=== PATIENT | female | born 1955 | race Caucasian/White ===

== ENCOUNTER 2023-01-29 06:33 | Day surgery (SDC) | payer MEDICARE, OTHER, SELFPAY ==
[2023-01-29 07:47] VITALS: BP 132/76; PULSE 79; RESP 16; TEMP 36.2; O2SAT 98
--- NOTE | 2023-01-29 08:01 | W.PM.PROCNOT ---
Date of procedure: 01/29/23 Pre-op diagnosis: lumbar stenosis with neurogenic claudication Procedure: Right L4, L5 transforaminal epidural steroid injection PRE- AND POSTOPERATIVE DIAGNOSES: lumbar stenosis with neurogenic claudication SOLUTION USED: 80 mg Kenalog, 1 mL 2% preservative free lidocaine, 1 mL 0.9% normal saline, 1 mL 0.25 preservative free Marcaine. COMPLICATIONS: None. ANESTHESIA: Local. PROCEDURE DESCRIPTION: After informed consent was obtained, the patient was brought to the operating room and was placed in the prone position. Standard monitoring was applied. The skin overlying the area was prepped and draped in standard sterile fashion. A 25-gauge spinal needle was inserted through the skin and directed toward the indicated nerve root foramen under fluoroscopic guidance. Omnipaque dye 0.3 mL was injected and appropriate epidural distribution was established without intravascular or intrathecal spread. Subsequently, 1 mL of the corticosteroid and local anesthetic solution was injected. The needle was removed. The patient was then turned supine onto the gurney and transferred to the recovery area in stable condition, to be discharged home after meeting criteria and follow up as per treatment plan. Surgeon: Nichole Painter Condition: stable
[2023-01-29] MEDS: IOHEXOL 240 MG/ML - 10 ML VIAL INJ (08:11)
[2023-01-29] MEDS: BUPIVACAINE HCL 0.25% PF 25 MG/10 ML VIAL INJ (08:11)
[2023-01-29] MEDS: TRIAMCINOLONE ACETONIDE 40 MG/ML VIAL INJ (08:12)
[2023-01-29] MEDS: LIDOCAINE HCL 2% PF 100 MG/5 ML VIAL INJ (08:12)
[2023-01-29 10:28] VITALS: BP 158/70; BP 179/84; PULSE 75; PULSE 77; RESP 18; RESP 8; O2SAT 97; O2SAT 98
== END 2023-01-29 08:18 | disposition home or self-care (01) ==
PROVIDERS: PCP Internal Medicine; Visit Provider Anesthesiology
DX: M48.062 Spinal stenosis, lumbar region with neurogenic claudication (principal)
CPT/HCPCS: 64483; 64484; Q9966

== ENCOUNTER 2023-02-12 07:42 | Day surgery (SDC) | payer MEDICARE, SELFPAY ==
[2023-02-12 08:25] VITALS: BP 144/92; PULSE 70; RESP 16; TEMP 36.2; O2SAT 95
[2023-02-12] MEDS: BUPIVACAINE HCL 0.25% PF 25 MG/10 ML VIAL INJ (09:21)
[2023-02-12] MEDS: LIDOCAINE HCL 2% PF 100 MG/5 ML VIAL INJ (09:22)
[2023-02-12] MEDS: IOHEXOL 240 MG/ML - 10 ML VIAL INJ (09:22)
[2023-02-12] MEDS: TRIAMCINOLONE ACETONIDE 40 MG/ML VIAL INJ (09:23)
--- NOTE | 2023-02-12 09:28 | P.ON_ITS ---
Date of procedure: 02/12/23 Pre-op diagnosis: Sacroiliitis, right Post-op diagnosis: same Procedure: Right nerve block of the nerve innervating the sacroiliac joint Medications: Bupivacaine 0.25% 3cc, kenalog 80mg After informed consent was obtained, the patient was brought to the medical procedure unit and placed in the prone position, when a timeout was completed verifying correct patient, procedure, site, positioning, implant, and/or special equipment.? The skin overlying the area was prepped and draped in standard sterile fashion using alcohol.? A 25-gauge needle was inserted into the right nerve innervating the sacroiliac joint under direct fluoroscopic imaging.? Ne edle tip was advanced.? After contrast was injected, which did not show any vascular uptake, we instilled a total of 3 mL of solution along the nerve.? Postoperatively needles were removed.? The patient tolerated the procedure well without complication.? The patient reported reduction in pain symptoms postoperatively.
[2023-02-12 12:06] VITALS: BP 175/80; BP 184/87; PULSE 71; PULSE 81; RESP 18; O2SAT 97
== END 2023-02-12 09:26 | disposition home or self-care (01) ==
PROVIDERS: PCP Internal Medicine; Visit Provider Anesthesiology
DX: M46.1 Sacroiliitis, not elsewhere classified (principal)
CPT/HCPCS: 27096; Q9966

== ENCOUNTER 2023-02-26 12:16 | Outpatient (OUT) | payer MEDICARE, OTHER, SELFPAY ==
--- NOTE | 2023-02-26 13:38 | P.CN_ITS ---
Consult Note: HPI Data of Consult Patient: known to practice within the last 3 years Consult date: 02/26/23 Requesting Physician: Nichole Painter MD Primary Care Provider: CLAUDIA HANNA Consult Narrative Reason for consult: Low back pain Narrative: this is a pleasant 67-year-old female who presents for system. She has significant relief after her recent lumbar epidural steroid injection and sacroiliac joint injection. Her primary complaint now is residual axial low back pain. She continues to stay active and engage in provider directed home exercises. She continues to utilize Celebrex as needed. Shhe otherwise denies adverse medications are Effexor was a bar bladder trouble. cc:: CC: Nichole Painter MD Review of Systems ROS Status of ROS 10 or more systems reviewed and unremarkable except as noted in history and below [facility] Medical History Surgical History Meds Home Medications and Allergies Home Medications Medication Instructions Recorded Confirmed Type ascorbic acid (vitamin C) 500 mg 500 mg PO DAILY 01/25/23 02/12/23 History tablet (C-500) calcium carbonate PO QDAY 01/25/23 History calcium phosphate,dibasic 77 tab PO QDAY 01/25/23 History mg-vitamin D3 400 unit tablet celecoxib 200 mg capsule (Celebrex) 200 mg PO BID 01/25/23 02/12/23 History multivitamin 1 tab PO DAILY 01/25/23 02/12/23 History zolpidem 5 mg tablet (Ambien) .HS 01/25/23 History Allergies Allergy/AdvReac Type Severity Reaction Status Date / Time celecoxib [From Celebrex] Allergy Mild Diarrhea Verified 01/29/23 07:45 diclofenac Allergy Mild Blister Verified 01/25/23 07:22 tetracycline Allergy Mild Unknown Verified 01/25/23 07:13 Exam Constitutional Common normals: no apparent distress, oriented x3 and healthy appearing Respiratory Common normals: normal respiratory effort Effort & inspection: able to speak in complete sentences Back & Pelvis Other: tenderness to palpation throughout the bilateral lumbar spine and paraspinal musculature. Pain is elicited with flexion, extension, and lateral rotation of the lumbar spine. Facet loading maneuvers are positive bilaterally. Coordination remains intact. Gait is nonantalgic. Extremity Common normals: normal to inspection Neuro Common normals: oriented x3, CN's II-XII intact bilaterally and no focal motor deficits Psych Common normals: mental status grossly normal and cooperative Assessment and Plan Assessment and Plan (1) Lumbar spondylosis: (2) Lumbar stenosis with neurogenic claudication: (3) Sacroiliac dysfunction: Plan this is a pleasant 67-year-old female who presents for assessment. I'm glad that she had significant relief after her recent lumbar epidural steroid injection and sacroiliac joint injection. I suspect that her residual pain is a consequence of her lumbar facet arthropathy. She previously underwent a lumbar radio frequency ablation in April 2021, which provided significant relief for greater than a six month period. Given her residual axial low back pain, I would like to repeat diagnostic bilateral L4-L5, L5-S1 medial branch blocks under fluoroscopic guidance with the intention of proceeding to any frequency ablation. She is in agreement with this plan. Medications were reviewed, and no changes were made at this time. She will follow-up after the procedures completed.
== END 2023-02-26 12:17 | disposition home or self-care (01) ==
LOC: PM 12:16
PROVIDERS: PCP Internal Medicine; Visit Provider Anesthesiology
DX: M47.816 Spondylosis without myelopathy or radiculopathy, lumbar region (principal); M48.062 Spinal stenosis, lumbar region with neurogenic claudication; M53.3 Sacrococcygeal disorders, not elsewhere classified; M54.50 Low back pain, unspecified
CPT/HCPCS: G0463

== ENCOUNTER 2023-03-19 07:40 | Day surgery (SDC) | payer MEDICARE, OTHER, SELFPAY ==
[2023-03-19 08:15] VITALS: BP 162/93; PULSE 73; RESP 16; TEMP 36.2; O2SAT 99
[2023-03-19] MEDS: LIDOCAINE HCL 2% PF 100 MG/5 ML VIAL INJ (09:06)
[2023-03-19] MEDS: BUPIVACAINE HCL 0.25% PF 25 MG/10 ML VIAL INJ (09:06)
[2023-03-19] MEDS: TRIAMCINOLONE ACETONIDE 40 MG/ML VIAL INJ (09:06)
--- NOTE | 2023-03-19 09:08 | W.PM.PROCNOT ---
Date of procedure: 03/19/23 Pre-op diagnosis: Lumbosacral spondylosis Post-op diagnosis: same Procedure: Procedure: Bilateral L4-5, L5-S1 medial branch block Medications: Bupivacaine 0.25% 4cc The patient was seen and examined in the preoperative holding area.? An informed consent was obtained and placed on the chart.? The patient was brought to the medical procedure unit and placed in the prone position.? A timeout was completed verifying correct patient, procedure site, positioning, plan, and special equipment.? Using aseptic technique, the needle was placed at left L4. Under direct fluoroscopic visualization a Quincke-tipped spinal needle was advanced to the junction of the superior articulating process with the transverse process at the designated medial branch segment.? Preceded by negative aspiration, the above-mentioned injectate was placed in 1 mL aliquots.? The procedure was repeated at left L5, S1.? The needle was removed and insertion site was covered. The same procedure, at the same levels, was completed on the right side. The patient was taken to the postprocedural recovery area and monitored for an appropriate length of time before found suitable for discharge in the company of a responsible adult. Anesthesia: None Surgeon: Nichole Painter Pathology: none sent Condition: stable Disposition: no change
[2023-03-19 13:55] VITALS: BP 176/87; BP 181/91; PULSE 82; PULSE 83; RESP 18; O2SAT 97
== END 2023-03-19 09:13 | disposition home or self-care (01) ==
LOC: SURGOUT 07:40
PROVIDERS: PCP Internal Medicine; Visit Provider Anesthesiology
DX: M47.817 Spondylosis without myelopathy or radiculopathy, lumbosacral region (principal)
CPT/HCPCS: 64493; 64494

== ENCOUNTER 2023-03-30 10:02 | Outpatient (OUT) | payer MEDICARE, OTHER, SELFPAY ==
--- NOTE | 2023-03-30 10:29 | PM.CN ---
Consult Note: HPI Data of Consult Patient: known to practice within the last 3 years Consult date: 03/30/23 Requesting Physician: MORELIA LYONS NP Primary Care Provider: CLAUDIA HANNA Consult Narrative Narrative: Patient is here for f/u of chronic low back pain. She had bilateral lumbar MBB L4/5 L5/S1 with 80% relief of pain and increased fx with increased walking. She would like to proceed with second MBB of same area and ultimately RFA. Her last RFA gave her 18 months of relief. Pain is axial without radiculopathy. . Pain today is bilat lower lumbar worse with movement. No new sensorimotor sx or bowel or bladder issues. Medication regimen assists patient to better complete ADLs. Denies adverse medication SE. OARRS reviewed. cc:: CC: MORELIA LYONS NP Review of Systems ROS Status of ROS 10 or more systems reviewed and unremarkable except as noted in history and below Musculoskeletal Reports: back pain PFSH PFSH Medical History Surgical History Meds Home Medications and Allergies Home Medications Medication Instructions Recorded Confirmed Type ascorbic acid (vitamin C) 500 mg 500 mg PO DAILY 01/25/23 03/19/23 History tablet (C-500) calcium carbonate PO QDAY 01/25/23 History calcium phosphate,dibasic 77 tab PO QDAY 01/25/23 History mg-vitamin D3 400 unit tablet celecoxib 200 mg capsule (Celebrex) 200 mg PO BID 01/25/23 03/19/23 History multivitamin 1 tab PO DAILY 01/25/23 03/19/23 History zolpidem 5 mg tablet (Ambien) .HS 01/25/23 History Allergies Allergy/AdvReac Type Severity Reaction Status Date / Time celecoxib [From Celebrex] Allergy Mild Diarrhea Verified 03/19/23 08:39 diclofenac Allergy Mild Blister Verified 03/19/23 08:39 tetracycline Allergy Mild Unknown Verified 03/19/23 08:39 Exam Constitutional Documenting provider has reviewed patient's vital signs: yes Common normals: no apparent distress, average body habitus, oriented x3, no limitations, healthy appearing, alert and well nourished General appearance: cooperative, comfortable and well developed Orientation/consciousness: Yes awake, Yes oriented to person, Yes oriented to place and Yes oriented to time HENMT Common normals: normocephalic and moist oral mucous membranes Respiratory Common normals: normal respiratory effort, no retractions and no use of accessory muscles Effort & inspection: able to speak in complete sentences and symmetric chest movement Back & Pelvis Lumbar spine/lower back: normal to inspection, pain with ROM, paraspinal muscle tenderness and paraspinal muscle spasm Other: positive facet load pain bilat lumbar muscle strength 5/5 bilat LE with intact sensation Assessment and Plan Assessment and Plan (1) Lumbar spondylosis: (2) Lumbar stenosis with neurogenic claudication: Plan schedule second dx MBB bilat lumbar L4/5 L5/S1 under fluoroscopy with ultimate progression to RFA
== END 2023-03-30 10:03 | disposition home or self-care (01) ==
PROVIDERS: PCP Internal Medicine; Visit Provider Nurse Practitioner
DX: M47.816 Spondylosis without myelopathy or radiculopathy, lumbar region (principal); M48.062 Spinal stenosis, lumbar region with neurogenic claudication
CPT/HCPCS: G0463

== ENCOUNTER 2023-04-30 06:40 | Day surgery (SDC) | payer MEDICARE, OTHER, SELFPAY ==
[2023-04-30 06:57] VITALS: BP 149/91; PULSE 86; RESP 16; TEMP 36.2; O2SAT 98
[2023-04-30] MEDS: BUPIVACAINE HCL 0.25% PF 25 MG/10 ML VIAL INJ (07:57)
[2023-04-30] MEDS: LIDOCAINE HCL 2% PF 100 MG/5 ML VIAL INJ (07:58)
[2023-04-30] MEDS: TRIAMCINOLONE ACETONIDE 40 MG/ML VIAL INJ (07:58)
[2023-04-30 07:59] VITALS: BP 170/87; PULSE 85; RESP 18; O2SAT 97
--- NOTE | 2023-04-30 08:00 | W.PM.PROCNOT ---
Date of procedure: 04/30/23 Pre-op diagnosis: lumbar spondylosis Post-op diagnosis: same as pre-op Procedure: Procedure: Bilateral L4-5, L5-S1 medial branch block Medications: Bupivacaine 0.25% 4cc The patient was seen and examined in the preoperative holding area.? An informed consent was obtained and placed on the chart.? The patient was brought to the medical procedure unit and placed in the prone position.? A timeout was completed verifying correct patient, procedure site, positioning, plan, and special equipment.? Using aseptic technique, the needle was placed at left L4. Under direct fluoroscopic visualization a Quincke-tipped spinal needle was advanced to the junction of the superior articulating process with the transverse process at the designated medial branch segment.? Preceded by negative aspiration, the above-mentioned injectate was placed in 1 mL aliquots.? The procedure was repeated at left L5, S1.? The needle was removed and insertion site was covered. The same procedure, at the same levels, was completed on the right side. The patient was taken to the postprocedural recovery area and monitored for an appropriate length of time before found suitable for discharge in the company of a responsible adult. Anesthesia: Local Surgeon: Nichole Painter Pathology: none sent Condition: stable Disposition: no change
[2023-05-01 10:33] VITALS: BP 163/88; PULSE 83; RESP 18; O2SAT 95
== END 2023-04-30 08:04 | disposition home or self-care (01) ==
LOC: SURGOUT 06:41
PROVIDERS: PCP Internal Medicine; Visit Provider Anesthesiology
DX: M47.816 Spondylosis without myelopathy or radiculopathy, lumbar region (principal)
CPT/HCPCS: 64493; 64494

== ENCOUNTER 2023-05-04 08:34 | Outpatient (OUT) | payer MEDICARE, OTHER, SELFPAY ==
--- NOTE | 2023-05-04 08:43 | MM_ITS ---
Patient: SUMAN RODAS Exam Date: 05/04/2023 : 1955 Gender:F Ordering : DR CLAUDIA HANNA M.D. Admission #: [id number] Family : Order #: [id number] CLICK HERE TO VIEW EXAM RADIOLOGY REPORT PROCEDURE: MM TOMOSYNTHESIS SCREENING BI COMPARISON: MG MAMM SCREEN 3D DAHIANA CAD, 04/13/2022. MG MAMM SCREEN 3D DAHIANA CAD, 03/30/2021. INDICATIONS: Screening Calculator Name NCI Breast Cancer Risk Assessment Tool 5 Year Breast Cancer Risk 2.40% Lifetime Breast Cancer Risk 7.30% Personal Breast Cancer No Personal Ovarian Cancer No Treatments None Family Cancers Aunt-paternal with breast cancer at age ~75. LOCATION: [facility] BREAST COMPOSITION: Almost entirely fatty. FINDINGS: DIAGNOSTIC CATEGORY 1--NEGATIVE. NO CHANGE FROM COMPARISON ASSESSMENT. Scattered benign-appearing calcifications are present. Scattered benign-appearing lymph nodes are present. RIGHT BREAST: No significant suspicious finding. LEFT BREAST: No significant suspicious finding. RECOMMENDATIONS: ROUTINE MAMMOGRAM AND CLINICAL EVALUATION IN 12 MONTHS. PLEASE NOTE: A NORMAL MAMMOGRAM DOES NOT EXCLUDE THE POSSIBILITY OF BREAST CANCER. A CLINICALLY SUSPICIOUS PALPABLE LUMP SHOULD BE BIOPSIED. Dictated by: Tyler Conklin MD on 05/04/2023 at 12:14 Approved by: Tyler Conklin MD on 05/04/2023 at 12:16
== END 2023-05-04 08:35 | disposition home or self-care (01) ==
PROVIDERS: PCP Internal Medicine; Visit Provider Internal Medicine
DX: Z12.31 Encounter for screening mammogram for malignant neoplasm of breast (principal); Z80.3 Family history of malignant neoplasm of breast
CPT/HCPCS: 77063; 77067

== ENCOUNTER 2023-05-10 08:52 | Outpatient (OUT) | payer MEDICARE, OTHER, SELFPAY ==
--- NOTE | 2023-05-10 09:05 | PM.CN ---
Consult Note: HPI Data of Consult Patient: known to practice within the last 3 years Requesting Physician: Gabriela Martinez NP Primary Care Provider: CLAUDIA HANNA Consult Narrative Reason for consult: procedure f/u Narrative: Kerry Sanz a pleasant 68 year old female presents for evaluation of chronic low back pain unresponsive to medications and PT for greater than 3 months. Recently underwent Bilateral L4-5, L5-S1 medial branch block #2 with >80% pain relief and functional improvement cc:: CC: Gabriela Martinez NP Review of Systems ROS Status of ROS 10 or more systems reviewed and unremarkable except as noted in history and below [facility] Medical History Surgical History Meds Home Medications and Allergies Home Medications Medication Instructions Recorded Confirmed Type ascorbic acid (vitamin C) 500 mg 500 mg PO DAILY 01/25/23 04/30/23 History tablet (C-500) calcium carbonate PO QDAY 01/25/23 History calcium phosphate,dibasic 77 tab PO QDAY 01/25/23 History mg-vitamin D3 400 unit tablet multivitamin 1 tab PO DAILY 01/25/23 04/30/23 History zolpidem 5 mg tablet (Ambien) .HS 01/25/23 History ibuprofen 600 mg tablet 600 mg PO PRN pain 04/17/23 History Allergies Allergy/AdvReac Type Severity Reaction Status Date / Time celecoxib [From Celebrex] Allergy Mild Diarrhea Verified 03/19/23 08:39 diclofenac Allergy Mild Blister Verified 03/19/23 08:39 tetracycline Allergy Mild Unknown Verified 03/19/23 08:39 Exam Constitutional Documenting provider has reviewed patient's vital signs: yes Common normals: no apparent distress, oriented x3, healthy appearing, alert and well nourished General appearance: cooperative Nutritional appearance: obese HENMT Common normals: normocephalic, hearing grossly normal bilaterally and moist oral mucous membranes Head and scalp: normocephalic Eye Common normals: PERRL Pupil: PERRL Neck & C-Spine Common normals: full ROM General: normal visual inspection Chest Common normals: inspection of chest normal Respiratory Common normals: normal respiratory effort, no retractions and no use of accessory muscles Back & Pelvis Lumbar spine/lower back: ROM limited, pain with ROM and straight leg raise negative bilaterally Other: no radiculopathy bilateral positive facet loading predominately axial low back pain over L4-5 L5-S1 R>L Extremity Common normals: normal to inspection and full ROM Neuro Common normals: oriented x3, CN's II-XII intact bilaterally, moves all extremities, no focal motor deficits, no sensory deficits noted, deep tendon reflexes 2+ bilaterally and gait normal Sensorium/orientation: alert Motor exam: strength 5/5 throughout and no movement abnormalities noted Psych Common normals: mental status grossly normal, thought process normal, cooperative, affect normal, speech normal and activity/motor behavior normal Speech: normal speech Thought process: normal thought process Results Additional Findings Additional findings: As part of providing excellent, safe, comprehensive care, the following was completed at our patient's visit: 1. A medication reconciliation and review to ensure accurate knowledge of current/active medications, including asking our patients to inform us about any [id number] medications or herbal remedies/nutritional supplements/alternative remedies. 2. A review to specifically ensure our patients have had annual screening for: elevated body mass index (BMI), tobacco use, screening for depression, and screening for unhealthy alcohol use. When screening is concerning, patients are provided with education and the specific recommendation to discuss the concerning health issue and treatment options with their primary care provider. Assessment and Plan Assessment and Plan (1) Lumbar spondylosis: Assessment and Plan: The patient has had over 3 months of moderate to severe low back pain with functional impairment and inadequate response to conservative care including NSAIDS (unless there are contraindication such as concurrent blood thinners), multiple oral or topical pain medications, and home exercise program/physical therapy. ? Patient has completed >6 weeks of guided home exercise program and/or formal physical therapy program without relief of their symptoms.? I have reviewed the imaging of the lumbar spine and no red flags were identified.? The imaging reveals radiographic findings consistent with lumbar spondylosis Please see paper chart for BORA We discussed the risks and benefits of the procedure with the patient, and we are planning on using sedation as outlined in the guidelines from Medicare unless there is a documented reason that sedation would be strongly recommended.?? The procedure will be completed with fluoroscopic guidance.? (2) Elevated blood pressure reading: Assessment and Plan: Blood pressure is elevated today. No signs or symptoms of IA/CVA including chest pain, SOB, left sided acute neck, arm, or jaw pain (separate from chronic pain complaint), diaphoresis, facial drooping, new acute neuro changes in both upper and lower extremities (other than those mentioned in the note above). Recommend follow up with PCP for further evaluation and treatment.? (3) Obesity: Assessment and Plan: The patient was counseled that proper dietary changes and consistent participation in a home exercise plan can lead to weight loss. Weight loss can help to improve functionality in patients with chronic pain.? Plan proceed with Bilateral L4-5, L5-S1 thermal RFA under fluoroscopy patient will be going down to [place] for 6 months after the procedure, discussed we would like to follow up 1 month after the procedure f/u as needed
== END 2023-05-10 08:53 | disposition home or self-care (01) ==
LOC: PM 08:53
PROVIDERS: PCP Internal Medicine; Visit Provider Nurse Practitioner
DX: M47.816 Spondylosis without myelopathy or radiculopathy, lumbar region (principal); R03.0 Elevated blood-pressure reading, without diagnosis of hypertension; E66.9 Obesity, unspecified
CPT/HCPCS: G0463

== ENCOUNTER 2023-05-28 09:04 | Day surgery (SDC) | payer MEDICARE, OTHER, SELFPAY ==
[2023-05-28 09:35] VITALS: BP 156/97; PULSE 82; RESP 16; TEMP 36.3; O2SAT 98
[2023-05-28 10:13] VITALS: BP 187/94; PULSE 73; RESP 17; O2SAT 96
[2023-05-28] MEDS: TRIAMCINOLONE ACETONIDE 40 MG/ML VIAL 80 MG INJ (10:19)
[2023-05-28] MEDS: BUPIVACAINE HCL 0.25% PF 25 MG/10 ML VIAL 4 ML INJ (10:19)
[2023-05-28] MEDS: LIDOCAINE HCL 2% 400 MG/20 ML MDV INJ (10:19)
[2023-05-28 10:28] VITALS: BP 174/93; PULSE 69; RESP 18; O2SAT 97
--- NOTE | 2023-05-28 10:30 | P.ON_ITS ---
Date of procedure: 05/28/23 Pre-op diagnosis: Lumbar spondylosis Post-op diagnosis: same as pre-op Procedure: Procedure: Bilateral L4-5, L5-S1 radiofrequency ablation Medications: Bupivacaine 0.25% 6cc, lidocaine 2% 5cc, kenalog 80mg The patient was seen and examined in the preoperative holding area.? The site was marked.? Written informed consent was obtained and placed on the chart.? The patient was brought to the medical procedure unit and placed in the prone position.? A timeout was completed verifying correct patient, procedure, positioning, and special requirements.? The skin overlying the target points, the designated medial branch, were prepped and draped in the usual sterile fashion.? The target point was achieved with a 20-gauge 15 cm with a 10 mm curved active tip radiofrequency cannula under direct fluoroscopic visualization.? The needle was inserted at level L4 on the right side. Needle tip position was confirmed with lateral fluoroscopic position.? Motor stimulation was carried out at 2 Hz up to 5 volts with the absence of extremity activity.? This was repeated at level L5, S1 on right side.?? Sensory stimulation was carried out.? Concordant pain was realized at the above- mentioned sites.? Then radiofrequency lesioning was carried out times 90 seconds at 80 degrees times 2 lesions at each level.? The radiofrequency probe was removed prior to cannula removal.? The above-mentioned injectate was placed in 1 mL increments.? The needle was removed. The same procedure, with the same steps, was then completed on the left side at the same levels. Insertion sites were covered.? The patient was taken to the postoperative recovery area and monitored for an appropriate length of time before being found suitable for discharge in the company of a responsible adult. Anesthesia: Local Surgeon: Nichole Painter Pathology: none sent Condition: stable Disposition: no change
== END 2023-05-28 10:34 | disposition home or self-care (01) ==
PROVIDERS: PCP Internal Medicine; Visit Provider Anesthesiology
DX: M47.816 Spondylosis without myelopathy or radiculopathy, lumbar region (principal)
CPT/HCPCS: 64635; 64636

== ENCOUNTER 2024-03-24 13:57 | Outpatient (OUT) | payer MEDICARE, OTHER, SELFPAY ==
--- NOTE | 2024-03-24 14:56 | P.CN_ITS ---
Consult Note: HPI Data of Consult Patient: known to practice within the last 3 years Consult date: 03/24/24 Requesting Physician: Nichole Painter MD Primary Care Provider: CLAUDIA HANNA Consult Narrative Reason for consult: low back pain Narrative: 68yof who presents for assessment. notes increasing low back pain that has intensified over past month. previously underwent lumbar RFA in May 2023, which provided 100% relief up until recent. continues in a series of provider directed home exercises >6 weeks, without lasting benefit. uses otc pain meds as needed. denies adverse med side effects. cc:: CC: Nichole Painter MD Review of Systems ROS Status of ROS 10 or more systems reviewed and unremark able except as noted in history and below PFSH [facility] Medical History History of fracture of right ankle ?Z87.81 - Personal history of (healed) traumatic fracture (ICD-10) Hepatitis C ?B19.20 - Unspecified viral hepatitis C without hepatic coma (ICD-10) Surgical History H/O dilation of urethra ?Z98.890 - Other specified postprocedural states (ICD-10) Hx of appendectomy ?Z90.49 - Acquired absence of other specified parts of digestive tract (ICD- 10) History of right oophorectomy ?Z90.721 - Acquired absence of ovaries, unilateral (ICD-10) History of carpal tunnel release ?Z98.890 - Other specified postprocedural states (ICD-10) Hx of cholecystectomy ?Z90.49 - Acquired absence of other specified parts of digestive tract (ICD- 10) Meds Home Medications and Allergies Home Medications ?Medication ?Instructions ?Recorded ?Confirmed ?Type calcium carbonate PO QDAY 01/25/23 History multivitamin 1 tab PO DAILY 01/25/23 05/28/23 History zolpidem 5 mg tablet (Ambien) 10 mg PO .HS 01/25/23 05/28/23 History ibuprofen 600 mg tablet 600 mg PO PRN pain 04/17/23 History cetirizine 5 mg-pseudoephedrine ER 1 tab PO BID 05/28/23 05/28/23 History 120 mg tablet,extended release,12hr (All Day Allergy-D) prednisone 20 mg tablet 20 mg PO BID 05/28/23 05/28/23 History Allergies Allergy/AdvReac Type Severity Reaction Status Date / Time celecoxib [From Celebrex] Allergy Mild Diarrhea Verified 03/19/23 08:39 diclofenac Allergy Mild Blister Verified 03/19/23 08:39 tetracycline Allergy Mild Unknown Verified 03/19/23 08:39 Exam Narrative Exam Narrative: Psych-alert and oriented x 3. Attentive and appropriate, constitutionally normal, displays normal mood and affect per situation.? There are no obvious deficits in memory, reasoning, or intellect.? Skin-no obvious rashes, bruising, erythema noted to the patient's area of pain. Extremities- extremities are warm with minimal edema and palpable pulses. Lumbar-no significant tenderness to palpation noted in the lumbar spine and paraspinal musculature.? Pain is elicited with extension, and lateral rotation of the lumbar spine. Range of motion is slightly diminished with these motions due to pain. Facet loading maneuvers are positive bilaterally and do appear to be concordant with the patient's normal complaints of pain.? Coordination remains intact.? Gait remains non-antalgic. Assessment and Plan Assessment and Plan (1) Lumbar spondylosis: (2) Lumbar stenosis with neurogenic claudication: Plan 68yof who presents for assessment. failed conservative measures, as noted. given her significant pain relief with her lumbar RFA previously and her symptoms returning, it is prudent to repeat bilateral l4-5, l5-s1 rfa under fluoroscopic guidance. she is in agreement. meds reviewed, no changes. follow up after procedure.
== END 2024-03-24 13:58 | disposition home or self-care (01) ==
LOC: PM 13:57
PROVIDERS: PCP Internal Medicine; Visit Provider Anesthesiology
DX: M47.816 Spondylosis without myelopathy or radiculopathy, lumbar region (principal); M48.062 Spinal stenosis, lumbar region with neurogenic claudication
CPT/HCPCS: G0463

== ENCOUNTER 2024-04-14 07:12 | Day surgery (SDC) | payer MEDICARE, OTHER, SELFPAY ==
--- OUTSIDE RECORDS SUMMARY | 2024-04-14 07:15 | XMS_ITS | CCD ---
Author Organization [facility] CliniSyoh Care Team Providers Care Information Systems Architect Name Role Phone LAY, MARGE Unavailable Unavailable LAY, MARGE Unavailable Unavailable WALT TAPIA Unavailable Unavailable WALT TAPIA Unavailable Unavailable JACQUES, DR TAYLOR Primary Care Unavailable GIEDRAITIS, ANDRIUS Admitting Unavailable GIEDRAITIS, ANDRIUS Attending Unavailable GABRIELLA, MICHAEL Admitting Unavailable ZIROBINSON, DR BERHANE Costa Consulting Unavailable MICHAEL QUIROZ Attending Unavailable JACQUES, DR TAYLOR Primary Care Unavailable YAN STREET Consulting Unavailable MICHAEL QUIROZ Consulting Unavailable JACQUES, DR TAYLOR Consulting Unavailable JACQUES, DR TAYLOR Primary Care Unavailable LIM ., SERINA Admitting Unavailable LIM ., SERINA Attending Unavailable ZIEBER, DR BERHANE Costa Consulting Unavailable LIM ., SERINA Consulting Unavailable KALYN ., DR MICKI Mtata Admitting Unavailable DR WALT TAPIA Primary Care Unavailable KALYN ., DR MICKI Matta Attending Unavailable MCCAIN ., DR MICKI Matta Consulting Unavailable LIM ., SERINA Consulting Unavailable MCCAIN ., DR MICKI Matta Admitting Unavailable MCCAIN ., DR MICKI Matta Attending Unavailable DR WALT TAPIA Primary Care Unavailable LIM ., SERINA Consulting Unavailable MCCAIN ., DR MICKI Matta Admitting Unavailable MCCAIN ., DR MICKI Matta Consulting Unavailable MCCAIN ., DR MICKI Matta Attending Unavailable DR WALT TAPIA Primary Care Unavailable Elizabeth Mayes Unavailable KAREN STREET Attending Unavailable KAREN STREET Referring Unavailable KAREN STREET Attending Unavailable KAREN STREET Attending Unavailable HYUN DOUGHERTY Attending Unavailable KAREN STREET Attending Unavailable HYUN DOUGHERTY Attending Unavailable Gijeet CONTI, Nichole Guerra Attending Unavailable Gieditis , Nichole Guerra Attending Unavailable Giedvalentín CONTI, Andrius Vytautas Attending Unavailable Allergies Allergy Classification Reported Allergen(s) Allergy Type Date of Onset Reaction(s) Facility (1 source) Tetracyclines Drug allergy (disorder) 9 [facility] Repository (1 source) celecoxib Drug Allergy [facility] Repository (2 sources) Tetracycline Drug Allergy 4 [facility] Repository (1 source) Tetracycline Drug Allergy rash [facility] Other Medications Current Medications Medication Drug Class(es) Dates Sig (Normalized) Sig (Original) predniSONE 20 mg oral tablet (1 source) Start: 05-25-2023 take 1 tablet by mouth every twelve hours prednisone 20 MG 1 tablet Orally BID for 5 May, Active Completed/Discontinued Medications Medication Drug Class(es) Dates Sig (Normalized) Sig (Original) amoxicillin 875 mg oral tablet (1 source) Penicillin-class Antibacterial Start: 08-14-2018 take 1 tablet by mouth every twelve hours Amoxicillin 875 MG 1 tablet Orally every 12 hrs for 10 day(s) Jul, Not-Taking fluconazole 50 mg oral tablet (1 source) Azole Antifungal Start: 08-15-2018 take 1 tablet by mouth every twenty-four hours Diflucan 50 MG 1 tablet Orally Once a day for 10 day(s) Jul, Not-Taking fluticasone propionate 0.05 mg/actuat metered dose nasal spray (1 source) Corticosteroid Start: 08-14-2018 take 2 spray(s) nasal route once daily Fluticasone Propionate 50 MCG/ACT 2 sprays in each nostril Nasally Once a day for 14 days Jul, Not-Taking zolpidem (1 source) gamma-Aminobutyric Acid-ergic Agonist Zolpidem Tartrate Not-Taking Problems Active Problems Problem Classification Problem Date Documented Date Episodic/Chronic Menopausal disorders (1 source) Other primary ovarian failure; Translations: [OTHER PRIMARY OVARIAN FAILURE] Onset: 04-14-2022 Chronic Other liver diseases (4 sources) Liver disease, unspecified; Translations: [LIVER DISEASE, UNSPECIFIED] Onset: 03-14-2017 Chronic Otitis media and related conditions (1 source) Other acute nonsuppurative otitis media, bilateral Episodic Spondylosis; intervertebral disc disorders; other back problems (5 sources) Other spondylosis with radiculopathy, lumbar region; Translations: [OTH SPONDYLS RADICULOPATHY LUMB RGN] Onset: 02-15-2022 Chronic Unclassified (2 sources) LOW BACK PAIN, UNSPECIFIED; Translations: [LOW BACK PAIN, UNSPECIFIED] Onset: 03-16-2022 Past or Other Problems Problem Classification Problem Date Documented Da te Episodic/Chronic Other bone disease and musculoskeletal deformities (1 source) Other specified disorders of bone density and structure, unspecified site; Translations: [[facility] D/O BONE DEN STRUCT UNS SITE] Onset: 04-14-2022 Episodic Other connective tissue disease (1 source) Cramp and spasm; Translations: [CRAMP AND SPASM] Onset: 02-22-2022 Episodic Other screening for suspected conditions (not mental disorders or infectious disease) (4 sources) Encounter for screening mammogram for malignant neoplasm of breast; Translations: [ENC SCR MAMMO MALIG NEOPLASM BREAST] Onset: 04-13-2022 Episodic Residual codes; unclassified (1 source) Family history of malignant neoplasm of breast; Translations: [FAMILY HX MALIG NEOPLASM OF BREAST] Onset: 04-14-2022 Episodic Residual codes; unclassified (1 source) Sleep disorder, unspecified; Translations: [SLEEP DISORDER UNSPECIFIED] Onset: 12-30-2021 Episodic Spondylosis; intervertebral disc disorders; other back problems (10 sources) Intervertebral disc disorders with radiculopathy, lumbar region; Translations: [Radiculopathy, lumbar region] Onset: 12-27-2021 Episodic Unclassified (1 source) LOW BACK PAIN, UNSPECIFIED; Translations: [LOW BACK PAIN, UNSPECIFIED] Onset: 03-07-2022 Results Test Name Value Interpretation Reference Range Facility MG MAMM SCREEN 3D DAHIANA CADon 04-13-2022 MG MAMM SCREEN 3D DAHIANA CAD Patient: SUMAN RODAS Exam Date: 04/13/2022 : 1955 Gender:F Ordering : 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 MG MAMM SCREEN DAHIANA W CAD, 03/12/2020. INDICATIONS: Screening mammography Calculator Name NCI Breast Cancer Risk Assessment Tool 5 Year Breast Cancer Risk 2.40% Lifetime Breast Cancer Risk 7.60% Personal Breast Cancer No Personal Ovarian Cancer No Treatments None Family Cancers Aunt-paternal with breast cancer at age 75. LOCATION: [facility] BREAST COMPOSITION: Almost entirely fatty. FINDINGS: DIAGNOSTIC CATEGORY 1--NEGATIVE. RIGHT BREAST: No significant suspicious finding. No significant change has occurred. LEFT BREAST: No significant suspicious finding. No significant change has occurred. RECOMMENDATIONS: ROUTINE MAMMOGRAM AND CLINICAL EVALUATION IN 12 MONTHS. PLEASE NOTE: A NORMAL MAMMOGRAM DOES NOT EXCLUDE THE POSSIBILITY OF BREAST CANCER. A CLINICALLY SUSPICIOUS PALPABLE LUMP SHOULD BE BIOPSIED. Dictated by: Berhane Ventura M.D. on 04/14/2022 at 12:55 Approved by: Berhane Ventura M.D. on 04/14/2022 at 12:58 Normal [facility] XR DEXA BONE DENSITYon 04-13 XR DEXA BONE DENSITY DEXA Bone Density Study CLINICAL: Evaluate bone mineral density. Menopausal COMPARISON: 03/12/2020 FINDINGS: The bone density study was assessed by dual-energy x-ray absorptiometry with the Lender Sentinel scanner. The test results are expressed in T-Score, which is used for diagnosis for osteoporosis, and reflects the standard deviations from the mean peak bone mineral density in young adults. Additional information regarding the Z-Score reflects the standard deviations from the mean peak bone mineral density for age- and gender- matched subject. Lumbar Spine (L1-L4): BMD (gm/cm2): O.956 T-Score: -1.9 Left Hip: BMD (gm/cm2): 0.828 T-Score: -1.8 Left Femoral Neck: BMD (gm/cm2): O.786 T-Score: -1.8 Right Hip: BMD (gm/cm2): O.899 T-Score: -0.9 Right Femoral Neck: BMD (gm/cm2): O.85 T-Score: -1.3 IMPRESSION: 1. Lumbar spine indicates osteopenia. This has improved since previous exam. 2. Left hip indicates osteopenia. This has worsened since previous exam. 3. Right femoral neck indicates osteopenia. This has improved slightly since previous exam. REFERENCE: In children, postmenopausal women and males under age 50 not at increased risk for fractures, only Z-Scores, not T-Scores, are used to indicate fracture risk. A Z-Score above -2.0 is defined as within the expected range for age and Z-Score at or less than -2.0 is below the expected range for age. A Z-Score below the expected range for age in a patient with recent fractures and/or chronic corticosteroid treatment is consistent with a diagnosis of osteoporosis. In postmenopausal women and males over 50, comparison of the measured bone mineral density with the average value in young normal subjects (the T-Score) has been found to be useful in assessing fracture risk. Fracture risk approximately doubles for each 1.0 standard deviation (SD) that the individual's hip or spine bone mineral density is below the average value of young normal subjects. The World health Organization (WHO) has provided the following definitions: 1. Normal: T-Score within one standard deviation of young adult mean value (T-Score greater than -1.0). 2. Osteopenia (low bone mass): T-Score more than one standard deviation below the young adult mean but less than 2.5 standard deviations below the young adult mean (T-Score between -1.0 and -2.5). 3. Osteoporosis: T-Score more than 2.5 standard deviations below the young adult mean (T-Score less than -2.5). 4. Sever Osteoporosis (established osteoporosis): T-Score more than 2.5 standard deviations below young adult and one or more fragility fracture (T-Score less than -2.5 + fragility fractures). Electronically authenticated by: YAN STREET Date: 2022-04-13 13:56 Normal [facility] MRI [facility] WO CONon 02-25-20 MRI [facility] CON EXAMINATION: MRI [facility] WO CON HISTORY: Lumbar radiculitis ; chronic lumbar pain radiating into right leg, numbness and tingling COMPARISON: No relevant comparison available. TECHNIQUE: A variety of imaging planes and parameters were utilized for visualization of suspected pathology. FINDINGS: For the purposes of numbering, sagittal T2 image # 8 extends from the T11-T12 vertebral body superiorly to the S5 level inferiorly. PARASPINAL AREA: Normal with no visible mass. BONES: Partial lumbarization of S1 (normal variant). No fracture, pars defect, or osseous lesion. CORD/CAUDA EQUINA: Normal caliber, contour, and signal intensity. DISC LEVELS: 12-L1: No significant disc/facet abnormality, spinal stenosis, or foraminal stenosis. L1-L2: No significant disc/facet abnormality, spinal stenosis, or foraminal stenosis. L2-L3: Early degenerative disc disease is present without focal protrusion or neural impingement. L3-L4: Small broad-based extruded disc protrusion without significant central canal or foramen narrowing. No disc height reduction. L4-L5: Early degenerative disc disease is present without focal protrusion or neural impingement. Mild degenerative facet arthropathy, right greater than left. L5-S1: Mild central canal and right foramen narrowing. Mild diffuse disc bulging and minimal disc height reduction. Mild degenerative facet arthropathy and ligamentum flavum thickening, right greater than left. IMPRESSION: 1. L5-S1 mild central canal and right foramen narrowing, of questionable clinical significance. 2. Mild degenerative changes. Electronically authenticated by: BERHANE VENTURA Date: 2022-02-24 18:31 Normal [facility] CBC COMPLETE BLOOD COUNTon 0 03-14-2017 Erythrocyte distribution width Auto Ratio (RBC) 14.4 % Normal 11.5-16.9 [facility] Comment on above: Performed By: #### 5 [id number] ####[facility] Erythrocytes (RBC) 4.46 mill/mm3 Normal 3.50-5.50 [facility] Comment on above: Performed By: #### 5 0608 ####[facility] Hematocrit (HCT) 40.7 % Normal 36.0-48.0 [facility] Comment on above: Performed By: #### 5 0608 ####[facility] Hemoglobin mass conc (Bld) 13.9 g/dL Normal 12.0-15.0 [facility] Comment on above: Performed By: #### 5 0608 ####[facility] [place] [address], [facility] MCH 31.1 pg Normal 24.0-32.0 [facility] Comment on above: Performed By: #### 5 0608 ####[facility]3000 [facility].[address] MCHC mass conc (RBC) 34.0 g/dL Normal 32.0-36.0 [facility] Comment on above: Performed By: #### 5 0608 ####[place] [id number] [facility].[address] MCV 91.4 fL Normal 80.0-100.0 [facility] Comment on above: Performed By: #### 5 0608 ####[place] [address] [facility].[address] PLAT CNT 214 Thou/mm3 Normal 100-400 [facility] Comment on above: Performed By: #### 5 0608 ####[place] [address] [facility].[address] WBC (Leukocytes) 6.8 Thou/mm3 Normal 4.0-10.0 [facility] Comment on above: Performed By: #### 5 0608 ####[place] [address] [facility].[address] COMP METABOLIC PANELon 03-14 Alanine aminotransferase (ALT) 21 U/L Normal 7-52 [facility] Comment on above: Performed By: #### 0 0121 ####[place] [id number] [facility].[address] Albumin 4.6 g/dL Normal 3.5-5.7 [facility] Comment on above: Performed By: #### 0 0121 ####[address] ALKALINE PHOSPH 53 IU/L Normal 34-104 [facility] Comment on above: Performed By: #### 0 0121 ####[facility] [place] [address], [facility] Aspartate aminotransferase (AST) 23 U/L Normal 13-39 [facility] Comment on above: Performed By: #### 0 0121 ####[facility] [place] [address], [place] Bilirubin (total) 0.6 mg/dL Normal 0.3-1.0 [facility] Comment on above: Performed By: #### 0 0121 ####[facility] [place] [address], [place] Calcium 9.6 mg/dL Normal 8.6-10.3 [facility] Comment on above: Performed By: #### 0 0121 ####[facility] [facility] [place] [address], [facility] Chloride 106 mmol/L Normal 98-107 [facility] Comment on above: Performed By: #### 0 0121 ####[facility] [facility] [place] [address], [place] CO2 26 mmol/L Normal 21-31 [facility] Comment on above: Performed By: #### 0 0121 ####[facility] [place] [address], [place] Creatinine 0.68 mg/dL Normal 0.60-1.20 [facility] Comment on above: Performed By: #### 0 0121 ####[facility] [place] [address], [place] eGFR (black) mL/min/{1.73_m2} Normal >60 [facility] Comment on above: Performed By: #### 0 0121 ####[facility] [place] [address], [place] eGFR (non-black) mL/min/{1.73_m2} Normal >60 [facility] Comment on above: Performed By: #### 0 0121 ####[facility] [facility].[address] Glucose mass conc 80 mg/dL Normal 70-100 [facility] Comment on above: Performed By: #### 0 0121 ####[facility] [facility].[address] Potassium molar conc 4.3 mmol/L Normal 3.5-5.1 [facility] Comment on above: Performed By: #### 0 0121 ####[facility] Protein 7.2 g/dL Normal 6.0-8.3 [facility] Comment on above: Performed By: #### 0 0121 ####[facility] Sodium 140 mmol/L Normal 136-145 [facility] Comment on above: Performed By: #### 0 0121 ####[facility] Urea nitrogen 10 mg/dL Normal 7-25 The [facility] Comment on above: Performed By: #### 0 0121 ####[facility] HEP C RNA PCR QNTon 03-14-20 17 HCV PCR INTERP Not Detected Normal Not Detected [facility] Comment on above: Order Comment: This test was performed using the Moya Real Time HCV PCR assay whichhas a dynamic range of 12-100,000,000 IU/Ml (1.08-8.0 log IU/mL). It isnot designed for screening blood, plasma, serum or tissue donors forHCV. Currently, the second- and third-generation enzyme immunoassays(EIA-2 and EIA-3) for hepatitis C virus antibody (anti-HCV) are the mostpractical screening tests for the diagnosis of HCV infection. The needfor and the choice of supplementary or confirmatory tests depend on theclinical setting and the likelihood of a true-positive EIA result.Detection of HCV RNA in serum by polymerase chain reaction (PCR) assayis the gold standard for the diagnosis of HCV infection. Performed By: #### 3 1265 ####[facility]3000 [facility].[address] HEP C RNA QNT Not detected Normal [facility] Comment on above: Order Comment: This test was performed using the Moya Real Time HCV PCR assay whichhas a dynamic range of 12-100,000,000 IU/Ml (1.08-8.0 log IU/mL). It isnot designed for screening blood, plasma, serum or tissue donors forHCV. Currently, the second- and third-generation enzyme immunoassays(EIA-2 and EIA-3) for hepatitis C virus antibody (anti-HCV) are the mostpractical screening tests for the diagnosis of HCV infection. The needfor and the choice of supplementary or confirmatory tests depend on theclinical setting and the likelihood of a true-positive EIA result.Detection of HCV RNA in serum by polymerase chain reaction (PCR) assayis the gold standard for the diagnosis of HCV infection. Performed By: #### 3 1265 ####[facility] [facility].[address] Vital Signs Date Time Vital Sign Value Performing Clinician Facility 05-25-2023 10:50-0400 Body height 165.1 cm Elizabeth Mayes Other [facility] Other 05-25-2023 10:50-0400 Body mass index (BMI) [Ratio] 38.17 kg/m2 Elizabeth Mayes Other [facility] Other 05-25-2023 10:50-0400 Body temperature 97.7 [degF] Elizabeth Mayes Other [facility] Other 05-25-2023 10:50-0400 Body weight 104.06 kg Elizabeth Mayes Other [facility] Other 05-25-2023 10:50-0400 Diastolic blood pressure 88 mm[Hg] Elizabeth Mayes Other [facility] Other 05-25-2023 10:50-0400 Respiratory rate 18 /min Elizabeth Mayes Other [facility] Other 05-25-2023 10:50-0400 SaO2% (BldA) [Mass fraction] 98 % Elizabeth Mayes Other [facility] Other 05-25-2023 10:50-0400 Systolic blood pressure 142 mm[Hg] Elizabeth Mayes Other [facility] Other Encounters Encounter Date Encounter Type Care Provider Facility Start: 04-07-2024 End: 04-07-2024 ambulatory HYUN DOUGHERTY Not Available Start: 03-24-2024 End: 03-24-2024 ambulatory Nichole Painter MD Facility: [facility] Start: 02-14-2024 End: 02-14-[address] Not Available Start: 01-31-2024 End: 01-31-2024 ambulatory HYUN DOUGHERTY Not Available Start: 01-17-2024 End: 01-17-2024 ambulatory KAREN A BROWN Not Available Start: 01-01-2024 End: 01-01-2024 ambulatory KAREN A BROWN Not Available Start: 05-28-2023 End: 05-28-2023 ambulatory Nichole Painter MD Facility: [facility] Start: 05-25-2023 End: 05-25-2023 ambulatory Elizabeth Mayes Other [facility] Other Start: 05-25-2023 Office outpatient ne w 30 minutes Elizabeth Mayes [facility] Start: 04-30-2023 End: 04-30-2023 ambulatory Nichole Painter MD Facility:[facility] Start: 01-05-[address] WALT TAPIA Facilit y:[facility] Start: 04-13-2022 End: 04-14-2022 ambulatory MICHAEL QUIROZ Facility:[facility] Start: 03-07-2022 End: 03-08-[address] MICKI MCCAIN . Facility:[facility] Start: 02-24-2022 End: 02-25-[address] WALT TAPIA Facility:[facility] Start: 02-15-2022 End: 02-16-[address] MICKI MCCAIN . Facility:[facility] Start: 12-27-2021 End: 12-28-[address] MICKI MCCAIN . Facility:[facility] Start: 03-14-2017 End: 03-15-2017 Ambulatory MARGE GOPI Facility:[facility] Payers Date Payer Category Payer Medicare 2022 Unknown 1960 Medicare [id number] 1960 Unknown [id number] 1955 Unknown [id number] 2.16.84 0.1.700107.3.579.2.593 1955 Unknown [id number] 2.16.84 0.1.067037.3.579.2.593 1955 Unknown [id number] 2.16.84 0.1.307683.3.579.2.593 1955 Unknown [id number] 2.16.84 0.1.420433.3.579.2.593 1955 Unknown [id number] 2.16.84 0.1.065888.3.579.2.593 1955 Unknown [id number] 2.16.84 0.1.332648.3.579.2.593 1955 Unknown [id number] 2.16.84 0.1.189244.3.579.2.1259 1955 Unknown [id number] 2.16.84 0.1.898962.3.579.2.1259 1955 Unknown [id number] 2.16.84 0.1.466463.3.579.2.9 1955 Unknown [id number] 2.16.84 0.1.433032.3.579.2.9 1955 Unknown [id number] 2.16.84 0.1.847245.3.579.2.1258 1955 Unknown [id number] 2.16.84 0.1.000996.3.579.2.1259 1955 Unknown [id number] 2.16.84 0.1.037260.3.579.2.1258 1955 Unknown [id number] 2.16. 840.1.145104.3.579.2.196 1955 Unknown [id number] 2.16. 840.1.908211.3.579.2.196 1955 Unknown [id number] 2.16. 840.1.220921.3.579.2.196 [facility] [id number] Medicare [id number] [id number] Social History Date Type Detail Facility Unknown if ever smoked [facility] Other Sex Assigned At Sex Assigned At Bir th [facility] Other Evaluation note 05-25-2023 Note Date & Type Note Facility 05-25-2023 Evaluation note Encounter Date Diagnosis Assessment Notes May, Acute effusion of both middle ears (ICD-10 - H65.193) Discussed diagnosis with patient, explained to patient that there is middle ear fluid without signs of bacterial infection, antibiotics are not indicated at this time. Will send in rx of prednisone to use as directed, reviewed side effects with patient. Advised patient that this is commonly due to ET dysfunction, viral illness, allergies, barotrauma, or recent AOM. Advised patient that fluid in middle ear may take several weeks to resolve. Supportive treatment as directed, push fluids/test, Tylenol for discomfort, heat packs, allergy medication as directed. Follow up with PCP in 2 weeks or sooner for new or worsening symptoms. Patient verbalizes understanding and is agreeable to treatment plan [facility] Other Consultation note 03-07-2022 Note Date & Type Note Facility 03-07-2022 Note CONSULTATION CONSULTATION DATE: 03/07/2022 CHIEF COMPLAINT: Low back pain, intermittent right leg pain. HISTORY OF PRESENT ILLNESS: This is a very pleasant, 66-year-old female who is known to the [facility]. The patient had had a rhizotomy radiofrequency ablation, which had aborted her low back pain. The patient is also in the process of moving to a new home. The patient has intermittent pain radiating into her right leg, especially in the night time. The patient was started on Mirapex 0.5 mg; however, the patient cannot tolerate it. She states it seems to give her a headache. However, she was taking it as 0.25 mg on a b.i.d. basis. The patient is doing well. The patient states activities such as twisting, lifting, housework, transitioning, bending, aggravate the pain as does change in weather. The patient has decreased her ibuprofen intake; however states, at times when she does hurt, she takes three tablets on a daily to b.i.d. basis. The patient has sleep disturbances, takes Ambien 5 mg h.s. The patient has been more focused on her nutrition and has started taking vitamins and finds them helpful. The patient's PAST MEDICAL HISTORY / SURGICAL HISTORY / REVIEW OF SYSTEMS are noted on the chart, along with the MEDICATION LIST / ALLERGIES and RADIOLOGICAL IMAGES, including the MRI which was reviewed in office today with the patient. Report is noted on to the chart. PHYSICAL EXAMINATION: GENERAL: Upon physical examination, this is a pleasant, morbidly obese female, who does not appear to be in any acute distress. VITAL SIGNS: At a height of 5'5 , the patient weighs 108 kg. The patient's blood pressure is 145/90 with a heart rate of 94. FOCUSED EVALUATION OF THE LUMBAR SPINE: The patient is able to stand up without any overt pathology. Extension does not aggravate the patient's pain; however, paravertebral spasming is noted in the thoracolumbar region. EXTREMITIES: No pedal edema is noted. MUSCULOSKELETAL: Intact in the lower extremities at 5/5 bilaterally. The patient has some tingling sensation; however, it appears to be along the lateral femoral cutaneous nerve, possibly meralgia paresthetica at times. Education was done with regards to this. NEUROLOGICALLY: No radicular symptomatology at present. PSYCHIATRICALLY: Affect is appropriate. IMPRESSION: Lumbar degenerative disc disease, lumbar spondylosis, .lumbar neuritis, early degenerative changes of the lumbar spine, obesity. PLAN: Significant amount of time was spent educating the patient with regards to nutrition and its participation in her own wellness, along with exercises including extension. The patient understands. The patient has been very proactive with regards to her own wellness. Probiotics have been stressed to her. References have been given with regards to trustworthy sites that the patient may further educate herself. The patient is traveling to [place] and will return on a p.r.n. basis. CC: Walt Tapia M.D. [facility] Signed and Approved by: DR MICKI MCCAIN . 03/14/2022 09:44:00 [facility] Consultation note 02-15-2022 Note Date & Type Note Facility 02-15-2022 Note CONSULTATION CONSULTATION DATE: 02/15/2022 HISTORY OF PRESENT ILLNESS: This is a 66-year-old female, returning to the clinic for a six week follow up post bilateral lumbar trigger point injection. She received the injection at her last appointment, which was on 12/27/2021 and it afforded her 50% relief. Today,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
[2024-04-14 07:37] VITALS: BP 152/87; PULSE 70; TEMP 36.1; O2SAT 98
[2024-04-14 08:14] VITALS: BP 214/89; PULSE 80; O2SAT 95
[2024-04-14 08:15] VITALS: BP 207/89; PULSE 88; O2SAT 94
[2024-04-14] MEDS: BUPIVACAINE HCL 0.25% PF 25 MG/10 ML VIAL 5 ML INJ (08:15)
[2024-04-14] MEDS: LIDOCAINE HCL 2% 400 MG/20 ML MDV 5 ML INJ (08:16)
[2024-04-14] MEDS: TRIAMCINOLONE ACETONIDE 40 MG/ML VIAL 80 MG INJ (08:16)
--- NOTE | 2024-04-14 08:27 | P.ON_ITS ---
Date of procedure: 04/14/24 Pre-op diagnosis: Pain due to lumbar spondylosis without myelopathy Post-op diagnosis: same as pre-op Procedure: Procedure: Bilateral L4-5, l5-S1 radiofrequency ablation Medications: Bupivacaine 0.25% 6cc, lidocaine 2% 6cc, kenalog 80mg The patient was seen and examined in the preoperative holding area.? The site was marked.? Written informed consent was obtained and placed on the chart.? The patient was brought to the medical procedure unit and placed in the prone position.? A timeout was completed verifying correct patient, procedure, positioning, and special requirements.? The skin overlying the target points, the designated medial branch, were prepped and draped in the usual sterile fashion.? The target point was achieved with a 20-gauge 15 cm with a 10 mm curved active tip radiofrequency cannula under direct fluoroscopic visualization.? The needle was inserted at level L4 on the right side. Needle tip position was confirmed with lateral fluoroscopic position.? Motor stimulation was carried out at 2 Hz up to 5 volts with the absence of extremity activity.? This was repeated at level L5, S1 on right side.?? Sensory stimulation was carried out.? Concordant pain was realized at the above- mentioned sites.? Then radiofrequency lesioning was carried out times 90 seconds at 80 degrees times 2 lesions at each level.? The radiofrequency probe was removed prior to cannula removal.? The above-mentioned injectate was placed in 1 mL increments.? The needle was removed. The same procedure, with the same steps, was then completed on the left side at the same levels. Insertion sites were covered.? The patient was taken to the postoperative recovery area and monitored for an appropriate length of time before being found suitable for discharge in the company of a responsible adult. Anesthesia: Local Surgeon: Nichole Painter Pathology: none sent Condition: stable Disposition: no change
== END 2024-04-14 08:34 | disposition home or self-care (01) ==
LOC: SURGOUT 07:12
PROVIDERS: PCP Internal Medicine; Visit Provider Anesthesiology
DX: M47.816 Spondylosis without myelopathy or radiculopathy, lumbar region (principal)
CPT/HCPCS: 64635; 64636; J0665; J3301

== ENCOUNTER 2024-05-05 09:48 | Outpatient (OUT) | payer MEDICARE, OTHER, SELFPAY ==
--- NOTE | 2024-05-05 09:52 | MM_ITS ---
Patient Name: SUMAN RODAS MR#: [id number] : 1955 Exam Date: 05/05/2024 Ordering Doctor: DR HYUN MARK RADIOLOGY REPORT PROCEDURE: MM TOMOSYNTHESIS SCREENING BI COMPARISON: MM TOMOSYNTHESIS SCREENING BI, 05/04/2023. MG MAMM SCREEN 3D [facility]HIANA CAD, 04/13/2022. INDICATIONS: Screening Calculator Name NCI Breast Cancer Risk Assessment Tool 5 Year Breast Cancer Risk 2.40% Lifetime Breast Cancer Risk 6.90% Personal Breast Cancer No Personal Ovarian Cancer No Treatments None Family Cancers Aunt-paternal with breast cancer at age ~75. LOCATION: [facility] BREAST COMPOSITION: The breasts are almost entirely fatty. FINDINGS: DIAGNOSTIC CATEGORY 2--BENIGN FINDING. NO CHANGE FROM COMPARISON. Scattered benign-appearing calcifications are present. Scattered benign-appearing lymph nodes are present. RIGHT BREAST: No significant suspicious finding. LEFT BREAST: No significant suspicious finding. RECOMMENDATIONS: ROUTINE MAMMOGRAM AND CLINICAL EVALUATION IN 12 MONTHS. PLEASE NOTE: A NORMAL MAMMOGRAM DOES NOT EXCLUDE THE POSSIBILITY OF BREAST CANCER. A CLINICALLY SUSPICIOUS PALPABLE LUMP SHOULD BE BIOPSIED. Dictated by: Tyler Conklin MD on 05/05/2024 at 11:02 Approved by: Tyler Conklin MD on 05/05/2024 at 11:03
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
== END 2024-05-05 09:49 | disposition home or self-care (01) ==
LOC: MAMMO 09:48
PROVIDERS: PCP Internal Medicine; Visit Provider Physician Assistant
DX: Z12.31 Encounter for screening mammogram for malignant neoplasm of breast (principal); Z80.3 Family history of malignant neoplasm of breast
CPT/HCPCS: 77063; 77067

== ENCOUNTER 2024-05-15 08:41 | Outpatient (OUT) | payer MEDICARE, OTHER, SELFPAY ==
--- NOTE | 2024-05-15 08:55 | P.CN_ITS ---
Consult Note: HPI Data of Consult Patient: known to practice within the last 3 years Consult date: 03/24/24 Requesting Physician: Gabriela Martinez NP Primary Care Provider: CLAUDIA HANNA Consult Narrative Reason for consult: low back pain Narrative: 68yof who presents for assessment. recently underwent repeat bilateral L4-5 L5- S1 facet joint RFA. continues in a series of provider directed home exercises >6 weeks, without lasting benefit. uses otc pain meds as needed. denies adverse med side effects. reporting >80% improvement ongoing from bilateral L4-5 L5-S1 facet joint RFA cc:: CC: Gabriela Martinez NP Review of Systems ROS Status of ROS 10 or more systems reviewed and unremark able except as noted in history and below Musculoskeletal Denies: back pain or extremity pain PFSH PFSH Medical History History of fracture of right ankle ?Z87.81 - Personal history of (healed) traumatic fracture (ICD-10) Hepatitis C ?B19.20 - Unspecified viral hepatitis C without hepatic coma (ICD-10) Surgical History H/O dilation of urethra ?Z98.890 - Other specified postprocedural states (ICD-10) Hx of appendectomy ?Z90.49 - Acquired absence of other specified parts of digestive tract (ICD- 10) History of right oophorectomy ?Z90.721 - Acquired absence of ovaries, unilateral (ICD-10) History of carpal tunnel release ?Z98.890 - Other specified postprocedural states (ICD-10) Hx of cholecystectomy ?Z90.49 - Acquired absence of other specified parts of digestive tract (ICD- 10) Meds Home Medications and Allergies Home Medications ?Medication ?Instructions ?Recorded ?Confirmed ?Type calcium carbonate PO QDAY 01/25/23 History multivitamin 1 tab PO DAILY 01/25/23 04/14/24 History zolpidem 5 mg tablet (Ambien) 10 mg PO .HS 01/25/23 04/14/24 History ibuprofen 600 mg tablet 600 mg PO PRN pain 04/17/23 History cetirizine 5 mg-pseudoephedrine ER 1 tab PO BID 05/28/23 04/14/24 History 120 mg tablet,extended release,12hr (All Day Allergy-D) Allergies Allergy/AdvReac Type Severity Reaction Status Date / Time celecoxib [From Celebrex] Allergy Mild Diarrhea Verified 04/14/24 07:42 diclofenac Allergy Mild Blister Verified 04/14/24 07:42 tetracycline Allergy Mild Unknown Verified 04/14/24 07:42 Exam Constitutional Documenting provider has reviewed patient's vital signs: yes Common normals: no apparent distress, oriented x3, healthy appearing, alert and well nourished General appearance: cooperative HENMT Common normals: normocephalic, hearing grossly normal bilaterally and moist oral mucous membranes Head and scalp: normocephalic Eye Common normals: PERRL Pupil: PERRL Neck & C-Spine Common normals: full ROM General: normal visual inspection Chest Common normals: inspection of chest normal Respiratory Common normals: normal respiratory effort, no retractions and no use of accessory muscles Back & Pelvis Lumbar spine/lower back: lumbar ROM normal and straight leg raise negative bilaterally; ROM not limited, no pain with ROM, no lumbar spinal tenderness, no paraspinal muscle tenderness and no paraspinal muscle spasm Sacroiliac joints: SI joints normal Other: negative facet loading strength 5/5 in BLE, sensation intact Neuro Common normals: oriented x3, CN's II-XII intact bilaterally, moves all extremities, no focal motor deficits, no sensory deficits noted and deep tendon reflexes 2+ bilaterally Sensorium/orientation: alert Motor exam: strength 5/5 throughout and no movement abnormalities noted Psych Common normals: mental status grossly normal, thought process normal, cooperative, affect normal, speech normal and activity/motor behavior normal Speech: normal speech Thought process: normal thought process Assessment and Plan Assessment and Plan (1) Lumbar spondylosis: (2) Lumbar stenosis with neurogenic claudication: (3) Sacroiliac dysfunction: Plan significant improvement in pain and functional ability ongoing, >80% improvement from bilateral L4-5 L5-S1 facet RFA continue HEP as tolerated negative fall screen continue PRN ibuprofen and tylenol OTC, denies side effects f/u as needed, pt going to [place] for 6 months
--- OUTSIDE RECORDS SUMMARY | 2024-05-15 08:55 | XMS_ITS | CCD ---
Author Organization [facility] Care Team Providers Care Mill Washer Name Role Phone LAY, MARGE Unavailable Unavailable [...] Admitting Unavailable LIM ., SERINA Attending Unavailable ZIEBFERNANDO, DR BERHANE [...] (1 source) Tetracyclines Drug allergy (disorder) 9 [facility] Repository (1 source) celecoxib Drug Allergy [facility] Repository (2 sources) Tetracycline Drug Allergy 4 [facility] Repository (1 source) Tetracycline Drug Allergy rash [facility] [facility] Other (1 source) Tetracycline Drug Allergy 4 [facility] Repository Medications Current Medications Medication Drug Class(es) [...] Other spondylosis with radiculopathy, lumbar region; Translations: [[facility] SPONDYLS RADICULOPATHY LUMB RGN] Onset: 02-15-2022 Chronic Unclassified (2 sources) LOW BACK PAIN, UNSPECIFIED; Translations: [LOW BACK PAIN, UNSPECIFIED] Onset: 03-16-2022 Past or Other Problems Problem Classification Problem Date Documented Da te Episodic/Chronic Other bone disease and musculoskeletal deformities (1 source) Other specified disorders of bone density and structure, unspecified site; Translations: [[facility] D/O BONE DEN STRUCT UNS SITE] Onset: [...] Cx Nom (U) ORGANISM: Escherichia coli (O:ESCCOL) [place] Count >100,000 Aerobic MESHA Charge (NMIC56) ------ [...] RESISTANT TO ALL B-LACTAM DRUGS. PERFORMED BY: [place] [address] PATHOLOGIST DIE CAST OPERATOR ELA PIZARRO M.D. 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 LOCATION: [facility] BREAST COMPOSITION: Almost entirely fatty. FINDINGS: DIAGNOSTIC [...] M.D. on 04/14/2022 at 12:58 Normal [facility] XR DEXA BONE DENSITYon 04-13 XR DEXA BONE DENSITY DEXA Bone Density Study CLINICAL: Evaluate bone mineral density. Menopausal COMPARISON: 03/12/2020 FINDINGS: The bone density study was assessed by dual-energy x-ray absorptiometry with the [employer] scanner. The test results are expressed in [...] by: YAN STREET Date: 2022-04-13 13:56 Normal [facility] MRI LSPINE WO CONon 02-25-20 22 MRI LSPATERSON WO CON EXAMINATION: MRI LSPINE WO CON [...] by: BERHANE VENTURA Date: 2022-02-24 18:31 Normal [facility] CBC COMPLETE BLOOD COUNTon 0 03-14-2017 Erythrocyte distribution width Auto Ratio (RBC) 14.4 % Normal 11.5-16.9 [facility] Comment on above: Performed By: #### 5 0608 ####[facility] Erythrocytes (RBC) 4.46 mill/mm3 Normal 3.50-5.50 [facility] Comment on above: Performed By: #### 5 0608 ####[facility] [facility] [place] [address], [facility] Hematocrit (HCT) 40.7 % Normal 36.0-48.0 [facility] Comment on above: Performed By: #### 5 0608 ####[facility] Hemoglobin mass conc (Bld) 13.9 g/dL Normal 12.0-15.0 [facility] Comment on above: Performed By: #### 5 0608 ####[place] [id number] [facility].[address] MCH 31.1 pg Normal 24.0-32.0 [facility] Comment on above: Performed By: #### 5 0608 ####[facility].[address] MCHC mass conc (RBC) 34.0 g/dL Normal 32.0-36.0 [facility] Comment on above: Performed By: #### 5 0608 ####[place] [address] [facility].[address] MCV 91.4 fL Normal 80.0-100.0 [facility] Comment on above: Performed By: #### 5 0608 ####[facility] [facility] [address], [facility] PLAT CNT 214 Thou/mm3 Normal 100-400 [facility] Comment on above: Performed By: #### 5 0608 ####[facility] [place] [address], [facility] WBC (Leukocytes) 6.8 Thou/mm3 Normal 4.0-10.0 [facility] Comment on above: Performed By: #### 5 0608 ####[facility].[address] COMP METABOLIC PANELon 03-14 Alanine aminotransferase (ALT) 21 U/L Normal 7-52 [facility] Comment on above: Performed By: #### 0 0121 ####[facility] [facility].[address] Albumin 4.6 g/dL Normal 3.5-5.7 [facility] Comment on above: Performed By: #### 0 0121 ####[place] [id number] [facility].[address] ALKALINE PHOSPH 53 IU/L Normal 34-104 [facility] Comment on above: Performed By: #### 0 0121 ####[place] [id number] [facility].[address] Aspartate aminotransferase (AST) 23 U/L Normal 13-39 [facility] Comment on above: Performed By: #### 0 0121 ####[place] [address] [facility].[address] Bilirubin (total) 0.6 mg/dL Normal 0.3-1.0 The [facility] Comment on above: Performed By: #### 0 0121 ####[facility] [facility].[address] Calcium 9.6 mg/dL Normal 8.6-10.3 [facility] Comment on above: Performed By: #### 0 0121 ####[facility] [facility].[address] Chloride 106 mmol/L Normal 98-107 [facility] Comment on above: Performed By: #### 0 0121 ####[facility] [facility] [place] [address], [facility] CO2 26 mmol/L Normal 21-31 [facility] Comment on above: Performed By: #### 0 0121 ####[facility] [facility] [place] [address], [facility] Creatinine 0.68 mg/dL Normal 0.60-1.20 [facility] Comment on above: Performed By: #### 0 0121 ####[facility] [facility] [place] [address], [facility] eGFR (black) mL/min/{1.73_m2} Normal >60 [facility] Comment on above: Performed By: #### 0 0121 ####[facility] [facility] [place] [address], [facility] eGFR (non-black) mL/min/{1.73_m2} Normal >60 [facility] Comment on above: Performed By: #### 0 0121 ####[facility] [facility] [address], [facility] Glucose mass conc 80 mg/dL Normal 70-100 [facility] Comment on above: Performed By: #### 0 0121 ####[facility] [facility] [address], [facility] Potassium molar conc 4.3 mmol/L Normal 3.5-5.1 [facility] Comment on above: Performed By: #### 0 0121 ####[facility] [facility] [address], [facility] Protein 7.2 g/dL Normal 6.0-8.3 [facility] Comment on above: Performed By: #### 0 0121 ####[facility] [facility] [place] [address], [facility] Sodium 140 mmol/L Normal 136-145 [facility] Comment on above: Performed By: #### 0 0121 ####[facility] [facility].[address] Urea nitrogen 10 mg/dL Normal 7-25 [facility] Comment on above: Performed By: #### 0 0121 ####[facility] HEP C RNA PCR QNTon 03-14-20 17 HCV PCR INTERP Not Detected Normal Not Detected [facility] Comment on above: Order Comment: This [...] HCV infection. Performed By: #### 3 1265 ####[facility] HEP C RNA QNT Not detected Normal [facility] Comment on above: Order Comment: This [...] HCV infection. Performed By: #### 3 1265 ####[facility] Vital Signs Date Time Vital Sign Value Performing Clinician Facility 04-25-2024 10:190400 Body height 165.1 cm [facility] 04-25-2024 10:19-0400 Body mass index (BMI) [Ratio] 38.2 kg/m2 [facility] 04-25-2024 10:19-0400 Body temperature 97 [degF] [facility] 04-25-2024 10:19040 Body weight 104.43 kg [facility] 04-25-2024 10:19-0400 Diastolic blood pressure 80 mm[Hg] [facility] 04-25-2024 10:19-0400 Heart rate 72 /min [facility] 04-25-2024 10:19-0400 Respiratory rate 18 /min [facility] 04-25-2024 10:19-0400 SaO2% (BldA) [Mass fraction] 92 % [facility] 04-25-2024 10:19-0400 Systolic blood pressure 142 mm[Hg] [facility] 05-25-2023 10:50-0400 Body height 165.1 cm Elizabeth Mayes Other [employer] [employer] Other 05-25-2023 10:50-0400 Body mass index (BMI) [Ratio] 38.17 kg/m2 Elizabeth Mayes Other [employer] [employer] Other 05-25-2023 10:50-0400 Body temperature 97.7 [degF] Elizabeth Mayes Other [facility] Other 05-25-2023 10:50-0400 Body weight 104.06 kg Elizabeth Mayes Other [facility] Other 05-25-2023 10:50-0400 Diastolic blood pressure 88 mm[Hg] Elizabeth Mayes Other [facility] Other 05-25-2023 10:50-0400 Respiratory rate 18 /min Elizabeth Mayes Other [employer] Other 05-25-2023 10:50-0400 SaO2% (BldA) [Mass fraction] 98 % Elizabeth Mayes Other [employer] Other 05-25-2023 10:50-0400 Systolic blood pressure 142 mm[Hg] Elizabeth Mayes Other [employer] Other Encounters Encounter Date Encounter Type Care Provider Facility Start: 04-25-2024 End: 04-25-2024 Departed 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 Elizabeth Mayes Work Phone: [facility] [place] Work Phone: Start: 04-25-2024 End: 04-25-2024 ambulatory Elizabeth Mayes [facility] Work Phone: Start: 04-25-2024 End: 04-25-2024 Patient encounter procedure [facility] Work Phone: Start: 04-07-2024 [...] 05-25-2023 End: 05-25-2023 ambulatory Elizabeth Mayes Other [employer] Other Start: 05-25-2023 Office outpatient ne w [...] Start: 03-14-2017 End: 03-15-2017 Ambulatory MARGE NGUYỄN Facility:[facility] Plan of Treatment Date Care Activity Detail Author Start: 04-25-2024 Bacteria identified in Urine by Culture [facility] Payers Date Payer Category Payer [facility] [id number] 2024 Medicare [id number] 2024 Self-pay 2022 Medicare 2022 Unknown 1959 Medicare [id number] 1959 Unknown [id number] 1955 Unknown [id number] 2.16.84 0.1.053137.3.579.2.593 1955 Unknown [id number] 2.16.84 0.1.976014.3.579.2.593 1955 Unknown [id number] 2.16.84 0.1.114875.3.579.2.593 1954 Unknown [id number] 2.16.84 0.1.028886.3.579.2.593 1954 Unknown [id number] 2.16.84 0.1.676404.3.579.2.593 1954 Unknown [id number] 2.16.84 0.1.470293.3.579.2.593 1954 Unknown [id number] 2.16.84 0.1.620106.3.579.2.1259 1954 Unknown [id number] 2.16.84 0.1.283735.3.579.2.1259 1954 Unknown [id number] 2.16.84 0.1.166925.3.579.2.1259 1954 Unknown [id number] 2.16.84 0.1.545237.3.579.2.1259 1954 Unknown [id number] 2.16.84 0.1.609253.3.579.2.1259 1954 Unknown [id number] 2.16.84 0.1.279793.3.579.2.1259 1954 Unknown [id number] 2.16.84 0.1.994737.3.579.2.1259 1954 Unknown [id number] 2.16. 840.1.064163.3.579.2.196 1955 Unknown [id number] 2.16. 840.1.447909.3.579.2.196 1955 Unknown [id number] 2.16. 840.1.755409.3.579.2.196 Medicare [id number] 2.16. 840.1.076063.19 Unknown [id number] 2.16.8 40.1.738568.3.579.2.531 Social History Date Type Detail Facility Unknown if ever smoked [facility] Other Sex Assigned At Sex Assigned At Bir th [facility] Other Start: 05-25-2023 Tobacco smoking status NHIS Ex-smoker (finding) [facility] Start: 1955 Sex Assigned At Female F [facility] Evaluation note 05-25-2023 Note Date & Type [...] understanding and is agreeable to treatment plan [facility] [facility] Other Consultation note 03-07-2022 Note Date & [...] CC: Walt Tapia M.D. [facility] Signed and Approved by: DR MICKI MCCAIN . 03/14/2022 09:44:00 [facility] Consultation note 02-15-2022 Note Date & Type [...] She was doing aqua therapy at the [facility], was doing quite well, but is [...] would like to proceed. [facility] Signed and Approved by: SERINA LIM . 02/16/2022 13:37:00 [facility] Consultation note 12-27-2021 Note Date & [...] up in the office. [facility] Signed and Approved by: DR MICKI MCCAIN . 01/03/2022 10:41:00 [facility] Consultation note 12-27-2021 Note Date & [...] The patient was encouraged to join the [facility] now that she has moved over to [place]. With regards to the paravertebral spasming, a trigger point injection in the right lumbar paravertebrals will be done. The patient understands and would like to proceed. IF Signed and Approved by: DR MICKI MCCAIN . 01/03/2022 10:41:00 [facility] Evaluation note Note Date & Type Note Facility Evaluation note No assessment information availa [facility] Work Phone: History general Narrative - Reported Note Date & Type Note Facility History general Narrative - Reported Type Medical History Primary insomnia Surgical History cholecystectomy Surgical History left ovary removal Surgical History carpal tunnel release Surgical History trigger finger release Surgical History right ankle Hospitalization History see above Hospitalization History hepatitis [facility] Other Summary Purpose Family History No Family [...] section and content) DATE CREATED AUTHOR 02/13/2018 [facility] DATE CREATED AUTHOR AUTHOR'S ORGANIZ ATION 12/26/2022 [facility] DATE CREATED AUTHOR AUTHOR'S ORGANIZ ATION 04/07/2024 [facility] DATE CREATED AUTHOR AUTHOR'S ORGANIZ ATION 04/12/2024 [facility] DATE CREATED AUTHOR AUTHOR'S ORGANIZ ATION 05/01/2024 [facility] REASON FOR VISIT (unrecogniz ed [...] BE BASED ON THE PRIMARY CLINICAL RECORDS. [employer] provides no warranty or guarantee of the accuracy or completeness of information in this document.
== END 2024-05-15 08:42 | disposition home or self-care (01) ==
LOC: PM 08:42
PROVIDERS: PCP Internal Medicine; Visit Provider Nurse Practitioner
DX: M47.816 Spondylosis without myelopathy or radiculopathy, lumbar region (principal); M48.062 Spinal stenosis, lumbar region with neurogenic claudication; M53.3 Sacrococcygeal disorders, not elsewhere classified
CPT/HCPCS: G0463

== ENCOUNTER 2025-04-02 09:13 | Outpatient (OUT) | payer MEDICARE, OTHER, SELFPAY ==
--- OUTSIDE RECORDS SUMMARY | 2025-04-02 09:19 | XMS_ITS | CCD ---
Author Organization [facility] Care Team Providers Care Crewman [employer] Name Role Phone LAY, MARGE Unavailable Unavailable LAY, MARGE Unavailable Unavailable WALT TAPIA Unavailable Unavailable WALT TAPIA Unavailable Unavailable DR WALT TAPIA Primary Care Unavailable GIEDRAITIS, ANDRIUS Admitting Unavailable GIEDRAITIS, ANDRIUS Attending Unavailable ANJELICA, MICHAEL Admitting Unavailable ZIROBINSON, DR BERHANE Costa Consulting Unavailable ANJELICA, MICHAEL Attending Unavailable DR WALT TAPIA Primary Care Unavailable YAN ROSE Unavailable ANJELICA, MICHAEL Consulting Unavailable DR WALT TAPIA Consulting Unavailable DR WALT TAPIA Primary Care Unavailable LIM ., SERINA Admitting Unavailable LIM ., SERINA Attending Unavailable ZIEBFERNANDO, DR BERHANE Costa Consulting Unavailable LIM ., SERINA Consulting Unavailable KALYN ., DR MICKI Matta Admitting Unavailable DR WALT TAPIA Primary Care Unavailable MCCAIN ., DR MICKI Matta Attending Unavailable MCCAIN [...] TAPIA Primary Care Unavailable Elizabeth Mayes Unavailable Inocencio CONTI, Nichole Guerra Attending Unavailable Inocencio CONTI, Andrius Charlie Attending Unavailable Inocencio CONTI, Nichole Guerra Attending Unavailable HELDER Mayes Attending Provider Elizabeth Mayes Admitting Unavailable Elizabeth Mayes Attending Unavailable NON STAFF Primary Care Unavailable Walt Tapia MD Primary Care Provider Walt Tapia MD Unavailable EVE DOUGHERTY Attending Unavailable MICHAEL DEJESUS Attending Unavailable EVE DOUGHERTY Attending Unavailable BUDDY ROSE Attending Unavailable EVE DOUGHERTY Attending Unavailable EVE DOUGHERTY Attending Unavailable Allergies Allergy Classification Reported Allergen(s) Allergy Type Date of Onset Reaction(s) Facility (1 source) Tetracyclines Drug allergy (disorder) 06-30-2009 [facility] Repository (1 source) celecoxib Drug Allergy [facility] Repository (2 sources) Tetracycline Drug Allergy 01-20-2014 [facility] Repository (12 sources) Tetracycline Drug Allergy 04-25-2024 rash [facility] Work Phone: (1 source) Tetracycline Drug Allergy 04-25-2024 [facility] Repository (16 sources) cefdinir Drug Allergy 03-29-2023 Diarrhea [facility] Work Phone: (16 sources) celecoxib Drug Allergy 03-29-2023 [facility] Healthcare (11 sources) atorvastatin Drug Allergy 07-08-2024 Headache [facility] Work Phone: Medications Current Medications Medication Drug Class(es) Dates Sig (Normalized) Sig (Original) atorvastatin (7 sources) HMG-CoA Reductase Inhibitor Start: 04-25-2024 Atorvastatin Active MG PO April 25, 2024 12:00am Start: 04-17-2024 take 1 tablet by cookie th once daily atorvastatin (Lipitor) 20 MG tablet Indications: Pure hypercholesterolemia (CMS/HCC) Take 1 tablet (20 mg) by mouth Daily 90 tablet 1 04/17/2024 Active cholecalciferol 0.05 mg oral capsule (18 sources) Vitamin D Start: 04-25-2024 Cholecalcifero l (Vitamin D3) (Vitamin D3) 50 mcg (2,000 unit) capsule Active PO April 25, 2024 12:00am Start: 04-17-2024 take 1 capsule by mo uth once daily cholecalciferol (EQL Vitamin D3) 50 MCG (2000 UT) capsule Indications: Vitamin D deficiency Take 1 capsule (50 mcg) by mouth Daily 90 capsule 3 04/17/2024 Active ciprofloxacin 250 mg oral tablet (2 sources) Quinolone Antimicrobial Start: 05-13-2024 End: 05-18-2024 take 1 tablet by mouth in the morning ciprofloxacin (Cipro) 250 MG tablet Indications: Acute cystitis with hematuria Take 1 tablet (250 mg) by mouth in the morning and 1 tablet (250 mg) before bedtime. Do all this for 5 days. 10 tablet 05/13/2024 05/18/2024 Active famotidine 20 mg oral tablet (16 sources) Histamine-2 Receptor Antagonist take 1 tablet by mouth in the morning famotidine (Pepcid) 20 MG tablet Take 20 mg by mouth in the morning and 20 mg in the evening. Active fluticasone propionate 0.05 mg/actuat metered dose nasal spray (17 sources) Corticosteroid Start: 05-30-2023 take 1 spray(s) nasal route once daily as needed fluticasone (Flonase) 50 MCG/ACT nasal spray Indications: Allergic rhinitis, unspecified seasonality, unspecified trigger USE 1 SPRAY(S) IN EACH NOSTRIL ONCE DAILY NEEDED 16 g 2 05/30/2023 Active Start: 08-14-2018 take 2 spray(s) nasa l route once daily Fluticasone Propionate 50 MCG/ACT 2 sprays in each nostril Nasally Once a day for 14 days Jul, Not-Taking hydrocortisone 25 mg/ml topical cream (16 sources) Corticosteroid Start: 12-29-2023 hydrocortisone 2.5 % cream 12/29/2023 Active ketoconazole 20 mg/ml topical cream (16 sources) Azole Antifungal Start: 12-29-2023 ketoconazole (NIZOral) 2 % cream 12/29/2023 Active nitrofurantoin, macrocrystals 25 mg / nitrofurantoin, monohydrate 75 mg oral capsule (4 sources) Nitrofuran Antibacterial Start: 03-05-2025 End: 03-12-2025 take 1 capsule by mouth in the morning nitrofurantoin, macrocrystal-monohy drate, (Macrobid) 100 MG capsule Indications: Acute cystitis with hematuria Take 1 capsule (100 mg) by mouth in the morning and 1 capsule (100 mg) before bedtime. Do all this for 7 days. 14 capsule 03/05/2025 03/12/2025 Active Start: 04-25-2024 take 1 capsule by [facility] every twelve hours at mealtime Nitrofurantoin Monohyd/M-Cryst (Macrobid) 100 mg capsule Active 100 MG PO Q12H 6 3 April 25, 2024 12:00am must administer with a meal/food phenazopyridine hydrochloride 200 mg delayed release oral tablet (3 sources) Start: 03-05-2025 End: 03-07-2025 take 1 tablet by mouth three times daily as needed for muscle spasms phenazopyridine (Pyridium) 200 MG tablet Indications: Acute cystitis with hematuria Take 1 tablet (200 mg) by mouth 3 (three) times a day as needed for bladder spasms for up to 2 days 6 tablet 03/05/2025 03/07/2025 Active predniSONE 20 mg oral tablet (1 source) Start: 05-25-2023 take 1 tablet by mouth every twelve hours prednisone 20 MG 1 tablet Orally BID for 5 May, Active valACYclovir 1000 mg oral tablet (13 sources) Herpesvirus Nucleoside Analog DNA Polymerase Inhibitor, Herpes Simplex Virus Nucleoside Analog DNA Polymerase Inhibitor, Herpes Zoster Virus Nucleoside Analog DNA Polymerase Inhibitor Start: 03-05-2025 End: 03-05-2025 take 2 tablets by mouth in the morning valACYclovir (Valtrex) 1 g tablet Indications: Recurrent cold sores Take 2 tablets (2,000 mg) by mouth in the morning and 2 tablets (2,000 mg) before bedtime. 4 tablet 3 03/05/2025 Active zolpidem tartrate 10 mg oral tablet (20 sources) gamma-Aminobutyri c Acid-ergic Agonist Start: 04-25-2024 Zolpidem Active MG PO April 25, 2024 12:00am Start: 2024 End: 08-05-2025 zolpidem (Ambien) 10 MG tabl et Indications: Primary insomnia Take 1 tablet (10 mg) by mouth as needed at bedtime for sleep 30 tablet 2 02/06/2025 08/05/2025 Active Zolpidem Tartrat e Not-Taking Completed/Discontinued Medications Medication [...] a day for 10 day(s) Jul, Not-Taking Problems Active Problems Problem Classification Problem Date Documented Date Episodic/Chronic Aortic and peripheral arterial embolism or thrombosis (2 sources) Arterial embolus and thrombosis; 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 Chronic Disorders of lipid metabolism (18 sources) Pure hypercholesterolemia; Translations: [Pure hypercholesterolemia, unspecified] Onset: 03-29-2023 03-29-2023 Chronic Essential hypertension (18 sources) Benign hypertension; Translations: [Essential (primary) hypertension] Onset: 03-29-2023 03-29-2023 Chronic Genitourinary symptoms and ill-defined conditions (5 sources) Dysuria; Translations: [Dysuria] Onset: 04-25-2024 05-13-2024 Episodic Hepatitis (20 sources) Chronic hepatitis C; Translations: [Chronic viral hepatitis C] Onset: 03-29-2023 Resolved: 04-07-2024 03-29-2023 Chronic Menopausal disorders (20 sources) Other primary ovarian failure; Translations: [Decreased estrogen level] Onset: 04-14-2022 Resolved: 04-07-2024 03-29-2023 Chronic Miscellaneous mental health disorders (19 sources) Primary insomnia; Translations: [Primary insomnia] Onset: 02-14-2023 06-05-2024 Chronic Other acquired deformities (2 sources) Contracture of joint of left ankle; Translations: [Contracture, left ankle] 03-25-2025 Chronic Other connective tissue disease (2 sources) Plantar fasciitis; Translations: [Plantar fascial fibromatosis] 03-25-2025 Episodic Other liver diseases (4 sources) Liver disease, unspecified; Translations: [LIVER DISEASE, UNSPECIFIED] Onset: 03-14-2017 Chronic Other liver diseases (18 sources) Cirrhosis of liver; Translations: [Unspecified cirrhosis of liver] Onset: 04-07-2024 04-07-2024 Chronic Other nutritional; endocrine; and metabolic disorders (20 sources) Body mass index 30+ - obesity; Translations: [Body mass index (BMI) 38.0-38.9, adult] Onset: 03-29-2023 04-07-2024 Chronic Other nutritional; endocrine; and metabolic disorders (20 sources) Obesity caused by energy imbalance; Translations: [Morbid (severe) obesity due to excess calories] Onset: 04-07-2024 04-07-2024 Chronic Other upper respiratory disease (16 sources) Allergic rhinitis; Translations: [Allergic rhinitis, unspecified] Onset: 03-29-2023 03-29-2023 Chronic Otitis media and related conditions (1 source) Other acute nonsuppurative otitis media, bilateral Episodic Peripheral and visceral atherosclerosis (16 sources) Arteriosclerosis of abdominal aorta; Translations: [Atherosclerosis of aorta] Onset: 03-29-2023 03-29-2023 Chronic Residual codes; unclassified (2 sources) Insomnia; Translations: [Insomnia, unspecified] 02-05-2025 Episodic Spondylosis; intervertebral disc disorders; other back problems (20 sources) Other spondylosis with radiculopathy, lumbar region; Translations: [Disorder of joint of spine] Onset: 02-15-2022 Chronic Unclassified (2 sources) LOW BACK PAIN, UNSPECIFIED; Translations: [LOW BACK PAIN, UNSPECIFIED] Onset: 03-16-2022 Urinary tract infections (4 sources) Acute cystitis; Translations: [Acute cystitis with hematuria] 05-13-2024 Episodic Past or Other Problems Problem Classification Problem Date Documented Da te Episodic/Chronic Abdominal hernia (16 sources) Hiatal hernia; Translations: [Diaphragmatic hernia without obstruction or gangrene] Onset: 03-29-2023 03-29-2023 Episodic Diabetes mellitus without complication (16 sources) Impaired fasting glycemia; Translations: [Impaired fasting glucose] Onset: 04-07-2024 04-07-2024 Episodic Mood disorders (16 sources) Mood disorders Onset: 04-07-2024 04-07-2024 Other bone disease and musculoskeletal deformities (1 source) Other specified disorders of bone density and structure, unspecified site; Translations: [OTH D/O BONE DEN STRUCT UNS SITE] Onset: 04-14-2022 Episodic Other bone disease and musculoskeletal deformities (16 sources) Osteopenia; Translations: [Other specified disorders of bone density and structure, unspecified site] Onset: 03-29-2023 03-29-2023 Episodic Other connective tissue disease (1 source) [...] Translations: [SLEEP DISORDER UNSPECIFIED] Onset: 12-30-2021 Episodic Screening and history of mental health and substance abuse codes (16 sources) Ex-smoker; Translations: [Personal history of nicotine dependence] Onset: 02-12-2019 04-05-2023 Episodic Spondylosis; intervertebral disc disorders; other back problems (20 sources) Intervertebral disc disorders with radiculopathy, lumbar region; Translations: [Radiculopathy, lumbar region] Onset: 12-27-2021 Episodic Unclassified (1 source) LOW BACK PAIN, UNSPECIFIED; Translations: [LOW BACK PAIN, UNSPECIFIED] Onset: 03-07-2022 Viral infection (20 sources) Recurrent herpes simplex labialis; Translations: [Herpesviral vesicular dermatitis] Onset: 02-12-2019 Resolved: 04-07-2024 03-29-2023 Episodic Results Test Name Value Interpretation Reference Range Facility No Panel Informationon 03-06 STAPHYLOCOCCUS EPIDERMIDIS, HAEMOLYTICUS, LUGDUNENSIS, SAPROPHYTICUS (URINA 0 [facility] Health care STAPHYLOCOCCUS EPIDERMIDIS, HAEMOLYTICUS, LUGDUNENSIS, SAPROPHYTICUS (URINA Not detected [facility] URINARY TRACT INFECTION (HTR X)on 03-06-2025 ACINETOBACTER BAUMANII 0 NO [facility] ACINETOBACTER BAUMANII Not detected [facility] MANDY ALBICANS, PARAPSILOSIS, TROPICALIS 0 [facility] MANDY ALBICANS, PARAPSILOSIS, TROPICALIS Not detected [facility] MANDY GLABRATA 0 [facility] MANDY GLABRATA Not detected [facility] MANDY KRUSEI 0 [facility] MADNY KRUSEI Not detected [facility] CITROBACTER FREUNDII 0 [facility] CITROBACTER FREUNDII Not detected [facility] ENTEROBACTER AEROGENES, CLOACAE 0 [facility] re ENTEROBACTER AEROGENES, CLOACAE Not detected [facility] re ENTEROCOCCUS FAECALIS, FAECIUM 0 [facility] ENTEROCOCCUS FAECALIS, FAECIUM Not detected [facility] ESCHERICHIA COLI 27.224 Abnormal [facility] ESCHERICHIA COLI Detected Abnormal [facility] Interpretation and review of laboratory results Abnormal [facility] KLEBSIELLA PNEUMONIAE, OXYTOCA 0 [facility] KLEBS[facility]LLA PNEUMONIAE, OXYTOCA Not detected [facility] MORGANELLA MORGANII 0 [facility] MORGANELLA MORGANII Not detected [facility] PROTEUS MIRABILIS, VULGARIS 0 [facility] PROTEUS MIRABILIS, VULGARIS Not detected [facility] PSEUDOMONAS AERUGINOSA 0 NO [facility] PSEUDOMONAS AERUGINOSA Not detected [facility] SERRATIA MARCESCENS 0 [facility] SERRATIA MARCESCENS Not detected [facility] STAPHYLOCOCCUS AUREUS 0 [facility]OM [facility] STAPHYLOCOCCUS AUREUS Not detected [facility] STREPTOCOCCUS AGALACTIAE (GROUP B STREP) 0 [facility] STREPTOCOCCUS AGALACTIAE (GROUP B STREP) Not detected [facility] STREPTOCOCCUS PYOGENES (GROUP A STREP) 0 [facility] STREPTOCOCCUS PYOGENES (GROUP A STREP) Not detected [facility] macro (dipstick) panel (U)on 03-05-2025 Bilirubin, UA Negative Negative - 4(70) +++ mg/dL [facility] Blood, UA Positive Negative - 50 Gabe/mcL [facility] Comment on above: mod Glucose, UA Negative Negative - 1999(110) ++++ mg/dL [facility] Interpretation and review of laboratory results Abnormal [facility] Ketones, UA Negative Negative - 160(16) ++++ mg/dL [facility] Leukocytes, UA Moderate Negative - 500+++ Stefan/mcL [facility] Nitrite, UA Negative Negative - Positive [facility] pH, UA 5 5 - 9 [facility] e Protein, UA Negative Negative - 1999(20) ++++ mg/dL [facility] Spec Grav, UA 1.01 1 - 1.03 [facility] Urobilinogen, UA 1.0 0.2 - 12 mg/dL [facility] macro (dipstick) panel (U)on 05-13-2024 Bilirubin, UA Negative Negative - 4(70) +++ mg/dL [facility] Blood, UA Positive Negative - 50 Gabe/mcL [facility] Clarity, UA Clear [facility] re Color, UA Light Yellow [facility] are Glucose, UA Negative Negative - 1999(110) ++++ mg/dL [facility] Interpretation and review of laboratory results Abnormal [facility] Ketones, UA Negative Negative - 160(16) ++++ mg/dL [facility] Leukocytes, UA Few Negative - 500+++ Stefan/mcL [facility] Nitrite, UA Negative Negative - Positive [facility] pH, UA 5.0 5 - 9 [facility] Protein, UA Negative Negative - 1999(20) ++++ mg/dL [facility] Spec Grav, UA 1.005 1 - 1.03 [facility] Urobilinogen, UA 1.0 0.2 - 12 mg/dL [facility] Healthcar e Urine Cultureon 04-25-2024 Bacteria identified [facility] (U) ORGANISM: Escherichia coli (O:ESCCOL) [place] Count >100,000 Aerobic MESHA Charge (NMIC56) ------ [...] RESISTANT TO ALL B-LACTAM DRUGS. PERFORMED BY: [place] [address] PATHOLOGIST LIVER TRIMMER ELA PIZARRO M.D. 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 LOCATION: [facility] BREAST COMPOSITION: Almost entirely fatty. FINDINGS: [...] Ventura M.D. on 04/14/2022 at 12:58 Normal [facility] XR DEXA BONE DENSITYon 04-13 XR DEXA BONE DENSITY DEXA Bone Density Study CLINICAL: Evaluate bone mineral density. Menopausal COMPARISON: 03/12/2020 FINDINGS: The bone density study was assessed by dual-energy x-ray absorptiometry with the Encision scanner. The test results are expressed in [...] + fragility fractures). Electronically authenticated by: YAN ROSE Date: 2022-04-13 13:56 Normal [facility] [place] CON[place] 02-25-20 22 MRI [place] CON EXAMINATION: [place] CON HISTORY: Lumbar radiculitis ; chronic [...] by: BERHANE VENTURA Date: 2022-02-24 18:31 Normal [facility] CBC COMPLETE BLOOD COUNTon 0 03-14-2017 Erythrocyte distribution width Auto Ratio (RBC) 14.4 % Normal 11.5-16.9 [facility] Comment on above: Performed By: #### 5 [id number] ####[facility].[address] Erythrocytes (RBC) 4.46 mill/mm3 Normal 3.50-5.50 [facility] Comment on above: Performed By: #### 5 0608 ####[facility]3000 [facility].[address] Hematocrit (HCT) 40.7 % Normal 36.0-48.0 [facility] Comment on above: Performed By: #### 5 0608 ####[address] Hemoglobin mass conc (Bld) 13.9 g/dL Normal 12.0-15.0 [facility] Comment on above: Performed By: #### 5 0608 ####[address] MCH 31.1 pg Normal 24.0-32.0 [facility] Comment on above: Performed By: #### 5 0608 ####[place] [address] [address] MCHC mass conc (RBC) 34.0 g/dL Normal 32.0-36.0 [facility] Comment on above: Performed By: #### 5 0608 ####[address] MCV 91.4 fL Normal 80.0-100.0 [facility] Comment on above: Performed By: #### 5 0608 ####[address] PLAT CNT 214 Thou/mm3 Normal 100-400 The [facility] Comment on above: Performed By: #### 5 0608 ####[place] [address] [facility].[address] WBC (Leukocytes) 6.8 Thou/mm3 Normal 4.0-10.0 The [facility] Comment on above: Performed By: #### 5 0608 ####[facility] [facility] [place] [address], [facility] COMP METABOLIC PANELon 03-14 Alanine aminotransferase (ALT) 21 U/L Normal 7-52 The [facility] Comment on above: Performed By: #### 0 0121 ####[facility] [facility] [place] [address], [facility] Albumin 4.6 g/dL Normal 3.5-5.7 [facility] Comment on above: Performed By: #### 0 0121 ####[facility] [facility] [place] [address], [facility] ALKALINE PHOSPH 53 IU/L Normal 34-104 [facility] Comment on above: Performed By: #### 0 0121 ####[facility]3000 [facility].[address] Aspartate aminotransferase (AST) 23 U/L Normal 13-39 The [facility] Comment on above: Performed By: #### 0 0121 ####[facility]3000 [facility] [place] [address], [facility] Bilirubin (total) 0.6 mg/dL Normal 0.3-1.0 The [facility] Comment on above: Performed By: #### 0 0121 ####[facility] [facility] [place] [address], [facility] Calcium 9.6 mg/dL Normal 8.6-10.3 The [facility] Comment on above: Performed By: #### 0 0121 ####[facility] [facility] [place] [address], [facility] Chloride 106 mmol/L Normal 98-107 [facility] Comment on above: Performed By: #### 0 0121 ####[facility] [place] [address], [facility] CO2 26 mmol/L Normal 21-31 [facility] Comment on above: Performed By: #### 0 0121 ####[facility] [place] [address], [facility] Creatinine 0.68 mg/dL Normal 0.60-1.20 [facility] Comment on above: Performed By: #### 0 0121 ####[facility] [facility] [place] [address], [facility] eGFR (black) mL/min/{1.73_m2} Normal >60 The [facility] Comment on above: Performed By: #### 0 0121 ####[facility] [facility] [place] [address], [facility] eGFR (non-black) mL/min/{1.73_m2} Normal >60 Th e [facility] Comment on above: Performed By: #### 0 0121 ####[facility] [facility] [place] [place] [address], [facility] Glucose mass conc 80 mg/dL Normal 70-100 The [facility] Comment on above: Performed By: #### 0 0121 ####[facility] [facility] [place] [address], [facility] Potassium molar conc 4.3 mmol/L Normal 3.5-5.1 The [facility] Comment on above: Performed By: #### 0 0121 ####[facility] [facility] [place] [address], [facility] Protein 7.2 g/dL Normal 6.0-8.3 The [facility] Comment on above: Performed By: #### 0 0121 ####[facility], [place] [id number] [place] [address] Sodium 140 mmol/L Normal 136-145 [facility] Comment on above: Performed By: #### 0 0121 ####[facility] Urea nitrogen 10 mg/dL Normal 7-25 [facility] Comment on above: Performed By: #### 0 0121 ####[facility] HEP C RNA PCR QNTon 03-14-20 17 HCV PCR INTERP Not Detected Normal Not Detected [facility] Comment on above: Order Comment: This [...] HCV infection. Performed By: #### 3 1265 ####[place] [address] HEP C RNA QNT Not detected Normal The [facility] Comment on above: Order Comment: [...] HCV infection. Performed By: #### 3 1265 ####[facility] Vital Signs Date Time Vital Sign Value Performing Clinician Facility 03-27-2025 14:44-0400 Body height 165.1 cm Buddy Rose DPM Work Phone: [facility] 03-27-2025 14:44-0400 Body mass index (BMI) [Ratio] 38.94 kg/m2 Buddy Rose DPM Work Phone: [facility] 03-27-2025 14:44-0400 Body weight 106.14 kg Buddy Rose DPM Work Phone: [facility] 03-27-2025 14:44-0400 Respiratory rate 16 /min Buddy Rose DPM Work Phone: [facility] 03-05-2025 10:58-0400 Body height 165.1 cm Eve Hemmer PA Work Phone: [facility] 03-05-2025 10:58-0400 Body mass index (BMI) [Ratio] 38.94 kg/m2 Eve Hemmer PA Work Phone: [facility] 03-05-2025 10:58-0400 Body weight 106.14 kg Eve Hemmer PA Work Phone: [facility] 03-05-2025 10:58-0400 Diastolic blood pressure 98 mm[Hg] Eve Hemmer PA Work Phone: [facility] 03-05-2025 10:58-0400 Heart rate 86 /min Eve Hemmer PA Work Phone: [facility] 03-05-2025 10:58-0400 SaO2% (BldA) [Mass fraction] 97 % Eve Hemmer PA Work Phone: [facility] 03-05-2025 10:58-0400 Systolic blood pressure 142 mm[Hg] Eve Hemmer PA Work Phone: [facility] 02-05-2025 13:31-0400 Body height 165.1 cm Michael Dejesus [employer] Work Phone: [facility] 02-05-2025 13:31-0400 Body mass index (BMI) [Ratio] 39.61 kg/m2 Michael Dejesus [employer] Work Phone: [facility] 02-05-2025 13:31-0400 Body weight 107.96 kg Michael Dejesus [employer] Work Phone: [facility] 02-05-2025 13:31-0400 Diastolic blood pressure 101 mm[Hg] Michael Dejesus [employer] Work Phone: [facility] 02-05-2025 13:31-0400 Heart rate 68 /min Michael Dejesus [employer] Work Phone: [facility] 02-05-2025 13:31-0400 Respiratory rate 17 /min Michael Anjelica [employer] Work Phone: [facility] 02-05-2025 13:31-0400 SaO2% (BldA) [Mass fraction] 97 % Michael Dejesus [employer] Work Phone: [facility] 02-05-2025 13:31-0400 Systolic blood pressure 136 mm[Hg] Michael Dejesus [employer] Work Phone: [facility] 05-13-2024 11:35-0400 Body height 165.1 cm Eve Hemmer PA Work Phone: [facility] 05-13-2024 11:35-0400 Body mass index (BMI) [Ratio] 38.27 kg/m2 Eve Hemmer PA Work Phone: [facility] 05-13-2024 11:35-0400 Body weight 104.33 kg Eve Hemmer PA Work Phone: [facility] 05-13-2024 11:35-0400 Diastolic blood pressure 84 mm[Hg] Eve Hemmer PA Work Phone: [facility] 05-13-2024 11:35-0400 Heart rate 80 /min Eve Hemmer PA Work Phone: [facility] 05-13-2024 11:35-0400 Respiratory rate 16 /min Eve Hemmer PA Work Phone: [facility] 05-13-2024 11:35-0400 SaO2% (BldA) [Mass fraction] 98 % Eve Hemmer PA Work Phone: [facility] 05-13-2024 11:35-0400 Systolic blood pressure 119 mm[Hg] Eve Hemmer PA Work Phone: [facility] 04-25-2024 10:19-0400 Body height 165.1 cm [facility] 04-25-2024 10:19-0400 Body mass index (BMI) [Ratio] 38.2 kg/m2 [facility] 04-25-2024 10:19-0400 Body temperature 97 [degF] [facility] 04-25-2024 10:19-0400 Body weight 104.43 kg [facility] 04-25-2024 10:19-0400 Diastolic blood pressure 80 mm[Hg] [facility] 04-25-2024 10:19-0400 Heart rate 72 /min [facility] 04-25-2024 10:19-0400 Respiratory rate 18 /min [facility] 04-25-2024 10:19-0400 SaO2% (BldA) [Mass fraction] 92 % [facility] 04-25-2024 10:19-0400 Systolic blood pressure 142 mm[Hg] [facility] 05-25-2023 10:50-0400 Body height 165.1 cm Elizabeth Mayes Other [facility] Other 05-25-2023 10:50-0400 Body mass index (BMI) [Ratio] 38.17 kg/m2 Elizabeth Mayes Other [facility] Other 05-25-2023 10:50-0400 Body temperature 97.7 [degF] Elizabeth Mayes Other [facility] Other 05-25-2023 10:50-0400 Body weight 104.06 kg Elizabeth Mayes Other [facility] Other 05-25-2023 10:50-0400 Diastolic blood pressure 88 mm[Hg] Elizabeth Mayes Other [facility] Other 05-25-2023 10:50-0400 Respiratory rate 18 /min Elizabeth Mayes Other [facility] Other 05-25-2023 10:50-0400 SaO2% (BldA) [Mass fraction] 98 % Elizabeth Mayes Other [facility] Other 05-25-2023 10:50-0400 Systolic blood pressure 142 mm[Hg] Elizabeth Mayes Other [facility] Other Encounters Encounter Date Encounter Type Care Provider Facility Start: 03-27-2025 End: 03-27-2025 Patient encounter procedure Buddy Rose DPM Work Phone: [facility] Comment on above: Plantar fasciitis (P rimary Dx); Contracture of left ankle Start: 03-27-2025 End: 03-27-2025 ambulatory BUDDY ROSE Not Available Start: 03-27-2025 End: 03-27-2025 Bamboo flowsheet Buddy Rose DPM Work Phone: [facility] Start: 03-27-2025 End: 03-27-2025 Bamboo flowsheet Buddy Rose DPM Work Phone: [facility] Start: 03-05-2025 End: 03-06-2025 External Result Encounter Eve Simmons Malcom PA Work Phone: [facility] Unsolicited Start: 03-05-2025 End: 03-06-2025 External Result Encounter Eve Simmons Malcom PA Work Phone: [facility] Unsolicited Start: 03-05-2025 End: 03-05-2025 Office outpatient visit 25 minutes Eve Simmons Malcom PA Work Phone: [facility] Comment on above: Dysuria (Primary Dx) ; Recurrent cold sores; Acute cystitis with hematuria; Benign hypertension ; Morbid (severe) obesity due to excess calories (CMS-HCC); Body mass index (BMI) 38.0-38.9, adult Start: 03-05-2025 End: 03-05-2025 ambulatory EVE DOUGHERTY Not Available Start: 02-05-2025 End: 02-05-2025 Bamboo flowsheet Michael Dejesus NP Work Phone: [facility] Start: 02-05-2025 End: 02-05-2025 Bamboo flowsheet Michael Dejesus [employer] Work Phone: [facility] Start: 02-05-2025 End: 02-05-2025 Office outpatient visit 25 minutes Michael Dejesus [employer] Work Phone: [facility] Comment on above: Body mass index (BMI ) 38.0-38.9, adult (Primary Dx); Insomnia, unspecified type; Morbid (severe) obesity due to excess calories (CMS-HCC); Chronic viral hepatitis C (HCC); Chronic hepatitis, unspecified (HCC); Unspecified cirrhosis of liver (HCC); Pure hypercholesterolemia, unspecified ; 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) Start: 02-05-2025 End: 02-06-2025 Andreas Tapia MD Work Phone: [facility] Comment on above: Primary insomnia Start: 01-23-2025 End: 01-23-2025 Telephone encounter Eve MARK Work Phone: [facility] Start: 01-23-2025 End: 01-23-2025 ambulatory EVE DOUGHERTY Not Available Start: 06-05-2024 End: 06-06-2024 Refill Walt Tapia MD Work Phone: [facility] Comment on above: Primary insomnia Start: 05-13-2024 End: 05-13-2024 Bamboo flowsheet Eve Dougherty PA Work Phone: [facility] Start: 05-13-2024 End: 05-13-2024 Bamboo flowsheet Eve Dougherty PA Work Phone: [facility] Start: 05-13-2024 End: 05-13-2024 Office outpatient visit 25 minutes Eve Dougherty PA Work Phone: [facility] Comment on above: Acute cystitis with hematuria (Primary Dx); Dysuria Start: 05-13-2024 End: 05-13-2024 ambulatory EVE DOUGHERTY Not Available Start: 05-01-2024 End: 05-01-2024 Refill Cely Lopez MA [facility] Comment on above: Primary insomnia Start: 04-25-2024 End: 04-25-2024 Departed Referred CLERK GENERAL Elizabeth Mayes Work Phone: [facility] [place] Work Phone: Start: 04-25-2024 End: 04-25-2024 ambulatory Elizabeth Mayes [facility] Work Phone: Start: 04-25-2024 End: 04-25-2024 Patient encounter procedure [facility] [place] Work Phone: Start: 04-07-2024 End: 04-07-2024 ambulatory EVE DOUGHERTY Not Available Start: 03-24-2024 End: 03-24-2024 ambulatory Nichole Painter MD Facility: [facility] Start: 05-28-2023 End: 05-28-2023 ambulatory Nichole Painter MD Facility: [facility] Start: 05-25-2023 End: 05-25-2023 ambulatory Elizabeth Mayes Other [facility] Other Start: 05-25-2023 Office outpatient ne w 30 minutes Elizabeth Mayes [facility] [place] Start: 04-30-2023 End: 04-30-2023 ambulatory Nichole Painter MD Facility:[facility] Start: 01-05-[address] WALT TAPIA Facilit y:[facility] Start: 04-13-2022 End: 04-14-2022 ambulatory MICHAEL DEJESUS Facility:[facility] Start: 03-07-2022 End: 03-08-[address] MICKI MCCAIN . Facility:[facility] Start: 02-24-2022 End: 02-25-[address] WALT TAPIA Facility:[facility] Start: 02-15-2022 End: 02-16-[address] MICKI MCCAIN . Facility:[facility] Start: 12-27-2021 End: 12-28-[address] MICKI MCCAIN . Facility:[facility] Start: 03-14-2017 End: 03-15-2017 Ambulatory MARGE NGUYỄN Facility:[facility] Procedures Date Procedure Procedure Detail Performing Clinician Start: 03-05-2025 Urnls dip stick/tabl et rgnt non-auto w/o micrscp Eve MARK Work Phone: Start: 03-05-2025 URINARY TRACT INFECT ION (HTRX) Eve MARK Work Phone: Start: 05-13-2024 Urnls dip stick/tabl et rgnt non-auto w/o micrscp Eve MARK Work Phone: Start: 05-05-2024 Mammography Eve burroughs PA Work Phone: Start: 05-04-2023 Mammography Cely jamison MA Plan of Treatment Date Care Activity Detail Author Start: 04-17-2027 Screening for malign ant neoplasm of colon [facility] Start: 05-05-2025 Screening for malign ant neoplasm of breast Mammogram [facility] Start: 04-20-2025 Influenza vaccination Influenza Vacc ine (#1) [facility] Start: 04-13-2025 End: 04-13-2025 Clinical Support 04/13/2025 2:40 PM EDT Clinical Support [facility] [address] [place] [phone] Buddy Rose DPM [address] [address] [facility] Start: 04-08-2025 End: 04-08-2025 Patient encounter procedure [facility] Start: 04-07-2025 Medicare Annual Wellness (AWV) Medicare Annual Wellness (AWV) [facility] Start: 03-27-2025 End: 03-27-2025 Patient encounter procedure 03/27/2025 2:50 PM EDT Office Visit [facility] [address] [place] [phone] Buddy Rose DPM [address] [address] Plantar fasciitis (Primary Dx); Contracture of left ankle [facility] Comment on above: Plantar fasciitis (P rimary Dx); Contracture of left ankle Start: 03-05-2025 End: 03-05-2026 URINARY TRACT INFECTION (HTRX) URINARY TRACT INFECTION (HTRX) Lab Routine Acute cystitis with hematuria Expected: 03/05/2025 (Approximate), Expires: 03/05/2026 [facility] Work Phone: Comment on above: Expected: 03/05/2025 (Approximate), Expires: 03/05/2026 Start: 02-05-2025 End: 02-05-2025 Patient encounter procedure 02/05/2025 1:30 PM EDT Office Visit [facility] [address] [facility] [address] [place] [phone] Michael Dejesus, [employer] [address] [place] [address] [place] [address] Arrived [facility] Comment on above: Arrived Start: 07-08-2024 End: 07-08-2024 Telemedicine consultation with patient 07/08/2024 10:30 AM EST Telemedicine [facility] [address] [place] [address] [place] [address] Eve Dougherty PA [address] [place] [address] [facility] Start: 05-13-2024 End: 05-13-2024 Patient encounter procedure 05/13/2024 11:30 AM EDT Office Visit [facility] [address] [place] [address] [place] [address] Eve Dougherty PA [address] [address] [place] [address] Arrived [facility] Comment on above: Arrived Start: 05-04-2024 Screening for malign ant neoplasm of breast Mammogram [facility] Start: 04-25-2024 Bacteria identified in Urine by Culture [facility] Start: 1955 Screening for malign ant neoplasm of colon [facility] Immunizations Immunization Date Immunization Notes Care Provider Fa [facility] 04-23-2024 influenza, high dose seasonal, preservative-free Eve MARK Work Phone: [facility] 04-23-2024 influenza virus vacc ine, unspecified formulation Eve MARK Work Phone: [facility] 05-18-2023 Influenza, High-dose Seasonal, Quadrivalent, Preservative Free Eve MARK Work Phone: [facility] 05-25-2022 influenza, high dose seasonal, preservative-free [facility] Jessica [facility] 05-25-2022 Influenza, High-dose Seasonal, Quadrivalent, Preservative Free Cely Jessica [facility] 08-27-2021 tetanus toxoid, redu blu diphtheria toxoid, and acellular pertussis vaccine, adsorbed Cely Ellsworth [facility] 07-26-2021 zoster vaccine recombinant Terry MARK Work Phone: [facility] 05-22-2021 Influenza, High-dose Seasonal, Quadrivalent, Preservative Free Cely Jessica [facility] 05-12-2021 zoster vaccine recombinant Cely Erica bonner [facility] 05-17-2020 influenza, high dose seasonal, preservative-free Cely Jessica [facility] 05-17-2020 Influenza, High-dose Seasonal, Quadrivalent, Preservative Free Cely [facility] 05-15-2019 influenza, high dose seasonal, preservative-free Cely [facility] 05-15-2019 Influenza, High-dose Seasonal, Quadrivalent, Preservative Free Cely [facility] 05-15-2019 pneumococcal polysaccharide vaccine, 23 valent Cely [facility] 05-07-2018 influenza, injectabl e, quadrivalent, preservative free Cely [facility] 05-07-2018 seasonal influenza, intradermal, preservative free Cely [facility] 11-21-2017 pneumococcal polysaccharide vaccine, 23 valent Cely [facility] 05-17-2017 influenza, injectabl e, quadrivalent, preservative free Cely [facility] 05-17-2017 seasonal influenza, intradermal, preservative free Cely [facility] 05-16-2016 influenza, injectabl e, quadrivalent, contains preservative Cely [facility] 05-16-2016 influenza, injectabl e, quadrivalent, preservative free Cely [facility] 05-16-2016 pneumococcal conjuga te vaccine, 13 valent Cely [facility] 04-30-2015 seasonal influenza, intradermal, preservative free Cely [facility] 05-21-2014 zoster vaccine, live Cely [facility] 05-28-2013 seasonal influenza, intradermal, preservative free Cely [facility] 07-19-2009 tetanus and diphther ia toxoids, adsorbed, preservative free, for adult use (5 Lf of tetanus toxoid and 2 Lf of diphtheria toxoid) [facility] Payers Date Payer Category Payer Self-pay 2022 Unknown 2019 Private Health Insurance [id number] 2019 Unknown [id number] 2012 Medicare 1959 Medicare [id number] 1959 Unknown [id number] 1954 Unknown [id number] 1954 Unknown [id number] 1954 Unknown [id number] 1954 Unknown [id number] [id number] 1954 Unknown [id number] [id number] 1954 Unknown [id number] [id number] 1954 Unknown [id number] [id number] 1954 Unknown [id number] [id number] 1954 Unknown [id number] [id number] 1954 Unknown [id number] [id number] 9 1954 Unknown [id number] [id number] 9 1954 Unknown [id number] [id number] 9 1954 Unknown [id number] [id number] 9 1954 Unknown [id number] [id number] 9 1954 Unknown [id number] 9 [facility] [id number] Medicare [id number] Medicare Medicare Nonpatient [id number] Unknown [id number] Social History Date Type Detail Facility Unknown if ever smoked [facility] Other Start: 04-07-2024 End: 07-23-2024 Sex Assigned At [facility] Other Start: 05-25-2023 End: 02-05-2025 Tobacco smoking status MSIS Ex-smoker (finding) [facility] Start: 1955 Sex Assigned At Female F [facility] Start: 01-01-2024 Tobacco smoking stat us [facility] Never smoked tobacco [facility] Start: 01-01-2024 End: 02-05-2025 Tobacco use and exposure Smokeless tobacco non-user [facility] Start: 04-07-2024 End: 03-27-2025 Alcoholic beverage intake Current drinker of alcohol (finding) [facility] Start: 04-07-2024 End: 07-23-2024 History of Social function [facility] Start: 04-04-2023 Alcohol Comment 3-4 drinks, monthly. [facility] Start: 1955 Sex assigned at Not on file [facility] How often do you nee d to have someone help you when you read instructions, pamphlets, or other written material from your doctor or pharmacy [SILS] Patient unable to respond [facility] How often do you att end roman catholic or restorationism services? Patient declined [facility] Do you belong to any clubs or organizations such as roman catholic groups, unions, fraternal or athletic groups, or school groups? No [facility] Are you now , , , , never or living with a partner? [facility] How often to you hav e a drink containing alcohol? 2-4 times a month [facility] How often do you hav e 6 or more drinks on 1 occasion? Never [facility] (I/We) worried wheth er (my/our) food would run out before (I/we) got money to buy more. Never true [facility] Start: 08-20-2004 End: 08-20-1975 History of tobacco use Current smoker [facility] Start: 08-20-2004 End: 08-20-1975 History of tobacco use Cigarette Smoker [facility] NEGATED: Highlighted rowStart: MICHELEF History of tobacco use Passive smoker [facility] Functional Status Date Assessment Result Facility 02-05-2025 Patient Health Quest ionnaire 2 item (PHQ-2) [Reported] [facility] Clinical Notes 12-27-2021 to 03-27-2025 Buddy Rose DPM - 03/27/2025 2:50 PM DEEDEE Schroeder - 03/05/2025 11:00 AM Stuart Dejesus NP - 02/05/2025 1:30 PM EDTTelephone Encounter - CARLOTA LANDRY - 01/23/2025 10:53 AM EDT Note Date & Type Note Facility 03-27-2025 History of Presen t illness Narrative Patient: Suman Rodas : 1955 PCP: Walt [facility] MD SUBJECTIVE Suman Rodas 70 y.o. presents today for follow up of left HSS. Pt has had previous treatment of 2nd steroid injection, nsaids, stretching with positive relief [...] Medications: cholecalciferol (EQL Vitamin D3) 50 MCG (1999) capsule, Take 1 capsule (50 mcg) by [...] More than three times a week Attends Rastafarian Services: Patient declined Active Member of Clubs [...] fascia with its origin at the medial plantar tuberosity of the calcaneus. The area of thickening [...] Buddy Rose DPM documented in this encounter [facility] 03-05-2025 History of Presen t illness Narrative Images from the original note were not included. Subjective Patient ID: Suman Rodas is a 69 y.o. female who presents for UTI. Pt is having pressure, burning, frequency , pt drinks lots of water, taking cranberry pills and these are helping some. States she does monitor her BP at home and it is always running normal for her. Is concerned because previous note mentioned embolism, but does not recall any history of blood clot in there past or any testing that would even show one. Has been more active, watches her grand kids. Trying to lose weight.l UTI This is a new problem. The current episode started in the past 7 days. The problem has been gradually worsening since onset. Current Outpatient Medications on File Prior to Visit Medication Sig Dispense Refill cholecalciferol (EQL Vitamin D3) 50 MCG (1999) capsule Take 1 capsule (50 mcg) by mouth Daily 90 capsule 3 famotidine (Pepcid) 20 MG tablet Take 20 mg by mouth in the morning and 20 mg in the evening. fluticasone (Flonase) 50 MCG/ACT nasal spray USE 1 SPRAY(S) IN EACH NOSTRIL ONCE DAILY NEEDED 16 g 2 hydrocortisone 2.5 % cream ketoconazole (NIZOral) 2 % cream zolpidem (Ambien) 10 MG tablet Take 1 tablet (10 mg) by mouth as needed at bedtime for sleep 30 tablet 2 [DISCONTINUED] valACYclovir (Valtrex) 1 g tablet Take 2 tablets by mouth in the morning and 2 tablets before bedtime. No current facility-administered medications on file prior to visit. I have reviewed and reconciled the history and medication list with the patient today. Allergies Allergen Reactions Cefdinir Diarrhea Celecoxib Other Reaction(s): swelling/hives Atorvastatin Headache Joint Pain Tetracycline Rash Social History Tobacco Use Smoking status: Former Types: Cigarettes Start date: 2004 Quit date: 1975 Years since quittin.5 Passive exposure: Never Smokeless tobacco: Never Vaping Use Vaping status: Never Used Substance Use Topics Alcohol use: Yes Comment: 3-4 drinks, monthly. Drug use: Never Family History Problem Relation Name Age of Onset Hypertension Mother Heart disease Mother Diabetes Father Hypertension Father Heart disease Father Past Medical History: Diagnosis Date Chronic hepatitis (HCC) H/O hyperlipidemia Herpes simplex otitis externa 02/12/2019 Hypertension Osteopenia Seasonal Allergies Past Surgical History: Procedure Laterality Date ANKLE SURGERY Right dr quick APPENDECTOMY CARPAL TUNNEL RELEASE Bilateral CHOLECYSTECTOMY 2014 GANGLION CYST EXCISION Right 11/06/2018 hand IR INJECTION NERVE BLOCK Bilateral 04/30/2023 Bilateral L4-S1, Medial Branch Blocks NERVE BLOCK Bilateral 03/08/2021 L2-L5 OOPHORECTOMY Right NM DEST,PARAVERTEBRAL,L/S,SINGLE Left 05/03/2021 L2-L5 RADIOFREQUENCY ABLATION Bilateral 05/28/2023 L4-S1 TRIGGER FINGER RELEASE Bilateral thumb Visit Vitals BP (!) 142/98 Pulse 86 Ht 5' 5 Wt 234 lb SpO2 97% BMI 38.94 kg/m Smoking Status Former BSA 2.2 m Review of Systems Constitutional: Negative for chills, fatigue and fever. Respiratory: Negative for cough, shortness of breath and wheezing. Cardiovascular: Negative for chest pain, palpitations and leg swelling. Gastrointestinal: Negative for abdominal pain, constipation, diarrhea, nausea and vomiting. Genitourinary: Positive for dysuria, frequency and pelvic pain (Pressure). Skin: Negative for rash. Objective Physical Exam Constitutional: General: She is not in acute distress. Appearance: She is well-developed. She is obese. HENT: Head: Normocephalic and atraumatic. Eyes: General: No scleral icterus. Conjunctiva/sclera: Conjunctivae normal. Neck: Thyroid: No thyromegaly. Cardiovascular: Rate and Rhythm: Normal rate and regular rhythm. Heart sounds: Normal heart sounds. No murmur heard. Pulmonary: Effort: Pulmonary effort is normal. No respiratory distress. Breath sounds: Normal breath sounds. No wheezing, rhonchi or rales. Abdominal: General: There is no distension. Palpations: Abdomen is soft. Tenderness: There is abdominal tenderness (Lower abdomen). There is no right CVA tenderness or left CVA tenderness. Skin: General: Skin is warm and dry. Neurological: General: No focal deficit present. Mental Status: She is alert and oriented to person, place, and time. Psychiatric: Mood and Affect: Mood normal. Behavior: Behavior normal. Office Visit on 03/05/2025 Component Date Value Ref Range Status Glucose, UA 03/05/2025 Negative Negative - 2000(110) ++++ mg/dL Final Bilirubin, UA 03/05/2025 Negative Negative - 4(70) +++ mg/dL Final Ketones, UA 03/05/2025 Negative Negative - 160(16) ++++ mg/dL Final Spec Grav, UA 03/05/2025 1.010 1 - 1.03 Final Blood, UA 03/05/2025 Positive Negative - 50 Gabe/mcL Final mod pH, UA 03/05/2025 5.0 5 - 9 Final Protein, UA 03/05/2025 Negative Negative - 2000(20) ++++ mg/dL Final Urobilinogen, UA 03/05/2025 1.0 0.2 - 12 mg/dL Final Leukocytes, UA 03/05/2025 Moderate Negative - 500+++ Stefan/mcL Final Nitrite, UA 03/05/2025 Negative Negative - Positive Final Assessment/Plan Diagnoses and all orders for this visit: Dysuria - POCT urinalysis dipstick manually resulted UA abnormal. Results discussed with patient. Recurrent cold sores - valACYclovir (Valtrex) 1 g tablet; Take 2 tablets (2,000 mg) by mouth in the morning and 2 tablets (2,000 mg) before bedtime. Refill provided on the above. Can continue to use as needed. Acute cystitis with hematuria - URINARY TRACT INFECTION (HTRX); Future - phenazopyridine (Pyridium) 200 MG tablet; Take 1 tablet (200 mg) by mouth 3 (three) times a day as needed for bladder spasms for up to 2 days - nitrofurantoin, macrocrystal-monohydrate, (Macrobid) 100 MG capsule; Take 1 capsule (100 mg) by mouth in the morning and 1 capsule (100 mg) before bedtime. Do all this for 7 days. Start the above medications as directed. Provided patient with prescription for Pyridium for symptomatic relief. Advised of potential side effects including discoloration of urine. Increase water intake, get plenty of rest. Advised patient that the urine will be sent out for culture. May need to change the antibiotic based on the culture results. Cranberry juice ok. Avoid bath tubs and hot tubs or use the restroom afterwards, always wipe front to back, avoid fragrance soaps in that area, urinate after intercourse if sexually active. If patient develops any N/V, fever/chills, or symptoms dramatically increase, the patient is to go to the ER. Otherwise follow up at our office if no improvement in one week. Benign hypertension BP is elevated today, however, pt has active UTI, and was worried about the possibility of a blood clot. She does monitor it at home and it has been WNL. Will continue to monitor for now. Morbid (severe) obesity due to excess calories ([facility]) Patient has lost 4 pounds since her last appointment. Encouraged portion control, decrease simple sugars and carbohydrates, gradually increase activity level. Aim for continued gradual steady weight loss. Body mass index (BMI) 38.0-38.9, adult See above. Reassurance given that I cannot find any documentation in our EHR to support the diagnosis of previous embolism. She has no symptoms and she does not recall ever being told that she had a blood clot. Follow up for Appointment As Scheduled. documented in this encounter [facility] 02-05-2025 History of Presen t illness Narrative Images from the original note were not included. Subjective Patient ID: Suman Rodas is a 69 y.o. female who presents for a medication follow up. Suman presents today for a medication follow up. Patient states she is out of the Ambien but when she did have she slept great. She is also concerned with her weight. She was walking everyday and just can't seem to lose any weight, she knows if she does lose weight it will help her back. Insomnia This is a chronic problem. The current episode started more than 1 year ago. The problem occurs daily. The problem has been unchanged. Nothing (just can't get to sleep) aggravates the symptoms. Treatments tried: Caty. The treatment provided significant relief. Over the past 2 weeks, how often have you been bothered by any of the following problems? Little interest or pleasure in doing things: Not at all Feeling down, depressed, or hopeless: Not at all Patient Health Questionnaire-2 Score: 0 Current Outpatient Medications on File Prior to Visit Medication Sig Dispense Refill cholecalciferol (EQL Vitamin D3) 50 MCG (1999) capsule Take 1 capsule (50 mcg) by mouth Daily 90 capsule 3 famotidine (Pepcid) 20 MG tablet Take 20 mg by mouth in the morning and 20 mg in the evening. fluticasone (Flonase) 50 MCG/ACT nasal spray USE 1 SPRAY(S) IN EACH NOSTRIL ONCE DAILY NEEDED 16 g 2 hydrocortisone 2.5 % cream ketoconazole (NIZOral) 2 % cream valACYclovir (Valtrex) 1 g tablet Take 2 tablets by mouth in the morning and 2 tablets before bedtime. zolpidem (Ambien) 10 MG tablet Take 1 tablet (10 mg) by mouth as needed at bedtime for sleep 30 tablet 2 No current facility-administered medications on file prior to visit. I have reviewed and reconciled the history and medication list with the patient today. Allergies Allergen Reactions Cefdinir Diarrhea Celecoxib Other Reaction(s): swelling/hives Atorvastatin Headache Joint Pain Tetracycline Rash Social History Tobacco Use Smoking status: Never Passive exposure: Never Smokeless tobacco: Never Vaping Use Vaping status: Never Used Substance Use Topics Alcohol use: Yes Comment: 3-4 drinks, monthly. Drug use: Never Family History Problem Relation Name Age of Onset Hypertension Mother Heart disease Mother Diabetes Father Hypertension Father Heart disease Father Past Medical History: Diagnosis Date Chronic hepatitis (HCC) H/O hyperlipidemia Herpes simplex otitis externa 02/12/2019 Hypertension Osteopenia Seasonal Allergies Past Surgical History: Procedure Laterality Date ANKLE SURGERY Right dr quick APPENDECTOMY CARPAL TUNNEL RELEASE Bilateral CHOLECYSTECTOMY 2014 GANGLION CYST EXCISION Right 11/06/2018 hand IR INJECTION NERVE BLOCK Bilateral 04/30/2023 Bilateral L4-S1, Medial Branch Blocks NERVE BLOCK Bilateral 03/08/2021 L2-L5 OOPHORECTOMY Right NM DEST,PARAVERTEBRAL,L/S,SINGLE Left 05/03/2021 L2-L5 RADIOFREQUENCY ABLATION Bilateral 05/28/2023 L4-S1 TRIGGER FINGER RELEASE Bilateral thumb Visit Vitals Smoking Status Never Review of Systems Psychiatric/Behavioral: The patient has insomnia. Objective Physical Exam Vitals reviewed. Constitutional: Appearance: Normal appearance. She is obese. HENT: Head: Normocephalic. Nose: Nose normal. Mouth/Throat: Mouth: Mucous membranes are moist. Pharynx: Oropharynx is clear. Eyes: Conjunctiva/sclera: Conjunctivae normal. Cardiovascular: Rate and Rhythm: Normal rate. Pulmonary: Effort: Pulmonary effort is normal. Abdominal: Palpations: Abdomen is soft. Skin: General: Skin is warm and dry. Neurological: General: No focal deficit present. Mental Status: She is alert and oriented to person, place, and time. Psychiatric: Mood and Affect: Mood normal. Behavior: Behavior normal. Thought Content: Thought content normal. Assessment/Plan Diagnoses and all orders for this visit: Body mass index (BMI) 38.0-38.9, adult Discussed goal of BMI < 30. Advised on weight loss options. Encouraged diet and exercise. Discussed with patient appropriate lifestyle modification changes necessary for weight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
--- NOTE | 2025-04-02 09:44 | PM.CN ---
Consult Note: HPI Data of Consult Patient: known to practice within the last 3 years Consult date: 04/02/25 Requesting Physician: Gabriela Martinez NP Primary Care Provider: CLAUDIA HANNA Consult Narrative Reason for consult: low back pain Narrative: Kerry Sanz a pleasant 70 year old female with chronic low back pain presents for evaluation. notes increasing low back pain over the last month, underwent bilateral L4-5 L5-S1 facet RFA on 04/14/24 for facet mediated pain secondary to lumbar spondylosis with 90% improvement for 7 months per pt. denies injury/fall since last visit. utilizing tylenol and ibuprofen prn with benefit. pain today 6/10 increasing to 10/10 with standing, walking, lifting, upon waking, and with cold weather. pt is interested in repeating lumbar RFAs, will be leaving to [place] for the winter05/20/25. cc:: CC: Gabriela Martinez NP Review of Systems ROS Musculoskeletal Reports: back pain PFSH PFSH Medical History History of fracture of right ankle ?Z87.81 - Personal history of (healed) traumatic fracture (ICD-10) Hepatitis C ?B19.20 - Unspecified viral hepatitis C without hepatic coma (ICD-10) Surgical History H/O dilation of urethra ?Z98.890 - Other specified postprocedural states (ICD-10) Hx of appendectomy ?Z90.49 - Acquired absence of other specified parts of digestive tract (ICD-10) History of right oophorectomy ?Z90.721 - Acquired absence of ovaries, unilateral (ICD-10) History of carpal tunnel release ?Z98.890 - Other specified postprocedural states (ICD-10) Hx of cholecystectomy ?Z90.49 - Acquired absence of other specified parts of digestive tract (ICD-10) Meds Home Medications and Allergies Home Medications ?Medication ?Instructions ?Recorded ?Confirmed ?Type calcium carbonate PO QDAY 01/25/23 History multivitamin 1 tab PO DAILY 01/25/23 04/14/24 History zolpidem 5 mg tablet (Ambien) 10 mg PO .HS 01/25/23 04/14/24 History ibuprofen 600 mg tablet 600 mg PO PRN pain 04/17/23 History cetirizine 5 mg-pseudoephedrine ER 1 tab PO BID 05/28/23 04/14/24 History 120 mg tablet,extended release,12hr (All Day Allergy-D) Allergies Allergy/AdvReac Type Severity Reaction Status Date / Time celecoxib (From Celebrex) Allergy Mild Diarrhea Verified 04/14/24 07:42 diclofenac Allergy Mild Blister Verified 04/14/24 07:42 tetracycline Allergy Mild Unknown Verified 04/14/24 07:42 Exam Constitutional Documenting provider has reviewed patient's vital signs: yes Common normals: no apparent distress, oriented x3, healthy appearing, alert and well nourished General appearance: cooperative HENMT Common normals: normocephalic, hearing grossly normal bilaterally and moist oral mucous membranes Head and scalp: normocephalic Eye Common normals: PERRL Pupil: PERRL Neck & C-Spine Common normals: full ROM General: normal visual inspection Chest Common normals: inspection of chest normal Respiratory Common normals: normal respiratory effort, no retractions and no use of accessory muscles Back & Pelvis Lumbar spine/lower back: ROM limited, pain with ROM, lumbar spinal tenderness and straight leg raise negative bilaterally Sacroiliac joints: SI joint(s) abnormal Other: right sij positive araceli(patricks), gaenslens, thigh thrust, compression test positive facet loading tenderness noted L4-S1 Neuro Common normals: oriented x3 Sensorium/orientation: alert Psych Common normals: mental status grossly normal, thought process normal, cooperative, affect normal, speech normal and activity/motor behavior normal Speech: normal speech Thought process: normal thought process Results Additional Findings Additional findings: If on a controlled substance or opioids, I have checked an [place]AR[place] report on this patient and there are no aberrancies noted in the prescribing history.??If on a controlled substance or opioid a drug screen was completed and reviewed within the last year, and if there has not been a drug screen completed we ordered one today to monitor higher risk, state monitored pain medication use. As part of providing excellent, safe, comprehensive care, the following was completed at our patient's visit: 1. A medication reconciliation and review to ensure accurate knowledge of current/active medications, including asking our patients to inform us about any fauk-rxg-ncyskyo medications or herbal remedies/nutritional supplements/alternative remedies. 2. A review to specifically ensure our patients have had annual screening for screening for depression, screening for tobacco use, and screening for unhealthy alcohol use. For concerning screenings had a discussion with the patient, provided patient education, and recommended follow-up with primary care provider when appropriate. If patient noted with a risk of falling, they received education on strength, gait, and balance training to prevent future risk of falling. Portions of this note may have been carried over from the previous visit and updated as appropriate. Please note this office utilizes paper charting in addition to the electronic medical record. A list of current medications, vitals, and PMH is available there as the clinical staff outside of myself do not have access to [employer] charting during the clinic day operations. As part of providing quality comprehensive care the current medications, vitals, and PMH were reviewed in the paper chart. Assessment and Plan Assessment and Plan (1) Lumbar spondylosis: Assessment and Plan: The patient has had over 3 months of moderate to severe low back pain with functional impairment and inadequate response to conservative care including NSAIDS (unless there are contraindication such as concurrent blood thinners), multiple oral or topical pain medications, and home exercise program/physical therapy.? Patient has completed >6 weeks of guided home exercise program and/or formal physical therapy program without relief of their symptoms.? The Oswestry Disability Index was completed, and the patient scored a 29%.? The patient noted the following:?? moderate to severe pain impacting ADLs, sitting, standing, sleeping, social life, travel We discussed the risks and benefits of the procedure with the patient, and we are NOT planning on using sedation as outlined in the guidelines from Medicare unless there is a documented reason that sedation would be strongly recommended.???The procedure will be completed with fluoroscopic guidance.? 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
== END 2025-04-02 09:14 ==
PROVIDERS: PCP Internal Medicine; Visit Provider Nurse Practitioner
DX: M47.816 Spondylosis without myelopathy or radiculopathy, lumbar region (principal); M46.1 Sacroiliitis, not elsewhere classified; M51.369 Other intervertebral disc degeneration, lumbar region without mention of lumbar back pain or lower extremity pain
CPT/HCPCS: 72114; G0463

== ENCOUNTER 2025-04-02 09:53 | Outpatient (OUT) | payer MEDICARE, OTHER, SELFPAY ==
--- OUTSIDE RECORDS SUMMARY | 2025-03-27 14:50 | XMS_ITS | Encounter Summary ---
Author Organization [facility] Address [address] [place] [address] Care Team Providers Care Psychodramatist Name Role Phone Walt Tapia MD Primary Care Provider [phone] Reason for Visit * Reason Comments Foot Pain Encounter Details Date Type Department Care Team ([facility] st Contact Info) Description 03/27/2025 2:50 PM EDT Office Visit [facility] [address] [place] [phone] Buddy Rose DPM [address] [address] Plantar fasciitis (Primary Dx); Contracture of left ankle Social History Tobacco Use Types Packs/Day Years Used Date Smoking Tobacco: Former Cigarettes 2 - 1975 Passive Smoke Exposure: Never Smokeless Tobacco: Never Tobacco Cessation:Counseling Given: Yes Alcohol Use Standard Drinks/Week Comments Yes 0 (1 standard drink = 0.6 oz pur e alcohol) 3-4 drinks, monthly. B1300 Health Literacy Answer Date Recor ded How often do you need to hav e someone help you when you read instructions, pamphlets, or other written material from your doctor or pharmacy? Patient unable to respond 07/23/2024 Social Connection and Isolat ion Panel [NHANES] Answer Date Recorded In a typical week, how many times do you talk on the phone with family, friends, or neighbors? More than three times a week 07/23/2024 How often do you get togethe r with friends or relatives? More than three times a week 07/23/2024 How often do you attend [facility] or mosque services? Patient declined 07/23/2024 Do you belong to any clubs o r organizations such as jain groups, unions, fraternal or athletic groups, or school groups? No 07/23/2024 How often do you attend meet ings of the clubs or organizations you belong to? Patient declined 07/23/2024 Are you , , di vorced, , never , or living with a partner? 07/23/2024 AUDIT-C Answer Date Recorded Q1: How often do you have a drink containing alc ohol? 2-4 times a month 07/23/2024 Average Number of Drinks Not on file 024 Q3: How often do you have si x or more drinks on one occasion? Never 07/23/2024 PHQ-2 Answer Date Recorded Patient Health Questionnaire-2 Score 0 02/05/2025 Hunger Vital Sign Answer Date Recorded Within the past 12 months, y ou worried that your food would run out before you got the money to buy more. Never true 07/23/20 24 Within the past 12 months, t he food you bought just didn't last and you didn't have money to get more. Never true 07/23/2024 PRAPARE - Transportation Answer Date Re corded In the past 12 months, has l ack of transportation kept you from medical appointments or from getting medications? No 11/2023 In the past 12 months, has l ack of transportation kept you from meetings, work, or from getting things needed for daily living? No 07/23/2024 Housing Stability Vital Sign Answer [place] e Recorded In the last 12 months, was t here a time when you were not able to pay the mortgage or rent on time? No 07/23/2024 Number of Times Moved in the Last Year Not on fi le 07/23/2024 At any time in the past 12 m [facility], were you homeless or living in a residential (including now)? No 07/23/2024 Comments Unknown Sex and Gender Information Value Date Recorded Sex Assigned at Not on file Legal Sex Female 6:48 PM EDT Gender Identity Not on file Sexual Orientation Not on file documented as of this encounter Last Filed Vital Signs Vital Sign Reading Time Taken Comments Blood Pressure - - Pulse - - Temperature - - Respiratory Rate 16 03/27/2025 2:44 PM EDT Oxygen Saturation - - Inhaled Oxygen Concentration - - Weight 106 kg (234 lb) 03/27/2025 2:44 PM EDT Height 165.1 cm (5' 5 ) 03/27/2025 2:44 PM EDT Body Mass Index 38.94 03/27/2025 2:44 PM EDT documented in this encounter Progress Notes * Buddy Rose, DPM - 03/27/2025 2:50 PM EDT Patient: Kerry Sanz : 1955 PCP: Walt Tapia MD SUBJECTIVE Kerry Sanz 70 y.o. presents today for follow up of left HSS. Pt has had previous treatment of2nd steroid injection, nsaids, stretching with positive relief in 2023 Pt states current pain on a 1-10 scale is a 7 Pt presents to day for follow up tx. Allergies: Allergies Allergen Reactions Cefdinir Diarrhea Celecoxib Other Reaction(s): swelling/hives Atorvastatin Headache Joint Pain Tetracycline Rash Past Medical History: Past Medical History: Diagnosis Date Chronic hepatitis (HCC) H/O hyperlipidemia Herpes simplex otitis externa 02/12/2019 Hypertension Osteopenia Seasonal Allergies Medications: Current Outpatient Medications: cholecalciferol (EQL Vitamin D3) 50 MCG (1999 UT) capsule, Take 1 capsule (50 mcg) by mouth Daily, Disp: 90 capsule, Rfl: 3 famotidine (Pepcid) 20 MG tablet, Take 20 mg by mouth in the morning and 20 mg in the evening., Disp: , Rfl: fluticasone (Flonase) 50 MCG/ACT nasal spray, USE 1 SPRAY(S) IN EACH NOSTRIL ONCE DAILY NEEDED, Disp: 16 g, Rfl: 2 hydrocortisone 2.5 % cream, , Disp: , Rfl: ketoconazole (NIZOral) 2 % cream, , Disp: , Rfl: valACYclovir (Valtrex) 1 g tablet, Take 2 tablets (2,000 mg) by mouth in the morning and 2 tablets (2,000 mg) before bedtime., Disp: 4 tablet, Rfl: 3 zolpidem (Ambien) 10 MG tablet, Take 1 tablet (10 mg) by mouth as needed at bedtime for sleep, Disp: 30 tablet, Rfl: 2 Social History: Social History Socioeconomic History Marital status: Spouse name: Not on file Number of children: Not on file Years of education: Not on file Highest education level: Not on file Occupational History Not on file Tobacco Use Smoking status: Former Types: Cigarettes Start date: 2004 Quit date: 1976 Years since quittin.6 Passive exposure: Never Smokeless tobacco: Never Vaping Use Vaping status: Never Used Substance and Sexual Activity Alcohol use: Yes Comment: 3-4 drinks, monthly. Drug use: Never Sexual activity: Defer Other Topics Concern Not on file Social History Narrative Not on file Social Drivers of Health Financial Resource Strain: Not on file Food Insecurity: No Food Insecurity (07/23/2024) Hunger Vital Sign Worried About Running Out of Food in the Last Year: Never true Ran Out of Food in the Last Year: Never true Transportation Needs: No Transportation Needs (07/23/2024) PRAPARE - Transportation Lack of Transportation (Medical): No Lack of Transportation (Non-Medical): No Physical Activity: Not on file Stress: Not on file Social Connections: Unknown (07/23/2024) Social Connection and Isolation Panel [NHANES] Frequency of Communication with Friends and Family: More than three times a week Frequency of Social Gatherings with Friends and Family: More than three times a week Attends Mu-Ism Services: Patient declined Active Member of Clubs or Organizations: No Attends Club or Organization Meetings: Patient declined Marital Status: Intimate Partner Violence: Not on file Housing Stability: Unknown (07/23/2024) Housing Stability Vital Sign Unable to Pay for Housing in the Last Year: No Number of Times Moved in the Last Year: Not on file Homeless in the Last Year: No ROS: GI: denies abdominal pain or ulcerations with anti-inflammatory medication OBJECTIVE LE EXAM: DERM: Positive hair growth to b/l feet with good skin turgor noted. Negative openings in skin VASC: Palpable pedal pulsed b/l with warm to cool tibia to toes b/l NEURO: Gross sensation intact digits 1-10 and b/l feet ORTHO: 20 degrees inversion and 10 degrees eversion STJ b/l. Ankle ROM less than 10 degrees b/l. positive pain on palpation to left medial calcaneal tubercle DIAGNOSTIC US REPORT - verbal order for ultrasound today The plantar arch and heel of the left foot were scanned today using a 12MHz linear probe in the transverse and sagittal planes, concerning the plantar fascia. Images were obtained. FINDINGS - US exam demonstrates hypo-echoic thickening of plantar fascia with its origin at the medial plantartuberosity of the calcaneus. The area of thickening and inflammation is greater than 4mm (norm = 4 mm). IMPRESSION - Left heel plantar fasciitis ASSESSMENT 1. Plantar fasciitis 2. Contracture of left ankle PLAN Patient to continue with oral anti - inflammatories as needed for pain and recommended OTC medications such as tylenol or Ibuprofen Patient is to continue with stretching excercizes daily with patient to continue with night stretching splint or manual stretching. Reviewed ultrasound Pt given steroid injection to left medial calcaneal tubercle under US guidance with visualization of injected fluid into area of concern per imaging. Injection of 1cc kenalog 10 and 2cc xylocaine 2% plain. Informed patient of risks and benefits of injection including non resolution of symptoms,steroid flare, tendon damage or rupture. Pt consents to proceed. This is the patients 3rd total injection Buddy Rose DPM documented in this encounter Plan of Treatment Upcoming Encounters Date Type Department Care Team (Late st Contact Info) Description 04/08/2025 10:00 AM EDT Office Visit [facility] [address] [facility] [address] [place] [address] Peggy Dejesus, GABRIELLE 112 [facility] [address] [place] [address] 04/13/2025 2:40 PM EDT Clinical Support [facility] [address] [place] [phone] Buddy Rose DPM 3006 [facility] 5 [place] [address] documented as of this encounter Visit Diagnoses Diagnosis Plantar fasciitis- Primary 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
--- OUTSIDE RECORDS SUMMARY | 2025-04-02 09:56 | XMS_ITS | Encounter Summary ---
Author Organization [facility] Address [address] [place] [address] Care Team Providers Care Ballistics Expert Name Role Phone Walt Tapia MD Primary Care Provider [phone] Encounter Details Date Type Department Care Team (Late st Contact Info) Description 03/18/2025 Orders Only [facility] [address] [place] [address] Tana Lopez LPN [address] [place] [address] Encounter for screening mammogram for malignant neoplasm of breast Social History Tobacco Use Types Packs/Day Years Used Date Smoking Tobacco: Former Cigarettes 2 - 1975 Passive Smoke Exposure: Never Smokeless Tobacco: Never Alcohol Use Standard Drinks/Week Comments Yes 0 [...] week 07/23/2024 How often do you attend chur ch or church services? Patient declined 07/23/2024 Do you belong to any clubs o r organizations such as christian groups, unions, fraternal or athletic groups, or [...] any time in the past 12 m [facility], were you homeless or living in a usp (including now)? No 07/23/2024 Comments Unknown Sex and Gender Information Value Date Recorded Sex Assigned at Not on file Legal Sex Female 6:48 PM EDT Gender Identity Not on file Sexual Orientation Not on file documented as of this encounter Plan of Treatment Upcoming Encounters Date Type Department Care Team (Late st Contact Info) Description 04/08/2025 10:00 AM EDT Office Visit [facility]MIN[facility] Sterling [address] [place] [address] Peggy Dejesus, SENIOR HR MANAGER [address] [place] [address] 04/13/2025 2:40 PM EDT Clinical Support HERMINIA [facility] [address] [place] [phone] Buddy Rose DPM [address] [facility] 5 [place] [address] documented as of this encounter Visit Diagnoses Diagnosis Encounter for screening mammogram for malignant neoplasm of breast Plantar fasciitis- Primary Plantar fascial fibromatosis Contracture of left ankle Contracture of right ankle documented in this encounter Additional Health Concerns Assessment Noted Time PHQ-9 Depression Total Score: 0 04/07/20 24 9:00 AM EDT documented as of this encounter Care Teams Ballistics Expert Relationship Specialty Start Date End Date Walt Tapia MD [address] [facility] [address] [place] [address] PCP - General Internal Medicine 12/26/22 documented as of this encounter
--- OUTSIDE RECORDS SUMMARY | 2025-04-02 09:56 | XMS_ITS | Encounter Summary ---
Author Organization [facility] Address [address] [place] [address] Care Team Providers Care Industrial Conveyor Belt Repairer Name Role Phone Walt Tapia MD Primary Care Provider [phone] Encounter Details Date Type Department Care Team ([facility] st Contact Info) Description 03/27/2025 Bamboo flowsheet [facility] [address] [place] [phone] Buddy Rose DPM [address] [address] Social History Tobacco Use Types Packs/Day Years [...] 07/23/2024 How often do you attend chur or uatsdin services? Patient declined 07/23/2024 Do you belong to any clubs o r organizations such as nondenominational groups, unions, fraternal or athletic groups, or [...] any time in the past 12 m [facility], were you homeless or living in [...] 04/08/2025 10:00 AM EDT Office Visit [facility] [address] [facility] [address] [place] [address] Peggy Dejesus NP [address] [place] [address] 04/13/2025 2:40 PM EDT Clinical Support HERMINIA Pearson [facility] [address] [place] [phone] Buddy Rose, DPTroy [address] [facility] 5 [place] [address] documented as of this encounter Visit Diagnoses Not on filedocumented in this encounter Additional Health Concerns Assessment Noted Time PHQ-9 Depression Total Score: 0 04/07/20 24 9:00 AM EDT documented as of this encounter Care Teams Industrial Conveyor Belt Repairer Relationship Specialty Start Date End Date Walt Tapia MD [address] [facility] 110 [place] [address] PCP - General Internal Medicine 12/26/22 documented as of this encounter
--- OUTSIDE RECORDS SUMMARY | 2025-04-02 09:56 | XMS_ITS | Clinical Summary ---
Author Organization [employer] s tem Address [id number] [address] [place] [address] Care Team Providers Care Compliance Professional Name Role Phone Walt Tapia MD Primary Care Provider [phone] Allergies Active Allergy Reactions Criticality Noted Date Comments Celecoxib Hives 10/29/2018 Tetracyclines Hives 08/07/2014 Medications zolpidem (AMBIEN) 5 mg tablet Take 5 mg by mouth nightly as needed for sleep. Active ibuprofen (ADVIL,MOTRIN) 200 mg tablet Take 200 mg by mouth every 6 (six) hours as needed for pain. Active famotidine (PEPCID) 20 mg tablet Take 20 mg by mouth 2 (two) times a day. Active Active Problems No known active problems Family History Medical History Relation Name Comments Cancer Father Arthritis Mother Heart disease Mother Relation Name Status Comments Father Mother Alive Social History Tobacco Use Types Packs/Day Years Used Date Smoking Tobacco: Former Smokeless Tobacco: Never Alcohol Use Standard Drinks/Week Comments Yes 0 (1 standard drink = 0.6 oz pur e alcohol) occassional Childcare Answer Date Recorded Childcare Unknown 01/29/2019 Employment Answer Date Recorded Employment Unknown 01/29/2019 Purpose - Life Answer Date Recorded Purpose and direction in life Unknown Comments No Sex and Gender Information Value Date Recorded Sex Assigned at Not on file Legal Sex Female 11:30 AM EDT Gender Identity Not on file Sexual Orientation Not on file Last Filed Vital Signs Vital Sign Reading Time Taken Comments Blood Pressure 137/78 11/06/2018 11:15 AM EDT Pulse 68 11/06/2018 11:15 AM EDT Temperature 36.3 C (97.4 F) 11/06/2018 8:06 AM EDT Respiratory Rate 16 11/06/2018 10:32 AM EDT Oxygen Saturation 98% 11/06/2018 11:15 AM EDT Inhaled Oxygen Concentration - - Weight 95.3 kg (210 lb) 11/06/2018 8:06 AM EDT Height 165.1 cm (5' 5 ) 11/06/2018 8:06 AM EDT Body Mass Index 34.95 11/06/2018 8:06 AM EDT Plan of Treatment Not on file Medical Devices Not on file Insurance [facility] MEDIC[facility] Care Teams Compliance Professional Relationship Specialty Start Date End Date Walt Tapia MD [address] [facility] [address] [place] [phone] PCP - General Internal Medicine 10/29/18
--- OUTSIDE RECORDS SUMMARY | 2025-04-02 09:56 | XMS_ITS | Encounter Summary ---
Author Organization [facility] Address [address] [place] [address] Care Team Providers Care Guide Plant Name Role Phone Walt Tapia MD Primary Care Provider [phone] Encounter Details Date Type Department Care Team (Late st Contact Info) Description 01/26/2025 Abstract [facility] [address] [facility] [address] [place] [phone] Walt Tpaia MD [address] [facility] 110 [place], [place] [id number] Social History Tobacco Use Types Packs/Day Years Used Date Smoking Tobacco: Never Passive Smoke Exposure: Never Smokeless Tobacco: Never [...] often do you attend chur ch or baptism services? Patient declined 07/23/2024 Do you belong [...] Date Recorded Patient Health Questionnaire-2 Score 0 04/07/2024 Hunger Vital Sign Answer Date Recorded Within [...] any time in the past 12 m [facility], were you homeless or living in a [place] [facility] facility (including now)? No 07/23/2024 Comments Unknown Sex and Gender Information Value Date Recorded Sex Assigned at Not on file Legal Sex Female 6:48 PM EDT Gender Identity Not on file Sexual Orientation Not on file documented as of this encounter Plan of Treatment Upcoming Encounters Date Type Department Care Team (Late st Contact Info) Description 04/08/2025 10:00 AM EDT Office Visit [facility] [address] [facility] [address] [place] [address] Peggy Dejesus, GABRIELLE [address] [facility] 110 [place] [address] 04/13/2025 2:40 PM EDT Clinical Support [facility] [address] [place] [phone] Buddy Rose, DPTroy [address] [facility] 5 [place] [address] documented as of this encounter Visit Diagnoses Not on filedocumented in this encounter Additional Health Concerns Assessment Noted Time PHQ-9 Depression Total Score: 0 04/07/20 24 9:00 AM EDT documented as of this encounter Care Teams Guide Plant Relationship Specialty Start Date End Date Walt Tapia MD [address] [place] [address] [address] [place] [address] PCP - General Internal Medicine 12/26/22 documented as of this encounter
--- OUTSIDE RECORDS SUMMARY | 2025-04-02 09:56 | XMS_ITS | Clinical Summary ---
Author Organization [facility] Address [address] [place] [address] Care Team Providers Care Director Physical Therapy Name Role Phone Walt Tapia MD Primary Care Provider [phone] Allergies Active Allergy Reactions Criticality Noted Date Comments Atorvastatin Headache Low 07/08/2024 Joint Pain Cefdinir Diarrhea 03/29/2023 Celecoxib 03/29/2023 Other Reaction(s): swelling/hives Tetracycline Rash Low 04/25/2024 Medications famotidine (Pepcid) 20 MG tablet Take 20 mg by mouth in the morning and 20 mg in the evening. Active fluticasone (Flonase) 50 MCG/ACT nasal sprayIndications :Allergic rhinitis, unspecified seasonality, unspecified trigger USE 1 SPRAY(S) IN EACH NOSTRIL ONCE DAILY NEEDED 16 g 2 3 Active hydrocortisone 2.5 % cream 4 Active ketoconazole (NIZOral) 2 % cream 4 Active cholecalciferol (EQL Vitamin D3) 50 MCG (1999 UT) capsuleIndicatio ns:Vitamin D deficiency Take 1 capsule (50 mcg) by mouth Daily 90 capsule 3 4 Active zolpidem (Ambien) 10 MG tabletIndication s:Primary insomnia Take 1 tablet (10 mg) by mouth as needed at bedtime for sleep 30 tablet 2 5 08/05/20 25 Active valACYclovir (Valtrex) 1 g tabletIndication s:Recurrent cold sores Take 2 tablets (2,000 mg) by mouth in the morning and 2 tablets (2,000 mg) before bedtime. 4 tablet 3 5 Active valACYclovir (Valtrex) 1 g tablet Take 2 tablets by mouth in the morning and 2 tablets before bedtime. 03/05/20 25 Discontinue d(Reorder) phenazopyridine (Pyridium) 200 MG tabletIndication s:Acute cystitis with hematuria Take 1 tablet (200 mg) by mouth 3 (three) times a day as needed for bladder spasms for up to 2 days 6 tablet 5 03/07/20 25 nitrofurantoin, macrocrystal-mon ohydrate, (Macrobid) 100 MG capsuleIndicatio ns:Acute cystitis with hematuria Take 1 capsule (100 mg) by mouth in the morning and 1 capsule (100 mg) before bedtime. Do all this for 7 days. 14 capsule 5 03/12/20 25 Active Problems Problem Noted Date Diagnosed Date Morbid (severe) obesity due to excess calories 0 04/07/2024 Unspecified cirrhosis of liver 04/07/2024 Impaired fasting glucose 04/07/2024 Allergic rhinitis 03/29/2023 Arteriosclerosis of abdominal aorta 03/29/2023 Benign hypertension 03/29/2023 Chronic hepatitis C without hepatic coma 023 Estrogen deficiency 03/29/2023 Hiatal hernia 03/29/2023 Body mass index (BMI) 38.0-38.9, adult 3 Osteoarthritis of spine with radiculopathy, lumb ar region 03/29/2023 Osteopenia 03/29/2023 Pure hypercholesterolemia 03/29/2023 Recurrent cold sores 03/29/2023 Sciatica 03/29/2023 Primary insomnia 02/14/2023 Ex-smoker 02/12/2019 Resolved Problems Problem Noted Date Diagnosed Date Resolved Date Chronic hepatitis 03/29/2023 04/07/2024 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 04/07/2024 Herpes simplex otitis externa 02/12/2019 04/07/2024 Encounters Date Type Department Care Team Description 03/27/2025 2:50 PM EDT Office Visit [facility] [address] [place] [address] Buddy Rose, DPTroy Plantar fasciitis (Primary Dx); Contracture of left ankle 03/27/2025 Bamboo flowsheet [facility] [address] [place] [address] Buddy Rose DPM 03/18/2025 Orders Only [facility] [address] [facility] [address] [place] [address] Tana Lopez LPN Encounter for screening mammogram for malignant neoplasm of breast 03/06/2025 Abstract [facility] [address] [facility] [address] [place] [address] Walt Tapia MD 03/05/2025 11:00 AM EDT Office Visit [facility] [address] [facility] [address] [place] [phone] Eve Dougherty PA Dysuria (Primary Dx); Recurrent cold sores; Acute cystitis with hematuria; Benign hypertension ; Morbid (severe) obesity due to excess calories ([facility]-H[facility]); Body mass index (BMI) 38.0-38.9, adult 03/05/2025 External Result Encounter [facility] External Department Unsolicited Eve Dougherty PA 03/05/2025 Travel 02/05/2025 1:30 PM EDT Office Visit [facility] [address] [facility] [address] [place] [address] Peggy Dejesus, PAINT MIXER [employer]ACHINE Body mass index (BMI) 38.0-38.9, adult (Primary Dx); Insomnia, unspecified type; Morbid (severe) obesity due to excess calories (CMS-HCC); Chronic viral hepatitis C (HCC); Chronic hepatitis, unspecified (HCC); Unspecified cirrhosis of liver (HCC); Pure hypercholesterolemia , unspecified ; 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 [address] [facility] [address] [place] [address] Eve Dougherty PA 01/23/2025 10:30 AM EDT Clinical Support [facility] [address] [facility] [address] [place] [address] Eve Dougherty PA Burning with urination 01/23/[address] [facility] [address] [facility] [address] [place] [address] Walt Tapia MD 01/23/2025 Orders Only [facility] [address] [facility] [address] [place] [address] Eve Dougherty, PA Burning with urination; Dysuria 01/23/2025 Telephone [facility] [address] [facility] [address] [place] [address] Eve Dougherty, PA 01/23/2025 Travel from Last 3 Months Immunizations Immunization Administration Dates Next Due Influenza, High Dose Seasona l, Preservative Free 04/23/2024,05/25/2022,05/17/2020,05/15 Influenza, High-dose Seasona l, Quadrivalent, Preservative Free 05/18/2023,05/25/2022,05/22/2021,05/17,05/15/2019 Influenza, injectable, quadrivalent 05/16/2016 Influenza, injectable, quadr ivalent, preservative free 05/07/2018,05/17/2017,05/16/2016 Influenza, seasonal, intrade rmal, preservative free 05/07/2018,05/17/2017,04/30/2015,05/28 Pneumococcal Conjugate PCV 13 05/16/2016 Pneumococcal Polysaccharide PPSV23 05/15/2019, Td (adult), 5 Lf tetanus tox oid, preservative free, adsorbed 07/19/2009 Tdap 08/27/2021 Zoster, Recombinant 07/26/2021,05/12/2021 Zoster, live 05/21/2014 Family History Medical History Relation Name Comments Diabetes Father Heart disease Father Hypertension Father Heart disease Mother Hypertension Mother Relation Name Status Comments Father Mother Social History Tobacco Use Types Packs/Day Years [...] often do you attend chur ch or congregation services? Patient declined 07/23/2024 Do you belong to any clubs o r organizations such as mandaeism groups, unions, fraternal or athletic groups, or [...] any time in the past 12 m [facility], were you homeless or living in a fpc (including now)? No 07/23/2024 Comments Unknown Sex and Gender Information Value Date Recorded Sex Assigned at Not on file Legal Sex Female 6:48 PM EDT Gender Identity Not on file Sexual Orientation Not on file Last Filed Vital Signs Vital Sign Reading Time Taken Comments Blood Pressure 142/98 03/05/2025 10:58 AM EDT Pulse 86 03/05/2025 10:58 AM EDT Temperature 37.2 C (99 F) 01/31/2024 10:13 AM EDT Respiratory Rate 16 03/27/2025 2:44 PM EDT Oxygen Saturation 97% 03/05/2025 10:58 AM EDT Inhaled Oxygen Concentration - - Weight 106 kg (234 lb) 03/27/2025 2:44 PM EDT Height 165.1 cm (5' 5 ) 03/27/2025 2:44 PM EDT Body Mass Index 38.94 03/27/2025 2:44 PM EDT Plan of Treatment Upcoming Encounters Date Type Department Care Team (Late st Contact Info) Description 04/08/2025 10:00 AM EDT Office Visit [facility] [address] [facility] [address] [place] [address] Peggy Dejesus, GABRIELLE [address] [facility] [address] [place] [address] 04/13/2025 2:40 PM EDT Clinical Support [facility] [address] [place] [address] Buddy Rose DPM [address] [address] Health Maintenance Due Date Last Done Comments CT Colonography 1955 Colonoscopy 1955 FIT 1955 FOBT 1955 Sigmoidoscopy 1955 Medicare Annual Wellness (AWV) 04/07/2025 0 04/07/2024, 04/05/2023, 04/04/2022 Influenza Vaccine (#1) 2025 , 05/18/2023, 05/25/2022, Additional history exists Mammogram 05/05/2025 05/05/2024, 04/20, 04/13/2022, Additional history exists Colorectal Cancer Screening 04/17/2027 FIT-DNA 04/17/2027 04/17/2024, 090 08/2020, 04/20/2021, Additional history exists Pneumococcal Vaccine: 65+ Years Completed 05/15/2019, 11/21/2017, 05/16/2016 Procedures Procedure Name Priority Date/Time Associated Diagnosis Comments POCT URINALYSIS DIPSTICK Routine 03/05/2025 11:07 AM EDT Dysuria URINARY TRACT INFECTION (HTRX) Routine 03/05/2025 12:01 AM EDT URINARY TRACT INFECTION (HTRX) Routine 01/23/2025 11:06 AM EDT Burning with urination Dysuria POCT URINALYSIS DIPSTICK Routine 01/23/2025 10:48 AM EDT Burning with urination MM TOMOSYNTHESIS SCREENING BI 05/05/2024 11:03 AM EDT LAB COLOGUARD COLON CANCER SCREEN Routine 04/17/2024 9:30 AM EDT Encounter for screening for malignant neoplasm of colon from Last 3 Months or Most Recently Relevant to Health Maintenance Results * (ABNORMAL) POCT urinalysis dipstick manually resulted (03/05/2025 11:07 AM EDT) Only the most recent of2 resultswithin the time period is included. Glucose, UA Negative Negative - 1999(110) ++++ mg/dL Bilirubin, UA Negative Negative - 4(70) +++ mg/dL Ketones, UA Negative Negative - 160(16) ++++ mg/dL Spec Grav, UA 1.010 1 - 1.03 Blood, UA Positive Negative - 50 Gabe/mcL Comment:mod pH, UA 5.0 5 - 9 Protein, UA Negative Negative - 1999(20) ++++ mg/dL Urobilinogen, UA 1.0 0.2 - 12 mg/dL Leukocytes, UA Moderate Negative - 500+++ Stefan/mcL Nitrite, UA Negative Negative - Positive Urine 03/05/2025 11:0 7 AM EDT Eve MARK POINT OF CARE TEST ENTER/EDIT ORDERABLES Final Result * (ABNORMAL) URINARY TRACT INFECTION (HTRX) (03/05/2025 12:01 AM EDT) Only the most recent of2 resultswithin the time period is included. ACINETOBACTER BAUMANII 0 19.961 - 24.689 ppm 03/06/2025 9:06 AM EDT [facility] ACINETOBACTER BAUMANII Not Detected 19.961 - 24.689 ppm 03/06/2025 9:06 AM EDT [facility] CITROBACTER FREUNDII 0 23.000 - 32.015 ppm 03/06/2025 9:06 AM EDT [facility] CITROBACTER FREUNDII Not Detected 23.000 - 32.015 ppm 03/06/2025 9:06 AM EDT [facility] ENTEROBACTER AEROGENES, CLOACAE 0 23.000 - 32.290 ppm 03/06/2025 9:06 AM EDT [facility] ENTEROBACTER AEROGENES, CLOACAE Not Detected 23.000 - 32.290 ppm 03/06/2025 9:06 AM EDT [facility] ENTEROCOCCUS FAECALIS, FAECIUM 0 26.000 - 33.043 ppm 03/06/2025 9:06 AM EDT [facility] ENTEROCOCCUS FAECALIS, FAECIUM Not Detected 26.000 - 33.043 ppm 03/06/2025 9:06 AM EDT [facility] ESCHERICHIA COLI 27.224(A) 23.000 - 28.500 ppm 03/06/2025 9:06 AM EDT [facility] ESCHERICHIA COLI Detected(A) 23.000 - 28.500 ppm 03/06/2025 9:06 AM EDT [facility] KLEBSIELLA PNEUMONIAE, OXYTOCA 0 23.000 - 31.865 ppm 03/06/2025 9:06 AM EDT [facility] KLEBSIELLA PNEUMONIAE, OXYTOCA Not Detected 23.000 - 31.865 ppm 03/06/2025 9:06 AM EDT [facility] MORGANELLA MORGANII 0 19.961 - 24.689 ppm 03/06/2025 9:06 AM EDT [facility] MORGANELLA MORGANII Not Detected 19.961 - 24.689 ppm 03/06/2025 9:06 AM EDT [facility] PROTEUS MIRABILIS, VULGARIS 0 23.000 - 28.500 ppm 03/06/2025 9:06 AM EDT [facility] PROTEUS MIRABILIS, VULGARIS Not Detected 23.000 - 28.500 ppm 03/06/2025 9:06 AM EDT [facility] PSEUDOMONAS AERUGINOSA 0 23.000 - 31.801 ppm 03/06/2025 9:06 AM EDT [facility] PSEUDOMONAS AERUGINOSA Not Detected 23.000 - 31.801 ppm 03/06/2025 9:06 AM EDT [facility] STAPHYLOCOCCUS AUREUS 0 26.000 - 31.595 ppm 03/06/2025 9:06 AM EDT [facility] STAPHYLOCOCCUS AUREUS Not Detected 26.000 - 31.595 ppm 03/06/2025 9:06 AM EDT [facility] STREPTOCOCCUS AGALACTIAE (GROUP B STREP) 0 26.000 - 32.435 ppm 03/06/2025 9:06 AM EDT [facility] STREPTOCOCCUS AGALACTIAE (GROUP B STREP) Not Detected 26.000 - 32.435 ppm 03/06/2025 9:06 AM EDT [facility] MANDY ALBICANS, PARAPSILOSIS, TROPICALIS 0 23.000 - 30.347 ppm 03/06/2025 9:06 AM EDT [facility] MANDY ALBICANS, PARAPSILOSIS, TROPICALIS Not Detected 23.000 - 30.347 ppm 03/06/2025 9:06 AM EDT [facility] MANDY GLABRATA 0 23.000 - 31.618 ppm 03/06/2025 9:06 AM EDT [facility] MANDY GLABRATA Not Detected 23.000 - 31.618 ppm 03/06/2025 9:06 AM EDT [facility] MANDY KRUSEI 0 23.000 - 30.873 ppm 03/06/2025 9:06 AM EDT [facility] MANDY KRUSEI Not Detected 23.000 - 30.873 ppm 03/06/2025 9:06 AM EDT [facility] SERRATIA MARCESCENS 0 23.000 - 31.581 ppm 03/06/2025 9:06 AM EDT [facility] SERRATIA MARCESCENS Not Detected 23.000 - 31.581 ppm 03/06/2025 9:06 AM EDT [facility] STREPTOCOCCUS PYOGENES (GROUP A STREP) 0 19.961 - 24.689 ppm 03/06/2025 9:06 AM EDT [facility] STREPTOCOCCUS PYOGENES (GROUP A STREP) Not Detected 19.961 - 24.689 ppm 03/06/2025 9:06 AM EDT [facility] STAPHYLOCOCCUS EPIDERMIDIS, HAEMOLYTICUS, LUGDUNENSIS, SAPROPHYTICUS (URINA 0 19.961 - 24.689 ppm 03/06/2025 9:06 AM EDT [facility] STAPHYLOCOCCUS EPIDERMIDIS, HAEMOLYTICUS, LUGDUNENSIS, SAPROPHYTICUS (URINA Not Detected 19.961 - 24.689 ppm 03/06/2025 9:06 AM EDT [facility] STAPHYLOCOCCUS EPIDERMIDIS, HAEMOLYTICUS, LUGDUNENSIS, SAPROPHYTICUS (URINA 0 19.961 - 24.689 ppm 03/06/2025 9:06 AM EDT [facility] STAPHYLOCOCCUS EPIDERMIDIS, HAEMOLYTICUS, LUGDUNENSIS, SAPROPHYTICUS (URINA Not Detected 19.961 - 24.689 ppm 03/06/2025 9:06 AM EDT [facility] Urine 03/05/2025 12:0 1 AM EDT 03/06/2025 2:46 AM EDT us Eve MARK LAB BLOOD ORDERABLES Final Res ult [facility] [address] [place] [address] * MM TOMOSYNTHESIS SCREENING BI (05/05/2024 11:03 AM EDT) Anatomical Region Laterality Modality Other 05/05/2024 11:0 3 AM EDT Narrative 05/05/2024 11:04 [place] [address] Mammography Report Signed Patient: SUMAN RODAS MR#: [id number] : 1955 Acct:[id number] Age/Sex: 69 / F ADM Date: 05/05/24 Loc: MAMMO Attending Dr: EVE DOUGHERTY Ordering Physician: EVE DOUGHERTY Results: Date of Service: 05/05/24 Follow Up: Procedure(s): MM tomosynthesis screening BI Accession Number(s): [id number] cc: WALT TAPIA ; EVE DOUGHERTY Patient Name: SUMAN RODAS MR#: [id number] : 1955 Exam Date: 05/05/2024 Ordering Doctor: DR EVE MARK RADIOLOGY REPORT PROCEDURE: MM TOMOSYNTHESIS SCREENING BI COMPARISON: MM TOMOSYNTHESIS SCREENING BI, 05/04/2023. MG MAMM SCREEN 3D DAHIANA CAD, 04/13/2022. INDICATIONS: Screening Calculator Name NCI Breast Cancer Risk Assessment Tool 5 Year Breast Cancer Risk 2.40% Lifetime Breast Cancer Risk 6.90% Personal Breast Cancer No Personal Ovarian Cancer No Treatments None Family Cancers Aunt-paternal with breast cancer at age 75. LOCATION: [facility] BREAST COMPOSITION: The breasts are almost entirely fatty. FINDINGS: DIAGNOSTIC CATEGORY 2--BENIGN FINDING. NO CHANGE FROM COMPARISON. Scattered benign-appearing calcifications are present. Scattered benign-appearing lymph nodes are present. RIGHT BREAST: No significant suspicious finding. LEFT BREAST: No significant suspicious finding. RECOMMENDATIONS: ROUTINE MAMMOGRAM AND CLINICAL EVALUATION IN 12 MONTHS. PLEASE NOTE: A NORMAL MAMMOGRAM DOES NOT EXCLUDE THE POSSIBILITY OF BREAST CANCER. A CLINICALLY SUSPICIOUS PALPABLE LUMP SHOULD BE BIOPSIED. Dictated by: Tyler Conklin MD on 05/05/2024 at 11:02 Approved by: Tyler Conklin MD on 05/05/2024 at 11:03 Dictated By: Tyler Conklin M.D. Signed By: 05/05/24 1104 DD/ 1103 TD/TT: Chucking Machine Operator: Procedure Note Radiology, Radiologist, MD - 05/05/2024 [place] [address] Mammography Report Signed Patient: SUMAN RODAS SMR#: [id number] : 1955cct:[id number] Age/Sex: 69 / FADM Date: 05/05/24 Loc: MAMMO Attending Dr: EVE DOUGHERTY Ordering Physician: EVE DOUGHERTY MResults: Date of Service: 05/05/24Follow Up: Procedure(s): MM tomosynthesis screening BI Accession Number(s): [id number] cc: WALT TAPIA ; EVE DOUGHERTY Patient Name: SUMAN RODAS MR#: [id number] : 1955 Exam Date: 05/05/2024 Ordering Doctor: DR EVE MARK RADIOLOGY REPORT PROCEDURE: MM TOMOSYNTHESIS SCREENING BI COMPARISON: MM TOMOSYNTHESIS SCREENING BI, 05/04/2023. MG MAMM [id number] DAHIANA CAD, 04/13/2022. INDICATIONS: Screening Calculator Name NCI Breast Cancer Risk Assessment Tool 5 Year Breast Cancer Risk 2.40% Lifetime Breast Cancer Risk 6.90% Personal Breast Cancer No Personal Ovarian Cancer No Treatments None Family Cancers Aunt-paternal with breast cancer at age 75. LOCATION: [facility] BREAST COMPOSITION: The breasts are almost entirely fatty. FINDINGS: DIAGNOSTIC CATEGORY 2--BENIGN FINDING. NO CHANGE FROM COMPARISON. Scattered benign-appearing calcifications are present. Scattered benign-appearing lymph nodes are present. RIGHT BREAST: No significant suspicious finding. LEFT BREAST: No significant suspicious finding. RECOMMENDATIONS: ROUTINE MAMMOGRAM AND CLINICAL EVALUATION IN 12 MONTHS. PLEASE NOTE: A NORMAL MAMMOGRAM DOES NOT EXCLUDE THE POSSIBILITY OFBREAST CANCER. A CLINICALLY SUSPICIOUS PALPABLE LUMP SHOULD BE BIOPSIED. Dictated by: Tyler Conklin MD on 05/05/2024 at 11:02 Approved by: Tyler Conklin MD on 05/05/2024 at 11:03 Dictated By: Tyler Conklin M.D. Signed By:05/05/24 1104 DD/ 1103 TD/TT: Chucking Machine Operator: Eve MARK [facility] Final Result * Cologuard?? colon cancer screening (04/17/2024 9:30 AM EDT) NONINV COLON CA DNA+OCC BLD SCRN STL-IMP Negative Negative 04/24/2024 10:54 AM EDT [facility] (CLIA #:[id number]) Comment: NEGATIVE TEST RESULT. A negative Cologuard result indicates a low likelihood that a colorectal cancer (CRC) or advanced adenoma (adenomatous polyps with more advanced pre-malignant features) is present. The chance that a person with a negative Cologuard test has a colorectal cancer is less than 1 in 1500 (negative predictive value >99.9%) or has an advanced adenoma is less than 5.3% (negative predictive value 94.7%). These data are based on a prospective cross-sectional study of 10,000 individuals at average risk for colorectal cancer who were screened with both Cologuard and colonoscopy. (Kamran Corona al, N Engl J Med 2014;370(14):9318-1217) The normal value (reference range) for this assay is negative. COLOGUARD RE-SCREENING RECOMMENDATION: Periodic colorectal cancer screening is an important part of preventive healthcare for asymptomatic individuals at average risk for colorectal cancer. Following a negative Cologuard result, the [place] [employer] Society and U.S. Multi-Society Task Force screening guidelines recommend a Cologuard re-screening interval of 3 years. References: [place] [employer] Guideline for Colorectal Cancer Screening: https://www.cancer.org/cancer/cwesz-magfcc-gnrcnb/nddtxtgxc-xvvdreapz-cqprbzn/ac s-rec ommendations.html.; José DK, Foreign PRECIADO, Rosy HogueK, Colorectal Cancer Screening: Recommendations for Physicians and Patients from the U.S. Multi-Society Task Force on Colorectal Cancer Screening , Am J Gastroenterology 2017; 112:2104-2028. TEST DESCRIPTION: Composite algorithmic analysis of stool DNA-biomarkers with hemoglobin immunoassay. Quantitative values of individual biomarkers are not reportable and are not associated with individual biomarker result reference ranges. Cologuard is intended for colorectal cancer screening of adults of either sex, 45 years or older, who are at average-risk for colorectal cancer (CRC). Cologuard has been approved for use by the U.S. FDA. The performance of Cologuard was established in a cross sectional study of average-risk adults aged 50-84. Cologuard performance in patients ages 45 to 49 years was estimated by sub-group analysis of near-age groups. Colonoscopies performed for a positive result may find as the most clinically significant lesion: colorectal cancer [4.0%], advanced adenoma (including sessile serrated polyps greater than or equal to 1cm diameter) [20%] or non- advanced adenoma [31%]; or no colorectal neoplasia [45%]. These estimates are derived from a prospective cross-sectional screening study of 10,000 individuals at average risk for colorectal cancer who were screened with both Cologuard and colonoscopy. (Imperiale T. et al, N Engl J Med 2014;370(14):9168-1983.) Cologuard may produce a false negative or false positive result (no colorectal cancer or precancerous polyp present at colonoscopy follow up). A negative Cologuard test result does not guarantee the absence of CRC or advanced adenoma (pre-cancer). The current Cologuard screening interval is every 3 years. ([place] [employer] Society and U.S. Multi-Society Task Force). Cologuard performance data in a 10,000 patient pivotal study using colonoscopy as the reference method can be accessed at the following location: www.[employer].com/results. Additional description of the Cologuard test process, warnings and precautions can be found at www.[employer].The [employer]. Stool specimen (specimen) 04/17/2024 9:30 AM EDT 04/18/2024 2:04 PM EDT Walt Tapia MD LAB MOLECULAR DIAGNOSTICS MARCO A ESTRADA Final Result [facility] (CLIA #:[id number]) [address] [place] [address], from Last 3 Months or Most Recently Relevant to Health Maintenance Insurance [facility] MEDIC[facility] Care Teams Director Physical Therapy Relationship Specialty Start Date End Date Walt Tapia MD [address] [address] PCP - General Internal Medicine 12/26/22
--- OUTSIDE RECORDS SUMMARY | 2025-04-02 09:56 | XMS_ITS | Encounter Summary ---
Author Organization [facility] Address [address] [place] [address] Care Team Providers Care Director Of Primary Name Role Phone Walt Tapia MD Primary Care Provider [phone] Encounter Details Date Type Department Care Team (Late st Contact Info) Description 03/06/2025 Abstract [facility] [place] [facility] [address] [facility] 110 [place] [address] Walt Tapia MD 112 [facility] 110 [place] [address] Social History Tobacco Use Types Packs/Day Years [...] often do you attend chur ch or moravian services? Patient declined 07/23/2024 Do you belong to any clubs o r organizations such as congregational groups, unions, fraternal or athletic groups, or [...] money to buy more. Never true 07/23/20 Within the past 12 months, t he [...] any time in the past 12 m [facility], were you homeless or living in a [...] Visit [facility] [place] [facility] [address] [facility] 110 [place] [address] Peggy Dejesus NP [address] [place] 110 [place] [address] 04/13/2025 2:40 PM EDT Clinical Support [facility] [address]006 [place] [address] Buddy Rose DPM [address] [facility] 5 [place] [address] documented as of this encounter Visit Diagnoses Not on filedocumented in this encounter Additional Health Concerns Assessment Noted Time PHQ-9 Depression Total Score: 0 04/07/20 24 9:00 AM EDT documented as of this encounter Care Teams Director Of Primary Relationship Specialty Start Date End Date Walt Tapia MD 112 [facility] 110 [place] [address] PCP - General Internal Medicine 12/26/22 documented as of this encounter
--- OUTSIDE RECORDS SUMMARY | 2025-04-02 09:56 | XMS_ITS | Encounter Summary ---
Author Organization [facility] Address [address] [place] [address] Care Team Providers Care Parts Counter Associate Name Role Phone Walt Tapia MD Unavailable [phone] Walt Tapia MD Primary Care Provider [phone] Walt Tapia MD Unavailable [phone] Walt Tapia MD Unavailable [phone] Encounter Details Date Type Department Care Team (Late st Contact Info) Description 05/28/2023 Abstract [facility] [place] [facility] [address] [facility] 110 [place] [phone] Walt Tapia MD [address] [facility] 110 [place], [place] [address] Social History Tobacco Use Types Packs/Day Years Used Date Smoking Tobacco: Never Smokeless Tobacco: Never Alcohol Use Standard Drinks/Week Comments Yes 0 (1 standard drink = 0.6 oz pur e alcohol) 3-4 drinks, monthly. PHQ-2 Answer Date Recorded Patient Health Questionnaire-2 Score 0 04/05/2023 Comments Unknown Sex and Gender Information Value Date Recorded Sex Assigned at Not on file Legal Sex Female 6:48 PM EDT Gender Identity Not on file Sexual Orientation Not on file documented as of this encounter Plan of Treatment Upcoming Encounters Date Type Department Care Team (Late Contact Info) Description 04/08/2025 10:00 AM EDT Office Visit [facility] [place] [facility] [address] [facility] 110 [place] [address] Peggy Dejesus, GABRIELLE [address] [facility] 110 [place], [place] [address] 04/13/2025 2:40 PM EDT Clinical Support [facility] 3006 [place] [address] Buddy Rose, DPM 3006 [facility] [place] 5 [place] [address] documented as of this encounter Visit Diagnoses Not on filedocumented in this encounter Care Teams Parts Counter Associate Relationship Specialty Start Date End Date Walt Tapia MD [address] [place] [address] [place] [address] PCP - ACO Reach 01/11/23 10/18/23 Walt Tapia MD [address] [place] 110 [place] [address] PCP - General Internal Medicine 12/26/22 Walt Tapia MD [address] [place] [address] [place] [address] PCP - ACO Reach 12/19/23 09/25/24 Walt Tapia MD [address] [place] [address] [place] [address] PCP - ACO Reach 10/03/24 11/20/24 documented as of this encounter
--- OUTSIDE RECORDS SUMMARY | 2025-04-02 09:57 | XMS_ITS | Encounter Summary ---
Author Organization [facility] Address [address] [place] [address] Care Team Providers Care City Designer Name Role Phone Walt Tapia MD Unavailable [phone] Walt Tapia MD Primary Care Provider [phone] Walt Tapia MD Unavailable [phone] Walt Tapia MD Unavailable [phone] Encounter Details Date Type Department Care Team (Late st Contact Info) Description 04/10/2023 Abstract [facility] [place] [facility] [address] [facility] 110 [place] [address] Walt Tapia MD 112 [facility] 110 [place], [place] [phone] Social History Tobacco Use Types Packs/Day Years [...] Visit [facility] [place] [facility] [address] [facility] 110 [place] [address] Peggy Dejesus, GABRIELLE [address] [facility] 110 [place], [place] [address] 04/13/2025 2:40 PM EDT Clinical Support [facility] 3006 [place] [address] Buddy Rose, DPM 3006 [facility] [place] 5 [place] [address] documented as of this encounter Visit Diagnoses Not on filedocumented in this encounter Care Teams City Designer Relationship Specialty Start Date End Date Walt Tapia MD [address] [place] [address] [place] [address] PCP - ACO Reach 01/11/23 10/18/23 Walt Tapia MD [address] [place] 110 [place] [address] PCP - General Internal Medicine 12/26/22 Walt Tapia MD [address] [place] [address] [place] [address] PCP - ACO Reach 12/19/23 09/25/24 Walt Tapia MD [address] [place] [address] [place] [address] PCP - ACO Reach 10/03/24 11/20/24 documented as of this encounter
--- OUTSIDE RECORDS SUMMARY | 2025-04-02 09:57 | XMS_ITS | Encounter Summary ---
Author Organization [facility] Address [address] [place] [address] Care Team Providers Care Pbx Manager Name Role Phone Walt Tapia MD Unavailable [phone] Walt Tapia MD Primary Care Provider [phone] Walt Tapia MD Unavailable [phone] Walt Tapia MD Unavailable [phone] Encounter Details Date Type Department Care Team (Late Contact Info) Description 01/10/2023 Abstract [facility] [place] [facility] [address] [facility] 110 [place] [address] Walt Tapia MD [address] [place] [facility] 110 [place], [place] [address] Social History Tobacco Use Types Packs/Day Years Used Date Smoking Tobacco: Never Assessed Comments Unknown Sex and Gender Information Value Date Recorded Sex Assigned at Not on file Legal Sex Female 6:48 PM EDT Gender Identity Not on file Sexual Orientation Not on file documented as of this encounter Plan of Treatment Upcoming Encounters Date Type Department Care Team (Late Contact Info) Description 04/08/2025 10:00 AM EDT Office Visit [facility] [place] [facility] [address] [facility] 110 [place] [address] Peggy Dejesus NP [address] [facility] 110 [place], [place] [address] 04/13/2025 2:40 PM EDT Clinical Support [facility] [place] [facility] [address] [place] [address] Buddy Rose, DPTroy 3006 [facility] 5 [place] [address] documented as of this encounter Visit Diagnoses Not on filedocumented in this encounter Care Teams Pbx Manager Relationship Specialty Start Date End Date Walt Tapia MD [address] [facility] 110 [place] [address] PCP - ACO Reach 01/11/23 10/18/23 Walt Tapia MD [address] [facility] 110 [place] [address] PCP - General Internal Medicine 12/26/22 Walt Tapia MD [address] [facility] 110 [place] [address] PCP - ACO Reach 12/19/23 09/25/24 Walt Tapia MD [address] [facility] 110 [place] [address] PCP - ACO Reach 10/03/24 11/20/24 documented as of this encounter
--- OUTSIDE RECORDS SUMMARY | 2025-04-02 09:57 | XMS_ITS | Encounter Summary ---
Author Organization [facility] Address [address] [place] [address] Care Team Providers Care Stationary Engineer Name Role Phone Walt Tapia MD Unavailable [phone] Walt Tapia MD Primary Care Provider [phone] Walt Tapia MD Unavailable [phone] Walt Tapia MD Unavailable [phone] Encounter Details Date Type Department Care Team (Late st Contact Info) Description 05/04/2023 Clinisync Result Encounter N[facility] External Department Unsolicited Walt Tapia MD [address] [facility] 110 [place] [address] Social History Tobacco Use Types [...] 10:00 AM EDT Office Visit [facility] [place] [facility] [address] [place] 110 [place] [address] Peggy Dejesus, MANIFOLD OPERATOR [address] [place] [address] [place], [place] [address] 04/13/2025 2:40 PM EDT Clinical Support [facility] [place] [facility] 3006 [place] [address] Buddy Rose DPM [address] [address] documented as of this encounter Procedures Procedure Name Priority Date/Time Associated Diagnosis Comments MM TOMOSYNTHESIS SCREENING BI 05/04/2023 12:16 PM EDT documented in this encounter Results * MM TOMOSYNTHESIS SCREENING BI (05/04/2023 12:16 PM EDT) Anatomical Region Laterality Modality Other 05/04/2023 12:1 6 PM EDT Narrative 05/04/2023 12:16 PM EDT [facility] [place] [id number] Mammography Report Signed Patient: SUMAN RODAS MR#: [id number] : 1955 Acct:[id number] Age/Sex: 68 / F ADM Date: 05/04/23 Loc: MAMMO Attending Dr: WALT TAPIA Ordering Physician: WALT TAPIA Results: Date of Service: 05/04/23 Follow Up: Procedure(s): MM tomosynthesis screening BI Accession Number(s): [id number] cc: WALT TAPIA Patient: SUMAN RODAS. Exam Date: 05/04/2023 : 1955 Gender:F Ordering : DR WALT TAPIA M.D. Admission #: [id number] Family : Order #: [id number] CLICK HERE TO VIEW EXAM RADIOLOGY REPORT PROCEDURE: MM TOMOSYNTHESIS SCREENING BI COMPARISON: MG MAMM SCREEN 3D DAHIANA CAD, 04/13/2022. MG MAMM SCREEN 3D DAHIANA CAD, 03/30/2021. INDICATIONS: Screening Calculator Name NCI Breast Cancer Risk Assessment Tool 5 Year Breast Cancer Risk 2.40% Lifetime Breast Cancer Risk 7.30% Personal Breast Cancer No Personal Ovarian Cancer No Treatments None Family Cancers Aunt-paternal with breast cancer at age 75. LOCATION: [facility] BREAST COMPOSITION: Almost entirely fatty. FINDINGS: DIAGNOSTIC CATEGORY 1--NEGATIVE. NO CHANGE FROM COMPARISON ASSESSMENT. Scattered benign-appearing calcifications are present. Scattered benign-appearing lymph nodes are present. RIGHT BREAST: No significant suspicious finding. LEFT BREAST: No significant suspicious finding. RECOMMENDATIONS: ROUTINE MAMMOGRAM AND CLINICAL EVALUATION IN 12 MONTHS. PLEASE NOTE: A NORMAL MAMMOGRAM DOES NOT EXCLUDE THE POSSIBILITY OF BREAST CANCER. A CLINICALLY SUSPICIOUS PALPABLE LUMP SHOULD BE BIOPSIED. Dictated by: Tyler Conklin MD on 05/04/2023 at 12:14 Approved by: Tyler Conklin MD on 05/04/2023 at 12:16 Dictated By: Tyler Conklin M.D. Signed By: 05/04/23 1217 DD/ 1216 TD/TT: Finisher Hot Strip: Procedure Note Radiology, Radiologist, - 05/11/2023 [place] [address] Mammography Report Signed Patient: SUMAN RODAS SMR#: [id number] : 1955cct:[id number] Age/Sex: 68 / FADM Date: 05/04/23 Loc: MAMMO Attending Dr: WALT TAPIA Ordering Physician: WALT TAPIAResults: Date of Service: 05/04/23Follow Up: Procedure(s): MM tomosynthesis screening BI Accession Number(s): [id number] cc: WALT TAPIA Patient: SUMAN RODAS Exam Date: 05/04/2023 : 1955 Gender:F Ordering : DR WALT TAPIA M.D. Admission #: [id number] Family : Order #: [id number] CLICK HERE TO VIEW EXAM RADIOLOGY REPORT PROCEDURE: MM TOMOSYNTHESIS SCREENING BI COMPARISON: MG MAMM SCREEN 3D DAHIANA CAD, 04/13/2022. MG MAMM SCREEN 3DBIL CAD, 03/30/2021. INDICATIONS: Screening Calculator Name NCI Breast Cancer Risk Assessment Tool 5 Year Breast Cancer Risk 2.40% Lifetime Breast Cancer Risk 7.30% Personal Breast Cancer No Personal Ovarian Cancer No Treatments None Family Cancers Aunt-paternal with breast cancer at age 75. LOCATION: [facility] BREAST COMPOSITION: Almost entirely fatty. FINDINGS: DIAGNOSTIC CATEGORY 1--NEGATIVE. NO CHANGE FROM COMPARISON ASSESSMENT. Scattered benign-appearing calcifications are present. Scattered benign-appearing lymph nodes are present. RIGHT BREAST: No significant suspicious finding. LEFT BREAST: No significant suspicious finding. RECOMMENDATIONS: ROUTINE MAMMOGRAM AND CLINICAL EVALUATION IN 12 MONTHS. PLEASE NOTE: A NORMAL MAMMOGRAM DOES NOT EXCLUDE THE POSSIBILITY OFBREAST CANCER. A CLINICALLY SUSPICIOUS PALPABLE LUMP SHOULD BE BIOPSIED. Dictated by: Tyler Conklin MD on 05/04/2023 at 12:14 Approved by: Tyler Conklin MD on 05/04/2023 at 12:16 Dictated By: Tyler Conklin M.D. Signed By:05/04/23 1217 DD/ 1216 TD/TT: Finisher Hot Strip: Walt Tapia MD [facility] Final Result documented in this encounter Visit Diagnoses Not on filedocumented in this encounter Care Teams Stationary Engineer Relationship Specialty Start Date End Date Walt Tapia MD [address] [facility] 110 [place] [address] PCP - ACO Reach 01/11/23 10/18/23 Walt Tapia MD [address] [facility] 110 [place] [address] PCP - General Internal Medicine 12/26/22 Walt Tapia MD [address] [facility] 110 [place] [address] PCP - ACO Reach 12/19/23 09/25/24 Walt Tapia MD [address] [facility] 110 [place] [address] PCP - ACO Reach 10/03/24 11/20/24 documented as of this encounter
--- OUTSIDE RECORDS SUMMARY | 2025-04-02 09:57 | XMS_ITS | Encounter Summary ---
Author Organization [facility] Address [address] [place] [address] Care Team Providers Care Refining Machine Operator Name Role Phone Walt Tapia MD Primary Care Provider [phone] Walt Tapia MD Unavailable [phone] Walt Tapia MD Unavailable [phone] Encounter Details Date Type Department Care Team (Late st Contact Info) Description 04/08/2024 Abstract [facility] [place] [facility] [address] [facility] 110 [place] [address] Walt Tapia MD [address] [place] [facility] 110 [place], [place] [address] Social History Tobacco Use Types Packs/Day Years Used Date Smoking Tobacco: Never Passive Smoke Exposure: Never Smokeless Tobacco: Never Alcohol Use Standard Drinks/Week Comments Yes 0 (1 standard drink = 0.6 oz pur e alcohol) 3-4 drinks, monthly. PHQ-2 Answer Date Recorded Patient Health Questionnaire-2 Score 0 04/07/2024 Comments Unknown Sex and Gender Information Value Date Recorded Sex Assigned at Not on file Legal Sex Female 6:48 PM EDT Gender Identity Not on file Sexual Orientation Not on file documented as of this encounter Plan of Treatment Upcoming Encounters Date Type Department Care Team (Late st Contact Info) Description 04/08/2025 10:00 AM EDT Office Visit [facility] [place] [facility] [address] [facility] 110 [place] [address] Peggy Dejesus, GABRIELLE [address] [facility] 110 [place], [place] [address] 04/13/2025 2:40 PM EDT Clinical Support [facility] [address] [place] [address] Buddy Rose DPM 3006 [facility] 5 [place] [address] documented as of this encounter Visit Diagnoses Not on filedocumented in this encounter Additional Health Concerns Assessment Noted Time PHQ-9 Depression Total Score: 0 04/07/20 24 9:00 AM EDT documented as of this encounter Care Teams Refining Machine Operator Relationship Specialty Start Date End Date Walt Tapia MD [address] [facility] 110 [place] [address] PCP - General Internal Medicine 12/26/22 Walt Tapia MD [address] [facility] 110 [place] [address] PCP - ACO Reach 12/19/23 09/25/24 Walt Tapia MD [address] [facility] 110 [place] [address] PCP - ACO Reach 10/03/24 11/20/24 documented as of this encounter
--- OUTSIDE RECORDS SUMMARY | 2025-04-02 09:57 | XMS_ITS | Encounter Summary ---
Author Organization [facility] Address [address] [place] [address] Care Team Providers Care Transfer Station Operator Name Role Phone Walt Tapia MD Unavailable [phone] Walt Tapia MD Primary Care Provider [phone] Walt Tapia MD Unavailable [phone] Walt Tapia MD Unavailable [phone] Encounter Details Date Type Department Care Team (Late Contact Info) Description 03/19/2023 Abstract [facility] [place] [facility] [address] [facility] 110 [place] [address] Walt Tapia MD 112 [place] [facility] 110 [place], [place] [address] Social History Tobacco Use Types Packs/Day Years [...] Visit [facility] [place] [facility] [address] [facility] 110 [place] [address] Peggy Dejesus NP [address] [facility] 110 [place], [place] [address] 04/13/2025 2:40 PM EDT Clinical Support [facility] [place] [facility] [address] [place] [address] Buddy Rose, DPTroy 3006 [facility] 5 [place] [address] documented as of this encounter Visit Diagnoses Not on filedocumented in this encounter Care Teams Transfer Station Operator Relationship Specialty Start Date End Date Walt Tapia MD [address] [facility] 110 [place] [address] PCP - ACO Reach 01/11/23 10/18/23 Walt Tpaia MD [address] [facility] 110 [place] [address] PCP - General Internal Medicine 12/26/22 Walt Tapia MD [address] [facility] 110 [place] [address] PCP - ACO Reach 12/19/23 09/25/24 Walt Tapia MD [address] [facility] 110 [place] [address] PCP - ACO Reach 10/03/24 11/20/24 documented as of this encounter
--- OUTSIDE RECORDS SUMMARY | 2025-04-02 09:57 | XMS_ITS | Encounter Summary ---
Author Organization [facility] Address [address] [place] [address] Care Team Providers Care Electrochemist Name Role Phone Walt Tapia MD Unavailable [phone] Walt Tapia MD Primary Care Provider [phone] Walt Tapia MD Unavailable [phone] Walt Tapia MD Unavailable [phone] Encounter Details Date Type Department Care Team (Late st Contact Info) Description 04/30/2023 Abstract [facility] [place] [facility] [address] [facility] 110 [place] [address] Walt Tapia MD [address] [place] [facility] 110 [place], [place] [address] Social History Tobacco Use Types Packs/Day Years [...] Visit [facility] [place] [facility] [address] [facility] 110 [place] [address] Peggy Dejesus, GABRIELLE [address] [facility] 110 [place], [place] [address] 04/13/2025 2:40 PM EDT Clinical Support [facility] [address] [place] [address] Buddy Rose, DPM 3006 [facility] [place] 5 [place] [address] documented as of this encounter Visit Diagnoses Not on filedocumented in this encounter Care Teams Electrochemist Relationship Specialty Start Date End Date Walt Tapia MD [address] [place] [address] [place] [address] PCP - ACO Reach 01/11/23 10/18/23 Walt Tapia MD [address] [place] [address] [place] [address] PCP - General Internal Medicine 12/26/22 Walt Tapia MD [address] [place] [address] [place] [address] PCP - ACO Reach 12/19/23 09/25/24 Watl Tapia MD [address] [place] [address] [place] [address] PCP - ACO Reach 10/03/24 11/20/24 documented as of this encounter
--- OUTSIDE RECORDS SUMMARY | 2025-04-02 09:57 | XMS_ITS | Encounter Summary ---
Author Organization [facility] Address [address] [place] [address] Care Team Providers Care Psychiatric Technician Name Role Phone Walt Tapia MD Unavailable [phone] Walt Tapia MD Primary Care Provider [phone] Walt Tapia MD Unavailable [phone] Walt Tapia MD Unavailable [phone] Encounter Details Date Type Department Care Team (Late st Contact Info) Description 05/10/2023 Abstract [facility] [place] [facility] [address] [facility] 110 [place] [address] Walt Tapia MD [address] [facility] 110 [place], [place] [address] Social History Tobacco Use Types Packs/Day Years [...] Visit [facility] [place] [facility] [address] [facility] 110 [place] [address] Peggy Dejesus, GABRIELLE [address] [facility] 110 [place], [place] [address] 04/13/2025 2:40 PM EDT Clinical Support [facility] [address] [place] [address] Buddy Rose, DPM 3006 [facility] [place] 5 [place] [address] documented as of this encounter Visit Diagnoses Not on filedocumented in this encounter Care Teams Psychiatric Technician Relationship Specialty Start Date End Date Walt Tapia MD [address] [place] [address] [place] [address] PCP - ACO Reach 01/11/23 10/18/23 Walt Tapia MD [address] [place] [address] [place] [address] PCP - General Internal Medicine 12/26/22 Walt Tapia MD [address] [place] [address] [place] [address] PCP - ACO Reach 12/19/23 09/25/24 Walt Tapia MD [address] [place] [address] [place] [address] PCP - ACO Reach 10/03/24 11/20/24 documented as of this encounter
--- OUTSIDE RECORDS SUMMARY | 2025-04-02 09:57 | XMS_ITS | Encounter Summary ---
Author Organization [facility] Address [address] [place] [address] Care Team Providers Care Head Pumper Name Role Phone Walt Tapia MD Unavailable [phone] Walt Tapia MD Primary Care Provider [phone] Walt Tapia MD Unavailable [phone] Walt Tapia MD Unavailable [phone] Encounter Details Date Type Department Care Team (Late st Contact Info) Description 04/02/2023 Abstract [facility] [place] [facility] [address] [facility] 110 [place] [address] Walt Tapia MD [address] [facility] 110 [place] [address] Social History Tobacco Use Types Packs/Day Years Used Date Smoking Tobacco: Never Assessed PHQ-2 Answer Date Recorded Patient Health Questionnaire-2 Score 0 04/05/2023 Comments Unknown Sex and Gender Information Value Date Recorded Sex Assigned at Not on file Legal Sex Female 6:48 PM EDT Gender Identity Not on file Sexual Orientation Not on file documented as of this encounter Functional Status * Over the past 2 weeks, how often have you been bothered by any of the following problems? Question Answer Date of Assessment Author Little interest or pleasure in doing things Not at all 04/05/2023 9:00 AM EDT Cely Lopez MA Feeling down, depressed, or hopeless Not at all 04/05/2023 9:00 AM EDT Cely Lopez MA Patient Health Questionnaire -2 Score 0 04/05/2023 9:00 AM EDT Cely Lopez MA documented as of this encounter Plan of Treatment Upcoming Encounters Date Type Department Care Team (Late st Contact Info) Description 04/08/2025 10:00 AM EDT Office Visit [facility] [address] [facility] 110 [place] [address] Peggy Dejesus, NEUROSURGICAL PHYSICIAN ASSISTANT [address] [facility] 110 [place] [address] 04/13/2025 2:40 PM EDT Clinical Support [facility] [address] [facility] [address] Buddy Rose, DPM 3006 [facility] 5 [place] [address] documented as of this encounter Visit Diagnoses Not on filedocumented in this encounter Care Teams Head Pumper Relationship Specialty Start Date End Date Walt Tapia MD [address] [facility] 110 [place] [address] PCP - ACO Reach 01/11/23 10/18/23 Walt Tapia MD [address] [facility] 110 [place] [address] PCP - General Internal Medicine 12/26/22 Walt Tapia MD [address] [facility] 110 [place] [address] PCP - ACO Reach 12/19/23 09/25/24 Walt Tapia MD [address] [facility] 110 [place] [address] PCP - ACO Reach 10/03/24 11/20/24 documented as of this encounter
--- OUTSIDE RECORDS SUMMARY | 2025-04-02 09:57 | XMS_ITS | Encounter Summary ---
Author Organization [facility] Address [address] [place] [address] Care Team Providers Care Descriptive Catalog Librarian Name Role Phone Walt Tapia MD Primary Care Provider [phone] Walt Tapia MD Unavailable [phone] Walt Tapia MD Unavailable [phone] Encounter Details Date Type Department Care Team (Late st Contact Info) Description 04/28/2024 Abstract [facility] [place] [address] [facility] 110 [place] [address] Walt Tapia MD [address] [facility] 110 [place], [place] [address] Social History Tobacco Use Types Packs/Day Years [...] Visit [facility] [place] [facility] [address] [facility] 110 [place] [address] Peggy Dejesus, GABRIELLE [address] [facility] 110 [place], [place] [address] 04/13/2025 2:40 PM EDT Clinical Support [facility] [address] [place] [address] Buddy Rose DPM 3006 [facility] 5 [place] [address] documented as of this encounter Visit Diagnoses Not on filedocumented in this encounter Additional Health Concerns Assessment Noted Time PHQ-9 Depression Total Score: 0 04/07/20 24 9:00 AM EDT documented as of this encounter Care Teams Descriptive Catalog Librarian Relationship Specialty Start Date End Date Walt Tapia MD [address] [facility] 110 [place] [address] PCP - General Internal Medicine 12/26/22 Walt Tapia MD [address] [facility] 110 [place] [address] PCP - ACO Reach 12/19/23 09/25/24 Walt Tapia MD [address] [facility] 110 [place] [address] PCP - ACO Reach 10/03/24 11/20/24 documented as of this encounter
--- OUTSIDE RECORDS SUMMARY | 2025-04-02 09:57 | XMS_ITS | Encounter Summary ---
Author Organization [facility] Address [address] [place] [address] Care Team Providers Care Casino Floor Supervisor Name Role Phone Walt Tapia MD Primary Care Provider [phone] Walt Tapia MD Unavailable [phone] Walt Tapia MD Unavailable [phone] Encounter Details Date Type Department Care Team (Late st Contact Info) Description 05/12/2024 Abstract [facility] [place] [facility] 112 [facility] 110 [place] [address] Eve العراقي PA [address] [facility] 110 [place], [place] [phone] Social History Tobacco Use Types Packs/Day Years [...] Office Visit [facility] [place] [facility] [address] [facility] 110 [place] [address] Peggy Dejesus, METAL MIXER 112 [facility] 110 [place], [place] [address] 04/13/2025 2:40 PM EDT Clinical Support [facility] 3006 [place] [address] Buddy Rose DPM 3006 [facility] 5 [place] [address] documented as of this encounter Visit Diagnoses Not on filedocumented in this encounter Additional Health Concerns Assessment Noted Time PHQ-9 Depression Total Score: 0 04/07/20 24 9:00 AM EDT documented as of this encounter Care Teams Casino Floor Supervisor Relationship Specialty Start Date End Date Walt Tapia MD [address] [facility] 110 [place] [address] PCP - General Internal Medicine 12/26/22 Walt Tapia MD [address] [facility] 110 [place] [address] PCP - ACO Reach 12/19/23 09/25/24 Walt Tapia MD [address] [facility] 110 [place] [address] PCP - ACO Reach 10/03/24 11/20/24 documented as of this encounter
--- OUTSIDE RECORDS SUMMARY | 2025-04-02 09:57 | XMS_ITS | Encounter Summary ---
Author Organization [facility] Address [address] [place] [address] Care Team Providers Care Psychometrist Name Role Phone Walt Tapia MD Primary Care Provider [phone] Walt Tapia MD Unavailable [phone] Walt Tapia MD Unavailable [phone] Encounter Details Date Type Department Care Team (Late st Contact Info) Description 05/05/2024 Clinisync Result Encounter NOMS External Department Unsolicited Hyun العراقي PA [address] [facility] 110 [place], [place] [phone] Social History Tobacco Use Types Packs/Day Years [...] [place] [address] [facility] 110 [place] [address] Peggy Dejesus, DRY CAN TENDER [address] [facility] 110 [place], [place] [address] 04/13/2025 2:40 PM EDT Clinical Support [facility] [place] [facility] 3006 [place] [address] Buddy Rose DPM [address] [address] documented as of this encounter Procedures Procedure Name Priority Date/Time Associated Diagnosis Comments MM TOMOSYNTHESIS SCREENING BI 05/05/2024 11:03 AM EDT documented in this encounter Results * MM TOMOSYNTHESIS SCREENING BI (05/05/2024 11:03 AM EDT) Anatomical Region Laterality Modality Other 05/05/2024 11:0 3 AM EDT Narrative 05/05/2024 11:04 AM EDT The [address] [address] Mammography Report Signed Patient: SUMAN RODAS MR#: [id number] : 1955 Acct:[id number] Age/Sex: 69 / F ADM Date: 05/05/24 Loc: MAMMO Attending Dr: HYUN العراقي Ordering Physician: HYUN العراقي Results: Date of Service: 05/05/24 Follow Up: Procedure(s): MM tomosynthesis screening BI Accession Number(s): [id number] cc: WALT TAPIA ; HYUN العراقي Patient Name: SUMAN RODAS MR#: [id number] : 1955 Exam Date: 05/05/2024 Ordering Doctor: DR HYUN MARK RADIOLOGY REPORT PROCEDURE: MM TOMOSYNTHESIS SCREENING BI COMPARISON: MM TOMOSYNTHESIS SCREENING BI, 05/04/2023. MG MAMM SCREEN 3D DAHIANA CAD, 04/13/2022. INDICATIONS: Screening Calculator Name NCI Breast Cancer Risk Assessment Tool 5 Year Breast Cancer Risk 2.40% Lifetime Breast Cancer Risk 6.90% Personal Breast Cancer No Personal Ovarian Cancer No Treatments None Family Cancers Aunt-paternal with breast cancer at age 75. LOCATION: The [facility] BREAST COMPOSITION: The breasts are almost entirely [...] Signed By: 05/05/24 1104 DD/ 1103 TD/TT: Emergency Department Coordinator: Procedure Note Radiology, Radiologist, - 05/05/2024 [place] [address] Mammography Report Signed Patient: SUMAN RODAS SMR#: [id number] : 1955cct:[id number] Age/Sex: 69 / FADM Date: 05/05/24 Loc: MAMMO Attending Dr: HYUN العراقي Ordering Physician: HYUN العراقي MResults: Date of Service: 05/05/24Follow Up: Procedure(s): MM tomosynthesis screening BI Accession Number(s): [id number] cc: WALT TAPIA ; HYUN العراقي Patient Name: SUMAN RODAS MR#: [id number] : 1955 Exam Date: 05/05/2024 Ordering Doctor: DR HYUN العراقي PA RADIOLOGY REPORT PROCEDURE: MM TOMOSYNTHESIS SCREENING BI COMPARISON: MM TOMOSYNTHESIS SCREENING BI, 05/04/2023. MG MAMM [id number] DAHIANA CAD, 04/13/2022. INDICATIONS: Screening Calculator Name NCI Breast Cancer Risk Assessment Tool 5 Year Breast Cancer Risk 2.40% Lifetime Breast Cancer Risk 6.90% Personal Breast Cancer No Personal Ovarian Cancer No Treatments None Family Cancers Aunt-paternal with breast cancer at age 75. LOCATION: The [facility] BREAST COMPOSITION: The breasts are almost entirely [...] M.D. Signed By:05/05/24 1104 DD/ 1103 TD/TT: Emergency Department Coordinator: Hyun العراقي MD [facility] Final Result documented in this encounter Visit Diagnoses Not on filedocumented in this encounter Additional Health Concerns Assessment Noted Time PHQ-9 Depression Total Score: 0 04/07/20 24 9:00 AM EDT documented as of this encounter Care Teams Psychometrist Relationship Specialty Start Date End Date Walt Tapia MD [address] [address] PCP - General Internal Medicine 12/26/22 Walt Tapia MD [address] [facility] 110 [place] [address] PCP - ACO Reach 12/19/23 09/25/24 Walt Tapia MD [address] [facility] 110 [place] [address] PCP - ACO Reach 10/03/24 11/20/24 documented as of this encounter
--- OUTSIDE RECORDS SUMMARY | 2025-04-02 09:57 | XMS_ITS | Encounter Summary ---
Author Organization [facility] Address [address] [place] [address] Care Team Providers Care Athletic Events Scorer Name Role Phone Walt Tapia MD Unavailable [phone] Walt Tapia MD Primary Care Provider [phone] Walt Tapia MD Unavailable [phone] Walt Tapia MD Unavailable [phone] Encounter Details Date Type Department Care Team (Late st Contact Info) Description 05/28/2023 Abstract [facility] [place] [address] [facility] 110 [place] [address] Walt Tapia MD [address] [facility] 110 [place], [place] [address] Social History Tobacco Use Types Packs/Day Years [...] [facility] [place] [facility] [address] [facility] 110 [place] [address] Peggy Dejesus, GABRIELLE [address] [facility] 110 [place], [place] [address] 04/13/2025 2:40 PM EDT Clinical Support [facility] 3006 [place] [address] Buddy Rose, DPM 3006 [facility] 5 [place] [address] documented as of this encounter Visit Diagnoses Not on filedocumented in this encounter Care Teams Athletic Events Scorer Relationship Specialty Start Date End Date Walt Tapia MD [address] [facility] 110 [place] [address] PCP - ACO Reach 01/11/23 10/18/23 Walt Tapia MD [address] [facility] 110 [place] [address] PCP - General Internal Medicine 12/26/22 Walt Tapia MD [address] [facility] 110 [place] [address] PCP - ACO Reach 12/19/23 09/25/24 Walt Tapia MD [address] [facility] 110 [place] [address] PCP - ACO Reach 10/03/24 11/20/24 documented as of this encounter
--- OUTSIDE RECORDS SUMMARY | 2025-04-02 09:57 | XMS_ITS | Encounter Summary ---
Author Organization [facility] Address [address] [place] [address] Care Team Providers Care Plate Setter Name Role Phone Walt Tapia MD Unavailable [phone] Walt Tapia MD Primary Care Provider [phone] Walt Tapia MD Unavailable [phone] Walt Tapia MD Unavailable [phone] Encounter Details Date Type Department Care Team (Late Contact Info) Description 03/29/2023 Orders Only [facility] [address] [facility] 320 [place] [address] Sonia Dia, WASHING MACHINE LOADER [address] [place] [address] Social History Tobacco Use Types Packs/Day Years [...] Visit [facility] [place] [address] [facility] 110 [place] [address] Peggy Dejesus NP [address] [facility] 110 [place], [place] [address] 04/13/2025 2:40 PM EDT Clinical Support [facility] [place] [facility] [address] [place] [address] Buddy Rose, DPM 3006 [facility] 5 [place] [address] documented as of this encounter Visit Diagnoses Not on filedocumented in this encounter Care Teams Plate Setter Relationship Specialty Start Date End Date Walt Tapia MD [address] [facility] 110 [place] [address] PCP - ACO Reach 01/11/23 10/18/23 Walt Tapia MD [address] [facility] 110 [place] [address] PCP - General Internal Medicine 12/26/22 Walt Tapia MD [address] [facility] 110 [place] [address] PCP - ACO Reach 12/19/23 09/25/24 Walt Tapia MD [address] [facility] 110 [place] [address] PCP - ACO Reach 10/03/24 11/20/24 documented as of this encounter
--- OUTSIDE RECORDS SUMMARY | 2025-04-02 09:57 | XMS_ITS | Encounter Summary ---
Author Organization [facility] Address [address] [place] [address] Care Team Providers Care Technical Support Engineer Name Role Phone Walt Tapia MD Primary Care Provider [phone] Walt Tapia MD Unavailable [phone] Walt Tapia MD Unavailable [phone] Encounter Details Date Type Department Care Team (Late st Contact Info) Description 05/06/2024 Abstract [facility] [place] [address] [facility] 110 [place] [address] Walt Tapia MD [address] [facility] 110 [place], [place] [address] Social History Tobacco Use Types Packs/Day Years [...] Visit [facility] [place] [facility] [address] [facility] 110 [place] [address] Peggy Dejesus, GABRIELLE [address] [facility] 110 [place], [place] [address] 04/13/2025 2:40 PM EDT Clinical Support [facility] 3006 [place] [address] Buddy Rose DPM 3006 [facility] 5 [place] [address] documented as of this encounter Visit Diagnoses Not on filedocumented in this encounter Additional Health Concerns Assessment Noted Time PHQ-9 Depression Total Score: 0 04/07/20 24 9:00 AM EDT documented as of this encounter Care Teams Technical Support Engineer Relationship Specialty Start Date End Date Walt Tapia MD [address] [facility] 110 [place] [address] PCP - General Internal Medicine 12/26/22 Walt Tapia MD [address] [facility] 110 [place] [address] PCP - ACO Reach 12/19/23 09/25/24 Walt Tapia MD [address] [facility] 110 [place] [address] PCP - ACO Reach 10/03/24 11/20/24 documented as of this encounter
--- OUTSIDE RECORDS SUMMARY | 2025-04-02 09:57 | XMS_ITS | Encounter Summary ---
Author Organization [facility] Address [address] [place] [address] Care Team Providers Care Executive Administrative Assistant Name Role Phone Walt Tapia MD Unavailable [phone] Walt Tapia MD Primary Care Provider [phone] Walt Tapia MD Unavailable [phone] Walt Tapia MD Unavailable [phone] Encounter Details Date Type Department Care Team (Late st Contact Info) Description 04/05/2023 Abstract [facility] [place] [facility] [address] [facility] 110 [place] [address] Cheyanne Paz, BASKETBALL SCOUT [address] [facility] 110 [place], [place] [address] Social History Tobacco Use Types Packs/Day Years Used Date Smoking Tobacco: Never Smokeless Tobacco: Never Tobacco Cessation:Counseling Given: Not Answered Alcohol Use Standard Drinks/Week Comments Yes 0 [...] 04/08/2025 10:00 AM EDT Office Visit [facility] [place] [place] [address] [facility] [address] [place] [address] Peggy Dejesus, BASKETBALL SCOUT [address] [facility] [address] [place] [address] 04/13/2025 2:40 PM EDT Clinical Support [facility] [place] [facility] 3006 [place] [address] Buddy Rose DPM 3006 [facility] 5 [place] [address] documented as of this encounter Visit Diagnoses Not on filedocumented in this encounter Care Teams Executive Administrative Assistant Relationship Specialty Start Date End Date Walt Tapia MD [address] [facility] 110 [place] [address] PCP - ACO Reach 01/11/23 10/18/23 Walt Tapia MD [address] [facility] 110 [place] [address] PCP - General Internal Medicine 12/26/22 Walt Tapia MD [address] [facility] [address] [place] [address] PCP - ACO Reach 12/19/23 09/25/24 Walt Tapia MD [address] [facility] [address] [place] [address] PCP - ACO Reach 10/03/24 11/20/24 documented as of this encounter
--- NOTE | 2025-04-02 09:58 | XR_ITS ---
The [address] [address] Patient Name: SUMAN RODAS MRN: [id number] date: 1955 Sex: F Assigned Patient Location: PM Current Patient Location: Accession/Order Number: [id number] Exam Date: 04/02/2025 10:44 Report Date: 04/02/2025 10:45 At the request of: ROSANNA RANGEL NP Procedure: XR lumbar spine 6V w bending LUMBAR SPINE - 6 views CLINICAL HISTORY: Spondylosis, Sacroiliitis COMPARISON: None FINDINGS: Vertebral body heights appear maintained. No significant disc space narrowing. Diffuse facet joint degenerative change. SI joints also demonstrate degenerative change. XR/XR lumbar spine 6V w bending IMPRESSION: PREDOMINANTLY FACET JOINT DEGENERATIVE CHANGES WITHOUT ACUTE BONY PROCESS. Impression dictated by: Manoj Rojas Jr. DVannessaOVannessa 04/02/2025 10:45 AM Dictation Location: [place] [address] Electronically authenticated by: [id number] Y Date: 04/02/2025 10:45
--- OUTSIDE RECORDS SUMMARY | 2025-04-02 09:59 | XMS_ITS | CCD ---
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 Diagnosis Primary insomnia Persistent disorder of initiating or maintaining sleep documented in this encounter [facility] HealthcareEvaluation note* Diagnosis Acute cystitis with hematuria- Primary Dysuria documented in this encounter [facility] HealthcareEvaluation note* Diagnosis Body mass index (BMI) 38.0-38.9, adult- Primary Insomnia, unspecified type Morbid (severe) obesity due to excess calories ([facility]) Chronic viral hepatitis C (HCC) Chronic hepatitis [...] Morbid (severe) obesity due to excess calories ([facility]) Body mass index (BMI) 38.0-38.9, adult documented [...] Hospitalization History see above Hospitalization History hepatitis [facility] Summary Purpose Family History No Family [...] section and content) DATE CREATED AUTHOR 02/13/2018 [facility] DATE CREATED AUTHOR AUTHOR'S ORGANIZ ATION 12/26/2022 [facility] DATE CREATED AUTHOR AUTHOR'S ORGANIZ ATION 04/12/2024 [facility] DATE CREATED AUTHOR AUTHOR'S ORGANIZ ATION 06/01/2024 [facility] DATE CREATED AUTHOR AUTHOR'S ORGANIZ ATION 03/29/2025 [facility] d[facility] Specialists EPIC REASON FOR VISIT (unrecogniz [...] April 25, 2024 End: April 25, 2024 Country Manager Relationship Specialty Start Date End Date Walt Tapia MD [address] [place] [address] [place] [address] PCP - General Internal Medicine 12/26/22 Walt Tapia MD [address] [place] [address] [place] [address] PCP - ACO Reach 12/19/23 Country Manager Relationship Specialty Start Date End Date Walt Tapia MD [address] [place] [address] [place] [address] PCP - General Internal Medicine 12/26/22 Walt Tapia MD [address] [place] [address] [place] [address] PCP - ACO Reach 12/19/23 Country Manager Relationship Specialty Start Date End Date Walt Tapia MD [address] [place] [address] [place] [address] PCP - General Internal Medicine 12/26/22 Walt Tapia MD [address] [place] [address] [place] [address] PCP - ACO Reach 12/19/23 Country Manager Relationship Specialty Start Date End Date Walt Tapia MD [address] [place] [address] [place] [address] PCP - General Internal Medicine 12/26/22 Country Manager Relationship Specialty Start Date End Date Walt Tapia MD [address] [place] [address] [place] [address] PCP - General Internal Medicine 12/26/22 Country Manager Relationship Specialty Start Date End Date Walt Tapia MD [address] [place] [address] [place] [address] PCP - General Internal Medicine 12/26/22 Country Manager Relationship Specialty Start Date End Date Walt Tapia MD [address] [place] [address] [place] [address] PCP - General Internal Medicine 12/26/22 Country Manager Relationship Specialty Start Date End Date Walt Tapia MD [address] [place] [address] [place] [address] PCP - General Internal Medicine 12/26/22 Country Manager Relationship Specialty Start Date End Date Walt Tapia MD [address] [place] [address] [place] [address] PCP - General Internal Medicine 12/26/22 Country Manager Relationship Specialty Start Date End Date Walt Tapia MD [address] [place] [address] [place] [address] PCP - General Internal Medicine 12/26/22 Goals [...] BE BASED ON THE PRIMARY CLINICAL RECORDS. [facility] [employer] [facility]. provides no warranty or guarantee of the accuracy or completeness of information in this document.
== END 2025-04-02 09:54 | disposition home or self-care (01) ==
LOC: RAD 09:54
PROVIDERS: PCP Internal Medicine; Visit Provider Nurse Practitioner
DX: M47.816 Spondylosis without myelopathy or radiculopathy, lumbar region (principal); M46.1 Sacroiliitis, not elsewhere classified; M51.369 Other intervertebral disc degeneration, lumbar region without mention of lumbar back pain or lower extremity pain
CPT/HCPCS: 72114

== ENCOUNTER 2025-04-07 12:23 | Emergency (ER) | payer MEDICARE, OTHER, SELFPAY ==
--- OUTSIDE RECORDS SUMMARY | 2025-03-27 14:50 | XMS_ITS | Encounter Summary ---
Author Organization [facility] Address [address] [place] [address] Care Team Providers Care Patcher Name Role Phone Walt Tapia MD Primary Care Provider [phone] Reason for Visit * Reason Comments Foot Pain Encounter Details Date Type Department Care Team (Late st Contact Info) Description 03/27/2025 2:50 PM EDT Office Visit [facility] [address] [place] [phone] Buddy Rose DPM [address] [address] Plantar fasciitis (Primary Dx); Contracture of left [...] week 07/23/2024 How often do you attend [facility] or [facility] services? Patient declined 07/23/2024 Do you belong to any clubs o r organizations such as druze groups, unions, fraternal or athletic groups, or [...] any time in the past 12 m [facility], were you homeless or living in a care home (including now)? No 07/23/2024 Comments Unknown Sex [...] More than three times a week Attends Bahai Services: Patient declined Active Member of Clubs [...] Care Team (Late st Contact Info) Description 04/23/2025 4:20 PM EDT Clinical Support [facility] 112 [facility] [address] [place] [phone] Buddy Rose DPM 3006 [facility] 5 [place] [address] 04/24/2025 9:30 AM EDT Office Visit [facility] 112 [facility] [address] [place] [address] Eve العراقي PA [address] [place] [facility] [address] [place] [address] documented as of this encounter Visit Diagnoses Diagnosis Plantar fasciitis- Primary 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
[2025-04-07] VITALS (21 sets, daily range): BP systolic 133–167; BP diastolic 8–107; PULSE 72–92; TEMP 36.4; O2SAT 94–97; BMI 35.8
--- OUTSIDE RECORDS SUMMARY | 2025-04-07 12:32 | XMS_ITS | Encounter Summary ---
Author Organization [facility] Address [address] [place] [address] Care Team Providers Care Hospital Educator Name Role Phone Walt Tapia MD Primary Care Provider [phone] Encounter Details Date Type Department Care Team (Late st Contact Info) Description 03/06/2025 Abstract [facility] [place] [facility] [address] [facility] 110 [place] [address] Walt Tapia MD 112 [facility] 110 [place] [address] Social History Tobacco Use Types [...] often do you attend chur ch or mandaeism services? Patient declined 07/23/2024 Do you belong to any clubs o r organizations such as oriental orthodox groups, unions, [...] were you homeless or living in a mcc (including now)? No 07/23/2024 Comments Unknown Sex and Gender Information Value Date Recorded Sex Assigned at Not on file Legal Sex Female 6:48 PM EDT Gender Identity Not on file Sexual Orientation Not on file documented as of this encounter Plan of Treatment Upcoming Encounters Date Type Department Care Team ([facility] Contact Info) Description 04/23/2025 4:20 PM EDT Clinical Support [facility] 112 [facility] 120 [place] [address] Buddy Rose DPM 2527 [facility] 5 [place] [address] 04/24/2025 9:30 AM EDT Office Visit [facility] [place] [facility] [address] [facility] [address] [place] [phone] Eve العراقي PA 112 [facility] [address] [place] [address] documented as of this encounter Visit Diagnoses Not on filedocumented in this encounter Additional Health Concerns Assessment Noted Time PHQ-9 Depression Total Score: 0 04/07/20 24 9:00 AM EDT documented as of this encounter Care Teams Hospital Educator Relationship Specialty Start Date End Date Walt Tapia MD 112 [facility] [address] [place] [address] PCP - General Internal Medicine 12/26/22 documented as of this encounter
--- OUTSIDE RECORDS SUMMARY | 2025-04-07 12:32 | XMS_ITS | Encounter Summary ---
Author Organization [facility] Address [address] [place] [address] Care Team Providers Care Dipper Fish Name Role Phone Walt Tapia MD Primary Care Provider Encounter Details Date Type Department Care Team (Late st Contact Info) Description 03/18/2025 Orders Only [facility] [place] [facility] [address] [place] [address] [place] [address] Tana Lopez LPN [address] [place] [address] Encounter for screening mammogram for malignant neoplasm [...] often do you attend chur ch or rastafarian services? Patient declined 07/23/2024 Do you belong to any clubs o r organizations such as worship groups, unions, fraternal or athletic groups, or [...] were you homeless or living in a skilled nursing (including now)? No 07/23/2024 Comments Unknown Sex [...] EDT Clinical Support [facility] 112 [facility] 120 [place] [address] Buddy Roes DPM 0464 [facility] 5 [place] [address] 04/24/2025 9:30 AM EDT Office Visit [facility] [place] [facility] 112 [facility] [address] [place] [address] Eve العراقي PA 112 [facility] 110 [place] [address] documented as of this encounter Visit Diagnoses Diagnosis Encounter for screening mammogram for malignant neoplasm of breast documented in this encounter Additional Health Concerns Assessment Noted Time PHQ-9 Depression Total Score: 0 04/07/20 24 9:00 AM EDT documented as of this encounter Care Teams Dipper Fish Relationship Specialty Start Date End Date Walt Tapia MD 112 [facility] 110 [place] [address] PCP - General Internal Medicine 12/26/22 documented as of this encounter
--- OUTSIDE RECORDS SUMMARY | 2025-04-07 12:32 | XMS_ITS | Encounter Summary ---
Author Organization [facility] Address [address] [place] [address] Care Team Providers Care Synchronizer Name Role Phone Walt Tapia MD Unavailable [phone] Walt Tapia MD Primary Care Provider [phone] Walt Tapia MD Unavailable [phone] Walt Tapia MD Unavailable [phone] Encounter Details Date Type Department Care Team (Late Contact Info) Description 05/28/2023 Abstract [facility] [place] [facility] [address] [facility] 110 [place] [address] Walt Tapia MD [address] [facility] 110 [place], [place] [id number] Social History Tobacco Use Types Packs/Day Years [...] Department Care Team (Late Contact Info) Description 04/23/2025 4:20 PM EDT Clinical Support [facility] [address] [place] [address] [place] [address] Buddy Rose DPM 4964 [facility] 5 [place] [address] 04/24/2025 9:30 AM EDT Office Visit [facility] [place] [facility] [address] [place] [address] [place] [address] Eve العراقي PA [address] [place] [address] [place] [address] documented as of this encounter Visit Diagnoses Not on filedocumented in this encounter Care Teams Synchronizer Relationship Specialty Start Date End Date Walt Tapia MD [address] [place] [address] [place] [address] PCP - ACO Reach 01/11/23 10/18/23 Walt Tapia MD [address] [place] [address] [place] [address] PCP - General Internal Medicine 12/26/22 Walt Tapia MD [address] [place] [address] [place] [address] PCP - ACO Reach 12/19/23 09/25/24 Walt Tapia MD [address] [place] [address] [place] [address] PCP - ACO Reach 10/03/24 11/20/24 documented as of this encounter
--- OUTSIDE RECORDS SUMMARY | 2025-04-07 12:32 | XMS_ITS | Encounter Summary ---
Author Organization [facility] Address [address] [place] [address] Care Team Providers Care Group Leader [employer] Name Role Phone Walt Tapia MD Primary Care Provider [phone] Walt Tapia MD Unavailable [phone] Walt Tapia MD Unavailable [phone] Encounter Details Date Type Department Care Team (Late Contact Info) Description 04/08/2024 Abstract [facility] [place] [facility] 112 [facility] [address] [place] [address] Walt Tapia MD 112 [facility] 110 [place] [address] Social History Tobacco Use Types [...] EDT Clinical Support [facility] 112 [facility] [address] [place] [address] Buddy Rose, YULIA 3006 [facility] 5 [place] [address] 04/24/2025 9:30 AM EDT Office Visit [facility] [place] [facility] [address] [facility] 110 [place] [address] Eve العراقي PA [address] [facility] 110 [place] [address] documented as of this encounter Visit Diagnoses Not on filedocumented in this encounter Additional Health Concerns Assessment Noted Time PHQ-9 Depression Total Score: 0 04/07/20 24 9:00 AM EDT documented as of this encounter Care Teams Group Leader Semiconductor Testing Relationship Specialty Start Date End Date Walt Tapia MD [address] [facility] [address] [place] [address] PCP - General Internal Medicine 12/26/22 Walt Tapia MD [address] [facility] [address] [place] [address] PCP - ACO Reach 12/19/23 09/25/24 Walt Tapia MD [address] [facility] [address] [place] [address] PCP - ACO Reach 10/03/24 11/20/24 documented as of this encounter
--- OUTSIDE RECORDS SUMMARY | 2025-04-07 12:32 | XMS_ITS | Encounter Summary ---
Author Organization [facility] Address [address] [place] [address] Care Team Providers Care Sisal Picker Name Role Phone Walt Tapia MD Unavailable [phone] Walt Tapia MD Primary Care Provider [phone] Walt Tapia MD Unavailable [phone] Walt Tapia MD Unavailable [phone] Encounter Details Date Type Department Care Team (Late st Contact Info) Description 04/05/2023 Abstract [facility] [place] [facility] [address] [facility] 110 [place] [address] Cheyanne Paz, CENTRAL OFFICE EQUIPMENT INSTALLER [address] [facility] 110 [place], [place] [id number] Social History Tobacco Use Types Packs/Day Years [...] CI PODIATRY [address] [place] [address] [place] [address] Buddy Rose, DPTroy 3006 [facility] 5 [place] [address] 04/24/2025 9:30 AM EDT Office Visit [facility] [place] [facility] [address] [place] [address] [place] [address] Eve العراقي PA [address] [place] [address] [place] [address] documented as of this encounter Visit Diagnoses Not on filedocumented in this encounter Care Teams Sisal Picker Relationship Specialty Start Date End Date Walt Tapia MD [address] [place] [address] [place] [address] PCP - ACO Reach 01/11/23 10/18/23 Walt Tapia MD [address] [place] [address] [place] [address] PCP - General Internal Medicine 12/26/22 Walt Tapia MD [address] [place] [address] [place] [address] PCP - ACO Reach 12/19/23 09/25/24 Walt Tapia MD [address] [place] [address] [place] [address] PCP - ACO Reach 10/03/24 11/20/24 documented as of this encounter
--- OUTSIDE RECORDS SUMMARY | 2025-04-07 12:32 | XMS_ITS | Encounter Summary ---
Author Organization [facility] Address [address] [place] [address] Care Team Providers Care Director Of Quality Improvement Name Role Phone Walt Tapia MD Primary Care Provider [phone] Walt Tapia MD Unavailable [phone] Walt Tapia MD Unavailable [phone] Encounter Details Date Type Department Care Team (Late Contact Info) Description 04/28/2024 Abstract [facility] [place] [facility] 112 [facility] 110 [place] [address] Walt Tapia MD 112 [facility] 110 [place] [address] Social History Tobacco Use Types [...] EDT Clinical Support [facility] 112 [facility] 120 [place] [address] Buddy Rose, YULIA 3006 [facility] 5 [place] [address] 04/24/2025 9:30 AM EDT Office Visit [facility] [place] [facility] [address] [facility] 110 [place] [address] Eve العراقي PA [address] [facility] 110 [place] [address] documented as of this encounter Visit Diagnoses Not on filedocumented in this encounter Additional Health Concerns Assessment Noted Time PHQ-9 Depression Total Score: 0 04/07/20 24 9:00 AM EDT documented as of this encounter Care Teams Director Of Quality Improvement Relationship Specialty Start Date End Date Walt Tapia MD [address] [facility] [address] [place] [address] PCP - General Internal Medicine 12/26/22 Walt Tapia MD [address] [facility] [address] [place] [address] PCP - ACO Reach 12/19/23 09/25/24 Walt Tapia MD [address] [facility] [address] [place] [address] PCP - ACO Reach 10/03/24 11/20/24 documented as of this encounter
--- OUTSIDE RECORDS SUMMARY | 2025-04-07 12:32 | XMS_ITS | Encounter Summary ---
Author Organization [facility] Address [address] [place] [address] Care Team Providers Care Underwriting Internship Name Role Phone Walt Tapia MD Primary Care Provider [phone] Walt Tapia MD Unavailable [phone] Walt Tapia MD Unavailable [phone] Encounter Details Date Type Department Care Team (Late Contact Info) Description 05/12/2024 Abstract [facility] [place] [facility] 112 [facility] 110 [place] [address] Eve العراقي PA 112 [facility] 110 [place], [place] [id number] Social History Tobacco Use Types Packs/Day Years [...] Clinical Support [facility] 112 [facility] 120 [place] [address] Buddy Rose DPM 3006 [facility] 5 [place] [address] 04/24/2025 9:30 AM EDT Office Visit [facility] [place] [address] [facility] 110 [place] [phone] Eve العراقي PA [address] [facility] [address] [place] [address] documented as of this encounter Visit Diagnoses Not on filedocumented in this encounter Additional Health Concerns Assessment Noted Time PHQ-9 Depression Total Score: 0 04/07/20 24 9:00 AM EDT documented as of this encounter Care Teams Underwriting Internship Relationship Specialty Start Date End Date Walt Tapia MD [address] [facility] [address] [place] [address] PCP - General Internal Medicine 12/26/22 Walt Tapia MD [address] [facility] [address] [place] [address] PCP - ACO Reach 12/19/23 09/25/24 Walt Tapia MD [address] [facility] [address] [place] [address] PCP - ACO Reach 10/03/24 11/20/24 documented as of this encounter
--- OUTSIDE RECORDS SUMMARY | 2025-04-07 12:32 | XMS_ITS | Encounter Summary ---
Author Organization [facility] Address [address] [place] [address] Care Team Providers Care Captain Airline Pilot Name Role Phone Walt Tapia MD Primary Care Provider [phone] Walt Tapia MD Unavailable [phone] Walt Tapia MD Unavailable [phone] Encounter Details Date Type Department Care Team (Late Contact Info) Description 05/05/2024 Clinisync Result Encounter [facility] External Department Unsolicited Hyun العراقي PA 112 [facility] 110 [place] [address] Social History Tobacco Use Types [...] EDT Clinical Support [facility] 112 [facility] 120 [place] [address] Buddy Rose DPM 5674 [facility] 5 [place] [address] 04/24/2025 9:30 AM EDT Office Visit [facility] [place] [facility] 112 [facility] 110 [place] [address] Hyun العراقي, DEEDEE 112 [facility] 110 [place] [address] documented as of this encounter Procedures Procedure Name Priority Date/Time Associated Diagnosis Comments MM TOMOSYNTHESIS SCREENING BI 05/05/2024 11:03 AM EDT documented in this encounter Results * MM TOMOSYNTHESIS SCREENING BI (05/05/2024 11:03 AM EDT) Anatomical Region Laterality Modality Other 05/05/2024 11:0 3 AM EDT Narrative 05/05/2024 11:04 AM EDT [address] [address] Mammography Report Signed Patient: SUMAN SANZ MR#: [id number] : 1955 Acct:[id number] Age/Sex: 69 / F ADM Date: 05/05/24 Loc: MAMMO Attending Dr: HYUN العراقي Ordering Physician: HYUN العراقي Results: Date of Service: 05/05/24 Follow Up: Procedure(s): MM tomosynthesis screening BI Accession Number(s): [id number] cc: WALT TAPIA ; HYUN العراقي Patient Name: SUMAN SANZ MR#: [id number] : 1955 Exam Date: 05/05/2024 Ordering Doctor: [...] breast cancer at age 74. LOCATION: The [facility] BREAST COMPOSITION: The breasts are almost entirely [...] Signed By: 05/05/24 1104 DD/ 1103 TD/TT: Guyline Operator: Procedure Note Radiology, Radiologist, - 05/05/2024 [place] [address] Mammography Report Signed Patient: SUMAN SANZ SMR#: [id number] : 1955cct:[id number] Age/Sex: 69 / FADM Date: 05/05/24 Loc: MAMMO Attending Dr: HYUN العراقي Ordering Physician: HYUN العراقي MResults: Date of Service: 05/05/24Follow Up: Procedure(s): MM tomosynthesis screening BI Accession Number(s): [id number] cc: WALT TAPIA ; HYUN العراقي Patient Name: SUMAN SANZ MR#: [id number] : 1955 Exam Date: 05/05/2024 Ordering Doctor: DR HYUN العراقي PA RADIOLOGY REPORT PROCEDURE: MM TOMOSYNTHESIS SCREENING BI COMPARISON: MM TOMOSYNTHESIS SCREENING BI, 05/04/2023. MG MAMM [id number] DAHIANA CAD, 04/13/2022. INDICATIONS: Screening Calculator Name NCI Breast Cancer Risk Assessment Tool 5 Year Breast Cancer Risk 2.40% Lifetime Breast Cancer Risk 6.90% Personal Breast Cancer No Personal Ovarian Cancer No Treatments None Family Cancers Aunt-paternal with breast cancer at age 75. LOCATION: The [facility] BREAST COMPOSITION: The breasts are almost entirely [...] M.D. Signed By:05/05/24 1104 DD/ 1103 TD/TT: Guyline Operator: Hyun MARK [facility] Final Result documented in this encounter Visit Diagnoses Not on filedocumented in this encounter Additional Health Concerns Assessment Noted Time PHQ-9 Depression Total Score: 0 04/07/20 24 9:00 AM EDT documented as of this encounter Care Teams Captain Airline Pilot Relationship Specialty Start Date End Date Walt Tapia MD [address] [address] PCP - General Internal Medicine 12/26/22 Walt Tapia MD [address] [facility] 110 [place] [address] PCP - ACO Reach 12/19/23 09/25/24 Walt Tapia MD [address] [facility] 110 [place] [address] PCP - ACO Reach 10/03/24 11/20/24 documented as of this encounter
--- OUTSIDE RECORDS SUMMARY | 2025-04-07 12:32 | XMS_ITS | Encounter Summary ---
Author Organization [facility] Address [address] [place] [address] Care Team Providers Care Senior Software Development Manager Name Role Phone Walt Tapia MD Unavailable [phone] Walt Tapia MD Primary Care Provider [phone] Walt Tapia MD Unavailable [phone] Walt Tapia MD Unavailable [phone] Encounter Details Date Type Department Care Team (Late Contact Info) Description 04/10/2023 Abstract [facility] [place] [facility] [address] [facility] 110 [place] [address] Watl Tapia MD [address] [facility] 110 [place], [place] [id number] Social History Tobacco Use Types Packs/Day Years [...] CI PODIATRY [address] [facility] 120 [place] [address] Buddy Rose DPM 1802 [facility] 5 [place] [address] 04/24/2025 9:30 AM EDT Office Visit [facility] [place] [address] [facility] 110 [place] [address] Eve العراقي PA [address] [facility] 110 [place] [address] documented as of this encounter Visit Diagnoses Not on filedocumented in this encounter Care Teams Senior Software Development Manager Relationship Specialty Start Date End Date Walt Tapia MD [address] [facility] 110 [place] [address] PCP - ACO Reach 01/11/23 10/18/23 Walt Tapia MD [address] [facility] 110 [place] [address] PCP - General Internal Medicine 12/26/22 Walt Tapia MD [address] [facility] 110 [place] [address] PCP - ACO Reach 12/19/23 09/25/24 Walt Tapia MD [address] [facility] 110 [place] [address] PCP - ACO Reach 10/03/24 11/20/24 documented as of this encounter
--- OUTSIDE RECORDS SUMMARY | 2025-04-07 12:32 | XMS_ITS | Encounter Summary ---
Author Organization [facility] Address [address] [place] [address] Care Team Providers Care Bread Distributor Name Role Phone Walt Tapia MD Unavailable [phone] Walt Tapia MD Primary Care Provider [phone] Walt Tapia MD Unavailable [phone] Walt Tapia MD Unavailable [phone] Encounter Details Date Type Department Care Team (Late Contact Info) Description 04/30/2023 Abstract [facility] [place] [facility] [address] [facility] 110 [place] [address] Walt Tapia MD [address] [facility] 110 [place], [place] [id number] Social History Tobacco Use Types Packs/Day Years [...] CI PODIATRY [address] [place] [address] [place] [address] Buddy Rose DPM 9501 [facility] 5 [place] [address] 04/24/2025 9:30 AM EDT Office Visit [facility] [place] [address] [facility] [address] [place] [address] Eve العراقي PA [address] [facility] 110 [place] [address] documented as of this encounter Visit Diagnoses Not on filedocumented in this encounter Care Teams Bread Distributor Relationship Specialty Start Date End Date Walt Tapia MD [address] [facility] 110 [place] [address] PCP - ACO Reach 01/11/23 10/18/23 Walt Tapia MD [address] [facility] 110 [place] [address] PCP - General Internal Medicine 12/26/22 Walt Tapia MD [address] [facility] 110 [place] [address] PCP - ACO Reach 12/19/23 09/25/24 Walt Tapia MD [address] [facility] 110 [place] [address] PCP - ACO Reach 10/03/24 11/20/24 documented as of this encounter
--- OUTSIDE RECORDS SUMMARY | 2025-04-07 12:32 | XMS_ITS | Encounter Summary ---
Author Organization [facility] Address [address] [place] [address] Care Team Providers Care Ultrasound Sonographer Name Role Phone Walt Tapia MD Unavailable [phone] Walt Tapia MD Primary Care Provider [phone] Walt Tapia MD Unavailable [phone] Walt Tapia MD Unavailable [phone] Encounter Details Date Type Department Care Team (Late st Contact Info) Description 04/02/2023 Abstract [facility] [place] [facility] [address] [facility] 110 [place] [address] Walt Tapia MD [address] [facility] 110 [place] [address] Social History Tobacco Use Types Packs/Day Years [...] [address] [facility] 120 [place] [address] Buddy Rose, DPM 3006 [facility] [place] 5 [place] [address] 04/24/2025 9:30 AM EDT Office Visit [facility] [place] [facility] [address] [facility] 110 [place] [address] Eve العراقي, PA [address] [facility] 110 [place] [address] documented as of this encounter Visit Diagnoses Not on filedocumented in this encounter Care Teams Ultrasound Sonographer Relationship Specialty Start Date End Date Walt Tapia MD [address] [facility] 110 [place] [address] PCP - ACO Reach 01/11/23 10/18/23 Walt Tapia MD [address] [facility] 110 [place] [address] PCP - General Internal Medicine 12/26/22 Walt Tapia MD [address] [facility] 110 [place] [address] PCP - ACO Reach 12/19/23 09/25/24 Walt Tapia MD [address] [facility] 110 [place] [address] PCP - ACO Reach 10/03/24 11/20/24 documented as of this encounter
--- OUTSIDE RECORDS SUMMARY | 2025-04-07 12:32 | XMS_ITS | Encounter Summary ---
Author Organization [facility] Address [address] [place] [address] Care Team Providers Care Elastic Yarn Twister Name Role Phone Walt Tapia MD Primary Care Provider [phone] Walt Tapia MD Unavailable [phone] Walt Tapia MD Unavailable [phone] Encounter Details Date Type Department Care Team (Late Contact Info) Description 05/06/2024 Abstract [facility] [place] [facility] 112 [facility] 110 [place] [address] Walt Tapia MD 112 [facility] 110 [place] [address] Social History Tobacco Use Types [...] EDT Clinical Support [facility] 112 [facility] 120 [place] [address] Buddy Rose, YULIA 3006 [facility] 5 [place] [address] 04/24/2025 9:30 AM EDT Office Visit [facility] [place] [facility] [address] [facility] 110 [place] [address] Eve العراقي PA [address] [facility] 110 [place] [address] documented as of this encounter Visit Diagnoses Not on filedocumented in this encounter Additional Health Concerns Assessment Noted Time PHQ-9 Depression Total Score: 0 04/07/20 24 9:00 AM EDT documented as of this encounter Care Teams Elastic Yarn Twister Relationship Specialty Start Date End Date Walt Tapia MD [address] [facility] 110 [place] [address] PCP - General Internal Medicine 12/26/22 Walt Tapia MD [address] [facility] 110 [place] [address] PCP - ACO Reach 12/19/23 09/25/24 Walt Tapia MD [address] [facility] 110 [place] [address] PCP - ACO Reach 10/03/24 11/20/24 documented as of this encounter
--- OUTSIDE RECORDS SUMMARY | 2025-04-07 12:32 | XMS_ITS | Encounter Summary ---
Author Organization [facility] Address [address] [place] [address] Care Team Providers Care Lead Esthetician Name Role Phone Walt Tapia MD Unavailable [phone] Walt Tapia MD Primary Care Provider [phone] Walt Tapia MD Unavailable [phone] Walt Tapia MD Unavailable [phone] Encounter Details Date Type Department Care Team (Late Contact Info) Description 05/10/2023 Abstract [facility] [place] [facility] [address] [facility] 110 [place] [address] Walt Tapia MD [address] [facility] 110 [place], [place] [address] Social History Tobacco Use Types Packs/Day Years [...] CI PODIATRY [address] [place] 120 [place] [address] Buddy Rose DPM 1773 [facility] 5 [place] [address] 04/24/2025 9:30 AM EDT Office Visit [facility] [place] [address] [facility] [address] [place] [address] Eve العراقي PA [address] [facility] [address] [place] [address] documented as of this encounter Visit Diagnoses Not on filedocumented in this encounter Care Teams Lead Esthetician Relationship Specialty Start Date End Date Walt Tapia MD [address] [facility] 110 [place] [address] PCP - ACO Reach 01/11/23 10/18/23 Walt Tapia MD [address] [facility] 110 [place] [address] PCP - General Internal Medicine 12/26/22 Walt Tapia MD [address] [facility] 110 [place] [address] PCP - ACO Reach 12/19/23 09/25/24 Walt Tapia MD [address] [facility] [address] [place] [address] PCP - ACO Reach 10/03/24 11/20/24 documented as of this encounter
--- OUTSIDE RECORDS SUMMARY | 2025-04-07 12:32 | XMS_ITS | Encounter Summary ---
Author Organization [facility] Address [address] [place] [address] Care Team Providers Care Hospital Unit Coordinator Name Role Phone Walt Tapia MD Primary Care Provider [phone] Encounter Details Date Type Department Care Team (Late st Contact Info) Description 01/26/2025 Abstract [facility] [place] [facility] [address] [facility] [facility] 110 [place] [address] Walt Tapia MD 112 [facility] 110 [place], [place] [address] Social History Tobacco Use Types Packs/Day Years [...] often do you attend chur ch or holiness services? Patient declined 07/23/2024 Do you belong to any clubs o r organizations such as protestant groups, unions, fraternal or athletic groups, or [...] time in the past 12 m [facility] [place], were you homeless or living in a fdc (including now)? No 07/23/2024 Comments Unknown Sex and Gender Information Value Date Recorded Sex Assigned at Not on file Legal Sex Female 6:48 PM EDT Gender Identity Not on file Sexual Orientation Not on file documented as of this encounter Plan of Treatment Upcoming Encounters Date Type Department Care Team ([facility] st Contact Info) Description 04/23/2025 4:20 PM EDT Clinical Support [facility] 112 [facility] 120 [place] [address] Buddy Rose DPM 1548 [facility] 5 [place] [address] 04/24/2025 9:30 AM EDT Office Visit [facility] [place] [address] [facility] 110 [place] [address] Eve العراقي PA [address] [facility] 110 [place] [address] documented as of this encounter Visit Diagnoses Not on filedocumented in this encounter Additional Health Concerns Assessment Noted Time PHQ-9 Depression Total Score: 0 04/07/20 24 9:00 AM EDT documented as of this encounter Care Teams Hospital Unit Coordinator Relationship Specialty Start Date End Date Walt Tapia MD [address] [facility] 110 [place] [address] PCP - General Internal Medicine 12/26/22 documented as of this encounter
--- OUTSIDE RECORDS SUMMARY | 2025-04-07 12:32 | XMS_ITS | Encounter Summary ---
Author Organization [facility] Address [address] [place] [address] Care Team Providers Care Plastic Frame Inserter Name Role Phone Walt Tapia MD Unavailable [phone] Walt Tapia MD Primary Care Provider [phone] Walt Tapia MD Unavailable [phone] Walt Tapia MD Unavailable [phone] Encounter Details Date Type Department Care Team (Late Contact Info) Description 05/04/2023 Clinisync Result Encounter NOMS External Department Unsolicited Walt Tapia MD 112 [facility] 110 [place] [address] Social History Tobacco Use Types [...] EDT Clinical Support [facility] 112 [facility] 120 [place] [address] Buddy Rose, DPTroy 3006 [facility] 5 [place] [address] 04/24/2025 9:30 AM EDT Office Visit [facility] [place] 112 [facility] 110 [place] [address] Eve العراقي PA 112 [facility] 110 [place] [address] documented as of this encounter Procedures Procedure Name Priority Date/Time Associated Diagnosis Comments MM TOMOSYNTHESIS SCREENING BI 05/04/2023 12:16 PM EDT documented in this encounter Results * MM TOMOSYNTHESIS SCREENING BI (05/04/2023 12:16 PM EDT) Anatomical Region Laterality Modality Other 05/04/2023 12:1 6 PM EDT Narrative 05/04/2023 12:16 [place] [address] Mammography Report Signed Patient: SUMAN SANZ MR#: [id number] : 1955 Acct:[id number] Age/Sex: 68 / F ADM Date: 05/04/23 Loc: MAMMO Attending Dr: WALT TAPIA Ordering Physician: WALT TAPIA Results: Date of Service: 05/04/23 Follow Up: Procedure(s): MM tomosynthesis screening BI Accession Number(s): [id number] cc: WALT TAPIA Patient: SUMAN SANZ. Exam Date: 05/04/2023 : 1955 Gender:F Ordering : DR WALT TAPIA M.D. Admission #: [id number] Family : Order #: [id number] CLICK HERE TO VIEW EXAM RADIOLOGY REPORT [...] breast cancer at age 74. LOCATION: The [facility] BREAST COMPOSITION: Almost entirely fatty. FINDINGS: DIAGNOSTIC [...] Signed By: 05/04/23 1217 DD/ 1216 TD/TT: Dinkey Engine Operator: Procedure Note Radiology, Radiologist, - 05/11/2023 [place] [address] Mammography Report Signed Patient: SUMAN SANZ SMR#: [id number] : 1955cct:[id number] Age/Sex: 68 / FADM Date: 05/04/23 Loc: MAMMO Attending Dr: WALT TAPIA Ordering Physician: Latonya TAPIAults: Date of Service: 05/04/23Follow Up: Procedure(s): MM tomosynthesis screening BI Accession Number(s): [id number] cc: WALT TAPIA Patient: SUMAN SANZ Exam Date: 05/04/2023 : 1955 Gender:F Ordering : DR WALT TAPIA M.D. Admission #: [id number] Family : Order #: [id number] CLICK HERE TO VIEW EXAM RADIOLOGY REPORT [...] breast cancer at age 74. LOCATION: The [facility] BREAST COMPOSITION: Almost entirely fatty. FINDINGS: DIAGNOSTIC [...] M.D. Signed By:05/04/23 1217 DD/ 1216 TD/TT: Dinkey Engine Operator: Walt Tapia MD [facility] Final Result documented in this encounter Visit Diagnoses Not on filedocumented in this encounter Care Teams Plastic Frame Inserter Relationship Specialty Start Date End Date Walt Tapia MD [address] [facility] 110 [place] [address] PCP - ACO Reach 01/11/23 10/18/23 Walt Tapia MD [address] [facility] 110 [place] [address] PCP - General Internal Medicine 12/26/22 Walt Tapia MD [address] [facility] 110 [place] [address] PCP - ACO Reach 12/19/23 09/25/24 Walt Tapia MD [address] [facility] 110 [place] [address] PCP - ACO Reach 10/03/24 11/20/24 documented as of this encounter
--- OUTSIDE RECORDS SUMMARY | 2025-04-07 12:32 | XMS_ITS | Clinical Summary ---
Author Organization [facility] Address [address] [place] [address] Care Team Providers Care Safety Technician Name Role Phone Walt Tapia MD Primary Care Provider [phone] Allergies Active Allergy Reactions Criticality Noted Date [...] before bedtime. 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 04/07/2024 Herpes simplex otitis externa 02/12/2019 04/07/2024 Encounters Date Type Department Care Team Description 04/02/2025 Clinisync Result Encounter [facility] External Department Unsolicited Provider, Generic External Data 03/27/2025 2:50 PM EDT Office Visit [facility] [facility] [address] [place] [address] Buddy Rose DPM Plantar fasciitis (Primary Dx); Contracture of left ankle 03/27/2025 Bamboo flowsheet [facility] [place] [facility] [address] [place] [phone] Buddy Rose DPM 03/18/2025 Orders Only [facility] [place] [facility] [address] [place] [place] [address] Tana Lopez LPN Encounter for screening mammogram for malignant neoplasm of breast 03/06/2025 Abstract [facility] [place] [facility] [address] [facility] [address] [place] [address] Walt Tapia MD 03/05/2025 11:00 AM EDT Office Visit [facility] [place] [facility] [address] [facility] [address] [place] [address] Eve Dougherty PA Dysuria (Primary Dx); Recurrent cold sores; Acute cystitis with hematuria; Benign hypertension ; Morbid (severe) obesity due to excess calories ([facility]); Body mass index (BMI) 38.0-38.9, adult 03/05/2025 External Result Encounter [facility]OM[facility] External Department Unsolicited Eve Dougherty PA 03/05/2025 Travel 02/05/2025 1:30 PM EDT Office Visit [facility] [place] [facility] [address] [facility] [address] [place] [address] Peggy Dejesus, GABRIELLE Body mass index (BMI) 38.0-38.9, adult (Primary Dx); Insomnia, unspecified type; Morbid (severe) obesity due to excess calories (CMS-HCC); Chronic viral hepatitis C (HCC); Chronic hepatitis, unspecified (HCC); Unspecified cirrhosis of liver (HCC); Pure hypercholesterolemia , unspecified ; 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) 02/05/2025 Refill [facility] [place] [facility] [address] [facility] [address] [place] [address] Walt Tapia MD Primary insomnia 02/05/2025 Bamboo flowsheet [facility] [place] [facility] [address] [facility] [address] [place] [address] Peggy Dejesus NP 02/05/2025 Travel 01/26/2025 Abstract [facility] [place] [facility] [address] [facility] [address] [place] [address] Walt Tapia MD 01/26/2025 Telephone [facility] [place] [facility] [address] [facility] [address] [place] [address] Eve Dougherty PA 01/23/2025 10:30 AM EDT Clinical Support [facility] [place] [facility] [address] [facility] [address] [place] [address] Eve Dougherty, PA Burning with urination 01/23/2025 Telephone [facility] [address] [place] [address] Walt Tapia MD 01/23/2025 Orders Only [facility] [address] [facility] [address] [place] [address] Eve Dougherty, PA Burning with urination; Dysuria 01/23/2025 Telephone [facility] [address] [facility] [address] [place] [address] Eve Dougherty PA 01/23/2025 Travel from Last 3 Months [...] Used Date Smoking Tobacco: Former Cigarettes 2 1975 Passive Smoke Exposure: Never Smokeless Tobacco: [...] How often do you attend chur or islam services? Patient declined 07/23/2024 Do you belong to any clubs o r organizations such as yazdanism groups, unions, fraternal or athletic groups, or [...] any time in the past 12 m [facility], were you homeless or living in a long-term (including now)? No 07/23/2024 Comments Unknown Sex [...] Clinical Support [facility] [address] [facility] [address] [place] [address] Buddy Rose DPM [address] [facility] [address] [place] [address] 04/24/2025 9:30 AM EDT Office Visit [facility] [place] [facility] [address] [facility] [address] [place] [phone] Eve Dougherty PA 112 [facility] [address] [place] [address] Health Maintenance Due Date Last Done Comments [...] Procedure Name Priority Date/Time Associated Diagnosis Comments XR LUMBAR SPINE 6V W BENDING 04/02/2025 10:45 AM EDT POCT URINALYSIS DIPSTICK Routine 03/05/2025 11:07 AM [...] Recently Relevant to Health Maintenance Results * XR LUMBAR SPINE 6V W BENDING (04/02/2025 10:45 AM EDT) Anatomical Region Laterality Modality Other 04/02/2025 10:4 5 AM EDT Narrative 04/02/2025 10:48 [place] [address] XRay Report Signed Patient: SUMAN RODAS MR#: [id number] : 1955 Acct:[id number] Age/Sex: 70 / F ADM Date: 04/02/25 Loc: RAD Attending Dr: Rosanna Martinez NP Ordering Physician: Rosanna Martinez NP Date of Service: 04/02/25 Procedure(s): XR lumbar spine 6V w bending Accession Number(s): [id number] cc: WALT TAPIA ; Rosanna Martinez NP [place] [address] Patient Name: SUMAN RODAS MRN: [id number] date: 1955 Sex: F Assigned Patient Location: PM Current Patient Location: PM Accession/Order Number: [id number] Exam Date: 04/02/2025 10:44 Report Date: 04/02/2025 10:45 At the request of: ROSANNA MARTINEZ NP Procedure: XR lumbar spine 6V w bending LUMBAR SPINE - 6 views CLINICAL HISTORY: Spondylosis, Sacroiliitis COMPARISON: None FINDINGS: Vertebral body heights appear maintained. No significant disc space narrowing. Diffuse facet joint degenerative change. SI joints also demonstrate degenerative change. XR/XR lumbar spine 6V w bending IMPRESSION: PREDOMINANTLY FACET JOINT DEGENERATIVE CHANGES WITHOUT ACUTE BONY PROCESS. Impression dictated by: Manoj Rojas Jr., D.O. 04/02/2025 10:45 AM Dictation Location: [place] [address] Electronically authenticated by: [id number] Y Date: 04/02/2025 10:45 Dictated By: Manoj Rojas M.D. Signed By: 04/02/25 1048 DD/ 1045 TD/TT: Ecological Technical Officer: Procedure Note Radiology, Radiologist, MD Rucker 04/02/2025 The [place] [id number] XRay Report Signed Patient: SUMAN RODAS SMR#: [id number] : 1955cct:[id number] Age/Sex: 70 / FADM Date: 04/02/25 Loc: RAD Attending Dr: Rosanna Martinez NP Ordering Physician: Rosanna Martinez NP Date of Service: 04/02/25 Procedure(s): XR lumbar spine 6V w bending Accession Number(s): [id number] cc: WALT TAPIA ; Rosanna Martinez NP The [place] [id number] Patient Name: SUMAN RODAS MRN: [id number] date: 1955 Sex: F Assigned Patient Location: Current Patient Location: Accession/Order Number: [id number] Exam Date: 04/02/2025 10:44 Report Date: 04/02/2025 10:45 At the request of: ROSANNA MARTINEZ NP Procedure: XR lumbar spine 6V w bending LUMBAR SPINE - 6 views CLINICAL HISTORY: Spondylosis, Sacroiliitis COMPARISON: None FINDINGS: Vertebral body heights appear maintained. No significant discspace narrowing. Diffuse facet joint degenerative change. SI joints also demonstrate degenerative change. XR/XR lumbar spine 6V w bending IMPRESSION: PREDOMINANTLY FACET JOINT DEGENERATIVE CHANGES WITHOUT ACUTE BONY PROCESS. Impression dictated by: Manoj Rojas Jr., D.O. 04/02/2025 10:45 AM Dictation Location: [place] [address] Electronically authenticated by: [id number] Y Date: 0:45 Dictated By: Manoj Rojas M.D. Signed By:04/02/25 1048 DD/ 44 TD/TT: Ecological Technical Officer: us Generic External Data Provider [facility] Final Result * (ABNORMAL) POCT urinalysis dipstick manually resulted [...] ppm 03/06/2025 9:06 AM EDT [facility] ACINETOBACTER BAUMANII Not Detected 19.961 - 24.689 ppm 03/06/2025 9:06 AM EDT [facility] CITROBACTER FREUNDII 0 23.000 - 32.015 ppm 03/06/2025 9:06 AM EDT [facility] CITROBACTER FREUNDII Not Detected 23.000 - 32.015 ppm 03/06/2025 9:06 AM EDT [facility] ENTEROBACTER AEROGENES, CLOACAE 0 23.000 - 32.290 ppm 03/06/2025 9:06 AM EDT [facility] ENTEROBACTER AEROGENES, CLOACAE Not Detected 23.000 - 32.290 ppm 03/06/2025 9:06 AM EDT [facility] ENTEROCOCCUS FAECALIS, FAECIUM 0 26.000 - 33.043 ppm 03/06/2025 9:06 AM EDT [facility] ENTEROCOCCUS FAECALIS, FAECIUM Not Detected 26.000 - 33.043 ppm 03/06/2025 9:06 AM EDT [facility] ESCHERICHIA COLI 27.224(A) 23.000 - 28.500 ppm 03/06/2025 9:06 AM EDT [facility] ESCHERICHIA COLI Detected(A) 23.000 - 28.500 ppm 03/06/2025 9:06 AM EDT [facility] KLEBSIELLA PNEUMONIAE, OXYTOCA 0 23.000 - 31.865 ppm 03/06/2025 9:06 AM EDT [facility] KLEBSIELLA PNEUMONIAE, OXYTOCA Not Detected 23.000 - 31.865 ppm 03/06/2025 9:06 AM EDT [facility] MORGANELLA MORGANII 0 19.961 - 24.689 ppm 03/06/2025 9:06 AM EDT [facility] MORGANELLA MORGANII Not Detected 19.961 - 24.689 ppm 03/06/2025 9:06 AM EDT [facility] PROTEUS MIRABILIS, VULGARIS 0 23.000 - 28.500 ppm 03/06/2025 9:06 AM EDT [facility] PROTEUS MIRABILIS, VULGARIS Not Detected 23.000 - 28.500 ppm 03/06/2025 9:06 AM EDT [facility] PSEUDOMONAS AERUGINOSA 0 23.000 - 31.801 ppm 03/06/2025 9:06 AM EDT [facility] PSEUDOMONAS AERUGINOSA Not Detected 23.000 - 31.801 ppm 03/06/2025 9:06 AM EDT [facility] STAPHYLOCOCCUS AUREUS 0 26.000 - 31.595 ppm 03/06/2025 9:06 AM EDT [facility] STAPHYLOCOCCUS AUREUS Not Detected 26.000 - 31.595 ppm 03/06/2025 9:06 AM EDT [facility] STREPTOCOCCUS AGALACTIAE (GROUP B STREP) 0 26.000 - 32.435 ppm 03/06/2025 9:06 AM EDT [facility] STREPTOCOCCUS AGALACTIAE (GROUP B STREP) Not Detected 26.000 - 32.435 ppm 03/06/2025 9:06 AM EDT [facility] MANDY ALBICANS, PARAPSILOSIS, TROPICALIS 0 23.000 - 30.347 ppm 03/06/2025 9:06 AM EDT [facility] MANDY ALBICANS, PARAPSILOSIS, TROPICALIS Not Detected 23.000 - 30.347 ppm 03/06/2025 9:06 AM EDT [facility] MANDY GLABRATA 0 23.000 - 31.618 ppm 03/06/2025 9:06 AM EDT [facility] MANDY GLABRATA Not Detected 23.000 - 31.618 ppm 03/06/2025 9:06 AM EDT [facility] MANDY KRUSEI 0 23.000 - 30.873 ppm 03/06/2025 9:06 AM EDT [facility] MANDY KRUSEI Not Detected 23.000 - 30.873 ppm 03/06/2025 9:06 AM EDT [facility] SERRATIA MARCESCENS 0 23.000 - 31.581 ppm 03/06/2025 9:06 AM EDT [facility] SERRATIA MARCESCENS Not Detected 23.000 - 31.581 ppm 03/06/2025 9:06 AM EDT [facility] STREPTOCOCCUS PYOGENES (GROUP A STREP) 0 19.961 - 24.689 ppm 03/06/2025 9:06 AM EDT [facility] STREPTOCOCCUS PYOGENES (GROUP A STREP) Not Detected 19.961 - 24.689 ppm 03/06/2025 9:06 AM EDT [facility] STAPHYLOCOCCUS EPIDERMIDIS, HAEMOLYTICUS, LUGDUNENSIS, SAPROPHYTICUS (URINA 0 19.961 - 24.689 ppm 03/06/2025 9:06 AM EDT [facility] STAPHYLOCOCCUS EPIDERMIDIS, HAEMOLYTICUS, LUGDUNENSIS, SAPROPHYTICUS (URINA Not Detected 19.961 - 24.689 ppm 03/06/2025 9:06 AM EDT [facility] STAPHYLOCOCCUS EPIDERMIDIS, HAEMOLYTICUS, LUGDUNENSIS, SAPROPHYTICUS (URINA 0 19.961 - 24.689 ppm 03/06/2025 9:06 AM EDT [facility] STAPHYLOCOCCUS EPIDERMIDIS, HAEMOLYTICUS, LUGDUNENSIS, SAPROPHYTICUS (URINA Not Detected 19.961 - 24.689 ppm 03/06/2025 9:06 AM EDT [facility] Urine 03/05/2025 12:0 1 AM EDT 03/06/2025 2:46 AM EDT us Eve MARK LAB BLOOD ORDERABLES Final Res ult [facility] [address] [place] [address] * MM TOMOSYNTHESIS SCREENING BI (05/05/2024 11:03 AM EDT) Anatomical Region Laterality Modality Other 05/05/2024 11:0 3 AM EDT Narrative 05/05/2024 11:04 [place] [address] Mammography Report Signed Patient: SUMAN RODAS MR#: [id number] : 1955 Acct:[id number] Age/Sex: 69 / F ADM Date: 05/05/24 Loc: MAMMO Attending Dr: EVE DOUGHERTY Ordering Physician: EVE DOUGHERTY Results: Date of Service: 05/05/24 Follow Up: Procedure(s): MM tomosynthesis screening BI Accession Number(s): [id number] cc: WALT TAPIA ; EVE DOUGHERTY Patient Name: SUMAN RODAS MR#: [id number] : 1955 Exam Date: 05/05/2024 Ordering Doctor: [...] breast cancer at age 74. LOCATION: [facility] BREAST COMPOSITION: The breasts are almost [...] Signed By: 05/05/24 1104 DD/ 1103 TD/TT: Ecological Technical Officer: Procedure Note Radiology, Radiologist, MD - 05/05/2024 [place] [address] Mammography Report Signed Patient: SUMAN RODAS SMR#: [id number] : 1955cct:[id number] Age/Sex: 69 / FADM Date: 05/05/24 Loc: MAMMO Attending Dr: EVE DOUGHERTY Ordering Physician: EVE DOUGHERTY MResults: Date of Service: 05/05/24Follow Up: Procedure(s): MM tomosynthesis screening BI Accession Number(s): [id number] cc: WALT TAPIA KAREN M Patient Name: SUMAN RODAS MR#: [id number] : 1955 Exam Date: 05/05/2024 Ordering Doctor: DR EVE DOUGHERTY PA RADIOLOGY REPORT PROCEDURE: MM TOMOSYNTHESIS SCREENING BI COMPARISON: MM TOMOSYNTHESIS SCREENING BI, 05/04/2023. MG MAMM [id number] DAHIANA CAD, 04/13/2022. INDICATIONS: Screening Calculator Name NCI Breast Cancer Risk Assessment Tool 5 Year Breast Cancer Risk 2.40% Lifetime Breast Cancer Risk 6.90% Personal Breast Cancer No Personal Ovarian Cancer No Treatments None Family Cancers Aunt-paternal with breast cancer at age 75. LOCATION: [facility] BREAST COMPOSITION: The breasts are almost [...] M.D. Signed By:05/05/24 1104 DD/ 1103 TD/TT: Ecological Technical Officer: Eve MARK [facility] Final Result * Cologuard?? colon cancer screening (04/17/2024 9:30 AM EDT) NONINV COLON CA DNA+OCC BLD SCRN STL-IMP Negative Negative 04/24/2024 10:54 AM EDT [facility] (CLIA #:[id number]) Comment: NEGATIVE TEST RESULT. A negative Cologuard [...] (Kamran Corona al, N Engl J Med 2014;370(14):6205-1203) The normal value (reference range) for this assay is negative. COLOGUARD RE-SCREENING RECOMMENDATION: Periodic colorectal cancer screening is an important part of preventive healthcare for asymptomatic individuals at average risk for colorectal cancer. Following a negative Cologuard result, the [place] [employer] Society and U.S. Multi-Society Task Force screening guidelines recommend a Cologuard re-screening interval of 3 years. References: [place] [employer] Guideline for Colorectal Cancer Screening: https://www.cancer.org/cancer/dfvxv-tmuwwu-jchlxf/orktrmqrr-ohlvsvutz-dagiydy/ac s-rec ommendations.html.; José DK, Foreign CR, Rosy HogueK, Colorectal Cancer Screening: Recommendations for Physicians and Patients from the U.S. Multi-Society Task Force on Colorectal Cancer Screening , Am J Gastroenterology 2017; 112:0501-9072. TEST DESCRIPTION: Composite algorithmic analysis of stool [...] (Kamran Corona al, N Engl J Med 2014;370(14):9464-6209.) Cologuard may produce a false negative or false positive result (no colorectal cancer or precancerous polyp present at colonoscopy follow up). A negative Cologuard test result does not guarantee the absence of CRC or advanced adenoma (pre-cancer). The current Cologuard screening interval is every 3 years. ([place] [employer] Society and U.S. Multi-Society Task Force). Cologuard performance data in a 10,000 patient pivotal study using colonoscopy as the reference method can be accessed at the following location: www.[employer]/results. Additional description of the Cologuard test process, warnings and precautions can be found at www.cologuard.com. Stool specimen (specimen) 04/17/2024 9:30 AM EDT 04/18/2024 2:04 PM EDT us Walt Tapia MD LAB MOLECULAR DIAGNOSTICS MARCO A ESTRADA Final Result [facility] (CLIA #:[id number]) [address] [place] [address], from Last 3 Months or Most Recently Relevant to Health Maintenance Insurance [facility] MEDICARE Care Teams Safety Technician Relationship Specialty Start Date End Date Walt Tapia MD [address] [place] [address] PCP - General Internal Medicine 12/26/22
--- OUTSIDE RECORDS SUMMARY | 2025-04-07 12:32 | XMS_ITS | Encounter Summary ---
Author Organization [facility] Address [address] [place] [address] Care Team Providers Care Grocery Store Clerk Name Role Phone Walt Tapia MD Primary Care Provider [phone] Encounter Details Date Type Department Care Team (Late st Contact Info) Description 04/02/2025 Clinisync Result Encounter [facility] External Department Unsolicited Provider, Generic External Data Social History Tobacco Use Types Packs/Day Years Used Date Smoking Tobacco: Former Cigarettes - 1975 Passive Smoke Exposure: Never Smokeless [...] often do you attend chur ch or yazidism services? Patient declined 07/23/2024 Do you belong to any clubs o r organizations such as restorationism groups, unions, fraternal or athletic groups, or [...] any time in the past 12 m [facility], were you homeless or living in a custodial (including now)? No 07/23/2024 Comments Unknown Sex [...] PODIATRY [address] [place] [address] Buddy Rose DPM [address] [facility] [address] [place] [address] 04/24/2025 9:30 AM EDT Office Visit [facility] [place] [facility] [address] [place] [address] Eve العراقي PA [address] [place] [address] documented as of this encounter Procedures Procedure Name Priority Date/Time Associated Diagnosis Comments XR LUMBAR SPINE 6V W BENDING 04/02/2025 10:45 AM EDT documented in this encounter Results * XR LUMBAR SPINE 6V W BENDING (04/02/2025 10:45 AM EDT) Anatomical Region Laterality Modality Other 04/02/2025 10:4 5 AM EDT Narrative 04/02/2025 10:48 [place] [address] XRay Report Signed Patient: SUMAN SANZ MR#: [id number] : 1955 Acct:[id number] Age/Sex: 70 / F ADM Date: 04/02/25 Loc: RAD Attending Dr: Rosanna Rangel NP Ordering Physician: Rosanna Rangel NP Date of Service: 04/02/25 Procedure(s): XR lumbar spine 6V w bending Accession Number(s): [id number] cc: WALT TAPIA ; Rosanna Rangel NP [address] [address] Patient Name: SUMAN SANZ MRN: [id number] date: 1955 Sex: F Assigned Patient Location: PM Current Patient Location: PM Accession/Order Number: [id number] Exam Date: 04/02/2025 10:44 Report Date: 04/02/2025 10:45 At the request of: ROSANNA RANGEL NP Procedure: XR lumbar spine 6V w [...] Jr., D.O. 04/02/2025 10:45 AM Dictation Location: [facility]IO-PC-23 Electronically authenticated by: [id number] Y Date: 04/02/2025 10:45 Dictated By: Manoj Rojas M.D. Signed By: 04/02/25 1048 DD/ 1045 TD/TT: Cloth Hand: Procedure Note Radiology, Radiologist, MD - 04/02/2025 [place] [address] XRay Report Signed Patient: SUMAN SANZ SMR#: [id number] : 1955cct:[id number] Age/Sex: 70 / FADM Date: 04/02/25 Loc: RAD Attending Dr: Rosanna Rangel NP Ordering Physician: Rosanna Rangel NP Date of Service: 04/02/25 Procedure(s): XR lumbar spine 6V w bending Accession Number(s): [id number] cc: WALT TAPIA ; Rosanna Rangel NP [facility] [place] [address] Patient Name: SUMAN SANZ MRN: [facility]:[id number] date: 1955 Sex: F Assigned Patient Location: PM Current Patient Location: PM Accession/Order Number: [id number] Exam Date: 04/02/2025 10:44 Report Date: 04/02/2025 10:45 At the request of: ROSANNA RANGEL NP Procedure: XR lumbar spine 6V w [...] Jr., D.O. 04/02/2025 10:45 AM Dictation Location: [facility]-23 Electronically authenticated by: [id number] Y Date: 0:45 Dictated By: Manoj Rojas M.D. Signed By:04/02/25 1048 DD/ 1045 TD/TT: Cloth Hand: us Generic External Data Provider [facility] Final Result documented in this encounter Visit Diagnoses Not on filedocumented in this encounter Additional Health Concerns Assessment Noted Time PHQ-9 Depression Total Score: 0 04/07/20 24 9:00 AM EDT documented as of this encounter Care Teams Grocery Store Clerk Relationship Specialty Start Date End Date Walt Tapia MD [address] [facility] [address] [place] [address] PCP - General Internal Medicine 12/26/22 documented as of this encounter
--- OUTSIDE RECORDS SUMMARY | 2025-04-07 12:32 | XMS_ITS | Encounter Summary ---
Author Organization [facility] Address [address] [place] [address] Care Team Providers Care Slurry Mixer Name Role Phone Walt Tapia MD Unavailable [phone] Walt Tapia MD Primary Care Provider [phone] Walt Tapia MD Unavailable [phone] Walt Tapia MD Unavailable [phone] Encounter Details Date Type Department Care Team (Late Contact Info) Description 03/19/2023 Abstract [facility] [place] [address] [facility] [address] [place] [address] Walt Tapia MD 112 [facility] 110 [place], [place] [id number] Social History Tobacco Use Types Packs/Day Years [...] PODIATRY [address] [facility] 120 [place] [address] Buddy Rose DPM [address] [facility] [place] 5 [place] [address] 04/24/2025 9:30 AM EDT Office Visit [facility] [place] [facility] [address] [facility] [address] [place] [address] Eve العراقي PA [address] [facility] [address] [place] [address] documented as of this encounter Visit Diagnoses Not on filedocumented in this encounter Care Teams Slurry Mixer Relationship Specialty Start Date End Date Walt Tapia MD [address] [facility] [address] [place] [address] PCP - ACO Reach 01/11/23 10/18/23 Walt Tapia MD [address] [facility] [address] [place] [address] PCP - General Internal Medicine 12/26/22 Walt Tapia MD [address] [facility] [address] [place] [address] PCP - ACO Reach 12/19/23 09/25/24 Walt Tapia MD [address] [facility] [address] [place] [address] PCP - ACO Reach 10/03/24 11/20/24 documented as of this encounter
--- OUTSIDE RECORDS SUMMARY | 2025-04-07 12:32 | XMS_ITS | Encounter Summary ---
Author Organization [facility] Address [address] [place] [address] Care Team Providers Care Mental Tester Name Role Phone Walt Tapia MD Unavailable [phone] Walt Tapia MD Primary Care Provider [phone] Walt Tapia MD Unavailable [phone] Walt Tapia MD Unavailable [phone] Encounter Details Date Type Department Care Team (Late Contact Info) Description 01/10/2023 Abstract [facility] [place] [facility] [address] [facility] 110 [place] [id number] Walt Tapia MD 112 [facility] 110 [place], [place] [id number] Social History Tobacco Use Types Packs/Day Years [...] Clinical Support [facility] 112 [facility] 120 [place] [phone] Buddy Rose DPM 4057 [facility] 5 [place] [address] 04/24/2025 9:30 AM EDT Office Visit [facility] [place] [facility] 112 [facility] 110 [place] [address] Eve العراقي PA [address] [facility] 110 [place] [address] documented as of this encounter Visit Diagnoses Not on filedocumented in this encounter Care Teams Mental Tester Relationship Specialty Start Date End Date Wlat Tapia MD [address] [facility] 110 [place] [address] PCP - ACO Reach 01/11/23 10/18/23 Walt Tapia MD [address] [facility] 110 [place] [address] PCP - General Internal Medicine 12/26/22 Walt Tapia MD [address] [facility] 110 [place] [address] PCP - ACO Reach 12/19/23 09/25/24 Walt Tapia MD [address] [facility] 110 [place] [address] PCP - ACO Reach 10/03/24 11/20/24 documented as of this encounter
--- OUTSIDE RECORDS SUMMARY | 2025-04-07 12:32 | XMS_ITS | Encounter Summary ---
Author Organization [facility] Address [address] [facility] [place] [place] [address] Care Team Providers Care Manager Adobe Name Role Phone Walt Tapia MD Unavailable [phone] Walt Tapia MD Primary Care Provider [phone] Walt Tapia MD Unavailable [phone] Walt Tapia MD Unavailable [phone] Encounter Details Date Type Department Care Team (Late Contact Info) Description 03/29/2023 Orders Only [facility] [address] [facility] [address] [place] [phone] Sonia Dia, DOCUMENTATION LEAD [address] [place] [address] Social History Tobacco Use Types [...] PODIATRY [address] [facility] [address] [place] [address] Buddy Rose DPM 2257 [facility] [address] [place] [address] 04/24/2025 9:30 AM EDT Office Visit [facility] [place] [facility] [address] [facility] [address] [place] [address] Eve العراقي PA [address] [facility] [address] [place] [address] documented as of this encounter Visit Diagnoses Not on filedocumented in this encounter Care Teams Manager Adobe Relationship Specialty Start Date End Date Walt Tapia MD [address] [facility] [address] [place] [address] PCP - ACO Reach 01/11/23 10/18/23 Walt Tapia MD [address] [facility] [address] [place] [address] PCP - General Internal Medicine 12/26/22 aWlt Tapia MD [address] [facility] [address] [place] [address] PCP - ACO Reach 12/19/23 09/25/24 Walt Tapia MD [address] [facility] [address] [place] [address] PCP - ACO Reach 10/03/24 11/20/24 documented as of this encounter
--- OUTSIDE RECORDS SUMMARY | 2025-04-07 12:32 | XMS_ITS | Clinical Summary ---
Author Organization [employer] s [employer] Address [id number] [address] [place] [address] Care Team Providers Care Pocket Builder Name Role Phone Walt Tapia MD Primary Care Provider [phone] Allergies Active Allergy Reactions Criticality Noted Date [...] file Medical Devices Not on file Insurance [facility] MEDICARE Care Teams Pocket Builder Relationship Specialty Start Date End Date Walt Tapia MD 112 [facility] 110 [place] [address] PCP - General Internal Medicine 10/29/18
--- OUTSIDE RECORDS SUMMARY | 2025-04-07 12:32 | XMS_ITS | Encounter Summary ---
Author Organization [facility] Address [address] [place] [address] Care Team Providers Care Sort Operations Supervisor Name Role Phone Walt Tapia MD Unavailable [phone] Walt Tapia MD Primary Care Provider [phone] Walt Tapia MD Unavailable [phone] Walt Tapia MD Unavailable [phone] Encounter Details Date Type Department Care Team (Late Contact Info) Description 05/28/2023 Abstract [facility] [place] [facility] [address] [facility] 110 [place] [address] Walt Tapia MD [address] [facility] 110 [place], [place] [id number] Social History Tobacco Use Types Packs/Day Years [...] CI PODIATRY [address] [facility] [address] [place] [phone] Buddy Rose DPM 9969 [facility] 5 [place] [address] 04/24/2025 9:30 AM EDT Office Visit [facility] [place] [address] [facility] [address] [place] [address] Eve العراقي PA [address] [facility] [address] [place] [address] documented as of this encounter Visit Diagnoses Not on filedocumented in this encounter Care Teams Sort Operations Supervisor Relationship Specialty Start Date End Date Walt Tapia MD [address] [facility] [address] [place] [address] PCP - ACO Reach 01/11/23 10/18/23 Walt Tapia MD [address] [facility] [address] [place] [address] PCP - General Internal Medicine 12/26/22 Walt Tapia MD [address] [facility] [address] [place] [address] PCP - ACO Reach 12/19/23 09/25/24 Walt Tapia MD [address] [facility] [address] [place] [address] PCP - ACO Reach 10/03/24 11/20/24 documented as of this encounter
--- NOTE | 2025-04-07 12:36 | ECG_ITS ---
[facility] Test Date: 2025-04-07 Pat Name: SUMAN RODAS Department: Room: - Gender: Female Film Painter: : 1955 Requested By: [id number] Order Number: [id number] Reading MD: MC JONES M.D. Measurements Intervals [place] Rate: 82 P: 53 [place]: 166 QRS: 9 QRSD: 76 T: 44 QT: 366 QTc: 405 Interpretive Statements 1100 Sinus rhythm 8102 Low QRS voltage in chest leads 9120 atypical ECG Compared to ECG 04/18/2021 12:40:52 Low QRS voltage now present Electronically Signed On 04-07-2025 20:57:50 EDT by MC JONES M.D.
--- NOTE | 2025-04-07 12:46 | ED.DIZZY1 ---
HPI - Dizziness General Chief Complaint: Dizziness Stated Complaint: DIZZINESS Time Seen by Provider: 04/07/25 12:35 Source: patient Mode of arrival: Wheelchair Limitations: no limitations History of Present Illness HPI Narrative: The patient is 70-year-old female is coming to the ER with a history of waking up with nausea and feeling that she is dizzy and the room spinning, mentioned that she did not have something like this before She denies any difficulty walking although she did mention that she have some balance issue when she is walking but she still able to walk with no difficulty There is no weakness in her upper or lower extremities and no difficulty speaking or swallowing The patient denies any headache and she went to sleep yesterday at 10:00 PM with no symptoms Patient have no runny nose no cough no fever no other concerns she woke up at 7 PM to have those symptoms Related Data Home Medications ?Medication ?Instructions ?Recorded ?Confirmed calcium carbonate 1 tab PO QDAY 01/25/23 04/07/25 zolpidem 5 mg tablet (Ambien) 10 mg PO .HS 01/25/23 04/07/25 cetirizine 5 mg-pseudoephedrine ER 1 tab PO BID 05/28/23 04/07/25 120 mg tablet,extended release,12hr (All Day Allergy-D) Held on 04/07/25. Instructions: Resume on 04/17/25. hold while using Meclizine Lactobacillus acidophilus 10 100 mmu cells PO DAILY 04/02/25 04/07/25 billion cell capsule (Probiotic) calcium phosphate,dibasic 77 1 tab PO DAILY 04/02/25 04/07/25 mg-vitamin D3 400 unit tablet Previous Rx's ?Medication ?Instructions ?Recorded meclizine 25 mg tablet 25 mg PO BID PRN motion sickness 04/07/25 #14 tabs Allergies Allergy/AdvReac Type Severity Reaction Status Date / Time celecoxib (From Celebrex) Allergy Mild Diarrhea Verified 04/07/25 12:28 diclofenac Allergy Mild Blister Verified 04/07/25 12:28 tetracycline Allergy Mild Unknown Verified 04/07/25 12:28 Review of Systems ROS Status of ROS 10 or more systems reviewed and unremarkable except as noted in history and below [facility] Medical History History of fracture of right ankle ?Z87.81 - Personal history of (healed) traumatic fracture (ICD-10) Hepatitis C ?B19.20 - Unspecified viral hepatitis C without hepatic coma (ICD-10) Surgical History H/O dilation of urethra ?Z98.890 - Other specified postprocedural states (ICD-10) Hx of appendectomy ?Z90.49 - Acquired absence of other specified parts of digestive tract (ICD-10) History of right oophorectomy ?Z90.721 - Acquired absence of ovaries, unilateral (ICD-10) History of carpal tunnel release ?Z98.890 - Other specified postprocedural states (ICD-10) Hx of cholecystectomy ?Z90.49 - Acquired absence of other specified parts of digestive tract (ICD-10) Social History Little interest or pleasure in doing things: not at all Feeling down, depressed, or hopeless: not at all Exam Narrative Exam Narrative: Nurses notes and vital signs reviewed and patient is not hypoxic. General: Well-appearing and in no apparent distress. Skin: Warm, dry, no pallor noted. No rash. Head: Normocephalic, atraumatic. Neck: Supple, non-tender. Eye: Pupils are equal, round and EOMI. No scleral icterus. Ears, Nose, Mouth, and Throat: The patient have a left side horizontal nystagmus Cardiovascular: Regular Rate and Rhythm without murmur, gallop or rub. Respiratory: No accessory muscle use or respiratory distress. Lungs are clear to auscultation, no wheezing, rales or rhonchi Chest Wall: no tenderness Back: No midline thoracic or lumbar vertebral tenderness. No CVA tenderness Musculoskeletal: normal ROM, no calf or popliteal tenderness, no lower extremity edema/swelling GI: Abdomen is soft, non-distended. Normal bowel sounds. No masses appreciated. No tenderness to palpation. No rebound, guarding, or rigidity noted. Neurological: A&O x4. No cranial nerve dysfunction observed. No truncal ataxia. Moves all extremities. Sensation intact. Psychiatric: Cooperative and interactive. Normal mood and affect. Constitutional Vital Signs, click to edit/add: Last Vital Signs Temp 97.6 F 04/07/25 12:28 Pulse 73 08/19/25 14:41 Resp 13 04/07/25 14:41 BP 139/80 04/07/25 14:41 Pulse Ox 96 04/07/25 14:40 O2 Del Method Room Air 04/07/25 12:28 Course Vital Signs Vital signs: Vital Signs Temperature 97.6 F 04/07/25 12:28 Pulse Rate 92 H 04/07/25 12:28 Respiratory Rate 18 04/07/25 12:28 Blood Pressure 167/107 H 04/07/25 12:28 Pulse Oximetry 97 04/07/25 12:28 Oxygen Delivery Method Room Air 04/07/25 12:28 Temperature 97.6 F 04/07/25 12:28 Pulse Rate 73 04/07/25 14:41 Respiratory Rate 13 04/07/25 14:41 Blood Pressure 139/80 04/07/25 14:41 Pulse Oximetry 96 04/07/25 14:40 Oxygen Delivery Method Room Air 04/07/25 12:28 MDM - Dizziness MDM Narrative Medical decision making narrative: The patient EKG showing sinus rhythm with a heart rate of [address] elevation or depression CBC and chemistry showed no acute pathology and the CT head was negative as well The patient was provided initially with meclizine in addition to I also applied the Kulwinder maneuver after which the patient feeling much better The patient had a urinalysis obtained because she had a history of some urine pressure and frequency She does not have any urine infection The patient is to follow up with primary care physician in next 2-3 days or to return to the emergency department should any of the signs or symptoms worsen or new symptoms develop. The patient agrees with the following Diagnosis and Treatment plan and the patient will be discharged home. Lab Data Labs: Lab Results 04/07/25 04/07/25 Range/Units 12:34 13:54 WBC 6.3 (4.0-11.0) 10^3/uL RBC 4.93 (4.20-5.40) 10^6/uL Hgb 15.0 (12.0-16.0) g/dL Hct 43.6 (36.0-48.0) % MCV 88.4 (81.0-99.0) fL MCH 30.4 (26.7-34.0) pg MCHC 34.4 (29.9-35.2) g/dL RDW 12.6 (11.0-15.0) % Plt Count 269 (150-450) 10^3/uL MPV 9.8 (9.5-13.5) fL Neut % (Auto) 59.2 (43.0-75.0) % Lymph % (Auto) 34.7 (20.5-60.0) % [place] % (Auto) 4.6 (1.7-12.0) % Eos % (Auto) 0.8 L (0.9-7.0) % Baso % (Auto) 0.5 (0.2-2.0) % Neut # (Auto) 3.8 (1.4-6.5) 10^3/uL Lymph # (Auto) 2.2 (1.2-3.8) 10^3/uL [place] # (Auto) 0.3 (0.3-0.8) 10^3/uL Eos # (Auto) 0.1 (0.0-0.7) 10^3/uL Baso # (Auto) 0.0 (0.0-0.1) 10^3/uL Abs Immat Gran (auto) 0.01 (0.00-0.03) 10^3/uL Imm/Tot Granulo (auto) 0.2 (0.0-0.5) % Sodium 141 (136-145) mmol/L Potassium 4.0 (3.5-5.1) mmol/L Chloride 105 (98-107) mmol/L Carbon Dioxide 27.5 (21.0-32.0) mmol/L Anion Gap 12.5 BUN 14.0 (7.0-18.0) mg/dL Creatinine 0.61 (0.55-1.02) mg/dL Est GFR ( Amer) >60 (>=60 mL/min/1.73m^2) Est GFR (Non-Af Amer) >60 (>=60 mL/min/1.73m^2) BUN/Creatinine Ratio 23.0 Glucose 115 H (74-106) mg/dL Calcium 9.2 (8.5-10.1) mg/dL Magnesium 2.0 (1.8-2.4) mg/dL Total Bilirubin 0.5 (0.2-1.0) mg/dL AST 24 (15-37) U/L ALT 32 (14-59) U/L Alkaline Phosphatase 69 (46-116) U/L Troponin I High Sens <4.0 L (4.0-51.3) pg/mL Total Protein 7.9 (6.4-8.2) g/dL Albumin 4.3 (3.4-5.0) g/dL Globulin 3.6 g/dL Albumin/Globulin Ratio 1.2 Urine Color Lt. yellow (YELLOW) Urine Clarity Clear (CLEAR) Urine pH 7.0 (5.0-9.0) Ur Specific Theodore 1.010 (1.005-1.025) Urine Protein Negative (NEG/TRACE) mg/dL Urine Glucose (UA) Negative (NEGATIVE) mg/dL Urine Ketones Negative (NEGATIVE) mg/dL Urine Occult Blood Trace-i (NEGATIVE) Urine Nitrite Negative (NEGATIVE) Urine Bilirubin Negative (NEGATIVE) Urine Urobilinogen 0.2 (0.2-1.0) EU/dL Ur Leukocyte Esterase Trace A (NEGATIVE) Urine RBC 0-2 (0-2) #/HPF Urine WBC 2-5 A (NONE SEEN) #/HPF Ur Squamous Epith Cells Few A (NONE/RARE) #/LPF Urine Crystals None seen (None Seen) #/HPF Urine Bacteria Trace A (NONE SEEN) #/HPF Urine Casts None seen (NONE SEEN) #/LPF Urine Mucus None seen (NONE SEEN) Ur Culture Indicated? No Discharge Plan Discharge Chief Complaint: Dizziness Clinical Impression: Vertigo Patient Disposition: Home, Self-Care Time of Disposition Decision: 14:36 Condition: Good Prescriptions / Home Meds: New meclizine 25 mg tablet 25 mg PO BID PRN (Reason: motion sickness) Qty: 14 0RF Held cetirizine-pseudoephedrine [All Day Allergy-D] 5-120 mg tablet extended release 12 hr 1 tab PO BID Hold Instructions: Resume on 04/17/25. hold while using Meclizine No Action calcium carbonate [Calcium 600] 1 tab PO QDAY zolpidem [Ambien] 5 mg tablet 10 mg PO .HS Rx Instructions: LAST FILLED 05/13/23 FOR 30 DAYS PER REFILL HX Probiotic 10 billion cell capsule 100 mmu cells PO DAILY calcium phos,dibas-vitamin D3 77-400 mg-unit tablet 1 tab PO DAILY Print Language: Greek Instructions: Vertigo (DC) Referrals: CLAUDIA HANNA [Primary Care Provider, Internal Medicine] - 1 week
[2025-04-07 12:50] LABS: Hematocrit 43.6 % (36.0-48.0); Hemoglobin 15.0 g/dL (12.0-16.0); Immature Granulocytes Abs Auto 0.01 10^3/uL (0.00-0.03); Immature Granulocytes Pct Auto 0.2 % (0.0-0.5); Lymphocytes Absolute Auto 2.2 10^3/uL (1.2-3.8); Mean Corpuscular HGB Conc 34.4 g/dL (29.9-35.2); Mean Corpuscular Hemoglobin 30.4 pg (26.7-34.0); Mean Corpuscular Volume 88.4 fL (81.0-99.0); Platelet Count 269 10^3/uL (150-450); Red Blood Count 4.93 10^6/uL (4.20-5.40); White Blood Count 6.3 10^3/uL (4.0-11.0)
[2025-04-07] MEDS: MECLIZINE HCL 12.5 MG TABLET 25 MG PO (12:50)
--- NOTE | 2025-04-07 13:02 | CT_ITS ---
The [address] [address] Patient Name: SUMAN RODAS MRN: [id number] date: 1955 Sex: F Assigned Patient Location: ER Current Patient Location: ER Accession/Order Number: [id number] Exam Date: 04/07/2025 13:12 Report Date: 04/07/2025 13:13 At the request of: KAE SUAREZ MD Procedure: CT head/brain wo con CT BRAIN WITHOUT CONTRAST: CLINICAL HISTORY: sudden vertigo with elevated BP COMPARISON: None TECHNIQUE: Contiguous axial unenhanced images were obtained through the brain. This CT exam was performed using one or more following dose reduction techniques: Automated exposure control, adjustment of the mA and/or kV according to patient size, or use of iterative reconstruction technique. FINDINGS: There is no evidence of midline shift, intra or extra-axial fluid collection, hemorrhage or CT evidence of acute large vascular distribution stroke Visualized intraorbital contents appear unremarkable. Mild paranasal sinus mucosal thickening. The surrounding soft tissues are normal. CT/CT head/brain wo con IMPRESSION: NO ACUTE INTRACRANIAL ABNORMALITY. Impression dictated by: Boom Merritt M.D. 04/07/2025 1:13 PM Dictation Location: [place] [address] Electronically authenticated by: [id number] Y Date: 04/07/2025 13:13
[2025-04-07 13:07] LABS: Magnesium 2.0 mg/dL (1.8-2.4)
[2025-04-07 13:08] LABS: Alanine Aminotransferase 32 U/L (14-59); Albumin Globulin Ratio 1.2; Albumin Level 4.3 g/dL (3.4-5.0); Alkaline Phosphatase 69 U/L (46-116); Anion Gap 12.5; Aspartate Amino Transferase 24 U/L (15-37); Blood Urea Nitrogen 14.0 mg/dL (7.0-18.0); Calcium 9.2 mg/dL (8.5-10.1); Carbon Dioxide 27.5 mmol/L (21.0-32.0); Chloride 105 mmol/L (98-107); Estimated GFR (African America >60 (>=60 mL/min/1.73m^2); Estimated GFR (Non-African Ame >60 (>=60 mL/min/1.73m^2); Globulin 3.6 g/dL; Glucose 115 mg/dL (74-106); Potassium 4.0 mmol/L (3.5-5.1); Sodium 141 mmol/L (136-145); Total Protein 7.9 g/dL (6.4-8.2)
[2025-04-07 14:10] LABS: Glucose Urine UA NEGATIVE (NEGATIVE)
[2025-04-07 14:30] LABS: Cast Seen? NONE SEEN #/LPF (NONE SEEN); Crystals Seen? None Seen #/HPF (None Seen); Urine Culture Indicated NO
--- OUTSIDE RECORDS SUMMARY | 2025-04-07 15:10 | XMS_ITS | CCD ---
Author Organization [facility] CliniSytx Care Team Providers Care Tutoring Assistant Name Role Phone LAY, MARGE Unavailable Unavailable LAY, MARGE Unavailable Unavailable WALT TAPIA Unavailable Unavailable WALT TAPIA Unavailable Unavailable JACQUES, DR TAYLOR Primary Care Unavailable GIEDRAITIS, ANDRIUS Admitting Unavailable GIEDRAITIS, ANDRIUS Attending Unavailable GABRIELLA, MICHAEL Admitting Unavailable ZIROBINSON, DR BERHANE Costa Consulting Unavailable GABRIELLA, MICHAEL Attending Unavailable DR WALT TAPIA Primary Care Unavailable YAN ROSE Consulting Unavailable MICHAEL DEJESUS Consulting Unavailable DR WALT TAPIA Consulting Unavailable DR WALT TAPIA Primary Care Unavailable LIM ., SERINA Admitting Unavailable LIM ., SERINA Attending Unavailable ZIEBER, DR BERHANE Costa Consulting Unavailable LIM ., SERINA Consulting Unavailable MCCAIN ., DR MICKI Matta Admitting Unavailable DR [...] Unavailable Walt Tapia MD Primary Care Provider [phone] Walt Tapia MD Unavailable EVE DOUGHERTY Attending Unavailable MICHAEL DEJESUS Attending Unavailable EVE DOUGHERTY Attending Unavailable BUDDY ROSE Attending Unavailable EVE DOUGHERTY Attending Unavailable EVE DOUGHERTY Attending Unavailable Allergies Allergy Classification Reported Allergen(s) Allergy Type Date of Onset Reaction(s) Facility (1 source) Tetracyclines Drug allergy (disorder) 06-30-[address] [facility] Repository (1 source) celecoxib Drug Allergy [facility] Repository (2 sources) Tetracycline Drug Allergy 01-20-2014 [facility] Repository (13 sources) Tetracycline Drug Allergy 04-25-2024 rash [facility] Work Phone: (1 source) Tetracycline Drug Allergy 04-25-2024 [facility] Repository (17 sources) cefdinir Drug Allergy 03-29-2023 Diarrhea [facility] Work Phone: (17 sources) celecoxib Drug Allergy 03-29-2023 [facility] (12 sources) atorvastatin Drug Allergy 07-08-2024 Headache [facility] Work Phone: Medications Current Medications Medication [...] 04/17/2024 Active cholecalciferol 0.05 mg oral capsule (19 sources) Vitamin D Start: 04-25-2024 Cholecalcifero l [...] 05/18/2024 Active famotidine 20 mg oral tablet (17 sources) Histamine-2 Receptor Antagonist take 1 tablet by mouth in the morning famotidine (Pepcid) 20 MG tablet Take 20 mg by mouth in the morning and 20 mg in the evening. Active fluticasone propionate 0.05 mg/actuat metered dose nasal spray (18 sources) Corticosteroid Start: 05-30-2023 take 1 spray(s) [...] Jul, Not-Taking hydrocortisone 25 mg/ml topical cream (17 sources) Corticosteroid Start: 12-29-2023 hydrocortisone 2.5 % cream 12/29/2023 Active ketoconazole 20 mg/ml topical cream (17 sources) Azole Antifungal Start: 12-29-2023 ketoconazole (NIZOral) [...] Active Start: 04-25-2024 take 1 capsule by [facility] every twelve hours at mealtime [...] May, Active valACYclovir 1000 mg oral tablet (14 sources) Herpesvirus Nucleoside Analog DNA Polymerase Inhibitor, [...] artery] 02-05-2025 Chronic Disorders of lipid metabolism (19 sources) Pure hypercholesterolemia; Translations: [Pure hypercholesterolemia, unspecified] Onset: 03-29-2023 03-29-2023 Chronic Essential hypertension (19 sources) Benign hypertension; Translations: [Essential (primary) hypertension] [...] 04-07-2024 03-29-2023 Chronic Miscellaneous mental health disorders (20 sources) Primary insomnia; Translations: [Primary insomnia] Onset: 02-14-2023 06-05-2024 Chronic Other acquired deformities (2 sources) Contracture of joint of left ankle; Translations: [Contracture, left ankle] 03-25-2025 Chronic Other connective tissue disease (2 sources) Plantar fasciitis; Translations: [Plantar fascial fibromatosis] 03-25-2025 Episodic Other liver diseases (4 sources) Liver disease, unspecified; Translations: [LIVER DISEASE, UNSPECIFIED] Onset: 03-14-2017 Chronic Other liver diseases (19 sources) Cirrhosis of liver; Translations: [Unspecified cirrhosis [...] 04-07-2024 04-07-2024 Chronic Other upper respiratory disease (17 sources) Allergic rhinitis; Translations: [Allergic rhinitis, unspecified] Onset: 03-29-2023 03-29-2023 Chronic Otitis media and related conditions (1 source) Other acute nonsuppurative otitis media, bilateral Episodic Peripheral and visceral atherosclerosis (17 sources) Arteriosclerosis of abdominal aorta; Translations: [Atherosclerosis [...] Date Documented Da te Episodic/Chronic Abdominal hernia (17 sources) Hiatal hernia; Translations: [Diaphragmatic hernia without obstruction or gangrene] Onset: 03-29-2023 03-29-2023 Episodic Diabetes mellitus without complication (17 sources) Impaired fasting glycemia; Translations: [Impaired fasting glucose] Onset: 04-07-2024 04-07-2024 Episodic Mood disorders (17 sources) Mood disorders Onset: 04-07-2024 04-07-2024 Other bone disease and musculoskeletal deformities (1 source) Other specified disorders of bone density and structure, unspecified site; Translations: [OTH D/O BONE DEN STRUCT UNS SITE] Onset: 04-14-2022 Episodic Other bone disease and musculoskeletal deformities (17 sources) Osteopenia; Translations: [Other specified disorders of [...] of mental health and substance abuse codes (17 sources) Ex-smoker; Translations: [Personal history of nicotine [...] Test Name Value Interpretation Reference Range Facility XR LUMBAR SPINE 6V W BENDING on 04-02-[address] [address] XRay Report Signed Patient: SUMAN RODAS MR#: [id number] : 1955 Acct:[id number] Age/Sex: 70 / F ADM Date: 04/02/25 Loc: RAD Attending Dr: Rosanna Martinez NP Ordering Physician: Rosanna Martinez NP Date of Service: 04/02/25 Procedure(s): XR lumbar spine 6V w bending Accession Number(s): [id number] cc: WALT TAPIA ; Rosanna Martinez NP [address] [address] Patient Name: SUMAN RODAS MRN: [facility]:[id number] date: 1955 Sex: F Assigned Patient Location: PM Current Patient Location: PM Accession/Order Number: [id number] Exam Date: 04/02/2025 10:44 Report Date: 04/02/2025 [...] BONY PROCESS. Impression dictated by: Manoj Rojas Jr. DRakel 04/02/2025 10:45 AM Dictation Location: [place] [address] Electronically authenticated by: [id number] Y Date: 04/02/2025 10:45 Dictated By: Manoj Rojas M.D. Signed By: 04/02/25 1048 DD/ TD/TT: Service Trainer: [facility] Radiology, Radiologist, MD - 04/02/2025 The [place] [id number] XRay Report Signed Patient: SUMAN RODAS MR#: [id number] : 1955 Acct:[id number] Age/Sex: 70 / F ADM Date: 04/02/25 Loc: RAD Attending Dr: Rosanna Martinez NP Ordering Physician: Rosanna Martinez NP Date of Service: 04/02/25 Procedure(s): XR lumbar spine 6V w bending Accession Number(s): [id number] cc: WALT TAPIA Anna NP The [address] [address] Patient Name: SUMAN RODAS MRN: [facility]:[id number] date: 1955 Sex: F Assigned Patient Location: PM Current Patient Location: PM Accession/Order Number: [id number] Exam Date: 04/02/2025 10:44 Report Date: 04/02/2025 [...] Jr., D.O. 04/02/2025 10:45 AM Dictation Location: [place] [address] Electronically authenticated by: [id number] Y Date: 04/02/2025 10:45 Dictated By: Manoj Rojas M.D. Signed By: 04/02/258 DD/ 44 TD/TT: Service Trainer: [facility] Radiology Study observation (narrative) [facility] XR LUMBAR SPINE 6V W BENDING Ordered By: Radiologist Radiology on 04-02-2025 [facility] Work Phone: No Panel Informationon 03-06 STAPHYLOCOCCUS EPIDERMIDIS, HAEMOLYTICUS, LUGDUNENSIS, SAPROPHYTICUS (URINA 0 [facility] STAPHYLOCOCCUS EPIDERMIDIS, HAEMOLYTICUS, LUGDUNENSIS, SAPROPHYTICUS (URINA Not detected [facility] URINARY TRACT INFECTION (HTR X)on 03-06-2025 ACINETOBACTER BAUMANII 0 [facility] ACINETOBACTER BAUMANII Not detected [facility] MANDY ALBICANS, PARAPSILOSIS, TROPICALIS 0 [facility] MANDY ALBICANS, PARAPSILOSIS, TROPICALIS Not detected [facility] M[facility]Y GLABRATA [facility] M[facility]Y GLABRATA Not detected [facility] ealthcare MANDY KRUSEI 0 [facility] Everet[facility] hcare MANDY KRUSEI Not detected [facility] Hea lthcare CITROBACTER FREUNDII 0 [facility] CITROBACTER FREUNDII Not detected [facility] ENTEROBACTER AEROGENES, CLOACAE 0 [facility] re ENTEROBACTER AEROGENES, CLOACAE Not detected [facility] re ENTEROCOCCUS FAECALIS, FAECIUM 0 [facility] ENTEROCOCCUS FAECALIS, FAECIUM Not detected [facility] ESCHERICHIA COLI 27.224 Abnormal [facility] ESCHERICHIA COLI Detected Abnormal [facility] ltare Interpretation and review of laboratory results Abnormal [facility] KLEBSIELLA PNEUMONIAE, OXYTOCA 0 [facility] KLEBSIELLA PNEUMONIAE, OXYTOCA Not detected [facility] MORGANELLA MORGANII 0 [facility] MORGANELLA MORGANII Not detected [facility] PROTEUS MIRABILIS, VULGARIS 0 [facility] PROTEUS MIRABILIS, VULGARIS Not detected [facility] PSEUDOMONAS AERUGINOSA 0 [facility] PSEUDOMONAS AERUGINOSA Not detected [facility] SERRATIA MARCESCENS 0 [facility] SERRATIA MARCESCENS Not detected [facility] STAPHYLOCOCCUS AUREUS 0 [facility] STAPHYLOCOCCUS AUREUS Not detected [facility] STREPTOCOCCUS AGALACTIAE (GROUP B STREP) 0 [facility] STREPTOCOCCUS AGALACTIAE (GROUP B STREP) Not detected [facility] STREPTOCOCCUS PYOGENES (GROUP A STREP) 0 [facility] STREPTOCOCCUS PYOGENES (GROUP A STREP) Not detected [facility]inal[facility] macro (dipstick) panel (U)on 03-05-2025 Bilirubin, UA Negative Negative - 4(70) +++ mg/dL [facility] Blood, UA Positive Negative - 50 Gabe/mcL [facility] Comment on above: mod Glucose, UA Negative Negative - 1999(110) ++++ mg/dL [facility] Interpretation and review of laboratory results Abnormal [facility] Ketones, UA Negative Negative - 160(16) ++++ mg/dL [facility] Leukocytes, UA Moderate Negative - 500+++ Stefan/mcL [facility] Nitrite, UA Negative Negative - Positive [facility] pH, UA 5 5 - 9 [facility] e Protein, UA Negative Negative - 1999(20) ++++ mg/dL [facility] Spec Grav, UA 1.01 1 - 1.03 [facility] Urobilinogen, UA 1.0 0.2 - 12 mg/dL [facility] e Urinalysis macro (dipstick) panel (U)on 05-13-2024 Bilirubin, UA Negative Negative - 4(70) +++ mg/dL [facility] Blood, UA Positive Negative - 50 Gabe/mcL [facility] Clarity, UA Clear [facility] re Color, UA Light Yellow [facility] are Glucose, UA Negative Negative - 1999(110) ++++ mg/dL [facility] Interpretation and review of laboratory results Abnormal [facility] Ketones, UA Negative Negative - 160(16) ++++ mg/dL [facility] Leukocytes, UA Few Negative - 500+++ Stefan/mcL [facility] Nitrite, UA Negative Negative - Positive [facility] pH, UA 5.0 5 - 9 [facility] Protein, UA Negative Negative - 2000(20) ++++ mg/dL [facility] Spec Grav, UA 1.005 1 - 1.03 [facility] Urobilinogen, UA 1.0 0.2 - 12 mg/dL [facility] Urine Cultureon 04-25-2024 Bacteria identified Cx Nom (U) ORGANISM: Escherichia coli (O:ESCCOL) Williamson Count >100,000 Aerobic MESHA Charge (NMIC56) ------ [...] RESISTANT TO ALL B-LACTAM DRUGS. PERFORMED BY: [address] [place] [address] PATHOLOGIST GOLDSMITH APPRENTICE ELA PIZARRO M.D. Normal [facility] Comment on above: Performed By: #### C UU #### [facility] [address] [place], [place] [id number] [facility] MG MAMM SCREEN 3D DAHIANA CADon 04-13-2022 MG MAMM SCREEN 3D DAHIANA CAD Patient: SUMAN RODAS Exam Date: 04/13/2022 : 1955 Gender:F Ordering : MRS. MICHAEL DEJESUS ACCOUNTANT-C Admission #: [id number] Family : Order #: [id number] CLICK HERE TO VIEW EXAM RADIOLOGY REPORT [...] breast cancer at age 74. LOCATION: [facility] BREAST COMPOSITION: Almost entirely fatty. FINDINGS: [...] M.D. on 04/14/2022 at 12:58 Normal [facility] XR DEXA BONE DENSITYon 04-13 XR DEXA BONE DENSITY DEXA Bone Density Study CLINICAL: Evaluate bone mineral density. Menopausal COMPARISON: 03/12/2020 FINDINGS: The bone density study was assessed by dual-energy x-ray absorptiometry with the [employer] scanner. The test results are expressed in [...] + fragility fractures). Electronically authenticated by: YAN Hall: 2022-04-13 13:56 Normal [facility] MRI LSPINE WO CONon 02-25-20 22 MRI LSPINE WO CON EXAMINATION: MRI LSPINE WO CON [...] by: BERHANE VENTURA Date: 2022-02-24 18:31 Normal [facility] CBC COMPLETE BLOOD COUNTon 0 03-14-2017 Erythrocyte distribution width Auto Ratio (RBC) 14.4 % Normal 11.5-16.[address] [facility] Comment on above: Performed By: #### 5 0608 ####[facility] [place] [address], [facility] Erythrocytes (RBC) 4.46 mill/mm3 Normal 3.50-5.[address] [facility] Comment on above: Performed By: #### 5 0608 ####[facility] [facility].[address] Hematocrit (HCT) 40.7 % Normal 36.0-48.[address] [facility] Comment on above: Performed By: #### 5 0608 ####[facility] [facility].[address] Hemoglobin mass conc (Bld) 13.9 g/dL Normal 12.0-15.0 [facility] Comment on above: Performed By: #### 5 0608 ####[place] [address] [address] MCH 31.1 pg Normal 24.0-32.0 [facility] Comment on above: Performed By: #### 5 0608 ####[facility] [facility].[address] MCHC mass conc (RBC) 34.0 g/dL Normal 32.0-36.0 [facility] Comment on above: Performed By: #### 5 0608 ####[address] MCV 91.4 fL Normal 80.0-100.0 [facility] Comment on above: Performed By: #### 5 0608 ####[facility] [facility] [place] [address], [facility] PLAT CNT 214 Thou/mm3 Normal 100-400 [facility] Comment on above: Performed By: #### 5 0608 ####[place] [address] [facility].[address] WBC (Leukocytes) 6.8 Thou/mm3 Normal 4.0-10.0 [facility] Comment on above: Performed By: #### 5 0608 ####[facility] [facility].[address] COMP METABOLIC PANELon 03-14 Alanine aminotransferase (ALT) 21 U/L Normal 7-52 [facility] Comment on above: Performed By: #### 0 0121 ####[facility] [place] [address], [facility] Albumin 4.6 g/dL Normal 3.5-5.[address] [facility] Comment on above: Performed By: #### 0 0121 ####[facility] [place] [address], [facility] ALKALINE PHOSPH 53 IU/L Normal 34-104 [facility] Comment on above: Performed By: #### 0 0121 ####[facility], [place] [address] [place] [address] Aspartate aminotransferase (AST) 23 U/L Normal 13-39 [facility] Comment on above: Performed By: #### 0 0121 ####[facility] [place] [address], [facility] Bilirubin (total) 0.6 mg/dL Normal 0.3-1.0 [facility] Comment on above: Performed By: #### 0 0121 ####[facility] [facility] [place] [address], [facility] Calcium 9.6 mg/dL Normal 8.6-10.[address] [facility] Comment on above: Performed By: #### 0 0121 ####[facility] [place] [address], [facility] Chloride 106 mmol/L Normal 98-[address] [facility] Comment on above: Performed By: #### 0 0121 ####[facility] [place] [address], [facility] CO2 26 mmol/L Normal 21-[address] [facility] Comment on above: Performed By: #### 0 0121 ####[facility] [place] [address], [facility] Creatinine 0.68 mg/dL Normal 0.60-1.20 [facility] Comment on above: Performed By: #### 0 0121 ####[facility] [place] [address], [facility] eGFR (black) mL/min/{1.73_m2} Normal >[address] [facility] Comment on above: Performed By: #### 0 0121 ####[facility] [place] [address], [facility] eGFR (non-black) mL/min/{1.73_m2} Normal >60 [facility] Comment on above: Performed By: #### 0 0121 ####[facility] [place] [address], [facility] Glucose mass conc 80 mg/dL Normal 70-100 [facility] Comment on above: Performed By: #### 0 0121 ####[facility] [place] [address], [facility] Potassium molar conc 4.3 mmol/L Normal 3.5-5.1 [facility] Comment on above: Performed By: #### 0 0121 ####[facility] [place] [address], [facility] Protein 7.2 g/dL Normal 6.0-8.3 [facility] Comment on above: Performed By: #### 0 0121 ####[facility] [place] [address], [facility] Sodium 140 mmol/L Normal 136-[address] [facility] Comment on above: Performed By: #### 0 0121 ####[facility] [place] [address], [facility] Urea nitrogen 10 mg/dL Normal 7-25 [facility] Comment on above: Performed By: #### 0 0121 ####[address] HEP C RNA PCR QNTon 03-14-20 17 HCV PCR INTERP Not Detected Normal Not Detected [facility] Comment on above: Order Comment: This [...] HCV infection. Performed By: #### 3 1265 ####[place] [address] [address] HEP C RNA QNT Not detected Normal [facility] Comment on above: Order Comment: This test [...] HCV infection. Performed By: #### 3 1265 ####[place] [address] [address] Vital Signs Date Time Vital Sign Value Performing Clinician Facility 03-27-2025 14:44-0400 Body height 165.1 cm Buddy Rose DPM Work Phone: [facility] 03-27-2025 14:44-0400 Body mass index (BMI) [Ratio] 38.94 kg/m2 Buddy Rose DPM Work Phone: [facility] 03-27-2025 14:44-0400 Body weight 106.14 kg Buddy Rose DPM Work Phone: [facility] 03-27-2025 14:44-0400 Respiratory rate 16 /min Buddy Rose DPM Work Phone: [facility] 03-05-2025 10:58-0400 Body height 165.1 cm Eve Hemmer PA Work Phone: [facility] 03-05-2025 10:58-0400 Body mass index (BMI) [Ratio] 38.94 kg/m2 Eve Hemmer PA Work Phone: [facility] 03-05-2025 10:58-0400 Body weight 106.14 kg Eve Hemmer PA Work Phone: [facility] 03-05-2025 10:58-0400 Diastolic blood pressure 98 mm[Hg] Eve Hemmer PA Work Phone: [facility] 03-05-2025 10:58-0400 Heart rate 86 /min Eve Hemmer PA Work Phone: [facility] 03-05-2025 10:58-0400 SaO2% (BldA) [Mass fraction] 97 % Eve Hemmer PA Work Phone: [facility] 03-05-2025 10:58-0400 Systolic blood pressure 142 mm[Hg] Eve Hemmer PA Work Phone: [facility] 02-05-2025 13:31-0400 Body height 165.1 cm Michael Dejesus NP Work Phone: [facility] 02-05-2025 13:31-0400 Body mass index (BMI) [Ratio] 39.61 kg/m2 Michael Dejesus ACCOUNTANT Work Phone: [facility] 02-05-2025 13:31-0400 Body weight 107.96 kg Michael Dejesus ACCOUNTANT Work Phone: [facility] 02-05-2025 13:31-0400 Diastolic blood pressure 101 mm[Hg] Michael Dejesus ACCOUNTANT Work Phone: [facility] 02-05-2025 13:31-0400 Heart rate 68 /min Michael Dejesus ACCOUNTANT Work Phone: [facility] 02-05-2025 13:31-0400 Respiratory rate 17 /min Michael Dejesus ACCOUNTANT Work Phone: [facility] 02-05-2025 13:31-0400 SaO2% (BldA) [Mass fraction] 97 % Michael Dejesus ACCOUNTANT Work Phone: [facility] 02-05-2025 13:31-0400 Systolic blood pressure 136 mm[Hg] Michael Dejesus ACCOUNTANT Work Phone: [facility] 05-13-2024 11:35-0400 Body height 165.1 cm Eve Hemmer PA Work Phone: [facility] 05-13-2024 11:35-0400 Body mass index (BMI) [Ratio] 38.27 kg/m2 Eve Hemmer PA Work Phone: [facility] 05-13-2024 11:35-0400 Body weight 104.33 kg Eve Hemmer PA Work Phone: [facility] 05-13-2024 11:35-0400 Diastolic blood pressure 84 mm[Hg] Eve Hemmer PA Work Phone: [facility] 05-13-2024 11:35-0400 Heart rate 80 /min Eve Hemmer PA Work Phone: [facility] 05-13-2024 11:35-0400 Respiratory rate 16 /min Eve Hemmer PA Work Phone: [facility] 05-13-2024 11:35-0400 SaO2% (BldA) [Mass fraction] 98 % Eve MARK Work Phone: [facility] 05-13-2024 11:35-0400 Systolic blood pressure 119 mm[Hg] Eve MARK Work Phone: [facility] 04-25-2024 10:19-0400 Body height 165.1 cm [facility] 04-25-2024 10:19-0400 Body mass index (BMI) [Ratio] 38.2 kg/m2 [facility] 04-25-2024 10:19-0400 Body temperature 97 [degF] [facility] 04-25-2024 10:19-0400 Body weight 104.43 kg [facility] 04-25-2024 10:19-0400 Diastolic blood pressure 80 mm[Hg] [facility] 04-25-2024 10:19-0400 Heart rate 72 /min [facility] 04-25-2024 10:19-0400 Respiratory rate 18 /min [facility] 04-25-2024 10:19-0400 SaO2% (BldA) [Mass fraction] 92 % [facility] 04-25-2024 10:19-0400 Systolic blood pressure 142 mm[Hg] [facility] 05-25-2023 10:50-0400 Body height 165.1 cm Elizabeth Mayes Other [employer] [facility] [employer] Other 05-25-2023 10:50-0400 Body mass index (BMI) [Ratio] 38.17 kg/m2 Elizabeth Mayes Other [employer] Other 05-25-2023 10:50-0400 Body temperature 97.7 [degF] Elizabeth Mayes Other [employer] Other 05-25-2023 10:50-0400 Body weight 104.06 kg Elizabeth Mayes Other [employer] Other 05-25-2023 10:50-0400 Diastolic blood pressure 88 mm[Hg] Elizabeth Mayes Other [employer] Other 05-25-2023 10:50-0400 Respiratory rate 18 /min Elizabeth Mayes Other [employer] Other 05-25-2023 10:50-0400 SaO2% (BldA) [Mass fraction] 98 % Elizabeth Mayes Other [employer] Other 05-25-2023 10:50-0400 Systolic blood pressure 142 mm[Hg] Elizabeth Mayes Other [employer] Other Encounters Encounter Date Encounter Type Care Provider Facility Start: 04-02-2025 End: 04-02-2025 [facility] Result Encounter Generic External Data Provider [facility] External Department Unsolicited Start: 04-02-2025 End: 04-02-2025 Clinisync Result Encounter Generic External Data Provider [facility] Department Unsolicited Start: 03-27-2025 End: 03-27-2025 Patient encounter procedure Buddy Rose DPM Work Phone: [facility] Comment on above: Plantar fasciitis (P rimary Dx); Contracture of left ankle Start: 03-27-2025 End: 03-27-2025 ambulatory BUDDY ROSE Not Available Start: 03-27-2025 End: 03-27-2025 Bamboo flowsheet Buddy Rose DPM Work Phone: [facility] Start: 03-27-2025 End: 03-27-2025 Bamboo flowsheet Buddy Rose DPM Work Phone: [facility] Start: 03-05-2025 End: 03-06-2025 External Result Encounter Eve MARK Work Phone: [facility] External Department Unsolicited Start: 03-05-2025 End: 03-06-2025 External Result Encounter Eve Troy Dougherty PA Work Phone: [facility] External Department Unsolicited Start: 03-05-2025 End: 03-05-2025 Office outpatient visit 25 minutes Eve Dougherty PA Work Phone: [facility] Comment on above: Dysuria (Primary Dx) ; Recurrent cold sores; Acute cystitis with hematuria; Benign hypertension ; Morbid (severe) obesity due to excess calories (CMS-HCC); Body mass index (BMI) 38.0-38.9, adult Start: 03-05-2025 End: 03-05-2025 ambulatory EVE Simmons LADONNA Not Available Start: 02-05-2025 End: 02-05-2025 Bamboo flowsheet Michael Dejesus ACCOUNTANT Work Phone: [facility] Start: 02-05-2025 End: 02-05-2025 Bamboo flowsheet Michael Dejesus ACCOUNTANT Work Phone: [facility] Start: 02-05-2025 End: 02-05-2025 Office outpatient visit 25 minutes Michael Dejesus ACCOUNTANT Work Phone: [facility] Comment on [...] insomnia Start: 04-25-2024 End: 04-25-2024 Departed Referred FACILITIES ASSISTANT Elizabeth Mayes Work Phone: [facility] [place] Work Phone: Start: 04-25-2024 End: 04-25-2024 ambulatory Elizabeth Mayes [facility] Work Phone: Start: 04-25-2024 End: 04-25-2024 Patient encounter procedure [facility] [place] Work Phone: Start: 04-07-2024 End: 04-07-2024 ambulatory EVE DOUGHERTY Not Available Start: 03-24-2024 End: 03-24-2024 ambulatory Nichole Painter MD Facility: [facility] Start: 05-28-2023 End: 05-28-2023 ambulatory Nichole Painter MD Facility:[facility] Start: 05-25-2023 End: 05-25-2023 ambulatory Elizabeth Mayes Other [facility] [employer] Other Start: 05-25-2023 Office outpatient ne w 30 minutes Elizabeth Mayes [facility] [place] Start: 04-30-2023 End: 04-30-2023 ambulatory Nichole Painter MD Facility:[facility] [place] Start: 01-05-[address] WALT TAPIA Facilit y:[facility]1 Start: 04-13-2022 End: 04-14-2022 ambulatory MICHAEL DEJESUS Facility:[facility] Start: 03-07-2022 End: 03-08-[address] MICKI MCCAIN . Facility:[facility] Start: 02-24-2022 End: 02-25-[address] WALT TAPIA Facility:[facility] Start: 02-15-2022 End: 02-16-[address] MICKI MCCAIN . Facility:[facility] Start: 12-27-2021 End: 12-28-[address] MICKI MCCAIN . Facility:[facility] Start: 03-14-2017 End: 03-15-2017 Ambulatory MARGE GOPI Facility:[facility] Procedures Date Procedure Procedure Detail Performing Clinician Start: 04-02-2025 XR LUMBAR SPINE 6V W BENDING Generic External Data Provider Start: 03-05-2025 Urnls dip stick/tabl et rgnt non-auto w/o micrscp Eve Dougherty PA Work Phone: Start: 03-05-2025 URINARY TRACT INFECT ION (HTRX) Eve Dougherty PA Work Phone: Start: 05-13-2024 Urnls dip stick/tabl et rgnt non-auto w/o micrscp Eve MARK Work Phone: Start: 05-05-2024 Mammography Eve burroughs PA Work Phone: Start: 05-04-2023 Mammography Cely jamison MA Plan of Treatment Date Care Activity Detail Author Start: 04-17-2027 Screening for malign ant neoplasm of colon [facility] Start: 05-05-2025 Screening for malign ant neoplasm of breast Mammogram [facility] Start: 09-01-2025 Influenza vaccination Influenza Vacc ine (#1) [facility] Start: 04-13-2025 End: 04-13-2025 Clinical Support 04/13/2025 2:40 PM EDT Clinical Support [facility] [address] [place] [phone] Buddy Rose DPM [address] [id number] [facility] Start: 04-08-2025 End: 04-08-2025 Patient encounter procedure [facility] Start: 04-07-2025 Medicare Annual Wellness (AWV) Medicare Annual Wellness (AWV) [facility] Start: 03-27-2025 End: 03-27-2025 Patient encounter procedure 03/27/2025 2:50 PM EDT Office Visit [facility] [address] [place] [phone]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
== END 2025-04-07 14:48 | disposition home or self-care (01) ==
PROVIDERS: Emergency Provider Emergency Medicine; PCP Internal Medicine
DX: R42 Dizziness and giddiness (principal); R11.0 Nausea; R26.89 Other abnormalities of gait and mobility
CPT/HCPCS: 36415; 70450; 80053; 81001; 83735; 84484; 85025; 93005; 96374; 99285; J2405

== ENCOUNTER 2025-04-13 08:24 | Day surgery (SDC) | payer MEDICARE, OTHER, SELFPAY ==
--- OUTSIDE RECORDS SUMMARY | 2025-04-13 08:26 | XMS_ITS | Encounter Summary ---
Author Organization [facility] Address [address] [place] [address] Care Team Providers Care Manager Pe Name Role Phone Walt Tapia MD Primary Care Provider [phone] Encounter Details Date Type Department Care Team (Late st Contact Info) Description 03/06/2025 Abstract [facility] [place] [facility] [address] [facility] [address] [place] [address] Walt Tapia MD 112 [facility] [address] [place] [address] Social History Tobacco Use Types [...] often do you attend chur ch or latter-day services? Patient declined 07/23/2024 Do you belong to any clubs o r organizations such as jehovah's witness groups, unions, fraternal or athletic groups, or [...] any time in the past 12 m [facility], were you homeless or living in a penitentiary (including now)? No 07/23/2024 Comments Unknown Sex and Gender Information Value Date Recorded Sex Assigned at Not on file Legal Sex Female 6:48 PM EDT Gender Identity Not on file Sexual Orientation Not on file documented as of this encounter Plan of Treatment Upcoming Encounters Date Type Department Care Team ([facility] Contact Info) Description 04/23/2025 4:20 PM EDT Clinical Support [facility] [address] [facility] [address] [place] [address] Buddy Rose DPM [address] [facility] [address] [place] [address] 04/24/2025 9:30 AM EDT Office Visit [facility] [place] [address] [facility] [address] [place] [phone] Eve العراقي PA [address] [facility] [address] [place] [address] documented as of this encounter Visit Diagnoses Not on filedocumented in this encounter Additional Health Concerns Assessment Noted Time PHQ-9 Depression Total Score: 0 04/07/20 24 9:00 AM EDT documented as of this encounter Care Teams Manager Pe Relationship Specialty Start Date End Date Walt Tapia MD [address] [facility] [address] [place] [address] PCP - General Internal Medicine 12/26/22 documented as of this encounter
--- OUTSIDE RECORDS SUMMARY | 2025-04-13 08:26 | XMS_ITS | Encounter Summary ---
Author Organization [facility] Address [address] [place] [address] Care Team Providers Care Dining Room Captain Name Role Phone Walt Tapia MD Primary Care Provider [phone] Encounter Details Date Type Department Care Team (Late st Contact Info) Description 01/26/2025 Abstract [facility] [place] [facility] [address] [facility] 110 [place] [phone] Walt Tapia MD 112 [facility] 110 [place], [place] [id number] Social History Tobacco Use Types Packs/Day Years [...] often do you attend chur ch or rastafari services? Patient declined 07/23/2024 Do you belong to any clubs o r organizations such as scientologist groups, unions, fraternal or athletic groups, or [...] any time in the past 12 m [facility], were you homeless or living in a fci (including now)? No 07/23/2024 Comments Unknown Sex and Gender Information Value Date Recorded Sex Assigned at Not on file Legal Sex Female 6:48 PM EDT Gender Identity Not on file Sexual Orientation Not on file documented as of this encounter Plan of Treatment Upcoming Encounters Date Type Department Care Team ([facility] st Contact Info) Description 04/23/2025 4:20 PM EDT Clinical Support [facility] 112 [facility] 120 [place] [address] Buddy Rose DPM 7985 [facility] 5 [place] [address] 04/24/2025 9:30 AM EDT Office Visit [facility] [place] [facility] [address] [facility] 110 [place] [address] Eve العراقي PA [address] [facility] 110 [place] [address] documented as of this encounter Visit Diagnoses Not on filedocumented in this encounter Additional Health Concerns Assessment Noted Time PHQ-9 Depression Total Score: 0 04/07/20 24 9:00 AM EDT documented as of this encounter Care Teams Dining Room Captain Relationship Specialty Start Date End Date Walt Tapia MD [address] [facility] 110 [place] [address] PCP - General Internal Medicine 12/26/22 documented as of this encounter
--- OUTSIDE RECORDS SUMMARY | 2025-04-13 08:26 | XMS_ITS | Encounter Summary ---
Author Organization [facility] Address [address] [place] [address] Care Team Providers Care Oil Well Services Superintendent Name Role Phone Walt Tapia MD Unavailable [phone] Walt Tapia MD Primary Care Provider [phone] Walt Tapia MD Unavailable [phone] Walt Tapia MD Unavailable [phone] Encounter Details Date Type Department Care Team (Late Contact Info) Description 05/28/2023 Abstract [facility] [place] [facility] [address] [facility] 110 [place] [address] Walt Tapia MD [address] [facility] 110 [place], [place] [phone] Social History Tobacco Use Types Packs/Day Years [...] CI PODIATRY [address] [place] [address] [place] [address] Buddy Rose DPM 7522 [facility] 5 [place] [address] 04/24/2025 9:30 AM EDT Office Visit [facility] [place] [facility] [address] [place] [address] [place] [address] Eve العراقي PA [address] [facility] [address] [place] [address] documented as of this encounter Visit Diagnoses Not on filedocumented in this encounter Care Teams Oil Well Services Superintendent Relationship Specialty Start Date End Date Walt Tapia MD [address] [facility] [address] [place] [address] PCP - ACO Reach 01/11/23 10/18/23 Walt Tapia MD [address] [place] [address] [place] [address] PCP - General Internal Medicine 12/26/22 Walt Tapia MD [address] [place] [address] [place] [address] PCP - ACO Reach 12/19/23 09/25/24 Walt Tapia MD [address] [facility] [address] [place] [address] PCP - ACO Reach 10/03/24 11/20/24 documented as of this encounter
--- OUTSIDE RECORDS SUMMARY | 2025-04-13 08:26 | XMS_ITS | Clinical Summary ---
Author Organization [employer] [facility] [employer] Address [id number] [address] [place] [address] Care Team Providers Care Milled Rubber Tender Name Role Phone Walt Tapia MD Primary Care Provider Allergies Active Allergy Reactions Criticality Noted Date [...] file Medical Devices Not on file Insurance [facility] MEDICARE Care Teams Milled Rubber Tender Relationship Specialty Start Date End Date Walt Tapia MD 112 [facility] 110 [place] [address] PCP - General Internal Medicine 10/29/18
--- OUTSIDE RECORDS SUMMARY | 2025-04-13 08:26 | XMS_ITS | Clinical Summary ---
Author Organization [facility] Address [address] [place] [address] Care Team Providers Care Road Builder Name Role Phone Walt Tapia MD Primary Care Provider [phone] Allergies Active Allergy Reactions Criticality Noted Date [...] DAILY NEEDED 16 g 2 05/30/2023 Active hydrocortisone 2.5 % cream 12/29/2023 Active ketoconazole (NIZOral) 2 % cream 12/29/2023 Active cholecalciferol (EQL Vitamin D3) 50 MCG (1999 UT) capsuleIndicatio ns:Vitamin D deficiency Take 1 capsule (50 mcg) by mouth Daily 90 capsule 3 04/17/2024 Active zolpidem (Ambien) 10 MG tabletIndication s:Primary insomnia Take 1 tablet (10 mg) by mouth as needed at bedtime for sleep 30 tablet 2 02/06/2025 08/05/20 25 Active valACYclovir (Valtrex) 1 g tabletIndication s:Recurrent cold sores Take 2 tablets (2,000 mg) by mouth in the morning and 2 tablets (2,000 mg) before bedtime. 4 tablet 3 03/05/2025 Active Active Problems Problem Noted Date Diagnosed Date [...] Office Visit [facility] [address] [place] [address] Buddy Rose DPM Plantar fasciitis (Primary Dx); Contracture of left ankle 03/27/2025 Bamboo flowsheet [facility] [address] [place] [address] Buddy Rose DPM 03/18/2025 Orders Only [facility] [place] [facility] [address] [place] [address] [place] [address] Tana Lopez LPN Encounter for screening mammogram for malignant neoplasm of breast 03/06/2025 Abstract [facility] [place] [facility] [address] [place] [address] [place] [phone] Walt Tapia MD 03/05/2025 11:00 AM EDT Office Visit [facility] [place] 112 [facility] 110 [place] [address] Eve Dougherty PA Dysuria (Primary Dx); Recurrent cold sores; Acute cystitis with hematuria; Benign hypertension ; Morbid (severe) obesity due to excess calories ([facility]); Body mass index (BMI) 38.0-38.9, adult 03/05/2025 External Result Encounter N[facility] External Department Unsolicited Eve Dougherty PA 03/05/2025 Travel 02/05/2025 1:30 PM EDT Office Visit [facility] [place] [facility] [address] [place] [address] Peggy Dejesus, GABRIELLE Body mass index (BMI) 38.0-38.9, adult (Primary Dx); Insomnia, unspecified type; Morbid (severe) obesity due to excess calories (CMS-HCC); Chronic viral hepatitis C (HCC); Chronic hepatitis, unspecified (HCC); Unspecified cirrhosis of liver (HCC); Pure hypercholesterolemia , unspecified ; 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) 02/05/2025 Refill [facility] [place] [facility] [address] [place] [address] Walt Tapia MD Primary insomnia 02/05/2025 Bamboo flowsheet [facility] [place] [facility] [address] [place] [address] Peggy Dejesus NP 02/05/2025 Travel 01/26/2025 Abstract [facility] [place] [address] [place] [address] Walt Tapia MD 01/26/2025 Telephone [facility] [place] [address] [place] [address] Eve Dougherty PA 01/23/2025 10:30 AM EDT Clinical Support [facility] [place] [facility] [address] [place] [address] Eve Dougherty PA Burning with urination 01/23/2025 Telephone [facility] [place] [facility] 112 [facility] 100 [place] [address] Walt Tapia MD 01/23/2025 Orders Only [facility] [place] [facility] 112 [facility] 110 [place] [address] Eve Dougherty PA Burning with urination; Dysuria 01/23/2025 [facility] 112 [facility] 110 [place] [address] Eve Dougherty PA 01/23/2025 Travel from Last [...] often do you attend chur ch or sabianist services? Patient declined 07/23/2024 Do you belong to any clubs o r organizations such as anabaptism groups, unions, fraternal or athletic groups, or [...] any time in the past 12 m [facility], were you homeless or living in a [...] EDT Clinical Support [facility] 112 [facility] 120 [place] [address] Buddy Rose, DPM 3006 [facility] 5 [place] [address] 04/24/2025 9:30 AM EDT Office Visit [facility] [place] [facility] 112 [facility] 110 [place] [address] Eve Dougherty PA 112 [facility] 110 [place], [place] [phone] Health Maintenance Due Date Last Done Comments CT Colonography 1955 Colonoscopy 1955 FIT 1955 FOBT 1955 Sigmoidoscopy 1955 Medicare Annual Wellness (AWV) 04/07/2025 0 04/07/2024, 04/05/2023, 04/04/2022 Influenza Vaccine (#1) 2025 , 05/18/2023, 05/25/2022, Additional history exists Mammogram 05/05/2025 05/05/2024, 04/20, 04/13/2022, Additional history exists Colorectal Cancer Screening 04/17/2027 FIT-DNA 04/17/2027 04/17/2024, 0908/2020, 04/20/2021, Additional history exists Pneumococcal Vaccine: 65+ [...] AM EDT Narrative 04/02/2025 10:48 AM EDT [address] [place] [address] XRay Report Signed Patient: SUMAN RODAS MR#: [id number] : 1955 Acct:[id number] Age/Sex: 70 / F ADM Date: 04/02/25 Loc: RAD Attending Dr: Rosanna Martinez NP Ordering Physician: Rosanna Martinez NP Date of Service: 04/02/25 Procedure(s): XR lumbar spine 6V w bending Accession Number(s): [id number] cc: WALT TAPIA ; Rosanna Martinez NP [address] [address] Patient Name: SUMAN RODAS MRN: [id number] date: 1955 Sex: F Assigned Patient Location: Current Patient Location: Accession/Order Number: [id number] Exam Date: 04/02/2025 10:44 Report Date: 04/02/2025 [...] Jr., D.O. 04/02/2025 10:45 AM Dictation Location: [place] [address] Electronically authenticated by: [id number] Y Date: 04/02/2025 10:45 Dictated By: Manoj Rojas M.D. Signed By: 04/02/25 1048 DD/ 1045 TD/TT: Division Order Technician: Procedure Note Radiology, Radiologist, MD - 04/02/2025 [facility] [place] [id number] XRay Report Signed Patient: SUMAN RODAS SMR#: [id number] : 1955cct:[id number] Age/Sex: 70 / FADM Date: 04/02/25 Loc: RAD Attending Dr: Rosanna Martinez NP Ordering Physician: Rosanna Martinez NP Date of Service: 04/02/25 Procedure(s): XR lumbar spine 6V w bending Accession Number(s): [id number] cc: WALT TAPIA ; Rosanna Martinez NP [place] [address] Patient Name: SUMAN RODAS MRN: [facility]:[id number] date: 1955 Sex: F Assigned Patient Location: PM Current Patient Location: Accession/Order Number: [id number] Exam Date: 04/02/2025 10:44 Report Date: 04/02/2025 [...] Jr., D.O. 04/02/2025 10:45 AM Dictation Location: [place] [address] Electronically authenticated by: [id number] Y Date: 0:45 Dictated By: Manoj Rojas M.D. Signed By:04/02/25 1048 DD/ 1045 TD/TT: Division Order Technician: Generic External Data Provider [facility] Final Result * (ABNORMAL) POCT urinalysis dipstick manually resulted (03/05/2025 11:07 AM EDT) Only the most recent of2 resultswithin the time period is included. Glucose, UA Negative Negative - 2000(110) ++++ mg/dL Bilirubin, UA Negative Negative - 4(70) +++ mg/dL Ketones, UA Negative Negative - 160(16) ++++ mg/dL Spec Grav, UA 1.010 1 - 1.03 Blood, UA Positive Negative - 50 Gabe/mcL Comment:mod pH, UA 5.0 5 - 9 Protein, UA Negative Negative - 2000(20) ++++ mg/dL Urobilinogen, UA 1.0 0.2 - 12 mg/dL Leukocytes, UA Moderate Negative - 500+++ Stefan/mcL Nitrite, UA Negative Negative - Positive Urine 03/05/2025 11:0 7 AM EDT Eve MARK POINT OF CARE TEST ENTER/EDIT ORDERABLES Final Result * (ABNORMAL) URINARY TRACT INFECTION (HTRX) (03/05/2025 12:01 AM EDT) Only the most recent of2 resultswithin the time period is included. Pathologist [facility] ACINETOBACTER BAUMANII 0 19.961 - 24.689 ppm 03/06/2025 9:06 AM EDT [facility] ACINETOBACTER BAUMANII Not Detected 19.961 - 24.689 ppm 03/06/2025 9:06 AM EDT [facility] CITROBACTER FREUNDII 0 23.000 - 32.015 ppm 03/06/2025 9:06 AM EDT [facility] CITROBACTER FREUNDII Not Detected 23.000 - 32.015 ppm 03/06/2025 9:06 AM EDT [facility] ENTEROBACTER AEROGENES, CLOACAE 0 23.000 - 32.290 ppm 03/06/2025 9:06 AM EDT [facility] ENTEROBACTER AEROGENES, CLOACAE Not Detected 23.000 - 32.290 ppm 03/06/2025 9:06 AM EDT [facility] ENTEROCOCCUS FAECALIS, FAECIUM 0 26.000 - 33.043 ppm 03/06/2025 9:06 AM EDT [facility] ENTEROCOCCUS FAECALIS, FAECIUM Not Detected 26.000 - 33.043 ppm 03/06/2025 9:06 AM EDT [facility] ESCHERICHIA COLI 27.224(A) 23.000 - 28.500 ppm 03/06/2025 9:06 AM EDT [facility] ESCHERICHIA COLI Detected(A) 23.000 - 28.500 ppm 03/06/2025 9:06 AM EDT [facility] KLEBSIELLA PNEUMONIAE, OXYTOCA 0 23.000 - 31.865 ppm 03/06/2025 9:06 AM EDT [facility] KLEBSIELLA PNEUMONIAE, OXYTOCA Not Detected 23.000 - 31.865 ppm 03/06/2025 9:06 AM EDT [facility] MORGANELLA MORGANII 0 19.961 - 24.689 ppm 03/06/2025 9:06 AM EDT [facility] MORGANELLA MORGANII Not Detected 19.961 - 24.689 ppm 03/06/2025 9:06 AM EDT [facility] PROTEUS MIRABILIS, VULGARIS 0 23.000 - 28.500 ppm 03/06/2025 9:06 AM EDT [facility] PROTEUS MIRABILIS, VULGARIS Not Detected 23.000 - 28.500 ppm 03/06/2025 9:06 AM EDT [facility] PSEUDOMONAS AERUGINOSA 0 23.000 - 31.801 ppm 03/06/2025 9:06 AM EDT [facility] PSEUDOMONAS AERUGINOSA Not Detected 23.000 - 31.801 ppm 03/06/2025 9:06 AM EDT [facility] STAPHYLOCOCCUS AUREUS 0 26.000 - 31.595 ppm 03/06/2025 9:06 AM EDT [facility] STAPHYLOCOCCUS AUREUS Not Detected 26.000 - 31.595 ppm 03/06/2025 9:06 AM EDT [facility] STREPTOCOCCUS AGALACTIAE (GROUP B STREP) 0 26.000 - 32.435 ppm 03/06/2025 9:06 AM EDT [facility] STREPTOCOCCUS AGALACTIAE (GROUP B STREP) Not Detected 26.000 - 32.435 ppm 03/06/2025 9:06 AM EDT [facility] MANDY ALBICANS, PARAPSILOSIS, TROPICALIS 0 23.000 - 30.347 ppm 03/06/2025 9:06 AM EDT [facility] MANDY ALBICANS, PARAPSILOSIS, TROPICALIS Not Detected 23.000 - 30.347 ppm 03/06/2025 9:06 AM EDT [facility] MANDY GLABRATA 0 23.000 - 31.618 ppm 03/06/2025 9:06 AM EDT [facility] MANDY GLABRATA Not Detected 23.000 - 31.618 ppm 03/06/2025 9:06 AM EDT [facility] MANDY KRUSEI 0 23.000 - 30.873 ppm 03/06/2025 9:06 AM EDT [facility] MANDY KRUSEI Not Detected 23.000 - 30.873 ppm 03/06/2025 9:06 AM EDT [facility] SERRATIA MARCESCENS 0 23.000 - 31.581 ppm 03/06/2025 9:06 AM EDT [facility] SERRATIA MARCESCENS Not Detected 23.000 - 31.581 ppm 03/06/2025 9:06 AM EDT [facility] STREPTOCOCCUS PYOGENES (GROUP A STREP) 0 19.961 - 24.689 ppm 03/06/2025 9:06 AM EDT [facility] STREPTOCOCCUS PYOGENES (GROUP A STREP) Not Detected 19.961 - 24.689 ppm 03/06/2025 9:06 AM EDT [facility] STAPHYLOCOCCUS EPIDERMIDIS, HAEMOLYTICUS, LUGDUNENSIS, SAPROPHYTICUS (URINA 0 19.961 - 24.689 ppm 03/06/2025 9:06 AM EDT [facility] STAPHYLOCOCCUS EPIDERMIDIS, HAEMOLYTICUS, LUGDUNENSIS, SAPROPHYTICUS (URINA Not Detected 19.961 - 24.689 ppm 03/06/2025 9:06 AM EDT [facility] STAPHYLOCOCCUS EPIDERMIDIS, HAEMOLYTICUS, LUGDUNENSIS, SAPROPHYTICUS (URINA 0 19.961 - 24.689 ppm 03/06/2025 9:06 AM EDT [facility] STAPHYLOCOCCUS EPIDERMIDIS, HAEMOLYTICUS, LUGDUNENSIS, SAPROPHYTICUS (URINA Not Detected 19.961 - 24.689 ppm 03/06/2025 9:06 AM EDT [facility] Urine 03/05/2025 12:0 1 AM EDT 03/06/2025 2:46 AM EDT Eve MARK LAB BLOOD ORDERABLES Final Res ult [facility] [address] [address] * MM TOMOSYNTHESIS SCREENING BI (05/05/2024 11:03 AM EDT) Anatomical Region Laterality Modality Other 05/05/2024 11:0 3 AM EDT Narrative 05/05/2024 11:04 [place] [address] Mammography Report Signed Patient: SUMAN RODAS MR#: [id number] : 1955 Acct:[id number] Age/Sex: 69 / F ADM Date: 05/05/24 Loc: MAMMO Attending Dr: EVE DOUGHERTY Ordering Physician: EVE DOUGHERTY Results: Date of Service: 05/05/24 Follow Up: Procedure(s): MM tomosynthesis screening BI Accession Number(s): [id number] cc: WALT TAPIA ; EVE DOUGHERTY Patient Name: SUMAN RODAS MR#: [id number] : 1955 Exam Date: 05/05/2024 Ordering Doctor: [...] breast cancer at age 74. LOCATION: [facility] BREAST COMPOSITION: The breasts are almost entirely [...] Signed By: 05/05/24 1104 DD/ 1103 TD/TT: Division Order Technician: Procedure Note Radiology, Radiologist, - 05/05/2024 [facility] [place] [id number] Mammography Report Signed Patient: SUMAN RODAS SMR#: [id number] : 1955cct:[id number] Age/Sex: 69 / FADM Date: 05/05/24 Loc: MAMMO Attending Dr: EVE DOUGHERTY Ordering Physician: EVE DOUGHERTY MResults: Date of Service: 05/05/24Follow Up: Procedure(s): MM tomosynthesis screening BI Accession Number(s): [id number] cc: WALT TAPIA ; EVE DOUGHERTY Patient Name: SUMAN RODAS MR#: [id number] : 1955 Exam Date: 05/05/2024 Ordering Doctor: DR EVE DOUGHERTY PA RADIOLOGY REPORT PROCEDURE: MM TOMOSYNTHESIS SCREENING BI COMPARISON: MM TOMOSYNTHESIS SCREENING BI, 05/04/2023. MG MAMM TUALEA1Y DAHIANA CAD, 04/13/2022. INDICATIONS: Screening Calculator Name NCI Breast Cancer Risk Assessment Tool 5 Year Breast Cancer Risk 2.40% Lifetime Breast Cancer Risk 6.90% Personal Breast Cancer No Personal Ovarian Cancer No Treatments None Family Cancers Aunt-paternal with breast cancer at age 75. LOCATION: [facility] BREAST COMPOSITION: The breasts are almost entirely [...] M.D. Signed By:05/05/24 1104 DD/ 1103 TD/TT: Division Order Technician: Eve Dougherty [place] [facility] Final Result * Cologuard?? colon cancer screening (04/17/2024 9:30 AM EDT) NONINV COLON CA DNA+OCC BLD SCRN STL-IMP Negative Negative 04/24/2024 10:54 AM EDT [facility] (CLIA #:[id number]) Comment: NEGATIVE TEST RESULT. A negative Cologuard [...] (Kamran Corona al, N Engl J Med 2014;370(14):9453-3290) The normal value (reference range) for this assay is negative. COLOGUARD RE-SCREENING RECOMMENDATION: Periodic colorectal cancer screening is an important part of preventive healthcare for asymptomatic individuals at average risk for colorectal cancer. Following a negative Cologuard result, the [place] Cancer Society and U.S. Multi-Society Task Force screening guidelines recommend a Cologuard re-screening interval of 3 years. References: [place] [employer] Guideline for Colorectal Cancer Screening: https://www.cancer.org/cancer/rhvlf-ansqst-rdmdgp/emcbfqdic-ccywxlort-fgxgfud/ac s-rec ommendations.html.; José DK, Foreign PRECIADO, Rosy HogueK, Colorectal Cancer Screening: Recommendations for Physicians and Patients from the U.S. Multi-Society Task Force on Colorectal Cancer Screening , Am J Gastroenterology 2017; 112:2057-3631. TEST DESCRIPTION: Composite algorithmic analysis of stool [...] screened with both Cologuard and colonoscopy. (Kamran Bob et al, N Engl J Med 2014;370(14):9342-0217.) Cologuard may produce a false negative or false positive result (no colorectal cancer or precancerous polyp present at colonoscopy follow up). A negative Cologuard test result does not guarantee the absence of CRC or advanced adenoma (pre-cancer). The current Cologuard screening interval is every 3 years. ([place] Cancer Society and U.S. Multi-Society Task Force). Cologuard performance data in a 10,000 patient pivotal study using colonoscopy as the reference method can be accessed at the following location: www.[employer].YOHO/results. Additional description of the Cologuard test process, warnings and precautions can be found at www.[employer].com. Stool specimen (specimen) 04/17/2024 9:30 AM EDT 04/18/2024 2:04 PM EDT Walt Tapia MD LAB MOLECULAR DIAGNOSTICS MARCO A ESTRADA Final Result [facility] (CLIA #:[id number]) [address] [place] [address], from Last 3 Months or Most Recently Relevant to Health Maintenance Insurance [facility] MEDICARE Care Teams Road Builder Relationship Specialty Start Date End Date Walt Tapia MD [address] [place] [address] [place] [address] PCP - General Internal Medicine 12/26/22
--- OUTSIDE RECORDS SUMMARY | 2025-04-13 08:26 | XMS_ITS | Encounter Summary ---
Author Organization [facility] Address [address] [place] [address] Care Team Providers Care Independent Insurance Adjuster Name Role Phone Walt Tapia MD Unavailable [phone] Walt Tapia MD Primary Care Provider [phone] Walt Tapia MD Unavailable [phone] Walt Tapia MD Unavailable [phone] Encounter Details Date Type Department Care Team (Late Contact Info) Description 05/28/2023 Abstract [facility] [place] [facility] [address] [facility] [address] [place] [address] Walt Tapia MD [address] [facility] 110 [place], [place] [phone] Social History Tobacco Use Types Packs/Day Years [...] CI PODIATRY [address] [place] [address] [place] [address] Buddy Rose DPM 5541 [facility] 5 [place] [address] 04/24/2025 9:30 AM EDT Office Visit [facility] [place] [address] [place] [address] [place] [address] Eve العراقي PA [address] [place] [address] [place] [address] documented as of this encounter Visit Diagnoses Not on filedocumented in this encounter Care Teams Independent Insurance Adjuster Relationship Specialty Start Date End Date Walt Tapia MD [address] [place] [address] [place] [address] PCP - ACO Reach 01/11/23 10/18/23 Walt Tapia MD [address] [place] [address] [place] [address] PCP - General Internal Medicine 12/26/22 Walt Tapia MD [address] [facility] [address] [place] [address] PCP - ACO Reach 12/19/23 09/25/24 Walt Tapia MD [address] [place] [address] [place] [address] PCP - ACO Reach 10/03/24 11/20/24 documented as of this encounter
--- OUTSIDE RECORDS SUMMARY | 2025-04-13 08:26 | XMS_ITS | Encounter Summary ---
Author Organization [facility] Address [address] [place] [address] Care Team Providers Care Lumber Bearer Name Role Phone Walt Tapia MD Primary Care Provider [phone] Encounter Details Date Type Department Care Team (Late st Contact Info) Description 03/18/2025 Orders Only [facility] [place] [facility] [address] [place] [address] [place] [address] Tana Lopez LPN [address] [place] [address] Encounter for screening mammogram for malignant neoplasm [...] often do you attend chur ch or confucianism services? Patient declined 07/23/2024 Do you belong to any clubs o r organizations such as jew groups, unions, fraternal or athletic groups, or [...] any time in the past 12 m [facility], were you homeless or living in a chcf (including now)? No 07/23/2024 Comments Unknown Sex [...] PODIATRY 112 [facility] 120 [place] [address] Buddy Rose DPM 7310 [facility] 5 [place] [address] 04/24/2025 9:30 AM EDT Office Visit [facility] [place] 112 [facility] 110 [place] [address] Eve العراقي PA 112 [facility] 110 [place] [address] documented as of this encounter Visit Diagnoses Diagnosis Encounter for screening mammogram for malignant neoplasm of breast documented in this encounter Additional Health Concerns Assessment Noted Time PHQ-9 Depression Total Score: 0 04/07/20 24 9:00 AM EDT documented as of this encounter Care Teams Lumber Bearer Relationship Specialty Start Date End Date Walt Tapia MD 112 [facility] 110 [place] [address] PCP - General Internal Medicine 12/26/22 documented as of this encounter
--- OUTSIDE RECORDS SUMMARY | 2025-04-13 08:27 | XMS_ITS | Encounter Summary ---
Author Organization [facility] Address [address] [place] [address] Care Team Providers Care Supervisor Evaporator Name Role Phone Walt Tapia MD Primary Care Provider [phone] Walt Tapia MD Unavailable [phone] Walt Tapia MD Unavailable [phone] Encounter Details Date Type Department Care Team (Late Contact Info) Description 05/12/2024 Abstract [facility] [place] [facility] [address] [facility] 110 [place] [address] Eve العراقي PA 112 [facility] 110 [place], [place] [id number] Social History Tobacco Use Types Packs/Day Years [...] EDT Clinical Support [facility] PODIATRY [address] [facility] 120 [place] [address] Buddy Rose DPM 3006 [facility] 5 [place] [address] 04/24/2025 9:30 AM EDT Office Visit [facility] [place] [address] [facility] 110 [place] [address] Eve العراقي PA [address] [facility] 110 [place] [address] documented as of this encounter Visit Diagnoses Not on filedocumented in this encounter Additional Health Concerns Assessment Noted Time PHQ-9 Depression Total Score: 0 04/07/20 24 9:00 AM EDT documented as of this encounter Care Teams Supervisor Evaporator Relationship Specialty Start Date End Date Walt Tapia MD [address] [facility] 110 [place] [address] PCP - General Internal Medicine 12/26/22 Walt Tapia MD [address] [facility] 110 [place] [address] PCP - ACO Reach 12/19/23 09/25/24 Walt Tapia MD [address] [facility] 110 [place] [address] PCP - ACO Reach 10/03/24 11/20/24 documented as of this encounter
--- OUTSIDE RECORDS SUMMARY | 2025-04-13 08:27 | XMS_ITS | Encounter Summary ---
Author Organization [facility] Address [address] [place] [address] Care Team Providers Care Bacon Slicer Name Role Phone Walt Tapia MD Unavailable [phone] Walt Tapia MD Primary Care Provider [phone] Walt Tapia MD Unavailable [phone] Walt Tapia MD Unavailable [phone] Encounter Details Date Type Department Care Team (Late st Contact Info) Description 04/05/2023 Abstract [facility] [place] [facility] [address] [facility] 110 [place] [address] Cheyanne Paz, QUAHOGGER 112 [facility] 110 [place], [place] [address] Social History Tobacco Use Types Packs/Day Years [...] [address] [place] [address] [place] [address] Buddy Rose, DPTroy 3006 [facility] 5 [place] [address] 04/24/2025 9:30 AM EDT Office Visit [facility] [place] [address] [place] [address] [place] [address] Eve العراقي PA [address] [place] [address] [place] [address] documented as of this encounter Visit Diagnoses Not on filedocumented in this encounter Care Teams Bacon Slicer Relationship Specialty Start Date End Date Walt Tapia MD [address] [place] [address] [place] [address] PCP - ACO Reach 01/11/23 10/18/23 Walt Tapia MD [address] [place] [address] [place] [address] PCP - General Internal Medicine 12/26/22 Walt Tapia MD [address] [place] [address] [place] [address] PCP - ACO Reach 12/19/23 09/25/24 Walt Tapia MD [address] [place] [address] [place] [address] PCP - ACO Reach 10/03/24 11/20/24 documented as of this encounter
--- OUTSIDE RECORDS SUMMARY | 2025-04-13 08:27 | XMS_ITS | Encounter Summary ---
Author Organization [facility] Address [address] [place] [address] Care Team Providers Care Director Digital Sales Name Role Phone Walt Tapia MD Unavailable [phone] Walt Tapia MD Primary Care Provider [phone] Walt Tapia MD Unavailable [phone] Walt Tapia MD Unavailable [phone] Encounter Details Date Type Department Care Team (Late Contact Info) Description 03/19/2023 Abstract [facility] [place] [address] [facility] 110 [place] [address] Walt Tapia MD 112 [facility] 110 [place], [place] [address] Social History Tobacco Use Types Packs/Day Years [...] EDT Clinical Support [facility] PODIAT[facility] 112 [facility] 120 [place] [address] Buddy Rose DPM 5549 [facility] 5 [place] [address] 04/24/2025 9:30 AM EDT Office Visit [facility] [place] [facility] [address] [facility] 110 [place] [address] Eve العراقي PA [address] [facility] 110 [place] [address] documented as of this encounter Visit Diagnoses Not on filedocumented in this encounter Care Teams Director Digital Sales Relationship Specialty Start Date End Date Walt Tapia MD [address] [facility] 110 [place] [address] PCP - ACO Reach 01/11/23 10/18/23 Walt Tapia MD [address] [facility] 110 [place] [address] PCP - General Internal Medicine 12/26/22 Walt Tapia MD [address] [facility] 110 [place] [address] PCP - ACO Reach 12/19/23 09/25/24 Walt Tapia MD [address] [facility] 110 [place] [address] PCP - ACO Reach 10/03/24 11/20/24 documented as of this encounter
--- OUTSIDE RECORDS SUMMARY | 2025-04-13 08:27 | XMS_ITS | Encounter Summary ---
Author Organization [facility] Address [address] [place] [address] Care Team Providers Care Body Engineer Name Role Phone Walt Tapia MD Unavailable [phone] Walt Tapia MD Primary Care Provider [phone] Walt Tapia MD Unavailable [phone] Walt Tapia MD Unavailable [phone] Encounter Details Date Type Department Care Team (Late Contact Info) Description 05/10/2023 Abstract [facility] [place] [facility] [address] [facility] 110 [place] [address] Walt Tapia MD [address] [facility] 110 [place], [place] [address] Social History Tobacco Use Types Packs/Day Years [...] CI PODIATRY [address] [place] 120 [place] [address] Buddy Rose DPM 4175 [facility] 5 [place] [address] 04/24/2025 9:30 AM EDT Office Visit [facility] [place] [address] [place] [address] [place] [address] Eve العراقي PA [address] [place] 110 [place] [address] documented as of this encounter Visit Diagnoses Not on filedocumented in this encounter Care Teams Body Engineer Relationship Specialty Start Date End Date Walt Tapia MD [address] [place] [address] [place] [address] PCP - ACO Reach 01/11/23 10/18/23 Walt Tapia MD [address] [place] 110 [place] [address] PCP - General Internal Medicine 12/26/22 Walt Tapia MD [address] [place] 110 [place] [address] PCP - ACO Reach 12/19/23 09/25/24 Walt Tapia MD [address] [place] 110 [place] [address] PCP - ACO Reach 10/03/24 11/20/24 documented as of this encounter
--- OUTSIDE RECORDS SUMMARY | 2025-04-13 08:27 | XMS_ITS | Encounter Summary ---
Author Organization [facility] Address [address] [place] [address] Care Team Providers Care Security Incident Handler Name Role Phone Walt Tapia MD Unavailable [phone] Walt Tapia MD Primary Care Provider [phone] Walt Tapia MD Unavailable [phone] Walt Tapia MD Unavailable [phone] Encounter Details Date Type Department Care Team (Late Contact Info) Description 04/10/2023 Abstract [facility] [place] [facility] [address] [facility] 110 [place] [address] Walt Tapia MD [address] [facility] 110 [place], [place] [address] Social History Tobacco Use Types Packs/Day Years [...] CI PODIATRY [address] [place] 120 [place] [address] Buddy Rose DPM 9137 [facility] 5 [place] [address] 04/24/2025 9:30 AM EDT Office Visit [facility] [place] [address] [place] [address] [place] [address] Eve العراقي PA [address] [place] 110 [place] [address] documented as of this encounter Visit Diagnoses Not on filedocumented in this encounter Care Teams Security Incident Handler Relationship Specialty Start Date End Date Walt Tapia MD [address] [place] [address] [place] [address] PCP - ACO Reach 01/11/23 10/18/23 Walt Tapia MD [address] [place] 110 [place] [address] PCP - General Internal Medicine 12/26/22 Walt Tapia MD [address] [place] 110 [place] [address] PCP - ACO Reach 12/19/23 09/25/24 Walt Tapia MD [address] [place] 110 [place] [address] PCP - ACO Reach 10/03/24 11/20/24 documented as of this encounter
--- OUTSIDE RECORDS SUMMARY | 2025-04-13 08:27 | XMS_ITS | Encounter Summary ---
Author Organization [facility] Address [address] [place] [address] Care Team Providers Care Jukebox Routeman Name Role Phone Walt Tapia MD Primary Care Provider [phone] Walt Tapia MD Unavailable [phone] Walt Tapia MD Unavailable [phone] Encounter Details Date Type Department Care Team (Late Contact Info) Description 04/08/2024 Abstract [facility] [place] [facility] 112 [facility] 110 [place] [address] Walt Tapia MD 112 [facility] 110 [place] [address] Social History Tobacco Use Types [...] Clinical Support [facility] PODIATRY 112 [facility] 120 [place] [address] Buddy Rose, YULIA 3006 [facility] 5 [place] [address] 04/24/2025 9:30 AM EDT Office Visit [facility] [place] [facility] [address] [facility] 110 [place] [address] Eve العراقي PA [address] [facility] 110 [place] [address] documented as of this encounter Visit Diagnoses Not on filedocumented in this encounter Additional Health Concerns Assessment Noted Time PHQ-9 Depression Total Score: 0 04/07/20 24 9:00 AM EDT documented as of this encounter Care Teams Jukebox Routeman Relationship Specialty Start Date End Date Walt Tapia MD [address] [facility] 110 [place] [address] PCP - General Internal Medicine 12/26/22 Walt Tapia MD [address] [facility] 110 [place] [address] PCP - ACO Reach 12/19/23 09/25/24 Walt Tapia MD [address] [facility] 110 [place] [address] PCP - ACO Reach 10/03/24 11/20/24 documented as of this encounter
--- OUTSIDE RECORDS SUMMARY | 2025-04-13 08:27 | XMS_ITS | Encounter Summary ---
Author Organization [facility] Address [address] [place] [address] Care Team Providers Care Emergency Technician Name Role Phone Walt Tapia MD Primary Care Provider [phone] Encounter Details Date Type Department Care Team (Late st Contact Info) Description 04/02/2025 Clinisync Result Encounter [facility] External Department Unsolicited Provider, Generic External Data Social History Tobacco Use Types Packs/Day Years Used Date Smoking Tobacco: Former Cigarettes 1975 Passive Smoke Exposure: Never Smokeless Tobacco: [...] often do you attend chur ch or mu-ism services? Patient declined 07/23/2024 Do you belong to any clubs o r organizations such as confucianism groups, unions, fraternal or athletic groups, or [...] any time in the past 12 m [facility], were you homeless or living in [...] PODIATRY [address] [place] [address] [place] [address] Buddy Rose DPM 3006 [facility] 5 [place] [address] 04/24/2025 9:30 AM EDT Office Visit [facility] [place] [facility] [address] [place] [address] [place] [address] Eve العراقي PA [address] [place] 110 [place] [address] documented as of this encounter Procedures Procedure Name Priority Date/Time Associated Diagnosis Comments XR LUMBAR SPINE 6V W BENDING 04/02/2025 10:45 AM EDT documented in this encounter Results * XR LUMBAR SPINE 6V W BENDING (04/02/2025 10:45 AM EDT) Anatomical Region Laterality Modality Other 04/02/2025 10:4 5 AM EDT Narrative 04/02/2025 10:[place] [address] XRay Report Signed Patient: SUMAN SANZ MR#: [id number] : 1955 Acct:[id number] Age/Sex: 70 / F ADM Date: 04/02/25 Loc: RAD Attending Dr: Rosanna Rangel NP Ordering Physician: Rosanna Rangel NP Date of Service: 04/02/25 Procedure(s): XR lumbar spine 6V w bending Accession Number(s): [id number] cc: WALT TAPIA ; Rosanna Rangel NP [address] [address] Patient Name: SUMAN SANZ MRN: [id number] date: 1955 Sex: F Assigned Patient Location: PM Current Patient Location: PM Accession/Order Number: [id number] Exam Date: 04/02/2025 10:44 Report Date: 04/02/2025 [...] AM Dictation Location: RADIO-PC-23 Electronically authenticated by: [id number] Y Date: 04/02/2025 10:45 Dictated By: Manoj Rojas M.D. Signed By: 04/02/25 1048 DD/ 1045 TD/TT: Aircraft Rigging And Controls Mechanic: Procedure Note Radiology, Radiologist, MD - 04/02/2025 [place] [address] XRay Report Signed Patient: SUMAN SANZ SMR#: [id number] : 1955cct:[id number] Age/Sex: 70 / FADM Date: 04/02/25 Loc: RAD Attending Dr: Rosanna Rangel NP Ordering Physician: Rosanna Rangel NP Date of Service: 04/02/25 Procedure(s): XR lumbar spine 6V w bending Accession Number(s): [id number] cc: WALT TAPIA ; Rosanna Rangel NP [place] [address] Patient Name: SUMAN SANZ MRN: [facility]:[id number] date: 1955 Sex: F Assigned Patient Location: PM Current Patient Location: PM Accession/Order Number: [id number] Exam Date: 04/02/2025 10:44 Report Date: 04/02/2025 [...] AM Dictation Location: RADIO-PC-23 Electronically authenticated by: [id number] Y Date: 0:45 Dictated By: Manoj Rojas M.D. Signed By:04/02/25 1048 DD/ 1045 TD/TT: Aircraft Rigging And Controls Mechanic: us Generic External Data Provider [facility] Final Result documented in this encounter Visit Diagnoses Not on filedocumented in this encounter Additional Health Concerns Assessment Noted Time PHQ-9 Depression Total Score: 0 04/07/20 24 9:00 AM EDT documented as of this encounter Care Teams Emergency Technician Relationship Specialty Start Date End Date Walt Tapia MD 112 [facility] 110 [place] [address] PCP - General Internal Medicine 12/26/22 documented as of this encounter
--- OUTSIDE RECORDS SUMMARY | 2025-04-13 08:27 | XMS_ITS | Encounter Summary ---
Author Organization [facility] Address [address] [place] [address] Care Team Providers Care Embedded Systems Software Engineer Name Role Phone Walt Tapia MD Unavailable [phone] Walt Tapia MD Primary Care Provider [phone] Walt Tapia MD Unavailable [phone] Walt Tapia MD Unavailable [phone] Encounter Details Date Type Department Care Team (Late Contact Info) Description 05/04/2023 Clinisync Result Encounter N[facility] External Department Unsolicited Walt Tapia MD 112 [facility] 110 [place] [address] Social History Tobacco Use Types [...] PODIATRY 112 [facility] 120 [place] [address] Buddy Rose, DPTroy 3006 [facility] 5 [place] [address] 04/24/2025 9:30 AM EDT Office Visit [facility] [place] 112 [facility] [address] [place] [address] Eve العراقي PA 112 [facility] 110 [place] [address] documented as of this encounter Procedures Procedure Name Priority Date/Time Associated Diagnosis Comments MM TOMOSYNTHESIS SCREENING BI 05/04/2023 12:16 PM EDT documented in this encounter Results * MM TOMOSYNTHESIS SCREENING BI (05/04/2023 12:16 PM EDT) Anatomical Region Laterality Modality Other 05/04/2023 12:1 6 PM EDT Narrative 05/04/2023 12:16 [place] [address] Mammography Report Signed Patient: SUMAN SANZ MR#: [id number] : 1955 Acct:[id number] Age/Sex: 68 / F ADM Date: 05/04/23 Loc: MAMMO Attending Dr: WALT TAPIA Ordering Physician: WALT TAPIA Results: Date of Service: 05/04/23 Follow Up: Procedure(s): MM tomosynthesis screening BI Accession Number(s): [id number] cc: WALT TAPIA Patient: SUMAN SANZ. Exam Date: 05/04/2023 : 1955 Gender:F Ordering : DR WALT TAPIA M.D. Admission #: [id number] Family : Order #: [id number] CLICK HERE TO VIEW EXAM RADIOLOGY REPORT [...] breast cancer at age 74. LOCATION: [facility] BREAST COMPOSITION: Almost entirely fatty. FINDINGS: [...] Signed By: 05/04/23 1217 DD/ 1216 TD/TT: Head Control Clerk: Procedure Note Radiology, Radiologist, - 05/11/2023 [place] [address] Mammography Report Signed Patient: SUMAN SANZ SMR#: [id number] : 1955cct:[id number] Age/Sex: 68 / FADM Date: 05/04/23 Loc: MAMMO Attending Dr: WALT TAPIA Ordering Physician: Latonya TAPIAults: Date of Service: 05/04/23Follow Up: Procedure(s): MM tomosynthesis screening BI Accession Number(s): [id number] cc: WALT TAPIA Patient: SUMAN SANZ Exam Date: 05/04/2023 : 1955 Gender:F Ordering : DR WALT TAPIA M.D. Admission #: [id number] Family : Order #: [id number] CLICK HERE TO VIEW EXAM RADIOLOGY REPORT [...] breast cancer at age 74. LOCATION: [facility] BREAST COMPOSITION: Almost entirely fatty. FINDINGS: [...] M.D. Signed By:05/04/23 1217 DD/ 1216 TD/TT: Head Control Clerk: Walt Tapia MD [facility] Final Result documented in this encounter Visit Diagnoses Not on filedocumented in this encounter Care Teams Embedded Systems Software Engineer Relationship Specialty Start Date End Date Walt Tapia MD [address] [facility] 110 [place] [address] PCP - ACO Reach 01/11/23 10/18/23 Walt Tapia MD [address] [facility] 110 [place] [address] PCP - General Internal Medicine 12/26/22 Walt Tapia MD [address] [facility] 110 [place] [address] PCP - ACO Reach 12/19/23 09/25/24 Walt Tapia MD [address] [facility] 110 [place] [address] PCP - ACO Reach 10/03/24 11/20/24 documented as of this encounter
--- OUTSIDE RECORDS SUMMARY | 2025-04-13 08:27 | XMS_ITS | Encounter Summary ---
Author Organization [facility] Address [address] [facility] [place] [place] [address] Care Team Providers Care Landscape Gardener Name Role Phone Walt Tapia MD Unavailable [phone] Walt Tapia MD Primary Care Provider [phone] Walt Tapia MD Unavailable [phone] Walt Tapia MD Unavailable [phone] Encounter Details Date Type Department Care Team (Late Contact Info) Description 03/29/2023 Orders Only [facility] [address] [facility] [place] [address] [place] [address] Sonia Dia, FOUNDRY WORKER GENERAL [address] [place] [address] Social History Tobacco Use Types [...] PODIATRY [address] [place] [address] [place] [address] Buddy Rose DPM 4295 [facility] [place] 5 [place] [address] 04/24/2025 9:30 AM EDT Office Visit [facility] [place] [facility] [address] [place] 110 [place] [address] Eve العراقي PA [address] [facility] [address] [place] [address] documented as of this encounter Visit Diagnoses Not on filedocumented in this encounter Care Teams Landscape Gardener Relationship Specialty Start Date End Date Walt Tapia MD [address] [facility] [address] [place] [address] PCP - ACO Reach 01/11/23 10/18/23 Walt Tapia MD [address] [facility] [address] [place] [address] PCP - General Internal Medicine 12/26/22 Walt Tapia MD [address] [facility] [address] [place] [address] PCP - ACO Reach 12/19/23 09/25/24 Walt Tapia MD [address] [facility] [address] [place] [address] PCP - ACO Reach 10/03/24 11/20/24 documented as of this encounter
--- OUTSIDE RECORDS SUMMARY | 2025-04-13 08:27 | XMS_ITS | Encounter Summary ---
Author Organization [facility] Address [address] [place] [address] Care Team Providers Care Tarp Repairer Name Role Phone Walt Tapia MD Primary Care Provider [phone] Walt Tapia MD Unavailable [phone] Walt Tapia MD Unavailable [phone] Encounter Details Date Type Department Care Team (Late Contact Info) Description 05/05/2024 Clinisync Result Encounter [facility] External Department Unsolicited Hyun العراقي PA 112 [facility] 110 [place] [address] Social History Tobacco Use Types [...] Clinical Support [facility] 112 [facility] 120 [place] [address] Buddy Rose DPM 3953 [facility] 5 [place] [address] 04/24/2025 9:30 AM EDT Office Visit [facility] 112 [facility] 110 [place] [address] Hyun العراقي, DEEDEE 112 [facility] 110 [place] [address] documented as of this encounter Procedures Procedure Name Priority Date/Time Associated Diagnosis Comments MM TOMOSYNTHESIS SCREENING BI 05/05/2024 11:03 AM EDT documented in this encounter Results * MM TOMOSYNTHESIS SCREENING BI (05/05/2024 11:03 AM EDT) Anatomical Region Laterality Modality Other 05/05/2024 11:0 3 AM EDT Narrative 05/05/2024 11:04 AM EDT [address] [address] Mammography Report Signed Patient: SUMAN SANZ MR#: [id number] : 1955 Acct:[id number] Age/Sex: 69 / F ADM Date: 05/05/24 Loc: MAMMO Attending Dr: HYUN العراقي Ordering Physician: HYUN العراقي Results: Date of Service: 05/05/24 Follow Up: Procedure(s): MM tomosynthesis screening BI Accession Number(s): [id number] cc: WALT TAPIA ; HYUN العراقي Patient Name: SUMAN SANZ MR#: [id number] : 1955 Exam Date: 05/05/2024 Ordering Doctor: [...] breast cancer at age 74. LOCATION: [facility] BREAST COMPOSITION: The breasts are almost entirely [...] Signed By: 05/05/24 1104 DD/ 1103 TD/TT: [facility] Nurse: Procedure Note Radiology, Radiologist, - 05/05/2024 [place] [address] Mammography Report Signed Patient: SUMAN SANZ SMR#: [id number] : 1955cct:[id number] Age/Sex: 69 / FADM Date: 05/05/24 Loc: MAMMO Attending Dr: HYUN العراقي Ordering Physician: HYUN العراقي MResults: Date of Service: 05/05/24Follow Up: Procedure(s): MM tomosynthesis screening BI Accession Number(s): [id number] cc: WALT TAPIA ; HYUN العراقي Patient Name: SUMAN SANZ MR#: [id number] : 1955 Exam Date: 05/05/2024 Ordering Doctor: DR HYUN العراقي PA RADIOLOGY REPORT PROCEDURE: MM TOMOSYNTHESIS SCREENING BI COMPARISON: MM TOMOSYNTHESIS SCREENING BI, 05/04/2023. MG MAMM [id number] DAHIANA CAD, 04/13/2022. INDICATIONS: Screening Calculator Name NCI Breast Cancer Risk Assessment Tool 5 Year Breast Cancer Risk 2.40% Lifetime Breast Cancer Risk 6.90% Personal Breast Cancer No Personal Ovarian Cancer No Treatments None Family Cancers Aunt-paternal with breast cancer at age 75. LOCATION: [facility] BREAST COMPOSITION: The breasts are almost entirely [...] M.D. Signed By:05/05/24 1104 DD/ 1103 TD/TT: [facility] Nurse: Hyun [facility] Final Result documented in this encounter Visit Diagnoses Not on filedocumented in this encounter Additional Health Concerns Assessment Noted Time PHQ-9 Depression Total Score: 0 04/07/20 24 9:00 AM EDT documented as of this encounter Care Teams Tarp Repairer Relationship Specialty Start Date End Date Walt Tapia MD 112 [place] [address] [address] PCP - General Internal Medicine 12/26/22 Walt Tapia MD [address] [place] [facility] 110 [place] [address] PCP - ACO Reach 12/19/23 09/25/24 Walt Tapia MD [address] [place] [facility] 110 [place] [address] PCP - ACO Reach 10/03/24 11/20/24 documented as of this encounter
--- OUTSIDE RECORDS SUMMARY | 2025-04-13 08:27 | XMS_ITS | Encounter Summary ---
Author Organization [facility] Address [address] [place] [address] Care Team Providers Care Director Of Employer Services Name Role Phone Walt Tapia MD Primary Care Provider [phone] Walt Tapia MD Unavailable [phone] Walt Tapia MD Unavailable [phone] Encounter Details Date Type Department Care Team (Late Contact Info) Description 05/06/2024 Abstract [facility] [place] [facility] 112 [facility] 110 [place] [address] Walt Tapia MD 112 [facility] 110 [place] [address] Social History Tobacco Use Types [...] Clinical Support [facility] 112 [facility] 120 [place] [address] Buddy Rose, YULIA 3006 [facility] 5 [place] [address] 04/24/2025 9:30 AM EDT Office Visit [facility] [place] [facility] [address] [facility] 110 [place] [address] Eve العراقي PA [address] [facility] 110 [place] [address] documented as of this encounter Visit Diagnoses Not on filedocumented in this encounter Additional Health Concerns Assessment Noted Time PHQ-9 Depression Total Score: 0 04/07/20 24 9:00 AM EDT documented as of this encounter Care Teams Director Of Employer Services Relationship Specialty Start Date End Date Walt Tapia MD [address] [facility] 110 [place] [address] PCP - General Internal Medicine 12/26/22 Walt Tapia MD [address] [facility] 110 [place] [address] PCP - ACO Reach 12/19/23 09/25/24 Walt Tapia MD [address] [facility] 110 [place] [address] PCP - ACO Reach 10/03/24 11/20/24 documented as of this encounter
--- OUTSIDE RECORDS SUMMARY | 2025-04-13 08:27 | XMS_ITS | Encounter Summary ---
Author Organization [facility] Address [address] [place] [address] Care Team Providers Care Strategic Communications Manager Name Role Phone Walt Tapia MD Unavailable [phone] Walt Tapia MD Primary Care Provider [phone] Walt Tapia MD Unavailable [phone] Walt Tapia MD Unavailable [phone] Encounter Details Date Type Department Care Team (Late Contact Info) Description 04/30/2023 Abstract [facility] [place] [facility] [address] [facility] 110 [place] [address] Walt Tapia MD [address] [facility] 110 [place], [place] [id number] Social History Tobacco Use Types Packs/Day Years [...] CI PODIATRY [address] [facility] [address] [place] [address] Buddy Rose DPM 9008 [facility] 5 [place] [address] 04/24/2025 9:30 AM EDT Office Visit [facility] [place] [address] [facility] [address] [place] [address] Eve العراقي PA [address] [place] 110 [place] [address] documented as of this encounter Visit Diagnoses Not on filedocumented in this encounter Care Teams Strategic Communications Manager Relationship Specialty Start Date End Date Walt Tapia MD [address] [place] [address] [place] [address] PCP - ACO Reach 01/11/23 10/18/23 Walt Tapia MD [address] [place] 110 [place] [address] PCP - General Internal Medicine 12/26/22 Walt Tapia MD [address] [facility] 110 [place] [address] PCP - ACO Reach 12/19/23 09/25/24 Walt Tapia MD [address] [place] [address] [place] [address] PCP - ACO Reach 10/03/24 11/20/24 documented as of this encounter
--- OUTSIDE RECORDS SUMMARY | 2025-04-13 08:27 | XMS_ITS | Encounter Summary ---
Author Organization [facility] Address [address] [place] [address] Care Team Providers Care Underlay Stitcher Name Role Phone Walt Tapia MD Unavailable [phone] Walt Tapia MD Primary Care Provider [phone] Walt Tapia MD Unavailable [phone] Walt Tapia MD Unavailable [phone] Encounter Details Date Type Department Care Team (Late Contact Info) Description 01/10/2023 Abstract [facility] [place] [facility] [address] [facility] 110 [place] [address] Walt Tapia MD 112 [facility] 110 [place], [place] [id number] Social History Tobacco Use Types Packs/Day Years [...] EDT Clinical Support [facility] 112 [facility] 120 [place] [address] Buddy Rose DPM 4171 [facility] 5 [place] [address] 04/24/2025 9:30 AM EDT Office Visit [facility] [place] [facility] 112 [facility] 110 [place] [address] Eve العراقي PA [address] [facility] 110 [place] [address] documented as of this encounter Visit Diagnoses Not on filedocumented in this encounter Care Teams Underlay Stitcher Relationship Specialty Start Date End Date Walt Tapia MD [address] [facility] 110 [place] [address] PCP - ACO Reach 01/11/23 10/18/23 Walt Tapia MD [address] [facility] 110 [place] [address] PCP - General Internal Medicine 12/26/22 Walt Tapia MD [address] [facility] 110 [place] [address] PCP - ACO Reach 12/19/23 09/25/24 Walt Tapia MD [address] [facility] 110 [place] [address] PCP - ACO Reach 10/03/24 11/20/24 documented as of this encounter
--- OUTSIDE RECORDS SUMMARY | 2025-04-13 08:27 | XMS_ITS | Encounter Summary ---
Author Organization [facility] Address [address] [place] [address] Care Team Providers Care Memory Care Program Director Name Role Phone Walt Tapia MD Unavailable [phone] Walt Tapia MD Primary Care Provider [phone] Walt Tapia MD Unavailable [phone] Walt Tapia MD Unavailable [phone] Encounter Details Date Type Department Care Team (Late st Contact Info) Description 04/02/2023 Abstract [facility] [place] [facility] [address] [facility] 110 [place] [address] Watl Tapia MD [address] [facility] 110 [place] [address] Social History Tobacco Use Types Packs/Day Years [...] [address] [facility] 120 [place] [address] Buddy Rose, DPM 3006 [facility] [place] [address] [place] [address] 04/24/2025 9:30 AM EDT Office Visit [facility] [place] [facility] [address] [facility] [address] [place] [address] Eve العراقي, PA [address] [facility] [address] [place] [address] documented as of this encounter Visit Diagnoses Not on filedocumented in this encounter Care Teams Memory Care Program Director Relationship Specialty Start Date End Date Walt Tapia MD [address] [facility] [address] [place] [address] PCP - ACO Reach 01/11/23 10/18/23 Walt Tapia MD [address] [facility] 110 [place] [address] PCP - General Internal Medicine 12/26/22 Walt Tapia MD [address] [facility] 110 [place] [address] PCP - ACO Reach 12/19/23 09/25/24 Walt Tapia MD [address] [facility] [address] [place] [address] PCP - ACO Reach 10/03/24 11/20/24 documented as of this encounter
--- OUTSIDE RECORDS SUMMARY | 2025-04-13 08:27 | XMS_ITS | Encounter Summary ---
Author Organization [facility] Address [address] [place] [address] Care Team Providers Care Aesthetics Instructor Name Role Phone Walt Tapia MD Primary Care Provider [phone] Walt Tapia MD Unavailable [phone] Walt Tapia MD Unavailable [phone] Encounter Details Date Type Department Care Team (Late Contact Info) Description 04/28/2024 Abstract [facility] [place] [facility] 112 [facility] 110 [place] [address] Walt Tapia MD 112 [facility] 110 [place] [address] Social History Tobacco Use Types [...] Clinical Support [facility] 112 [facility] 120 [place] [address] Buddy Rose, YULIA 3006 [facility] 5 [place] [address] 04/24/2025 9:30 AM EDT Office Visit [facility] [place] [facility] [address] [facility] 110 [place] [address] Eve العراقي PA [address] [facility] 110 [place] [address] documented as of this encounter Visit Diagnoses Not on filedocumented in this encounter Additional Health Concerns Assessment Noted Time PHQ-9 Depression Total Score: 0 04/07/20 24 9:00 AM EDT documented as of this encounter Care Teams Aesthetics Instructor Relationship Specialty Start Date End Date Walt Tapia MD [address] [facility] 110 [place] [address] PCP - General Internal Medicine 12/26/22 Walt Tapia MD [address] [facility] 110 [place] [address] PCP - ACO Reach 12/19/23 09/25/24 Walt Tapia MD [address] [facility] 110 [place] [address] PCP - ACO Reach 10/03/24 11/20/24 documented as of this encounter
--- OUTSIDE RECORDS SUMMARY | 2025-04-13 08:38 | XMS_ITS | CCD ---
Author Organization [facility] CliniSyoh Care Team Providers Care Rrts Name Role Phone LAY, MARGE Unavailable Unavailable LAY, MARGE Unavailable Unavailable WALT TAPIA Unavailable Unavailable WALT TAPIA Unavailable Unavailable JACQUES, DR TAYLOR Primary Care Unavailable GIEDRAITIS, ANDRIUS Admitting Unavailable GIEDRAITIS, ANDRIUS Attending Unavailable GABRIELLA, MICHAEL Admitting Unavailable ZIROBINSON, DR BERHANE Costa Consulting Unavailable MICHAEL DEJESUS Attending Unavailable DR WALT TAPIA Primary Care [...] Guerra Attending Unavailable HELDER Mayes Attending Provider [phone] Elizabeth Mayes Admitting Unavailable Elizabeth Mayes Attending Unavailable NON STAFF Primary Care Unavailable Walt Tapia MD Primary Care Provider [phone] Walt Tapia MD Unavailable EVE DOUGHERTY Attending Unavailable MICHAEL DEJESUS Attending Unavailable EVE DOUGHERTY Attending Unavailable BUDDY ROSE Attending Unavailable EVE DOUGHERTY Attending Unavailable EVE DOUGHERTY Attending Unavailable Allergies Allergy Classification Reported Allergen(s) Allergy Type Date of Onset Reaction(s) Facility (1 source) Tetracyclines Drug allergy (disorder) 06-30-2009 [facility] Repository (1 source) celecoxib Drug Allergy [facility] Repository (2 sources) Tetracycline Drug Allergy 01-20-2014 [facility] Repository (13 sources) Tetracycline Drug Allergy 04-25-2024 rash [facility] Work Phone: (1 source) Tetracycline Drug Allergy 04-25-2024 [facility] Repository (17 sources) cefdinir Drug Allergy 03-29-2023 [...] Active Start: 04-25-2024 take 1 capsule by [facility] every twelve hours at mealtime Nitrofurantoin [...] LUMBAR SPINE 6V W BENDING on 04-02-[address] [address] XRay Report Signed Patient: SUMAN RODAS MR#: [id number] : 1955 Acct:[id number] Age/Sex: 70 / F ADM Date: 04/02/25 Loc: RAD Attending Dr: Rosanna Martinez NP Ordering Physician: Rosanna Martinez NP Date of Service: 04/02/25 Procedure(s): XR lumbar spine 6V w bending Accession Number(s): [id number] cc: WALT TAPIA ; Rosanna Martinez NP [address] [address] Patient Name: SUMAN RODAS MRN: [facility]:[id number] date: 1955 Sex: F Assigned Patient Location: PM Current Patient Location: PM Accession/Order Number: [id number] Exam Date: 04/02/2025 10:44 Report Date: 04/02/2025 [...] Jr. DRakel 04/02/2025 10:45 AM Dictation Location: [place] [address] Electronically authenticated by: [id number] Y Date: 04/02/2025 10:45 Dictated By: Manoj Rojas M.D. Signed By: 04/02/25 1048 DD/ TD/TT: Leather Tacker: [facility] Radiology, Radiologist, MD - 04/02/2025 The [place] [id number] XRay Report Signed Patient: SUMAN RODAS MR#: [id number] : 1955 Acct:[id number] Age/Sex: 70 / F ADM Date: 04/02/25 Loc: RAD Attending Dr: Rosanna Martinez NP Ordering Physician: Rosanna Martinez NP Date of Service: 04/02/25 Procedure(s): XR lumbar spine 6V w bending Accession Number(s): [id number] cc: WALT TAPIA Anna NP The [address] [address] Patient Name: SUMAN RODAS MRN: [facility]:[id number] date: 1955 Sex: F Assigned Patient Location: PM Current Patient Location: PM Accession/Order Number: [id number] Exam Date: 04/02/2025 10:44 Report Date: 04/02/2025 [...] Jr., D.O. 04/02/2025 10:45 AM Dictation Location: [place] [address] Electronically authenticated by: [id number] Y Date: 04/02/2025 10:45 Dictated By: Manoj Rojas M.D. Signed By: 04/02/258 DD/ 44 TD/TT: Leather Tacker: [facility] Radiology Study observation (narrative) [facility] XR LUMBAR SPINE 6V W BENDING Ordered By: Radiologist Radiology on 04-02-2025 [facility] e Work Phone: No Panel Informationon 03-06 STAPHYLOCOCCUS EPIDERMIDIS, HAEMOLYTICUS, LUGDUNENSIS, SAPROPHYTICUS (URINA 0 [facility] STAPHYLOCOCCUS EPIDERMIDIS, HAEMOLYTICUS, LUGDUNENSIS, SAPROPHYTICUS (URINA Not detected [facility] URINARY TRACT INFECTION (HTR X)on 03-06-2025 ACINETOBACTER BAUMANII 0 [facility] [place] [facility] ACINETOBACTER BAUMANII Not detected [facility] MANDY ALBICANS, PARAPSILOSIS, TROPICALIS 0 [facility] MANDY ALBICANS, PARAPSILOSIS, TROPICALIS Not detected [facility] MANDY GLABRATA 0 [facility] MANDY GLABRATA Not detected [facility] ealthcare MANDY KRUSEI 0 [facility] MANDY KRUSEI Not detected [facility] Hea lthcare CITROBACTER FREUNDII 0 [facility] CITROBACTER FREUNDII Not detected [facility] [place] [facility] ENTEROBACTER AEROGENES, CLOACAE 0 [facility] re ENTEROBACTER AEROGENES, CLOACAE Not detected [facility] re ENTEROCOCCUS FAECALIS, FAECIUM 0 [facility] ENTEROCOCCUS FAECALIS, FAECIUM Not detected [facility] ESCHERICHIA COLI 27.224 Abnormal [facility] ESCHERICHIA COLI Detected Abnormal [facility] ltare Interpretation and review of laboratory results Abnormal [facility] KLEBSIELLA PNEUMONIAE, OXYTOCA 0 [facility] KLEBSIELLA PNEUMONIAE, OXYTOCA Not detected [facility] [...] AGALACTIAE (GROUP B STREP) Not detected [facility] STREPTOCOCCUS PYOGENES (GROUP A STREP) 0 [facility] STREPTOCOCCUS PYOGENES (GROUP A STREP) Not detected [facility] Urinalysis macro (dipstick) panel (U)on 03-05-2025 Bilirubin, UA Negative Negative - 4(70) +++ mg/dL [facility] Blood, UA Positive Negative - 50 Gabe/mcL [facility] Comment on above: mod Glucose, UA Negative Negative - 1999(110) ++++ mg/dL [facility] Interpretation and review of laboratory results Abnormal [facility] Ketones, UA Negative Negative - 160(16) ++++ mg/dL [facility] Leukocytes, UA Moderate Negative - 500+++ Stefan/mcL [facility] Nitrite, UA Negative Negative - Positive [facility] pH, UA 5 5 - 9 [facility] e Protein, UA Negative Negative - 1999(20) ++++ mg/dL [facility] Spec Grav, UA 1.01 1 - 1.03 [facility] Urobilinogen, UA 1.0 0.2 - 12 mg/dL [facility] e Urinalysis macro (dipstick) panel (U)on 05-13-2024 Bilirubin, UA Negative Negative - 4(70) +++ mg/dL [facility] Blood, UA Positive Negative - 50 Gabe/mcL [facility] Clarity, UA Clear [facility] re Color, UA Light Yellow [facility] are Glucose, UA Negative Negative - 1999(110) ++++ mg/dL [facility] Interpretation and review of laboratory results Abnormal [facility] Ketones, UA Negative Negative - 160(16) ++++ mg/dL [facility] Leukocytes, UA Few Negative - 500+++ Stefan/mcL [facility] Nitrite, UA Negative Negative - Positive [facility] pH, UA 5.0 5 - 9 [facility] Protein, UA Negative Negative - 2000(20) ++++ mg/dL [facility] Spec Grav, UA 1.005 1 - 1.03 [facility] Urobilinogen, UA 1.0 0.2 - 12 mg/dL [facility] e Urine Cultureon 04-25-2024 Bacteria identified Cx Nom (U) ORGANISM: Escherichia coli (O:ESCCOL) Mascot Count >100,000 Aerobic MESHA Charge (NMIC56) ------ [...] RESISTANT TO ALL B-LACTAM DRUGS. PERFORMED BY: [address] [place] [address] PATHOLOGIST CRUISE COORDINATOR ELA PIZARRO M.D. Normal [facility] Comment on above: Performed By: #### C UU #### [facility] [address] [place], [place] [id number] [facility] MG MAMM SCREEN 3D DAHIANA CADon 04-13-2022 MG MAMM SCREEN 3D DAHIANA CAD Patient: SUMAN RODAS Exam Date: 04/13/2022 : 1955 Gender:F Ordering : MRS. MICHAEL DEJESUS UTILITY REPAIRER-C Admission #: [id number] Family : Order #: [id number] CLICK HERE TO VIEW EXAM RADIOLOGY REPORT [...] breast cancer at age 74. LOCATION: [facility] BREAST COMPOSITION: Almost entirely fatty. FINDINGS: DIAGNOSTIC [...] M.D. on 04/14/2022 at 12:58 Normal [facility] XR DEXA BONE DENSITYon 04-13 XR DEXA BONE DENSITY DEXA Bone Density Study CLINICAL: Evaluate bone mineral density. Menopausal COMPARISON: 03/12/2020 FINDINGS: The bone density study was assessed by dual-energy x-ray absorptiometry with the Evident.io scanner. The test results are expressed in [...] authenticated by: YAN Hall: 2022-04-13 13:56 Normal [facility] MRI LSPINE WO CONon 02-25-20 22 MRI [...] by: BERHANE VENTURA Date: 2022-02-24 18:31 Normal [facility] CBC COMPLETE BLOOD COUNTon 0 03-14-2017 Erythrocyte distribution width Auto Ratio (RBC) 14.4 % Normal 11.5-16.9 [facility] Comment on above: Performed By: #### 5 0608 ####[facility] [place] [address], [facility] Erythrocytes (RBC) 4.46 mill/mm3 Normal 3.50-5.50 [facility] Comment on above: Performed By: #### 5 0608 ####[facility] [facility].[address] Hematocrit (HCT) 40.7 % Normal 36.0-48.0 [facility] Comment on above: Performed By: #### 5 0608 ####[facility]3000 [facility].[address] Hemoglobin mass conc (Bld) 13.9 g/dL Normal 12.0-15.0 [facility] Comment on above: Performed By: #### 5 0608 ####[place] [id number] [address] MCH 31.1 pg Normal 24.0-32.0 [facility] Comment on above: Performed By: #### 5 0608 ####[facility]3000 [facility].[address] MCHC mass conc (RBC) 34.0 g/dL Normal 32.0-36.0 [facility] Comment on above: Performed By: #### 5 0608 ####[address] MCV 91.4 fL Normal 80.0-100.0 [facility] Comment on above: Performed By: #### 5 0608 ####[facility] [facility] [place] [address], [facility] PLAT CNT 214 Thou/mm3 Normal 100-400 [facility] Comment on above: Performed By: #### 5 0608 ####[place] [address] [facility].[address] WBC (Leukocytes) 6.8 Thou/mm3 Normal 4.0-10.0 [facility] Comment on above: Performed By: #### 5 0608 ####[facility]3000 [facility].[address] COMP METABOLIC PANELon 03-14 Alanine aminotransferase (ALT) 21 U/L Normal 7-52 [facility] Comment on above: Performed By: #### 0 0121 ####[facility] [place] [address], [facility] Albumin 4.6 g/dL Normal 3.5-5.7 [facility] Comment on above: Performed By: #### 0 0121 ####[facility] [place] [address], [facility] ALKALINE PHOSPH 53 IU/L Normal 34-104 [facility] Comment on above: Performed By: #### 0 0121 ####[facility], [place] [id number] [place] [address] Aspartate aminotransferase (AST) 23 U/L Normal 13-39 [facility] Comment on above: Performed By: #### 0 0121 ####[facility] [place] [address], [facility] Bilirubin (total) 0.6 mg/dL Normal 0.3-1.0 [facility] Comment on above: Performed By: #### 0 0121 ####[facility] [facility] [address], [facility] Calcium 9.6 mg/dL Normal 8.6-10.3 [facility] Comment on above: Performed By: #### 0 0121 ####[facility] [place] [address], [facility] Chloride 106 mmol/L Normal 98-107 [facility] Comment on above: Performed By: #### 0 0121 ####[facility] [place] [address], [facility] CO2 26 mmol/L Normal 21-31 [facility] Comment on above: Performed By: #### 0 0121 ####[facility] [place] [address], [facility] Creatinine 0.68 mg/dL Normal 0.60-1.20 [facility] Comment on above: Performed By: #### 0 0121 ####[facility] [place] [address], [facility] eGFR (black) mL/min/{1.73_m2} Normal >60 [facility] Comment on above: Performed By: #### 0 0121 ####[facility] [place] [address], [facility] eGFR (non-black) mL/min/{1.73_m2} Normal >60 [facility] Comment on above: Performed By: #### 0 0121 ####[facility] [place] [address], [facility] Glucose mass conc 80 mg/dL Normal 70-100 [facility] Comment on above: Performed By: #### 0 0121 ####[facility] [place] [address], [facility] Potassium molar conc 4.3 mmol/L Normal 3.5-5.1 [facility] Comment on above: Performed By: #### 0 0121 ####[facility] [place] [address], [facility] Protein 7.2 g/dL Normal 6.0-8.3 [facility] Comment on above: Performed By: #### 0 0121 ####[facility] [place] [address], [facility] Sodium 140 mmol/L Normal 136-145 [facility] Comment on above: Performed By: #### 0 0121 ####[facility] [place] [address], [facility] Urea nitrogen 10 mg/dL Normal 7-25 [facility] Comment on above: Performed By: #### 0 0121 ####[address] HEP C RNA PCR QNTon 03-14-20 17 HCV PCR INTERP Not Detected Normal Not Detected [facility] Comment on above: Order Comment: This [...] HCV infection. Performed By: #### 3 1265 ####[place] [id number] [address] HEP C RNA QNT Not detected Normal [facility] Comment on above: Order Comment: This [...] HCV infection. Performed By: #### 3 1265 ####[place] [address] [address] Vital Signs Date Time Vital Sign Value Performing Clinician Facility 03-27-2025 14:44-0400 Body height 165.1 cm Buddy Rose DPM Work Phone: [facility] 03-27-2025 14:44-0400 Body mass index (BMI) [Ratio] 38.94 kg/m2 Buddy Rose DPM Work Phone: [facility] 03-27-2025 14:44-0400 Body weight 106.14 kg Buddy Rose DPM Work Phone: [facility] 03-27-2025 14:44-0400 Respiratory rate 16 /min Buddy Rose DPM Work Phone: [facility] 03-05-2025 10:58-0400 Body height 165.1 cm Eve Hemmer PA Work Phone: [facility] 03-05-2025 10:58-0400 Body mass index (BMI) [Ratio] 38.94 kg/m2 Eve Hemmer PA Work Phone: [facility] 03-05-2025 10:58-0400 Body weight 106.14 kg Eve Hemmer PA Work Phone: [facility] 03-05-2025 10:58-0400 Diastolic blood pressure 98 mm[Hg] Eve Hemmer PA Work Phone: [facility] 03-05-2025 10:58-0400 Heart rate 86 /min Eve Hemmer PA Work Phone: [facility] 03-05-2025 10:58-0400 SaO2% (BldA) [Mass fraction] 97 % Eve Hemmer PA Work Phone: [facility] 03-05-2025 10:58-0400 Systolic blood pressure 142 mm[Hg] Eve Hemmer PA Work Phone: [facility] 02-05-2025 13:31-0400 Body height 165.1 cm Michael Dejesus NP Work Phone: [facility] 02-05-2025 13:31-0400 Body mass index (BMI) [Ratio] 39.61 kg/m2 Michael Dejesus UTILITY REPAIRER Work Phone: [facility] 02-05-2025 13:31-0400 Body weight 107.96 kg Michael Dejesus UTILITY REPAIRER Work Phone: [facility] 02-05-2025 13:31-0400 Diastolic blood pressure 101 mm[Hg] Michael Dejesus UTILITY REPAIRER Work Phone: [facility] 02-05-2025 13:31-0400 Heart rate 68 /min Michael Dejesus UTILITY REPAIRER Work Phone: [facility] 02-05-2025 13:31-0400 Respiratory rate 17 /min Michael Dejesus UTILITY REPAIRER Work Phone: [facility] 02-05-2025 13:31-0400 SaO2% (BldA) [Mass fraction] 97 % Michael Dejesus UTILITY REPAIRER Work Phone: [facility] 02-05-2025 13:31-0400 Systolic blood pressure 136 mm[Hg] Michael Dejesus UTILITY REPAIRER Work Phone: [facility] 05-13-2024 11:35-0400 Body height 165.1 cm Eve Hemmer PA Work Phone: [facility] 05-13-2024 11:35-0400 Body mass index (BMI) [Ratio] 38.27 kg/m2 Eve Hemmer PA Work Phone: [facility] 05-13-2024 11:35-0400 Body weight 104.33 kg Eve Hemmer PA Work Phone: [facility] 05-13-2024 11:35-0400 Diastolic blood pressure 84 mm[Hg] Eve Hemmer PA Work Phone: [facility] 05-13-2024 11:35-0400 Heart rate 80 /min Eve Hemmer PA Work Phone: [facility] 05-13-2024 11:35-0400 Respiratory rate 16 /min Eve Hemmer PA Work Phone: [facility] 05-13-2024 11:35-0400 SaO2% (BldA) [Mass fraction] 98 % Eve MARK Work Phone: [facility] 05-13-2024 11:35-0400 Systolic blood pressure 119 mm[Hg] Eve MARK Work Phone: [facility] 04-25-2024 10:19-0400 Body height 165.1 cm [facility] 04-25-2024 10:19-0400 Body mass index (BMI) [Ratio] 38.2 kg/m2 [facility] 04-25-2024 10:19-0400 Body temperature 97 [degF] [facility] 04-25-2024 10:19-0400 Body weight 104.43 kg [facility] 04-25-2024 10:19-0400 Diastolic blood pressure 80 mm[Hg] [facility] 04-25-2024 10:19-0400 Heart rate 72 /min [facility] 04-25-2024 10:19-0400 Respiratory rate 18 /min [facility] 04-25-2024 10:19-0400 SaO2% (BldA) [Mass fraction] 92 % [facility] 04-25-2024 10:19-0400 Systolic blood pressure 142 mm[Hg] [facility] 05-25-2023 10:50-0400 Body height 165.1 cm Elizabeth Mayes Other [employer] [facility] [employer] Other 05-25-2023 10:50-0400 Body mass index (BMI) [Ratio] 38.17 kg/m2 Elizabeth Mayes Other [employer] Other 05-25-2023 10:50-0400 Body temperature 97.7 [degF] Elizabeth Mayes Other [employer] Other 05-25-2023 10:50-0400 Body weight 104.06 kg Elizabeth Mayes Other [employer] Other 05-25-2023 10:50-0400 Diastolic blood pressure 88 mm[Hg] Elizabeth Mayes Other [employer] Other 05-25-2023 10:50-0400 Respiratory rate 18 /min Elizabeth Mayes Other [employer] Other 05-25-2023 10:50-0400 SaO2% (BldA) [Mass fraction] 98 % Elizabeth Mayes Other [employer] Other 05-25-2023 10:50-0400 Systolic blood pressure 142 mm[Hg] Elizabeth Mayes Other [employer] Other Encounters Encounter Date Encounter Type Care [...] 02-05-2025 End: 02-05-2025 Bamboo flowsheet Michael Dejesus UTILITY REPAIRER Work Phone: [facility] Start: 02-05-2025 End: 02-05-2025 Bamboo flowsheet Michael Dejesus UTILITY REPAIRER Work Phone: [facility] Start: 02-05-2025 End: 02-05-2025 Office outpatient visit 25 minutes Michael Dejesus UTILITY REPAIRER Work Phone: [facility] Comment on [...] insomnia Start: 04-25-2024 End: 04-25-2024 Departed Referred FRINGE MAKER Elizabeth Mayes Work Phone: [facility] [place] Work Phone: Start: 04-25-2024 End: 04-25-2024 ambulatory Elizabeth Mayes [facility] Work Phone: Start: 04-25-2024 End: 04-25-2024 Patient encounter procedure [facility] [place] Work Phone: Start: 04-07-2024 End: 04-07-2024 ambulatory EVE DOUGHERTY Not Available Start: 03-24-2024 End: 03-24-2024 ambulatory Nichole Painter MD Facility: [facility] Start: 05-28-2023 End: 05-28-2023 ambulatory Nichole Painter MD Facility:[facility] Start: 05-25-2023 End: 05-25-2023 ambulatory Elizabeth Mayes Other [facility] [employer] Other Start: 05-25-2023 Office outpatient ne w 30 minutes Elizabeth Mayes [facility] [place] Start: 04-30-2023 End: 04-30-2023 ambulatory Nichole Painter MD Facility:[facility] [place] Start: 01-05-[address] WALT TAPIA Facilit y:[facility]1 Start: 04-13-2022 End: 04-14-2022 ambulatory MICHAEL DEJESUS Facility:[facility] Start: 03-07-2022 End: 03-08-[address] MICKI MCCAIN . Facility:[facility] Start: 02-24-2022 End: 02-25-[address] WALT TAPIA Facility:[facility] Start: 02-15-2022 End: 02-16-[address] MICKI MCCAIN . Facility:[facility] Start: 12-27-2021 End: 12-28-[address] MICKI MCCAIN . Facility:[facility] Start: 03-14-2017 End: 03-15-2017 Ambulatory MARGE GOPI Facility:[facility] Procedures Date Procedure Procedure [...] Screening for malign ant neoplasm of colon [facility] Start: 05-05-2025 Screening for malign ant neoplasm of breast Mammogram [facility] Start: 09-01-2025 Influenza vaccination Influenza Vacc ine (#1) [facility] Start: 04-13-2025 End: 04-13-2025 Clinical Support 04/13/2025 2:40 PM EDT Clinical Support [facility] [address] [place] [phone] Buddy Rose DPM [address] [id number] [facility] Start: 04-08-2025 End: 04-08-2025 Patient encounter procedure [facility] Start: 04-07-2025 Medicare Annual Wellness (AWV) Medicare Annual Wellness (AWV) [facility] Start: 03-27-2025 End: 03-27-2025 Patient encounter procedure 03/27/2025 2:50 PM EDT Office Visit [facility] [address] [place] [phone] Buddy Rose DPM [address] [address] Plantar fasciitis (Primary Dx); Contracture of left ankle [facility] Comment on above: Plantar fasciitis (P rimary Dx); Contracture of left ankle Start: 03-05-2025 End: 03-05-2026 URINARY TRACT INFECTION (HTRX) URINARY TRACT INFECTION (HTRX) Lab Routine Acute cystitis with hematuria Expected: 03/05/2025 (Approximate), Expires: 03/05/2026 [facility] Work Phone: Comment on above: Expected: 03/05/2025 (Approximate), Expires: 03/05/2026 Start: 02-05-2025 End: 02-05-2025 Patient encounter procedure 02/05/2025 1:30 PM EDT Office Visit [facility] [address] [facility] [address] [place] [phone] Michael Dejesus, UTILITY REPAIRER [address] [facility] [address] [place], [place] [id number] Arrived [facility] Comment on above: Arrived Start: 07-08-2024 End: 07-08-2024 Telemedicine consultation with patient 07/08/2024 10:30 AM EST Telemedicine [facility] [address] [place] [address] [place] [address] Eve Dougherty PA [address] [place] [address] [place] [address] [facility] Start: 05-13-2024 End: 05-13-2024 Patient encounter procedure 05/13/2024 11:30 AM EDT Office Visit [facility] [address] [place] [address] [place] [address] Eve Dougherty PA [address] [place] [address] [place] [address] Arrived [facility] Comment on above: Arrived Start: 05-04-2024 Screening for malign ant neoplasm of breast Mammogram [facility] Start: 04-25-2024 Bacteria identified in Urine by Culture [facility] Start: 1955 Screening for malign ant neoplasm of colon [facility] Immunizations Immunization Date Immunization Notes Care Provider Fa [facility] 04-23-2024 influenza, high dose seasonal, preservative-free Eve MARK Work Phone: [facility] 04-23-2024 influenza virus vacc ine, unspecified formulation Eve MARK Work Phone: [facility] 05-18-2023 Influenza, High-dose Seasonal, Quadrivalent, Preservative Free Eve MARK Work Phone: [facility] 05-25-2022 influenza, high dose seasonal, preservative-free [facility] 05-25-2022 Influenza, High-dose Seasonal, Quadrivalent, Preservative Free Cely [facility] 08-27-2021 tetanus toxoid, redu blu diphtheria toxoid, and acellular pertussis vaccine, adsorbed Cely [facility] 07-26-2021 zoster vaccine recombinant Terry MARK Work Phone: [facility] 05-22-2021 Influenza, High-dose Seasonal, Quadrivalent, Preservative Free Cely [place] [facility] 05-12-2021 zoster vaccine recombinant Cely bonner [facility] 05-17-2020 influenza, high dose seasonal, preservative-free Cely [facility] 05-17-2020 Influenza, High-dose Seasonal, Quadrivalent, Preservative Free Cely [place] [facility] 05-15-2019 influenza, high dose seasonal, preservative-free Cely [facility] 05-15-2019 Influenza, High-dose Seasonal, Quadrivalent, Preservative Free Cely [facility] 05-15-2019 pneumococcal polysaccharide vaccine, 23 valent Cely [facility] 05-07-2018 influenza, injectabl e, quadrivalent, preservative free Cely [facility] 05-07-2018 seasonal influenza, intradermal, preservative free Cely [facility] 11-21-2017 pneumococcal polysaccharide vaccine, 23 valent Cely [facility] 05-17-2017 influenza, injectabl e, quadrivalent, preservative free Cely [facility] 05-17-2017 seasonal influenza, intradermal, preservative free Cely [facility] 05-16-2016 influenza, injectabl e, quadrivalent, contains preservative [facility] 05-16-2016 influenza, injectabl e, quadrivalent, preservative free Cely [facility] 05-16-2016 pneumococcal conjuga te vaccine, 13 valent Cely [facility] 04-30-2015 seasonal influenza, intradermal, preservative free Cely [facility] 05-21-2014 zoster vaccine, live Cely [facility] 05-28-2013 seasonal influenza, intradermal, preservative free Cely [facility] 07-19-2009 tetanus and diphther ia toxoids, adsorbed, preservative free, for adult use (5 Lf of tetanus toxoid and 2 Lf of diphtheria toxoid) [facility] Payers Date Payer Category Payer Self-pay 2022 Unknown 2019 Private Health Insurance [id number] 2019 Unknown [id number] 2012 Medicare 1959 Medicare [id number] 1959 Unknown [id number] 1954 Unknown [id number] [id number]3 1954 Unknown [id number] 2.16.840.1.208617.3.579.2.593 1954 Unknown [id number] 2.16.840.1.938001.3.579.2.593 1954 Unknown [id number] 2.16.840.1.492752.3.579.2.593 1954 Unknown [id number] 2.16.840.1.821784.3.579.2.593 1954 Unknown [id number] 2.16.840.1.619611.3.579.2.593 1954 Unknown [id number] 2.16.840.1.385714.3.579.2.196 1954 Unknown [id number] 2.16.840.1.276327.3.579.2.196 1954 Unknown [id number] 2.16.840.1.948753.3.579.2.196 1954 Unknown [id number] 2.16.840.1.823191.3.579.2.125 9 1954 Unknown [id number] 2.16.840.1.910946.3.579.2.125 9 1954 Unknown [id number] 2.16.840.1.822896.3.579.2.125 9 1954 Unknown [id number] 2.16.840.1.235012.3.579.2.125 9 1954 Unknown [id number] 2.16.840.1.810239.3.579.2.125 9 1954 Unknown [id number] 2.16.840.1.328123.3.579.2.125 9 [facility] [id number] Medicare [id number] Medicare Medicare Nonpatient [id number] Unknown [id number] 2..[id number] Social History Date Type Detail Facility Unknown if ever smoked [employer] Other Start: 04-07-2024 End: 07-23-2024 Sex Assigned At [employer] Other Start: 05-25-2023 End: 02-05-2025 Tobacco smoking status [place] Ex-smoker (finding) [facility] Start: 1955 Sex Assigned At Female F [facility] Start: 01-01-2024 Tobacco smoking stat us [facility] Never smoked tobacco [facility] Start: [...] Healthcare How often do you att end orthodoxy or confucianism services? Patient declined [facility] Do you belong to any clubs or organizations such as orthodoxy groups, unions, fraternal or athletic groups, or [...] Health [facility] ionnaire 2 item (PHQ-2) [Reported] [facility] Healthcare Clinical Notes 12-27-2021 to [...] More than three times a week Attends Hinduism Services: Patient declined Active Member of Clubs [...] Buddy Rose DPM documented in this encounter [facility] 03-05-2025 History of Presen t [...] NERVE BLOCK Bilateral 03/08/2021 L2-L5 OOPHORECTOMY Right DC DEST,PARAVERTEBRAL,L/S,SINGLE Left 05/03/2021 L2-L5 RADIOFREQUENCY ABLATION Bilateral [...] Morbid (severe) obesity due to excess calories ([facility]) Patient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
[2025-04-13 09:11] VITALS: BP 161/88; PULSE 76; TEMP 36.3; O2SAT 99
[2025-04-13 09:44] VITALS: BP 155/77; PULSE 78; O2SAT 95
[2025-04-13 09:45] VITALS: BP 165/90; PULSE 80; O2SAT 96
[2025-04-13] MEDS: LIDOCAINE HCL 2% 400 MG/20 ML MDV 16 ML INJ (09:54)
[2025-04-13] MEDS: METHYLPREDNISOLONE ACETATE 40 MG/ML VIAL 80 MG INJ (09:54)
[2025-04-13] MEDS: BUPIVACAINE HCL 0.25% PF 25 MG/10 ML VIAL 4 ML INJ (09:54)
--- NOTE | 2025-04-13 10:03 | P.ON_ITS ---
Date of procedure: 04/13/25 Pre-op diagnosis: Pain due to lumbar spondylosis without myelopathy Post-op diagnosis: same as pre-op Procedure: Procedure: Bilateral L4-5, L5-S1 radiofrequency ablation Medications: Bupivacaine 0.25% 6cc, lidocaine 2% 6cc, depomedrol 80mg The patient was seen and examined in the preoperative holding area.? The site was marked.? Written informed consent was obtained and placed on the chart.? The patient was brought to the medical procedure unit and placed in the prone position.? A timeout was completed verifying correct patient, procedure, positioning, and special requirements.? The skin overlying the target points, the designated medial branch, were prepped and draped in the usual sterile fashion.? The target point was achieved with a 20-gauge 15 cm with a 10 mm curved active tip radiofrequency cannula under direct fluoroscopic visualizati on.? The needle was inserted at level L4 on the right side. Needle tip position was confirmed with lateral fluoroscopic position.? Motor stimulation was carried out at 2 Hz up to 5 volts with the absence of extremity activity.? This was repeated at level L5, S1 on right side.?? Sensory stimulation was carried out.? Concordant pain was realized at the above- mentioned sites.? Then radiofrequency lesioning was carried out times 90 seconds at 80 degrees times 2 lesions at each level.? The radiofrequency probe was removed prior to cannula removal.? The above-mentioned injectate was placed in 1 mL increments.? The needle was removed. The same procedure, with the same steps, was then completed on the left side at the same levels. Insertion sites were covered.? The patient was taken to the postoperative recovery area and monitored for an appropriate length of time before being found suitable for discharge in the company of a responsible adult. Anesthesia: Local Surgeon: Nichole Painter Pathology: none sent Condition: stable Disposition: no change
== END 2025-04-13 10:05 | disposition home or self-care (01) ==
LOC: SURGOUT 08:24
PROVIDERS: PCP Internal Medicine; Visit Provider Anesthesiology
DX: M47.816 Spondylosis without myelopathy or radiculopathy, lumbar region (principal); M54.50 Low back pain, unspecified
CPT/HCPCS: 64635; 64636; J0665; J1010

== ENCOUNTER 2025-05-07 10:50 | Outpatient (OUT) | payer MEDICARE, OTHER, SELFPAY ==
--- OUTSIDE RECORDS SUMMARY | 2025-04-23 16:20 | XMS_ITS | Encounter Summary ---
Author Organization [facility] Address [address] [place] [address] Care Team Providers Care Dog Food Shredder Operator Name Role Phone Walt Tapia MD Primary Care Provider [phone] Reason for Visit * Reason Comments Follow-up Lt pf check Encounter Details Date Type Department Care Team (Latest Contact Info) Description 04/23/2025 4:20 PM EDT Clinical Support [facility] [address] [facility] [address] [place] [address] Buddy Rose DPM [address] [facility] [place] [address] [place] [address] Plantar fasciitis (Primary Dx); Contracture of left ankle; Contracture of right ankle Social History Tobacco Use Types Packs/Day [...] week 07/23/2024 How often do you attend [facility] or shinto services? Patient declined 07/23/2024 Do you belong [...] Date Recorded Patient Health Questionnaire-2 Score 0 04/24/2025 Hunger Vital Sign Answer Date Recorded Within [...] any time in the past 12 m [facility], were you homeless or living in [...] - - Temperature - - Respiratory Rate 18 04/23/2025 4:12 PM EDT Oxygen Saturation - - Inhaled Oxygen Concentration - - Weight 106 kg (234 lb) 04/23/2025 4:12 PM EDT Height 165.1 cm (5' 5 ) 04/23/2025 4:12 PM EDT Body Mass Index 38.94 04/23/2025 4:12 PM EDT documented in this encounter Progress Notes * Buddy Rose, DPM - 04/23/2025 4:20 PM EDT Patient: Kerry Sanz : 1955 PCP: Walt Tapia MD SUBJECTIVE Kerry Sanz 70 y.o. presents today for follow up of left HSS. Pt has had previous treatment ofrecent first but 3rd total steroid injection, nsaids, stretching with slight relief . Pt has received 2 steroid injections in 2023. Pt states current pain on a 1-10 scale is a 5 Pt presents to day for follow up [...] More than three times a week Attends Rastafari Services: Patient declined Active Member of Clubs [...] on palpation to left medial calcaneal tubercle ASSESSMENT 1. Plantar fasciitis 2. Contracture of left ankle 3. Contracture of right ankle PLAN Patient to continue with oral anti - inflammatories as needed for pain and recommended OTC medications such as tylenol or Ibuprofen Patient is to continue with stretching excercizes daily with patient to continue with night stretching splint or manual stretching. Pt given steroid injection to left medial calcaneal tubercle under US guidance with visualization of injected fluid into area of concern per imaging. Injection of 1cc kenalog 10 and 2cc xylocaine 2% plain. Informed patient of risks and benefits of injection including non resolution of symptoms,steroid flare, tendon damage or rupture. Pt consents to proceed. This is the patients 4th injection Buddy Rose DPM documented in this encounter Plan of Treatment Upcoming Encounters Date Type Department Care Team (Late st Contact Info) Description 05/08/2025 11:10 AM EDT Office Visit [facility] [address] [place] [address] Buddy Rose DPM [address] [facility] [place] [address] [place] [address] 07/28/2025 10:30 AM EST Telemedicine [facility] [address] [facility] [address] [place] [address] Eve العراقي PA [address] [facility] [address] [place] [address] documented as of this encounter Visit Diagnoses Diagnosis Plantar fasciitis- Primary Plantar fascial fibromatosis Contracture of left ankle Contracture of right ankle Plantar fasciitis- Primary Plantar fascial fibromatosis Contracture of left ankle Contracture of right ankle documented in this encounter Additional Health Concerns Assessment Noted Time PHQ-9 Depression Total Score: 0 04/07/20 24 9:00 AM EDT documented as of this encounter Care Teams Dog Food Shredder Operator Relationship Specialty Start Date End Date Walt Tapia MD [address] [facility] [address] [place] [address] PCP - General Internal Medicine 12/26/22 documented as of this encounter
--- OUTSIDE RECORDS SUMMARY | 2025-04-24 09:30 | XMS_ITS | Encounter Summary ---
Author Organization [facility] Address [address] [place] [address] Care Team Providers Care Inventory Associate And Driver Name Role Phone Walt Tapia MD Primary Care Provider [phone] Reason for Visit * Reason Comments Med Refill Ambien Medicare Annual Wellness Visit Alexxen t Encounter Details Date Type Department Care Team (Late st Contact Info) Description 04/24/2025 9:30 AM EDT Office Visit [facility] [address] [facility] [address] [place] [id number] Eve العراقي PA 112 [facility] [address] [place] [address] Medicare annual wellness visit, subsequent (Primary Dx); ACP (advance care planning); Encounter for screening mammogram for malignant neoplasm of breast; Estrogen deficiency; Benign hypertension ; Other cirrhosis of liver (HCC); Chronic hepatitis C without hepatic coma (HCC); Impaired fasting glucose; Pure hypercholesterolemia ; Osteoarthritis of spine with radiculopathy, lumbar region; Primary insomnia; Vertigo; Hiatal hernia; Arteriosclerosis of abdominal aorta; Osteopenia of multiple sites; Body mass index (BMI) 38.0-38.9, adult; Morbid (severe) obesity due to excess calories (CMS-HCC); Recurrent cold sores; Seasonal allergic rhinitis due to pollen; Ex-smoker; Sciatica, unspecified laterality Social History Tobacco Use Types Packs/Day Years [...] often do you attend chur ch or jew services? Patient declined 07/23/2024 Do you belong to any clubs o r organizations such as congregation groups, unions, fraternal or athletic groups, or [...] any time in the past [facility], were you homeless or living in a intermediate (including now)? No 07/23/2024 Comments Unknown Sex and Gender Information Value Date Recorded Sex Assigned at Not on file Legal Sex Female 6:48 PM EDT Gender Identity Not on file Sexual Orientation Not on file documented as of this encounter Last Filed Vital Signs Vital Sign Reading Time Taken Comments Blood Pressure 122/86 04/24/2025 9:39 AM EDT Pulse 91 04/24/2025 9:39 AM EDT Temperature - - Respiratory Rate 16 04/24/2025 9:39 AM EDT Oxygen Saturation 97% 04/24/2025 9:39 AM EDT Inhaled Oxygen Concentration - - Weight 106 kg (233 lb 6.4 oz) 04/24/2025 9:39 AM EDT Height 165.1 cm (5' 5 ) 04/24/2025 9:39 AM EDT Body Mass Index 38.84 04/24/2025 9:39 AM EDT documented in this encounter Functional Status * Over the past 2 weeks, how often have you been bothered by any of the following problems? Question Answer Date of Assessment Author Little interest or pleasure in doing things Not at all 04/24/2025 9:00 AM EDT Tana Lopez LP N Feeling down, depressed, or hopeless Not at all 04/24/2025 9:00 AM EDT Tana Lopez LP N Patient Health Questionnaire -2 Score 0 04/24/2025 9:00 AM EDT Tana Lopez LP N * Question Answer Date of Assessment Author Trouble falling or staying asleep, or sleeping too much Not at all 04/24/2025 9:00 AM EDT Lorene Lopez LPN Feeling tired or having lizzie le energy Not at all 04/24/2025 9:00 AM EDT Tana Lopez LP N Poor appetite or overeating Not at all 04/24/2025 9: 00 AM EDT Tana Lopez LPN Feeling bad about yourself - or that you are a failure or have let yourself or your family down Not at all 04/24/2025 9:00 AM EDT Tana Lopez LPN Trouble concentrating on thi ngs, such as reading the newspaper or watching television Not at all 04/24/2025 9:00 AM EDTana Delgadillo LP N Moving or speaking so slowly that other people could have noticed? Or the opposite - being so fidgety or restless that you have been moving around a lot more than usual. Not at all 04/24/2025 9:00 AM Tana Merritt LP N Thoughts that you would be better off or hurting yourself in some way Not at all 04/24/2025 9:00 AM EDT Tana Lopez L PN Patient Health Questionnaire -9 Score 0 04/24/2025 9:00 AM EDTana Delgadillo LP N documented as of this encounter Progress Notes * DEEDEE Amin - 04/24/2025 9:30 AM EDT Images from the original note were not included. HPI Med Refill Additional comments: Caty Last edited by DEEDEE Amin on 04/24/2025 9:44 AM. Subjective Patient ID: Kerry Sanz is a 70 y.o. female who presents for Med Refill (Caty) and Medicare Annual Wellness Visit Subsequent. States was in [facility] ER on 04/07 and was diagnosed with Vertigo, was given Meclizine. Taking it as needed with relief of symptoms. They did teach her some exercises to do when needed and those have been helpful. Has a little lingering mild headache and buzzing in her ears, both have been improving. Heading down to [place] in 4 weeks. Med Refill Pertinent negatives include no abdominal pain, arthralgias, chest pain, chills, congestion, coughing, fatigue, fever, nausea, numbness, rash, sore throat or vomiting. Medicare Wellness Over the past 2 weeks, how often have you been bothered by any of the following problems? Little interest or pleasure in doing things: Not at all Feeling down, depressed, or hopeless: Not at all Patient Health Questionnaire-2 Score: 0 Over the past 2 weeks, how often have you been bothered by any of the following problems? Trouble falling or staying asleep, or sleeping too much: Not at all Feeling tired or having little energy: Not at all Poor appetite or overeating: Not at all Feeling bad about yourself - or that you are a failure or have let yourself or your family down: Not at all Trouble concentrating on things, such as reading the newspaper or watching television: Not at all Moving or speaking so slowly that other people could have noticed? Or the opposite - being so fidgety or restless that you have been moving around a lot more than usual.: Not at all Thoughts that you would be better off or hurting yourself in some way: Not at all Patient Health Questionnaire-9 Score: 0 Wood Fall Risk History of Falling, Immediate or Within 3 Months: No Health Risk Assessment Form Do you need help eating, bathing, using the toilet, dressing, or getting around your home?: No Can you prepare your own meals?: Yes Can you do your own housework without help?: Yes Can you shop for groceries or clothes without help?: Yes Do you exercise for about 20 minutes 3 or more days a week?: No How confident are you that you can control and manage most of your health problems?: Very confident Can you mange your money, credit cards and accounts, pay bills and taxes?: Yes Vision Screening: Yes, no gross abnormalities Hearing Screening: Yes, no gross abnormalities Cognitive Screening Self Assessment: No overt cognitive deficiency is apparent by direct observation, No self awarenessof cognitive deficiency Three Word Registration: Village, Kitchen, Baby Clock Drawing: Normal Clock - 2 Three Word Recall: All 3 words correct - 3 Total Score (0-5 Points): 5 Pain Assessment Pain Score: 4 Advance Care Planning Do you have a living will?: No (refuses living will paperwork) Do you have a medical power of staff attorney?: Yes Current Outpatient Medications on File Prior to Visit Medication Sig Dispense Refill [DISCONTINUED] diazePAM (Valium) 10 MG tablet Take 10 mg by mouth as needed at bedtime for anxiety [DISCONTINUED] meclizine (Antivert) 25 MG tablet Take by mouth in the morning and before bedtime. cholecalciferol (EQL Vitamin D3) 50 MCG (2000 UT) capsule Take 1 capsule (50 mcg) by mouth Daily 90capsule 3 famotidine (Pepcid) 20 MG tablet Take 20 mg by mouth in the morning and 20 mg in the evening. fluticasone (Flonase) 50 MCG/ACT nasal spray USE 1 SPRAY(S) IN EACH NOSTRIL ONCE DAILY NEEDED 16g 2 hydrocortisone 2.5 % cream ketoconazole (NIZOral) 2 % cream valACYclovir (Valtrex) 1 g tablet Take 2 tablets (2,000 mg) by mouth in the morning and 2 tablets (2,000 mg) before bedtime. 4 tablet 3 [DISCONTINUED] zolpidem (Ambien) 10 MG tablet Take 1 [...] date: 2004 Quit date: 1975 Years since quittin.7 Passive exposure: Never Smokeless tobacco: Never Vaping [...] NERVE BLOCK Bilateral 03/08/2021 L2-L5 OOPHORECTOMY Right VA DEST,PARAVERTEBRAL,L/S,SINGLE Left 05/03/2021 L2-L5 RADIOFREQUENCY ABLATION Bilateral 05/28/2023 L4-S1 TRIGGER FINGER RELEASE Bilateral thumb Visit Vitals BP 122/86 Pulse 91 Resp 16 Ht 5' 5 Wt 233 lb 6.4 oz SpO2 97% BMI 38.84 kg/m?? Smoking Status Former BSA 2.2 m?? Review of Systems Constitutional: Negative for chills, fatigue and fever. HENT: Negative for congestion, ear pain, rhinorrhea and sore throat. Eyes: Negative for pain, discharge and visual disturbance. Respiratory: Negative for cough, shortness of breath and wheezing. Cardiovascular: Negative for chest pain, palpitations and leg swelling. Gastrointestinal: Negative for abdominal pain, constipation, diarrhea, nausea and vomiting. Genitourinary: Negative for difficulty urinating, dysuria and frequency. Musculoskeletal: Negative for arthralgias and back pain. Skin: Negative for rash. Neurological: Negative for dizziness and numbness. Psychiatric/Behavioral: Negative for sleep disturbance. The patient is not nervous/anxious. Objective Physical Exam Constitutional: General: She is not in acute distress. Appearance: She is well-developed. She is obese. HENT: Head: Normocephalic and atraumatic. Right Ear: Tympanic membrane and ear canal normal. Left Ear: Tympanic membrane and ear canal normal. Nose: Nose normal. Mouth/Throat: Mouth: Mucous membranes are moist. Pharynx: No posterior oropharyngeal erythema. Eyes: General: No scleral icterus. Extraocular Movements: Extraocular movements intact. Conjunctiva/sclera: Conjunctivae normal. Pupils: Pupils are equal, round, and reactive to light. Neck: Vascular: No carotid bruit. Cardiovascular: Rate and Rhythm: Normal rate and regular rhythm. Heart sounds: Normal heart sounds. No murmur heard. Pulmonary: Effort: Pulmonary effort is normal. No respiratory distress. Breath sounds: Normal breath sounds. No wheezing, rhonchi or rales. Abdominal: General: Bowel sounds are normal. There is no distension. Palpations: Abdomen is soft. Tenderness: There is no abdominal tenderness. There is no guarding. Musculoskeletal: General: No swelling or deformity. Normal range of motion. Cervical back: Normal range of motion and neck supple. No tenderness. Skin: General: Skin is warm and dry. Capillary Refill: Capillary refill takes less than 2 seconds. Findings: No rash. Neurological: General: No focal deficit present. Mental Status: She is alert and oriented to person, place, and time. Cranial Nerves: No cranial nerve deficit. Sensory: No sensory deficit. Motor: No weakness. Gait: Gait normal. Deep Tendon Reflexes: Reflexes normal. Psychiatric: Mood and Affect: Mood normal. Behavior: Behavior normal. Thought Content: Thought content normal. Judgment: Judgment normal. Assessment & Plan 1. Medicare annual wellness visit, subsequent (Primary) Reviewed all relevant preventative screenings with the patient in detail. Medicare Wellness form completed and will be scanned into patient's chart. All needed testing was ordered. Will continue withyearly Medicare Wellness exams. - CBC and differential - Comprehensive metabolic panel - Lipid panel - Hemoglobin A1c 2. ACP (advance care planning) Patient willing to discuss ACP. Pt has DPOA in place. 3. Encounter for screening mammogram for malignant neoplasm of breast Provided patient with an order for an updated Mammogram. If results are negative/normal, will plan to continue with routine yearly screenings. - Bilateral screening mammogram with tomosynthesis; Future 4. Estrogen deficiency This is a chronic medical condition that is stable since last assessment. Will continue to monitor with routine DEXA scans. - DEXA bone density; Future 5. Benign hypertension BP stable at this time without medication. Will continue to monitor. - CBC and differential - Comprehensive metabolic panel - Lipid panel 6. Other cirrhosis of liver (HCC) This is a chronic medical condition that is stable since last assessment. Will continue to monitor with routine labs. - Comprehensive metabolic panel 7. Chronic hepatitis C without hepatic coma (HCC) This is a chronic medical condition that is stable since last assessment. Will continue to monitor with routine labs. - Comprehensive metabolic panel 8. Impaired fasting glucose This is a chronic medical condition that is stable since last assessment. Will continue to monitor with routine labs. - Comprehensive metabolic panel - Hemoglobin A1c 9. Pure hypercholesterolemia This is a chronic medical condition that is stable since last assessment. Will continue to monitor with routine labs. - Comprehensive metabolic panel - Lipid panel 10. Osteoarthritis of spine with radiculopathy, lumbar region This is a chronic medical condition that is stable since last assessment. No changes in treatment are suggested at this time. OTC NSAID prn. 11. Primary insomnia This is a chronic medical condition that is stable since last assessment. No changes in treatment are suggested at this time. Refill provided on Ambien. OARRS report generated and reviewed. - zolpidem (Ambien) 10 MG tablet; Take 1 tablet (10 mg) by mouth as needed at bedtime for sleep Dispense: 30 tablet; Refill: 2 12. Vertigo Refill provided on Meclizine for pt to use as needed. Continue exercises at home as needed. - meclizine (Antivert) 25 MG tablet; Take 1 tablet (25 mg) by mouth 2 (two) times a day as needed for dizziness Dispense: 60 tablet; Refill: 2 13. Hiatal hernia This is a chronic medical condition that is stable since last assessment. No changes in treatment are suggested at this time. Continue Pepcid as prescribed. 14. Arteriosclerosis of abdominal aorta This is a chronic medical condition that is stable since last assessment. Will continue to work on minimizing risk factors. 15. Osteopenia of multiple sites This is a chronic medical condition that is stable since last assessment. No changes in treatment are suggested at this time. Will continue to monitor with routine DEXA scans. 16. Body mass index (BMI) 38.0-38.9, adult Encouraged portion control, decrease simple sugars and carbohydrates, gradually increase activity level. Aim for gradual steady weight loss. 17. Morbid (severe) obesity due to excess calories ([facility]) Encouraged portion control, decrease simple sugars and carbohydrates, gradually increase activity level. Aim for gradual steady weight loss. 18. Recurrent cold sores This is a chronic medical condition that is stable since last assessment. No changes in treatment are suggested at this time. Continue Valacyclovir prn. 19. Seasonal allergic rhinitis due to pollen This is a chronic medical condition that is stable since last assessment. No changes in treatment are suggested at this time. Continue Flonase as needed. 20. Ex-smoker The patient was counseled on the importance of maintaining cigarette smoking abstinence. The patient continues to refrain from smoking and is committed to avoiding tobacco use. 21. Sciatica, unspecified laterality This is a chronic medical condition that is stable since last assessment. Will continue to monitor,no concerns today. Follow up in about 6 months (around 10/22/2025) for Medication Follow Up, Televisit. Eve MERCADO, PAChaimC documented in this encounter Plan of Treatment Upcoming Encounters Date Type Department Care Team (Late st Contact Info) Description 05/08/2025 11:10 AM EDT Office Visit [facility] [address] [place] [phone] Buddy Rose DPM [address] [address] 07/28/2025 10:30 AM EST [facility]medicine [facility] [place] [facility] [address] [facility] [address] [place] [phone] Eve العراقي PA 112 [facility] [address] [place] [address] Scheduled Orders Name Type Priority Associated Diagnoses Orde r Schedule Bilateral screening mammogram with tomosynthesis Imaging Routine Encounter for screening mammogram for malignant neoplasm of breast Expected: 05/07/2025, Expires: 06/24/2026 DEXA bone density Imaging Routine Estrogen deficiency Expected: 04/24/2025, Expires: 04/24/2026 documented as of this encounter Procedures Procedure Name Priority Date/Time Associated Diagnosis Comments CBC (INCLUDES DIFF/PLT) Routine 04/24/2025 10:00 AM EDT Medicare annual wellness visit, subsequent Benign hypertension HEMOGLOBIN A1C Routine 04/24/2025 10:00 AM EDT Medicare annual wellness visit, subsequent Impaired fasting glucose LIPID PANEL Routine 04/24/2025 10:00 AM EDT Medicare annual wellness visit, subsequent Benign hypertension Pure hypercholesterolemia COMPREHENSIVE METABOLIC PANEL Routine 04/24/2025 10:00 AM EDT Medicare annual wellness visit, subsequent Benign hypertension Other cirrhosis of liver (HCC) Chronic hepatitis C without hepatic coma (HCC) Impaired fasting glucose Pure hypercholesterolemia documented in this encounter Results * (ABNORMAL) Hemoglobin A1c (04/24/2025 10:00 AM EDT) Hemoglobin A1C 5.9(H) <5.7 % [facility] Comment: For someone without known diabetes, a hemoglobin A1c value between 5.7% and 6.4% is consistent with prediabetes and should be confirmed with a follow-up test. For someone with known diabetes, a value <7% indicates that their diabetes is well controlled. A1c targets should be individualized based on duration of diabetes, age, comorbid conditions, and other considerations. This assay result is consistent with an increased risk of diabetes. Currently, no consensus exists regarding use of hemoglobin A1c for diagnosis of diabetes for children. Blood Venous blood specimen / Unknown 04/24/2025 10:00 AM EDT 04/24/2025 10:00 AM EDT Narrative [facility] - 04/25/2025 4:06 AM EDT FASTING:YES FASTING: YES Resulting Agency Comment Performing Organization Information Site ID: QPT Name: [facility] Address: [address] [place] [address], [address] [place] [phone] Director: Ronny Heart MD us Eve MARK LAB BLOOD ORDERABLES Final Res ult [facility] * (ABNORMAL) Lipid panel (04/24/2025 10:00 AM EDT) CHOLESTEROL, TOTAL 255(H) <200 mg/dL [facility] HDL CHOLESTEROL 82 > OR = 50 mg/dL [facility] TRIGLYCERIDES 73 <150 mg/dL [facility] LDL CHOLESTEROL 156(H) mg/dL (calc) [facility] Comment: Reference range: <100 Desirable range <100 mg/dL for primary prevention; <70 mg/dL for patients with CHD or diabetic patients with > or = 2 CHD risk factors. LDL-C is now calculated using the Dimitri-Lowe calculation, which is a validated novel method providing better accuracy than the Friedewald equation in the estimation of LDL-C. Dimitri SS et al. JACKIE. 2013;310(19): 7363-9191 (http://education.[employer].Oja.la/faq/QKE226) CHOL/HDLC RATIO 3.1 <5.0 (calc) [facility] NON HDL CHOLESTEROL 173(H) <130 mg/dL (calc) [facility] Comment: For patients with diabetes plus 1 major ASCVD risk factor, treating to a non-HDL-C goal of <100 mg/dL (LDL-C of <70 mg/dL) is considered a therapeutic option. Blood Venous blood specimen / Unknown 04/24/2025 10:00 AM EDT 04/24/2025 10:00 AM EDT Narrative [facility] - 04/25/2025 4:06 AM EDT FASTING:YES FASTING: YES Resulting Agency Comment Performing Organization Information Site ID: QPT Name: [facility] Address: [address] [place] [address], [address] [place] [address] Director: Ronny Heart MD us Eve MARK LAB BLOOD ORDERABLES Final Res ult [facility] * (ABNORMAL) Comprehensive metabolic panel (04/24/2025 10:00 AM EDT) Glucose 119(H) 65 - 99 mg/dL [facility] Comment: Fasting reference interval For someone without known diabetes, a glucose value between 100 and 125 mg/dL is consistent with prediabetes and should be confirmed with a follow-up test. BUN 16 7 - 25 mg/dL [facility] Creatinine 0.62 0.60 - 1.00 mg/dL [facility] EGFR 95 > OR = 60 mL/min/1. 73m2 [facility] BUN/CREATININE RATIO SEE NOTE: 6 - 22 (calc) [facility] Comment: Not Reported: BUN and Creatinine are within reference range. Sodium 140 135 - 146 mmol/L [facility] Potassium, Bld 4.1 3.5 - 5.3 mmol/L [facility] Chloride 105 98 - 110 mmol/L [facility] Carbon Dioxide 24 20 - 32 mmol/L [facility] Calcium 9.9 8.6 - 10.4 mg/dL [facility] PROTEIN, TOTAL 7.7 6.1 - 8.1 g/dL [facility] ALBUMIN 5.0 3.6 - 5.1 g/dL [facility] GLOBULIN 2.7 1.9 - 3.7 g/dL (calc) [facility] ALBUMIN/GLOBULIN RATIO 1.9 1.0 - 2.5 (calc) [facility] BILIRUBIN, TOTAL 0.5 0.2 - 1.2 mg/dL [facility] ALKALINE PHOSPHATASE 61 37 - 153 U/L [facility] AST 16 10 - 35 U/L [facility] ALT 17 6 - 29 U/L [facility] Blood Venous blood specimen / Unknown 04/24/2025 10:00 AM EDT 04/24/2025 10:00 AM EDT Narrative [facility] - 04/25/2025 4:06 AM EDT FASTING:YES FASTING: YES Resulting Agency Comment Performing Organization Information Site ID: QPT Name: [facility] Address: [address] [place] [address], [address] [place] [address] Director: Ronny Heart MD us Eve MARK LAB BLOOD ORDERABLES Final Res ult [facility] * (ABNORMAL) CBC and differential (04/24/2025 10:00 AM EDT) WHITE BLOOD CELL COUNT 6.7 3.8 - 10.8 Thousand/u L [facility] RED BLOOD CELL COUNT 4.86 3.80 - 5.10 Million/uL [facility] HEMOGLOBIN 15.0 11.7 - 15.5 g/dL [facility] HEMATOCRIT 45.2(H) 35.0 - 45.0 % [facility] MCV 93.0 80.0 - 100.0 fL [facility] MCH 30.9 27.0 - 33.0 pg [facility] MCHC 33.2 32.0 - 36.0 g/dL [facility] Comment: For adults, a slight decrease in the calculated MCHC value (in the range of 30 to 32 g/dL) is most likely not clinically significant; however, it should be interpreted with caution in correlation with other red cell parameters and the patient's clinical condition. RDW 13.0 11.0 - 15.0 % [facility] PLATELET COUNT 309 140 - 400 Thousand/u L [facility] MPV 10.1 7.5 - 12.5 fL [facility] ABSOLUTE NEUTROPHILS 4,878 1,500 - 7,800 cells/uL [facility] ABSOLUTE LYMPHOCYTES 1,621 850 - 3,900 cells/uL [facility] ABSOLUTE MONOCYTES 181(L) 200 - 950 cells/uL [facility] ABSOLUTE EOSINOPHILS 0(L) 15 - 500 cells/uL [facility] ABSOLUTE BASOPHILS 20 0 - 200 cells/uL [facility] NEUTROPHILS 72.8 % [facility] LYMPHOCYTES 24.2 % [facility] MONOCYTES 2.7 % [facility] EOSINOPHILS 0.0 % [facility] BASOPHILS 0.3 % [facility] Blood Venous blood specimen / Unknown 04/24/2025 10:00 AM EDT 04/24/2025 10:00 AM EDT Narrative [facility] - 04/25/2025 4:06 AM EDT FASTING:YES FASTING: YES Resulting Agency Comment Performing Organization Information Site ID: QPT Name: [facility] Address: [address] [place] [phone] Director: Ronny Heart MD us Eve MARK LAB BLOOD ORDERABLES Final Res ult [facility] documented in this encounter Visit Diagnoses Diagnosis Medicare annual wellness visit, subsequent- Primary ACP (advance care planning) Other specified counseling Encounter for screening mammogram for malignant neoplasm of breast Estrogen deficiency Other ovarian failure Benign hypertension Essential hypertension, benign Other cirrhosis of liver (HCC) Chronic hepatitis C without hepatic coma (HCC) Impaired fasting glucose Pure hypercholesterolemia Pure hypercholesterolemia Osteoarthritis of spine with radiculopathy, lumbar region Primary insomnia Persistent disorder of initiating or maintaining sleep Vertigo Dizziness and giddiness Hiatal hernia Diaphragmatic hernia without mention of obstruction or gangrene Arteriosclerosis of abdominal aorta Osteopenia of multiple sites Body mass index (BMI) 38.0-38.9, adult Morbid (severe) obesity due to excess calories (CMS-HCC) Recurrent cold sores Herpes simplex without mention of complication Seasonal allergic rhinitis due to pollen Ex-smoker Personal history of tobacco use, presenting hazards to health Sciatica, unspecified laterality Plantar fasciitis- Primary Plantar fascial fibromatosis Contracture of left ankle Contracture of right ankle documented in this encounter Additional Health Concerns Assessment Noted Time PHQ-9 Depression Total Score: 0 04/24/20 25 9:00 AM EDT documented as of this encounter Care Teams Inventory Associate And Driver Relationship Specialty Start Date End Date [place]ia MD [address] [place] [address] PCP - General Internal Medicine 12/26/22 documented as of this encounter
--- OUTSIDE RECORDS SUMMARY | 2025-05-07 10:52 | XMS_ITS | Encounter Summary ---
Author Organization [facility] Address [address] [place] [address] Care Team Providers Care Cigar Brander Name Role Phone Walt Tapia MD Primary Care Provider [phone] Encounter Details Date Type Department Care Team ([facility] st Contact Info) Description 04/23/2025 Bamboo flowsheet [facility] [address] [facility] [address] [place] [address] Buddy Rose, DPTroy 3006 [facility] 5 [place] [address] Social History Tobacco Use Types Packs/Day [...] often do you attend chur ch or scientology services? Patient declined 07/23/2024 Do you belong [...] any time in the past 12 m [facility], were you homeless or living in a alf (including now)? No 07/23/2024 Comments Unknown Sex and Gender Information Value Date Recorded Sex Assigned at Not on file Legal Sex Female 6:48 PM EDT Gender Identity Not on file Sexual Orientation Not on file documented as of this encounter Plan of Treatment Upcoming Encounters Date Type Department Care Team ([facility] st Contact Info) Description 05/08/2025 11:10 AM EDT Office Visit [facility] [address] [place] [address] Buddy Rose DPM 3006 [facility] [place] [address] [place] [address] 07/28/2025 10:30 AM EST Telemedicine [facility] [place] [address] [facility] 110 [place] [address] Eve العراقي PA 112 [facility] 110 [place], [place] [id number] documented as of this encounter Visit Diagnoses Not on filedocumented in this encounter Additional Health Concerns Assessment Noted Time PHQ-9 Depression Total Score: 0 04/07/20 24 9:00 AM EDT documented as of this encounter Care Teams Cigar Brander Relationship Specialty Start Date End Date Walt Tapia MD [address] [facility] 110 [place] [address] PCP - General Internal Medicine 12/26/22 documented as of this encounter
--- OUTSIDE RECORDS SUMMARY | 2025-05-07 10:52 | XMS_ITS | Encounter Summary ---
Author Organization [facility] Address [address] [place] [address] Care Team Providers Care Editor Trade Journal Name Role Phone Walt Tapia MD Unavailable [phone] Walt Tapia MD Primary Care Provider [phone] Walt Tapia MD Unavailable [phone] Walt Tapia MD Unavailable [phone] Encounter Details Date Type Department Care Team (Late Contact Info) Description 05/28/2023 Abstract [facility] [address] [facility] 110 [place] [address] Walt Tapia MD 112 [facility] 110 [place] [address] Social History Tobacco Use Types Packs/Day Years [...] Department Care Team (Late Contact Info) Description 05/08/2025 11:10 AM EDT Office Visit [facility] [address] [place] [address] Buddy Rose DPM 3006 [facility] 5 [place] [address] 07/28/2025 10:30 AM EST Telemedicine [facility] [place] [address] [place] [address] [place] [address] Eve العراقي PA [address] [place] [address] [place] [address] documented as of this encounter Visit Diagnoses Not on filedocumented in this encounter Care Teams Editor Trade Journal Relationship Specialty Start Date End Date Walt Tapia MD [address] [place] [address] [place] [address] PCP - ACO Reach 01/11/23 10/18/23 Walt Tapia MD [address] [place] [address] [place] [address] PCP - General Internal Medicine 12/26/22 Walt Tapia MD [address] [place] [address] [place] [address] PCP - ACO Reach 12/19/23 09/25/24 Walt Tapia MD [address] [place] [address] [place] [address] PCP - ACO Reach 10/03/24 11/20/24 documented as of this encounter
--- OUTSIDE RECORDS SUMMARY | 2025-05-07 10:52 | XMS_ITS | Encounter Summary ---
Author Organization [facility] Address [address] [place] [address] Care Team Providers Care Image Archivist Name Role Phone Walt Tapia MD Primary Care Provider [phone] Encounter Details Date Type Department Care Team (Latest Contact Info) Description 04/23/2025 Travel Social History Tobacco Use Types Packs/Day Years [...] How often do you attend chur or spiritism services? Patient declined 07/23/2024 Do you belong [...] any time in the past 12 m [facility], were you homeless or living in a detention (including now)? No 07/23/2024 Comments Unknown Sex and Gender Information Value Date Recorded Sex Assigned at Not on file Legal Sex Female 6:48 PM EDT Gender Identity Not on file Sexual Orientation Not on file documented as of this encounter Plan of Treatment Upcoming Encounters Date Type Department Care Team ([facility] st Contact Info) Description 05/08/2025 11:10 AM EDT Office Visit [facility] [address] [place] [phone] Buddy Rose DPM [address] [facility] 5 [place] [address] 07/28/2025 10:30 AM EST Telemedicine [facility] [place] [facility] [address] [facility] 110 [place] [phone] Eve العراقي PA 112 [facility] 110 [place] [address] documented as of this encounter Visit Diagnoses Not on filedocumented in this encounter Additional Health Concerns Assessment Noted Time PHQ-9 Depression Total Score: 0 04/07/20 24 9:00 AM EDT documented as of this encounter Care Teams Image Archivist Relationship Specialty Start Date End Date Walt Tapia MD 112 [facility] 110 [place] [address] PCP - General Internal Medicine 12/26/22 documented as of this encounter
--- OUTSIDE RECORDS SUMMARY | 2025-05-07 10:52 | XMS_ITS | Clinical Summary ---
Author Organization [facility] Address [id number] [address] [place] [address] Care Team Providers Care Registered Dental Assistant Name Role Phone Walt Tapia MD Primary Care Provider [phone] Allergies Active Allergy Reactions Criticality Noted Date [...] file Medical Devices Not on file Insurance [facility] MEDICARE Care Teams Registered Dental Assistant Relationship Specialty Start Date End Date Walt Tapia MD 112 [facility] 110 [place] [address] PCP - General Internal Medicine 10/29/18
--- OUTSIDE RECORDS SUMMARY | 2025-05-07 10:52 | XMS_ITS | Encounter Summary ---
Author Organization [facility] Address [address] [place] [address] Care Team Providers Care Silvering Department Supervisor Name Role Phone Walt Tapia MD Primary Care Provider [phone] Encounter Details Date Type Department Care Team (Late st Contact Info) Description 01/26/2025 Abstract [facility] [place] [facility] [address] [facility] [facility] 110 [place] [phone] Walt Tapia MD 112 [facility] 110 [place], [place] [id number] Social History Tobacco Use Types Packs/Day Years [...] often do you attend chur ch or pentecostalism services? Patient declined 07/23/2024 Do you belong to any clubs o r organizations such as judaism groups, unions, fraternal or athletic groups, or [...] any time in the past 12 m [facility], were you homeless or living in a residential (including now)? No 07/23/2024 Comments Unknown Sex and Gender Information Value Date Recorded Sex Assigned at Not on file Legal Sex Female 6:48 PM EDT Gender Identity Not on file Sexual Orientation Not on file documented as of this encounter Plan of Treatment Upcoming Encounters Date Type Department Care Team ([facility] st Contact Info) Description 05/08/2025 11:10 AM EDT Office Visit [facility] [address] [place] [address] Buddy Rose DPM 3006 [facility] [place] [address] [place] [address] 07/28/2025 10:30 AM EST Telemedicine [facility] [place] [address] [facility] 110 [place] [phone] Eve العراقي PA 112 [facility] [address] [place] [address] documented as of this encounter Visit Diagnoses Not on filedocumented in this encounter Additional Health Concerns Assessment Noted Time PHQ-9 Depression Total Score: 0 04/07/20 24 9:00 AM EDT documented as of this encounter Care Teams Silvering Department Supervisor Relationship Specialty Start Date End Date Walt Tapia MD [address] [facility] [address] [place] [address] PCP - General Internal Medicine 12/26/22 documented as of this encounter
--- OUTSIDE RECORDS SUMMARY | 2025-05-07 10:52 | XMS_ITS | Clinical Summary ---
Author Organization [facility] Address [address] [place] [address] Care Team Providers Care Phonograph Mechanic Name Role Phone Walt Tapia MD Primary Care Provider [phone] Allergies Active Allergy Reactions Criticality Noted Date Comments Atorvastatin Headache Low 07/08/2024 Joint Pain Cefdinir Diarrhea 03/29/2023 Celecoxib 03/29/2023 Other Reaction(s): swelling/hives Tetracycline Rash Low 04/25/2024 Medications famotidine (Pepcid) 20 MG tablet Take 20 mg by mouth in the morning and 20 mg in the evening. Active fluticasone (Flonase) 50 MCG/ACT nasal sprayIndications:Allerg ic rhinitis, unspecified seasonality, unspecified trigger USE 1 SPRAY(S) IN EACH NOSTRIL ONCE DAILY NEEDED 16 g 2 05/30/20 23 Active hydrocortisone 2.5 % cream 12/29/19 24 Active ketoconazole (NIZOral) 2 % cream 12/29/19 24 Active cholecalciferol (EQL Vitamin D3) 50 MCG (1999) capsuleIndications:Lola min D deficiency Take 1 capsule (50 mcg) by mouth Daily 90 capsule 3 04/17/20 24 Active valACYclovir (Valtrex) 1 g tabletIndications:Recur rent cold sores Take 2 tablets (2,000 mg) by mouth in the morning and 2 tablets (2,000 mg) before bedtime. 4 tablet 3 03/05/20 25 Active zolpidem (Ambien) 10 MG tabletIndications:Prima ry insomnia Take 1 tablet (10 mg) by mouth as needed at bedtime for sleep 30 tablet 2 04/24/20 25 2025 Active meclizine (Antivert) 25 MG tabletIndications:Verti go Take 1 tablet (25 mg) by mouth 2 (two) times a day as needed for dizziness 60 tablet 2 04/24/20 Active rosuvastatin (Crestor) 10 MG tabletIndications:Pure hypercholesterolemia Take 1 tablet (10 mg) by mouth Daily 30 tablet 1 04/28/20 25 2025 Active zolpidem (Ambien) 10 MG tabletIndications:Prima ry insomnia Take 1 tablet (10 mg) by mouth as needed at bedtime for sleep 30 tablet 2 02/07/20 25 2024 Disconti nued(Reo rder) diazePAM (Valium) 10 MG tablet Take 10 mg by mouth as needed at bedtime for anxiety 04/09/202024 Disconti nued(The rapy complete d) meclizine (Antivert) 25 MG tablet Take by mouth in the morning and before bedtime. 04/07/202024 Disconti nued(Reo rder) Active Problems Problem Noted Date Diagnosed Date Eosinopenia 04/27/2025 Morbid (severe) obesity due to excess calories [...] Encounters Date Type Department Care Team Description 04/28/2025 Abstract [facility] [address] [place] [address] Walt Tapia MD 04/27/2025 Telephone [facility] [address] [place] [address] Eve Dougherty PA 04/24/2025 9:30 AM EDT Office Visit [facility] [address] [place] [address] Eve Dougherty PA Medicare annual wellness visit, subsequent (Primary Dx); [...] Morbid (severe) obesity due to excess calories ([facility]); Recurrent cold sores; Seasonal allergic rhinitis due to pollen; Ex-smoker; Sciatica, unspecified laterality 04/24/2025 Travel 04/23/2025 4:20 PM EDT Clinical Support [facility] [address] [facility] [address] [place] [address] Buddy Rose DPM Plantar fasciitis (Primary Dx); Contracture of left ankle; Contracture of right ankle 04/23/2025 Bamboo flowsheet [facility] [address] [facility] [address] [place] [address] Buddy Rose DPM 04/23/2025 Travel 04/02/2025 Clinisync Result Encounter [facility] External Department Unsolicited Provider, Generic External Data 03/27/2025 2:50 PM EDT Office Visit [facility] [address] [place] [phone] Buddy Rose DPM Plantar fasciitis (Primary Dx); Contracture of left ankle 03/27/2025 Bamboo flowsheet [facility] [address] [place] [address] Buddy Rose DPM 03/18/2025 Orders Only [facility] [address] [facility] [address] [place] [address] Tana Lopez LPN Encounter for screening mammogram for malignant neoplasm of breast 03/06/2025 Abstract [facility] [address] [facility] [address] [place] [address] Walt Tapia MD 03/05/2025 11:00 AM EDT Office Visit [facility] [address] [facility] [address] [place] [address] Eve Dougherty PA Dysuria (Primary Dx); Recurrent cold sores; Acute cystitis with hematuria; Benign hypertension ; Morbid (severe) obesity due to excess calories ([facility]); Body mass index (BMI) 38.0-38.9, adult 03/05/2025 External Result Encounter [facility] External Department Unsolicited Eve Dougherty PA 03/05/2025 Travel 02/05/2025 1:30 PM EDT Office Visit [facility] [address] [facility] [address] [place] [address] Peggy Dejesus, REPLACER Body mass index (BMI) 38.0-38.9, adult (Primary Dx); Insomnia, unspecified type; Morbid (severe) obesity due to excess calories (CMS-HCC); Chronic viral hepatitis C (HCC); Chronic hepatitis, unspecified (HCC); Unspecified cirrhosis of liver (HCC); Pure hypercholesterolemia, unspecified ; 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 Patient declined 07/23/2024 Do you belong to any clubs o r organizations such as jewish groups, unions, fraternal or athletic groups, or [...] were you homeless or living in a retirement (including now)? No 07/23/2024 Comments Unknown Sex and Gender Information Value Date Recorded Sex Assigned at Not on file Legal Sex Female 6:48 PM EDT Gender Identity Not on file Sexual Orientation Not on file Last Filed Vital Signs Vital Sign Reading Time Taken Comments Blood Pressure 122/86 04/24/2025 9:39 AM EDT Pulse 91 04/24/2025 9:39 AM EDT Temperature 37.2 C (99 F) 01/31/2024 10:13 AM EDT Respiratory Rate 16 04/24/2025 9:39 AM EDT Oxygen Saturation 97% 04/24/2025 9:39 AM EDT Inhaled Oxygen Concentration - - Weight 106 kg (233 lb 6.4 oz) 04/24/2025 9:39 AM EDT Height 165.1 cm (5' 5 ) 04/24/2025 9:39 AM EDT Body Mass Index 38.84 04/24/2025 9:39 AM EDT Plan of Treatment Upcoming Encounters Date Type Department Care Team (Late st Contact Info) Description 05/08/2025 11:10 AM EDT Office Visit [facility] [address] [place] [address] Buddy Rose DPM [address] [facility] [address] [place] [address] 07/28/2025 10:30 AM EST Telemedicine [facility] [address] [facility] [address] [place] [address] Eve Dougherty PA [address] [facility] [address] [place] [address] Health Maintenance Due Date Last Done Comments CT Colonography 1955 Colonoscopy 1955 FIT 1955 FOBT 1955 Sigmoidoscopy 1955 Mammogram 05/05/2025 05/05/2024, 04/20, 04/13/2022, Additional history exists Medicare Annual Wellness (AWV) 04/24/2026 0 04/24/2025, 04/07/2024, 04/05/2023, Additional history exists Colorectal Cancer Screening 04/17/2027 FIT-DNA 04/17/2027 04/17/2024, 0908/2020, 04/20/2021, Additional history exists Pneumococcal Vaccine: 65+ Years Completed 05/15/2019, 11/21/2017, 05/16/2016 Influenza Vaccine Completed 04/29/2025, , 05/18/2023, Additional history exists Procedures Procedure Name Priority Date/Time Associated Diagnosis Comments HEMOGLOBIN A1C Routine 04/24/2025 10:00 AM EDT Medicare annual wellness visit, subsequent Impaired fasting glucose LIPID PANEL Routine 04/24/2025 10:00 AM EDT Medicare annual wellness visit, subsequent Benign hypertension Pure hypercholesterolemia COMPREHENSIVE METABOLIC PANEL Routine 04/24/2025 10:00 AM EDT Medicare annual wellness visit, subsequent Benign hypertension Other cirrhosis of liver (HCC) Chronic hepatitis C without hepatic coma (HCC) Impaired fasting glucose Pure hypercholesterolemia CBC (INCLUDES DIFF/PLT) Routine 04/24/2025 10:00 AM EDT Medicare annual wellness visit, subsequent Benign hypertension XR LUMBAR SPINE 6V W BENDING 04/02/2025 10:45 AM EDT POCT URINALYSIS DIPSTICK Routine 03/05/2025 11:07 AM EDT Dysuria URINARY TRACT INFECTION (HTRX) Routine 03/05/2025 12:01 AM EDT MM TOMOSYNTHESIS SCREENING BI 05/05/2024 11:03 AM EDT LAB COLOGUARD COLON CANCER SCREEN Routine 04/17/2024 9:30 AM EDT Encounter for screening for malignant neoplasm of colon from Last 3 Months or Most Recently Relevant to Health Maintenance Results * (ABNORMAL) CBC and differential (04/24/2025 10:00 [...] Performing Organization Information Site ID: QPT Name: [employer] [facility] Address: [address] [place] [phone] Director: Ronny Heart MD Eve MARK LAB BLOOD ORDERABLES Final Res ult QUEST * (ABNORMAL) Hemoglobin A1c (04/24/2025 10:00 AM [...] Performing Organization Information Site ID: QPT Name: [employer] [facility] Address: [address] [place] [address], [address] [place] [phone] Director: Ronny Heart MD us Eve MARK [...] factors. LDL-C is now calculated using the Dimitri-Chrissy calculation, which is a validated novel method providing better accuracy than the Friedewald equation in the estimation of LDL-C. Dimitri SS et al. JACKIE. 2013;310(19): 9171-1754 (http://education.[employer].com/faq/PQJ421) CHOL/HDLC RATIO 3.1 <5.0 (calc) QUEST NON [...] Performing Organization Information Site ID: QPT Name: [employer] [facility] Address: [address] [place] [address] Director: Ronny Heart MD us Eve MARK LAB BLOOD ORDERABLES Final Res ult QUEST * (ABNORMAL) Comprehensive metabolic panel (04/24/2025 10:00 AM EDT) [facility] Glucose 119(H) 65 - 99 mg/dL QUEST [...] Performing Organization Information Site ID: QPT Name: [employer] [facility] Address: [address] [place] [address], [address] [place] [address] Director: Ronny Heart MD Eve MARK LAB BLOOD ORDERABLES Final Res ult QUEST * XR LUMBAR SPINE 6V W BENDING (04/02/2025 10:45 AM EDT) Anatomical Region Laterality Modality Other 04/02/2025 10:4 5 AM EDT Narrative 04/02/2025 10:48 AM EDT [place] [id number] XRay Report Signed Patient: SUMAN RODAS MR#: [id number] : 1955 Acct:[id number] Age/Sex: 70 / F ADM Date: 04/02/25 Loc: RAD Attending Dr: Rosanna Martinez REPLACER Ordering Physician: Rosanna Martinez NP Date of Service: 04/02/25 Procedure(s): XR lumbar spine 6V w bending Accession Number(s): [id number] cc: WALT TAPIA ; Rosanna Martinez NP [address] [address] Patient Name: SUMAN RODAS MRN: [id number] date: 1955 Sex: F Assigned Patient Location: PM Current Patient Location: PM Accession/Order Number: [id number] Exam Date: 04/02/2025 10:44 Report Date: 04/02/2025 [...] PROCESS. Impression dictated by: Manoj Rojas Jr., D.OVannessa 04/02/2025 10:45 AM Dictation Location: RADIO-PC-23 Electronically authenticated by: [id number] Y Date: 04/02/2025 10:45 Dictated By: Manoj Rojas M.D. Signed By: 04/02/258 DD/ 44 TD/TT: Paper Sample Clerk: Procedure Note Radiology, Radiologist, - 04/02/2025 [place] [address] XRay Report Signed Patient: SUMAN RODAS SMR#: [id number] : 1955cct:[id number] Age/Sex: 70 / FADM Date: 04/02/25 Loc: RAD Attending Dr: Rosanna Martinez NP Ordering Physician: Rosanna Martinez NP Date of Service: 04/02/25 Procedure(s): XR lumbar spine 6V w bending Accession Number(s): [id number] cc: WALT TAPIA ; Rosanna Martinez NP The [place] [id number] Patient Name: SUMAN RODAS MRN: [id number] date: 1955 Sex: F Assigned Patient Location: PM Current Patient Location: PM Accession/Order Number: [id number] Exam Date: 04/02/2025 10:44 Report Date: 04/02/2025 [...] PROCESS. Impression dictated by: Manoj Rojas Jr., D.OVannessa 04/02/2025 10:45 AM Dictation Location: [facility]-23 Electronically authenticated by: [id number] Y Date: 0:45 Dictated By: Manoj Rojas M.D. Signed By:04/02/25 1048 DD/ 1045 TD/TT: Paper Sample Clerk: Generic External Data Provider [facility] Final Result * (ABNORMAL) POCT urinalysis dipstick manually resulted (03/05/2025 11:07 AM EDT) Pathologist [facility] Glucose, UA Negative Negative - 2000(110) ++++ [...] TRACT INFECTION (HTRX) (03/05/2025 12:01 AM EDT) [facility] ACINETOBACTER BAUMANII 0 19.961 - 24.689 ppm 03/06/2025 9:06 AM EDT [facility] ACINETOBACTER BAUMANII Not Detected 19.961 - 24.689 ppm 03/06/2025 9:06 AM EDT [facility] CITROBACTER FREUNDII 0 23.000 - 32.015 ppm 03/06/2025 9:06 AM EDT [facility] CITROBACTER FREUNDII Not Detected 23.000 - 32.015 ppm 03/06/2025 9:06 AM EDT [facility] ENTEROBACTER AEROGENES, CLOACAE 0 23.000 - 32.290 ppm 03/06/2025 9:06 AM EDT [facility] ENTEROBACTER AEROGENES, CLOACAE Not Detected 23.000 - 32.290 ppm 03/06/2025 9:06 AM EDT [facility] ENTEROCOCCUS FAECALIS, FAECIUM 0 26.000 - 33.043 ppm 03/06/2025 9:06 AM EDT [facility] ENTEROCOCCUS FAECALIS, FAECIUM Not Detected 26.000 - 33.043 ppm 03/06/2025 9:06 AM EDT [facility] ESCHERICHIA COLI 27.224(A) 23.000 - 28.500 ppm 03/06/2025 9:06 AM EDT [facility] ESCHERICHIA COLI Detected(A) 23.000 - 28.500 ppm 03/06/2025 9:06 AM EDT [facility] KLEBSIELLA PNEUMONIAE, OXYTOCA 0 23.000 - 31.865 ppm 03/06/2025 9:06 AM EDT [facility] KLEBSIELLA PNEUMONIAE, OXYTOCA Not Detected 23.000 - 31.865 ppm 03/06/2025 9:06 AM EDT [facility] MORGANELLA MORGANII 0 19.961 - 24.689 ppm 03/06/2025 9:06 AM EDT [facility] MORGANELLA MORGANII Not Detected 19.961 - 24.689 ppm 03/06/2025 9:06 AM EDT [facility] PROTEUS MIRABILIS, VULGARIS 0 23.000 - 28.500 ppm 03/06/2025 9:06 AM EDT [facility] PROTEUS MIRABILIS, VULGARIS Not Detected 23.000 - 28.500 ppm 03/06/2025 9:06 AM EDT [facility] PSEUDOMONAS AERUGINOSA 0 23.000 - 31.801 ppm 03/06/2025 9:06 AM EDT [facility] PSEUDOMONAS AERUGINOSA Not Detected 23.000 - 31.801 ppm 03/06/2025 9:06 AM EDT [facility] STAPHYLOCOCCUS AUREUS 0 26.000 - 31.595 ppm 03/06/2025 9:06 AM EDT [facility] STAPHYLOCOCCUS AUREUS Not Detected 26.000 - 31.595 ppm 03/06/2025 9:06 AM EDT [facility] STREPTOCOCCUS AGALACTIAE (GROUP B STREP) 0 26.000 - 32.435 ppm 03/06/2025 9:06 AM EDT [facility] STREPTOCOCCUS AGALACTIAE (GROUP B STREP) Not Detected 26.000 - 32.435 ppm 03/06/2025 9:06 AM EDT [facility] MANDY ALBICANS, PARAPSILOSIS, TROPICALIS 0 23.000 - 30.347 ppm 03/06/2025 9:06 AM EDT [facility] MANDY ALBICANS, PARAPSILOSIS, TROPICALIS Not Detected 23.000 - 30.347 ppm 03/06/2025 9:06 AM EDT [facility] MANDY GLABRATA 0 23.000 - 31.618 ppm 03/06/2025 9:06 AM EDT [facility] MANDY GLABRATA Not Detected 23.000 - 31.618 ppm 03/06/2025 9:06 AM EDT [facility] MANDY KRUSEI 0 23.000 - 30.873 ppm 03/06/2025 9:06 AM EDT [facility] MANDY KRUSEI Not Detected 23.000 - 30.873 ppm 03/06/2025 9:06 AM EDT [facility] SERRATIA MARCESCENS 0 23.000 - 31.581 ppm 03/06/2025 9:06 AM EDT [facility] SERRATIA MARCESCENS Not Detected 23.000 - 31.581 ppm 03/06/2025 9:06 AM EDT [facility] STREPTOCOCCUS PYOGENES (GROUP A STREP) 0 19.961 - 24.689 ppm 03/06/2025 9:06 AM EDT [facility] STREPTOCOCCUS PYOGENES (GROUP A STREP) Not Detected 19.961 - 24.689 ppm 03/06/2025 9:06 AM EDT [facility] STAPHYLOCOCCUS EPIDERMIDIS, HAEMOLYTICUS, LUGDUNENSIS, SAPROPHYTICUS (URINA 0 19.961 - 24.689 ppm 03/06/2025 9:06 AM EDT [facility] STAPHYLOCOCCUS EPIDERMIDIS, HAEMOLYTICUS, LUGDUNENSIS, SAPROPHYTICUS (URINA Not Detected 19.961 - 24.689 ppm 03/06/2025 9:06 AM EDT [facility] STAPHYLOCOCCUS EPIDERMIDIS, HAEMOLYTICUS, LUGDUNENSIS, SAPROPHYTICUS (URINA 0 19.961 - 24.689 ppm 03/06/2025 9:06 AM EDT [facility] STAPHYLOCOCCUS EPIDERMIDIS, HAEMOLYTICUS, LUGDUNENSIS, SAPROPHYTICUS (URINA Not Detected 19.961 - 24.689 ppm 03/06/2025 9:06 AM EDT [facility] Urine 03/05/2025 12:0 1 AM EDT 03/06/2025 2:46 AM EDT Eve MARK LAB BLOOD ORDERABLES Final Res ult [facility] [address] [place] [address] * MM TOMOSYNTHESIS SCREENING BI (05/05/2024 11:03 AM EDT) Anatomical Region Laterality Modality Other 05/05/2024 11:0 3 AM EDT Narrative 05/05/2024 11:04 AM EDT [place] [id number] Mammography Report Signed Patient: SUMAN RODAS MR#: [id number] : 1955 Acct:[id number] Age/Sex: 69 / F ADM Date: 05/05/24 Loc: MAMMO Attending Dr: EVE DOUGHERTY Ordering Physician: EVE DOUGHERTY Results: Date of Service: 05/05/24 Follow Up: Procedure(s): MM tomosynthesis screening BI Accession Number(s): [id number] cc: WALT TAPIA ; EVE DOUGHERTY Patient Name: SUMAN RODAS MR#: [id number] : 1955 Exam Date: 05/05/2024 Ordering Doctor: [...] breast cancer at age 74. LOCATION: [facility] BREAST COMPOSITION: The breasts are almost [...] Signed By: 05/05/24 1104 DD/ 1103 TD/TT: Paper Sample Clerk: Procedure Note Radiology, RadiologistMD - 05/05/2024 [place] [address] Mammography Report Signed Patient: SUMAN RODAS SMR#: [id number] : 1955cct:[id number] Age/Sex: 69 / FADM Date: 05/05/24 Loc: MAMMO Attending Dr: EVE DOUGHERTY Ordering Physician: EVE DOUGHERTY MResults: Date of Service: 05/05/24Follow Up: Procedure(s): MM tomosynthesis screening BI Accession Number(s): [id number] cc: WALT TAPIA ; EVE DOUGHERTY Patient Name: SUMAN RODAS MR#: [id number] : 1955 Exam Date: 05/05/2024 Ordering Doctor: DR EVE MARK RADIOLOGY REPORT PROCEDURE: MM TOMOSYNTHESIS SCREENING BI COMPARISON: MM TOMOSYNTHESIS SCREENING BI, 05/04/2023. MG MAMM [id number] DAHIANA CAD, 04/13/2022. INDICATIONS: Screening Calculator Name NCI Breast Cancer Risk Assessment Tool 5 Year Breast Cancer Risk 2.40% Lifetime Breast Cancer Risk 6.90% Personal Breast Cancer No Personal Ovarian Cancer No Treatments None Family Cancers Aunt-paternal with breast cancer at age 75. LOCATION: [facility] BREAST COMPOSITION: The breasts are almost [...] M.D. Signed By:05/05/24 1104 DD/ 1103 TD/TT: Paper Sample Clerk: Eve MARK [facility] Final Result * Cologuard?? colon cancer screening (04/17/2024 9:30 AM EDT) NONINV COLON CA DNA+OCC BLD SCRN STL-IMP Negative Negative 04/24/2024 10:54 AM EDT [facility] (CLIA #:[id number]) Comment: NEGATIVE TEST RESULT. A negative Cologuard [...] screened with both Cologuard and colonoscopy. (Kamran Torres, N Engl J Med 2014;370(14):7167-6268) The normal value (reference range) for this assay is negative. COLOGUARD RE-SCREENING RECOMMENDATION: Periodic colorectal cancer screening is an important part of preventive healthcare for asymptomatic individuals at average risk for colorectal cancer. Following a negative Cologuard result, the [place] Cancer Society and U.S. Multi-Society Task Force screening guidelines recommend a Cologuard re-screening interval of 3 years. References: [place] [employer] Society Guideline for Colorectal Cancer Screening: https://www.cancer.org/cancer/vgslh-gnimhw-pmonhg/pibjcawow-hdcduwrlq-jonlxpx/ac s-rec ommendations.html.; José DK, Foreign CR, Rosy HogueK, Colorectal Cancer Screening: Recommendations for Physicians and Patients from the U.S. Multi-Society Task Force on Colorectal Cancer Screening , Am J Gastroenterology 2017; 112:6255-9990. TEST DESCRIPTION: Composite algorithmic analysis of stool [...] screened with both Cologuard and colonoscopy. (Kamran Torres, N Engl J Med 2014;370(14):9958-0882.) Cologuard may produce a false negative or false positive result (no colorectal cancer or precancerous polyp present at colonoscopy follow up). A negative Cologuard test result does not guarantee the absence of CRC or advanced adenoma (pre-cancer). The current Cologuard screening interval is every 3 years. ([place] [employer] Society and U.S. Multi-Society Task Force). Cologuard performance data in a 10,000 patient pivotal study using colonoscopy as the reference method can be accessed at the following location: www.[employer]/results. Additional description of the Cologuard test process, warnings and precautions can be found at www.cologuard.com. Stool specimen (specimen) 04/17/2024 9:30 AM EDT 04/18/2024 2:04 PM EDT Walt Tapia MD LAB MOLECULAR DIAGNOSTICS [facility] A ESTRADA Final Result [facility] (CLIA #:[id number]) [address] [place] [address], from Last 3 Months or Most Recently Relevant to Health Maintenance Insurance [facility] MEDICARE Care Teams Phonograph Mechanic Relationship Specialty Start Date End Date Walt Tapia MD [address] [place] [phone] PCP - General Internal Medicine 12/26/22
--- OUTSIDE RECORDS SUMMARY | 2025-05-07 10:52 | XMS_ITS | Encounter Summary ---
Author Organization [facility] Address [address] [place] [address] Care Team Providers Care Hydroelectric Plant Maintainer Name Role Phone Walt Tapia MD Primary Care Provider [phone] Encounter Details Date Type Department Care Team (Late st Contact Info) Description 03/06/2025 Abstract [facility] [place] [facility] [address] [facility] 110 [place] [address] Walt Tapia MD 112 [facility] 110 [place] [address] Social History Tobacco Use Types [...] often do you attend chur ch or anabaptism services? Patient declined 07/23/2024 Do you belong to any clubs o r organizations such as yazidism groups, unions, fraternal or athletic groups, or [...] any time in the past 12 m [facility], were you homeless or living in a long-term (including now)? No 07/23/2024 Comments Unknown Sex and Gender Information Value Date Recorded Sex Assigned at Not on file Legal Sex Female 6:48 PM EDT Gender Identity Not on file Sexual Orientation Not on file documented as of this encounter Plan of Treatment Upcoming Encounters Date Type Department Care Team ([facility] st Contact Info) Description 05/08/2025 11:10 AM EDT Office Visit [facility] [address] [place] [address] Buddy Rose DPM 3006 [facility] [address] [place] [address] 07/28/2025 10:30 AM EST Telemedicine [facility] [place] [address] [facility] 110 [place] [address] Eve العراقي PA [address] [facility] 110 [place] [address] documented as of this encounter Visit Diagnoses Not on filedocumented in this encounter Additional Health Concerns Assessment Noted Time PHQ-9 Depression Total Score: 0 04/07/20 24 9:00 AM EDT documented as of this encounter Care Teams Hydroelectric Plant Maintainer Relationship Specialty Start Date End Date Walt Tapia MD [address] [facility] 110 [place] [address] PCP - General Internal Medicine 12/26/22 documented as of this encounter
--- OUTSIDE RECORDS SUMMARY | 2025-05-07 10:52 | XMS_ITS | Encounter Summary ---
Author Organization [facility] Address [address] [place] [address] Care Team Providers Care Picker Name Role Phone Walt Tapia MD Unavailable [phone] Walt Tapia MD Primary Care Provider [phone] Walt Tapia MD Unavailable [phone] Walt Tapia MD Unavailable [phone] Encounter Details Date Type Department Care Team (Late Contact Info) Description 05/28/2023 Abstract [facility] [address] [facility] 110 [place] [address] Walt Tapia MD 112 [facility] 110 [place] [address] Social History Tobacco Use Types Packs/Day Years [...] EDT Office Visit [facility] [address] [place] [address] Buddy Rose DPM 3006 [facility] 5 [place] [address] 07/28/2025 10:30 AM EST Telemedicine [facility] [place] [address] [facility] [address] [place] [address] Eve العراقي PA [address] [place] 110 [place] [address] documented as of this encounter Visit Diagnoses Not on filedocumented in this encounter Care Teams Picker Relationship Specialty Start Date End Date Walt Tapia MD [address] [place] [address] [place] [address] PCP - ACO Reach 01/11/23 10/18/23 Walt Tapia MD [address] [place] 110 [place] [address] PCP - General Internal Medicine 12/26/22 Walt Tapia MD [address] [facility] 110 [place] [address] PCP - ACO Reach 12/19/23 09/25/24 Walt Tapia MD [address] [place] 110 [place] [address] PCP - ACO Reach 10/03/24 11/20/24 documented as of this encounter
--- OUTSIDE RECORDS SUMMARY | 2025-05-07 10:53 | XMS_ITS | Encounter Summary ---
Author Organization [facility] Address [address] [place] [address] Care Team Providers Care Formula Mixer Name Role Phone Walt Tapia MD Unavailable [phone] Walt Tapia MD Primary Care Provider [phone] Walt Tapia MD Unavailable [phone] Walt Tapia MD Unavailable [phone] Encounter Details Date Type Department Care Team (Late Contact Info) Description 01/10/2023 Abstract [facility] [place] 112 [address] [facility] 110 [place] [address] Walt Tapia MD 112 [facility] 110 [place] [address] Social History Tobacco Use Types [...] EDT Office Visit [facility] [address] [place] [address] Buddy Rose DPM [address] [address] 07/28/2025 10:30 AM EST Telemedicine [facility] [place] [facility] [address] [facility] 110 [place] [address] Eve العراقي PA [address] [facility] 110 [place] [address] documented as of this encounter Visit Diagnoses Not on filedocumented in this encounter Care Teams Formula Mixer Relationship Specialty Start Date End Date Walt Tapia MD [address] [place] [address] [place] [address] PCP - ACO Reach 01/11/23 10/18/23 Walt Tapia MD [address] [facility] 110 [place] [address] PCP - General Internal Medicine 12/26/22 Walt Tapia MD [address] [facility] 110 [place] [address] PCP - ACO Reach 12/19/23 09/25/24 Walt Tapia MD [address] [facility] 110 [place] [address] PCP - ACO Reach 10/03/24 11/20/24 documented as of this encounter
--- OUTSIDE RECORDS SUMMARY | 2025-05-07 10:53 | XMS_ITS | Encounter Summary ---
Author Organization [facility] Address [address] [place] [address] Care Team Providers Care Gas Well Pumper Name Role Phone Walt Tapia MD Primary Care Provider [phone] Walt Tapia MD Unavailable [phone] Walt Tapia MD Unavailable [phone] Encounter Details Date Type Department Care Team (Late Contact Info) Description 05/06/2024 Abstract [facility] [place] [facility] 112 [facility] 110 [place] [address] Walt Tapia MD 112 [facility] 110 [place], [place] [phone] Social History Tobacco Use Types Packs/Day Years [...] EDT Office Visit [facility] [address] [place] [address] Buddy Rose DPM 3006 [facility] 5 [place] [address] 07/28/2025 10:30 AM EST Telemedicine [facility] [place] [facility] [address] [facility] 110 [place] [address] Eve العراقي PA [address] [facility] 110 [place] [address] documented as of this encounter Visit Diagnoses Not on filedocumented in this encounter Additional Health Concerns Assessment Noted Time PHQ-9 Depression Total Score: 0 04/07/20 24 9:00 AM EDT documented as of this encounter Care Teams Gas Well Pumper Relationship Specialty Start Date End Date Walt Tapia MD [address] [facility] 110 [place] [address] PCP - General Internal Medicine 12/26/22 Walt Tapia MD [address] [facility] 110 [place] [address] PCP - ACO Reach 12/19/23 09/25/24 Walt Tapia MD [address] [facility] 110 [place] [address] PCP - ACO Reach 10/03/24 11/20/24 documented as of this encounter
--- OUTSIDE RECORDS SUMMARY | 2025-05-07 10:53 | XMS_ITS | Encounter Summary ---
Author Organization [facility] Address [address] [place] [address] Care Team Providers Care Director Of Accounting Name Role Phone Walt Tapia MD Primary Care Provider [phone] Walt Tapia MD Unavailable [phone] Walt Tapia MD Unavailable [phone] Encounter Details Date Type Department Care Team (Late Contact Info) Description 05/12/2024 Abstract [facility] [place] [facility] 112 [facility] 110 [place] [address] Eve العراقي PA 112 [facility] 110 [place] [address] Social History Tobacco Use Types Packs/Day Years [...] EDT Office Visit [facility] 3006 [place] [address] Buddy Rose DPM 3006 [facility] 5 [place] [address] 07/28/2025 10:30 AM EST Telemedicine [facility] [place] [facility] [address] [facility] 110 [place] [address] Eve العراقي PA [address] [facility] 110 [place] [address] documented as of this encounter Visit Diagnoses Not on filedocumented in this encounter Additional Health Concerns Assessment Noted Time PHQ-9 Depression Total Score: 0 04/07/20 24 9:00 AM EDT documented as of this encounter Care Teams Director Of Accounting Relationship Specialty Start Date End Date Walt Tapia MD [address] [facility] 110 [place] [address] PCP - General Internal Medicine 12/26/22 Walt Tapia MD [address] [facility] 110 [place] [address] PCP - ACO Reach 12/19/23 09/25/24 Walt Tapia MD [address] [facility] 110 [place] [address] PCP - ACO Reach 10/03/24 11/20/24 documented as of this encounter
--- OUTSIDE RECORDS SUMMARY | 2025-05-07 10:53 | XMS_ITS | Encounter Summary ---
Author Organization [facility] Address [address] [place] [address] Care Team Providers Care Packing House Supervisor Name Role Phone Walt Tapia MD Primary Care Provider [phone] Encounter Details Date Type Department Care Team (Latest Contact Info) Description 04/24/2025 Travel Social History Tobacco Use Types Packs/Day [...] How often do you attend chur or rastafarian services? Patient declined 07/23/2024 Do you belong to any clubs o r organizations such as sabianism groups, unions, fraternal or athletic groups, or [...] any time in the past 12 m [facility], were you homeless or living in a [...] things Not at all 04/24/2025 9:00 AM BASILIOT Tana Lopez LP N Feeling down, depressed, or hopeless Not at all 04/24/2025 9:00 AM BASILIOT Tana Lopez LP N Patient Health Questionnaire -2 Score 0 04/24/2025 9:00 AM BASILIOT Tana Lopez LP N * Question Answer [...] television Not at all 04/24/2025 9:00 AM EDT Tana Lopez LP N Moving or speaking so slowly that other people could have noticed? Or the opposite - being so fidgety or restless that you have been moving around a lot more than usual. Not at all 04/24/2025 9:00 AM EDT Tana Lopez LP N Thoughts that you would be better off or hurting yourself in some way Not at all 04/24/2025 9:00 AM EDT Tana Lopez L PN Patient Health Questionnaire -9 Score 0 04/24/2025 9:00 AM EDT Tana Lopez LP N documented as of this encounter Plan of Treatment Upcoming Encounters Date Type Department Care Team (Late st Contact Info) Description 05/08/2025 11:10 AM EDT Office Visit [facility] [address] [place] [address] Buddy Rose DPM 3006 [facility] 5 [place] [address] 07/28/2025 10:30 AM EST Telemedicine [facility] [place] [facility] [address] [facility] 110 [place] [address] Eve العراقي PA [address] [facility] 110 [place] [address] documented as of this encounter Visit Diagnoses Not on filedocumented in this encounter Additional Health Concerns Assessment Noted Time PHQ-9 Depression Total Score: 0 04/24/20 25 9:00 AM EDT documented as of this encounter Care Teams Packing House Supervisor Relationship Specialty Start Date End Date Walt Tapia MD 112 [facility] 110 [place] [address] PCP - General Internal Medicine 12/26/22 documented as of this encounter
--- OUTSIDE RECORDS SUMMARY | 2025-05-07 10:53 | XMS_ITS | Encounter Summary ---
Author Organization [facility] Address [address] [place] [address] Care Team Providers Care Painter Rough Name Role Phone Walt Tapia MD Primary Care Provider [phone] Encounter Details Date Type Department Care Team (Late st Contact Info) Description 04/27/2025 Telephone [facility] [place] [facility] 112 [facility] 110 [place] [address] Eve العراقي PA 112 [facility] 110 [place], [place] [id number] Social History Tobacco Use Types Packs/Day Years [...] often do you attend chur ch or oriental orthodox services? Patient declined 07/23/2024 Do you belong [...] the past 12 m [facility], were you homeless or living in a snf (including now)? No 07/23/2024 Comments Unknown Sex and Gender Information Value Date Recorded Sex Assigned at Not on file Legal Sex Female 6:48 PM EDT Gender Identity Not on file Sexual Orientation Not on file documented as of this encounter Miscellaneous Notes * Telephone Encounter - Kaylyn Barragan LPN - 04/28/2025 8:23 AM EDT Pt agrees to try new med--rx sent local * Telephone Encounter - DEEDEE Amin - 04/27/2025 4:33 PM EDT I would recommend she try a low dose of Rosuvastatin, 10 mg once a day. If she is agreeable, pleasesend in a 30 day supply for her to try. * Telephone Encounter - CARLOTA LANDRY - 04/27/2025 4:16 PM EDT Spoke with patient and she would like to know what the alternative would be that you would like to try. * Telephone Encounter - DEEDEE Amin - 04/27/2025 1:09 PM EDT Please let pt know that her recent labs showed her LDL, bad cholesterol, is still significantly elevated at 156. I know she cannot tolerate Atorvastatin, would she be willing to try an alternative? Goal is < 100. Sugar was 119. HgbA1c was mildly higher than previous, went from 5.7 to 5.9. Two of her white blood cell counts are lower than previous. It may possibly be due to the Steroid injections she has been getting. Would recommend rechecking a blood count at her follow up in July to make sure it has improved. (ASCVD Risk Score 9.7% Risk of cardiovascular event (coronary or stroke or non-fatal CA or stroke) in next 10 years.Moderate to high intensity statin recommended.) documented in this encounter Plan of Treatment Upcoming Encounters Date Type Department Care Team (Late st Contact Info) Description 05/08/2025 11:10 AM EDT Office Visit [facility] [address] [place] [address] Buddy Rose DPM [address] [address] 07/28/2025 10:30 AM EST Telemedicine [facility] [place] [facility] 112 [address] [facility] 110 [place] [address] Eve العراقي PA 112 [place] [facility] 110 [place] [address] documented as of this encounter Visit Diagnoses Diagnosis Eosinopenia- Primary Other decreased white blood cell count Pure hypercholesterolemia Pure hypercholesterolemia Plantar fasciitis- Primary Plantar fascial fibromatosis Contracture of left ankle Contracture of right ankle documented in this encounter Additional Health Concerns Assessment Noted Time PHQ-9 Depression Total Score: 0 04/24/20 25 9:00 AM EDT documented as of this encounter Care Teams Painter Rough Relationship Specialty Start Date End Date Walt Tapia MD 112 [facility] 110 [place] [address] PCP - General Internal Medicine 12/26/22 documented as of this encounter
--- OUTSIDE RECORDS SUMMARY | 2025-05-07 10:53 | XMS_ITS | Encounter Summary ---
Author Organization [facility] Address [address] [place] [address] Care Team Providers Care Spring Tacker Name Role Phone Walt Tapia MD Unavailable [phone] Walt Tapia MD Primary Care Provider [phone] Walt Tapia MD Unavailable [phone] Walt Tapia MD Unavailable [phone] Encounter Details Date Type Department Care Team (Late st Contact Info) Description 05/04/2023 Clinisync Result Encounter NOMS External Department Unsolicited Walt Tapia MD 112 [facility] 110 [place] [address] Social History Tobacco Use Types [...] Office Visit [facility] [address] [place] [address] Buddy Rose DPM 3006 [facility] 5 [place] [address] 07/28/2025 10:30 AM EST Telemedicine [facility] [place] [facility] 112 [facility] 110 [place] [address] Eve العراقي PA 112 [facility] 110 [place] [address] documented as of this encounter Procedures Procedure Name Priority Date/Time Associated Diagnosis Comments MM TOMOSYNTHESIS SCREENING BI 05/04/2023 12:16 PM EDT documented in this encounter Results * MM TOMOSYNTHESIS SCREENING BI (05/04/2023 12:16 PM EDT) Anatomical Region Laterality Modality Other 05/04/2023 12:1 6 PM EDT Narrative 05/04/2023 12:16 [place] [address] Mammography Report Signed Patient: SUMAN SANZ MR#: [id number] : 1955 Acct:[id number] Age/Sex: 68 / F ADM Date: 05/04/23 Loc: MAMMO Attending Dr: WALT TAPIA Ordering Physician: WALT TAPIA Results: Date of Service: 05/04/23 Follow Up: Procedure(s): MM tomosynthesis screening BI Accession Number(s): [id number] cc: WALT TAPIA Patient: SUMAN SANZ. Exam Date: 05/04/2023 : 1955 Gender:F Ordering : DR WALT TAPIA M.D. Admission #: [id number] Family : Order #: [id number] CLICK HERE TO VIEW EXAM RADIOLOGY REPORT [...] breast cancer at age 74. LOCATION: [facility] BREAST COMPOSITION: Almost entirely fatty. FINDINGS: DIAGNOSTIC [...] Signed By: 05/04/23 1217 DD/ 1216 TD/TT: Precision Lens Grinder Apprentice: Procedure Note Radiology, Radiologist, - 05/11/2023 [place] [address] Mammography Report Signed Patient: SUMAN SANZ SMR#: [id number] : 1955cct:[id number] Age/Sex: 68 / FADM Date: 05/04/23 Loc: MAMMO Attending Dr: WALT TAPIA Ordering Physician: WALT TAPIAResults: Date of Service: 05/04/23Follow Up: Procedure(s): MM tomosynthesis screening BI Accession Number(s): [id number] cc: WALT TAPIA Patient: SUMAN SANZ Exam Date: 05/04/2023 : 1955 Gender:F Ordering : DR WALT TAPIA M.D. Admission #: [id number] Family : Order #: [id number] CLICK HERE TO VIEW EXAM RADIOLOGY REPORT [...] breast cancer at age 74. LOCATION: [facility] BREAST COMPOSITION: Almost entirely fatty. FINDINGS: DIAGNOSTIC [...] M.D. Signed By:05/04/23 1217 DD/ 1216 TD/TT: Precision Lens Grinder Apprentice: Walt Tapia MD [facility] Final Result documented in this encounter Visit Diagnoses Not on filedocumented in this encounter Care Teams Spring Tacker Relationship Specialty Start Date End Date Walt Tapia MD [address] [facility] 110 [place] [address] PCP - ACO Reach 01/11/23 10/18/23 Walt Tapia MD [address] [facility] 110 [place] [address] PCP - General Internal Medicine 12/26/22 Walt Tapia MD [address] [facility] 110 [place] [address] PCP - ACO Reach 12/19/23 09/25/24 Walt Tapia MD [address] [facility] 110 [place] [address] PCP - ACO Reach 10/03/24 11/20/24 documented as of this encounter
--- OUTSIDE RECORDS SUMMARY | 2025-05-07 10:53 | XMS_ITS | Encounter Summary ---
Author Organization [facility] Address [address] [place] [address] Care Team Providers Care Patient Support Partner Name Role Phone Walt Tapia MD Unavailable [phone] Walt Tapia MD Primary Care Provider [phone] Walt Tapia MD Unavailable [phone] Walt Tapia MD Unavailable [phone] Encounter Details Date Type Department Care Team (Late Contact Info) Description 04/30/2023 Abstract [facility] [place] [facility] [address] [facility] 110 [place] [address] Walt Tapia MD 112 [facility] 110 [place] [address] Social History Tobacco Use Types Packs/Day Years [...] EDT Office Visit [facility] [address] [place] [address] Buddy Rose DPM 3006 [facility] 5 [place] [address] 07/28/2025 10:30 AM EST Telemedicine [facility] [place] [address] [facility] [address] [place] [address] Eve العراقي PA [address] [facility] [address] [place] [address] documented as of this encounter Visit Diagnoses Not on filedocumented in this encounter Care Teams Patient Support Partner Relationship Specialty Start Date End Date Walt Tapia MD [address] [facility] [address] [place] [address] PCP - ACO Reach 01/11/23 10/18/23 Walt Tapia MD [address] [facility] [address] [place] [address] PCP - General Internal Medicine 12/26/22 Walt Tapia MD [address] [facility] [address] [place] [address] PCP - ACO Reach 12/19/23 09/25/24 Walt Tapia MD [address] [facility] [address] [place] [address] PCP - ACO Reach 10/03/24 11/20/24 documented as of this encounter
--- OUTSIDE RECORDS SUMMARY | 2025-05-07 10:53 | XMS_ITS | Encounter Summary ---
Author Organization [facility] Address [address] [place] [address] Care Team Providers Care Home Economics Teacher Name Role Phone Walt Tapia MD Primary Care Provider [phone] Encounter Details Date Type Department Care Team (Late st Contact Info) Description 04/28/2025 Abstract [facility] [place] [facility] [address] [facility] 110 [place] [address] Walt Tapia MD 112 [facility] 110 [place] [address] Social History Tobacco Use Types [...] often do you attend chur ch or temple services? Patient declined 07/23/2024 Do you belong to any clubs o r organizations such as restoration groups, unions, fraternal or athletic groups, or [...] were you homeless or living in a group home (including now)? No 07/23/2024 Comments Unknown Sex and Gender Information Value Date Recorded Sex Assigned at Not on file Legal Sex Female 6:48 PM EDT Gender Identity Not on file Sexual Orientation Not on file documented as of this encounter Plan of Treatment Upcoming Encounters Date Type Department Care Team ([facility] st Contact Info) Description 05/08/2025 11:10 AM EDT Office Visit [facility] [address] [place] [address] Buddy Rose DPM 3006 [facility] [place] [address] [place] [address] 07/28/2025 10:30 AM EST Telemedicine [facility] [place] [address] [facility] 110 [place] [address] Eve العراقي PA [address] [facility] 110 [place] [address] documented as of this encounter Visit Diagnoses Not on filedocumented in this encounter Additional Health Concerns Assessment Noted Time PHQ-9 Depression Total Score: 0 04/24/20 25 9:00 AM EDT documented as of this encounter Care Teams Home Economics Teacher Relationship Specialty Start Date End Date Walt Tapia MD [address] [facility] 110 [place] [address] PCP - General Internal Medicine 12/26/22 documented as of this encounter
--- OUTSIDE RECORDS SUMMARY | 2025-05-07 10:53 | XMS_ITS | Encounter Summary ---
Author Organization [facility] Address [address] [place] [address] Care Team Providers Care Medical Scientist Name Role Phone Walt Tapia MD Unavailable [phone] Walt Tapia MD Primary Care Provider [phone] Walt Tapia MD Unavailable [phone] Walt Tapia MD Unavailable [phone] Encounter Details Date Type Department Care Team (Late Contact Info) Description 04/10/2023 Abstract [facility] [address] [facility] 110 [place] [address] Walt Tapia MD 112 [facility] 110 [place] [address] Social History Tobacco Use Types Packs/Day Years [...] EDT Office Visit [facility] [address] [place] [address] Buddy Rose DPM 3006 [facility] 5 [place] [address] 07/28/2025 10:30 AM EST Telemedicine [facility] [place] [address] [facility] 110 [place] [address] Eve العراقي PA [address] [facility] [address] [place] [address] documented as of this encounter Visit Diagnoses Not on filedocumented in this encounter Care Teams Medical Scientist Relationship Specialty Start Date End Date Walt Tapia MD [address] [facility] [address] [place] [address] PCP - ACO Reach 01/11/23 10/18/23 Walt Tapia MD [address] [facility] [address] [place] [address] PCP - General Internal Medicine 12/26/22 Walt Tapia MD [address] [facility] [address] [place] [address] PCP - ACO Reach 12/19/23 09/25/24 Walt Tapia MD [address] [facility] [address] [place] [address] PCP - ACO Reach 10/03/24 11/20/24 documented as of this encounter
--- OUTSIDE RECORDS SUMMARY | 2025-05-07 10:53 | XMS_ITS | Encounter Summary ---
Author Organization [facility] Address [address] [place] [address] Care Team Providers Care Radio Repairer Domestic Name Role Phone Walt Tapia MD Primary Care Provider [phone] Walt Tapia MD Unavailable [phone] Walt Tapia MD Unavailable [phone] Encounter Details Date Type Department Care Team (Late Contact Info) Description 04/28/2024 Abstract [facility] [place] [facility] 112 [facility] 110 [place] [address] Walt Tapia MD 112 [facility] 110 [place], [place] [address] Social History Tobacco Use Types Packs/Day Years [...] EDT Office Visit [facility] [address] [place] [address] Buddy Rose DPM 3006 [facility] 5 [place] [address] 07/28/2025 10:30 AM EST Telemedicine [facility] [place] [facility] [address] [facility] 110 [place] [address] Eve العراقي PA [address] [facility] 110 [place] [address] documented as of this encounter Visit Diagnoses Not on filedocumented in this encounter Additional Health Concerns Assessment Noted Time PHQ-9 Depression Total Score: 0 04/07/20 24 9:00 AM EDT documented as of this encounter Care Teams Radio Repairer Domestic Relationship Specialty Start Date End Date Walt Tapia MD [address] [facility] 110 [place] [address] PCP - General Internal Medicine 12/26/22 Walt Tapia MD [address] [facility] 110 [place] [address] PCP - ACO Reach 12/19/23 09/25/24 Walt Tapia MD [address] [facility] 110 [place] [address] PCP - ACO Reach 10/03/24 11/20/24 documented as of this encounter
--- OUTSIDE RECORDS SUMMARY | 2025-05-07 10:53 | XMS_ITS | Encounter Summary ---
Author Organization [facility] Address [address] [place] [address] Care Team Providers Care Recruiter Coordinator Name Role Phone Walt Tapia MD Unavailable [phone] Walt Tapia MD Primary Care Provider [phone] Walt Tapia MD Unavailable [phone] Walt Tapia MD Unavailable [phone] Encounter Details Date Type Department Care Team (Late Contact Info) Description 05/10/2023 Abstract [facility] [address] [facility] 110 [place] [address] Walt Tapia MD 112 [facility] 110 [place] [address] Social History Tobacco Use Types Packs/Day Years [...] EDT Office Visit [facility] [address] [place] [address] Buddy Rose DPM 3006 [facility] 5 [place] [address] 07/28/2025 10:30 AM EST Telemedicine [facility] [place] [address] [place] [address] [place] [address] Eve العراقي PA [address] [place] 110 [place] [address] documented as of this encounter Visit Diagnoses Not on filedocumented in this encounter Care Teams Recruiter Coordinator Relationship Specialty Start Date End Date Walt Tapia MD [address] [facility] [address] [place] [address] PCP - ACO Reach 01/11/23 10/18/23 Walt Tapia MD [address] [facility] [address] [place] [address] PCP - General Internal Medicine 12/26/22 Walt Tapia MD [address] [facility] [address] [place] [address] PCP - ACO Reach 12/19/23 09/25/24 Walt Tapia MD [address] [facility] [address] [place] [address] PCP - ACO Reach 10/03/24 11/20/24 documented as of this encounter
--- OUTSIDE RECORDS SUMMARY | 2025-05-07 10:53 | XMS_ITS | Encounter Summary ---
Author Organization [facility] Address [address] [place] [address] Care Team Providers Care Drilling Machine Operator Name Role Phone Walt Tapia MD Primary Care Provider [phone] Walt Tapia MD Unavailable [phone] Walt Tapia MD Unavailable [phone] Encounter Details Date Type Department Care Team (Late Contact Info) Description 04/08/2024 Abstract [facility] 112 [facility] 110 [place] [address] Walt Tapia MD 112 [facility] 110 [place], [place] [address] Social History Tobacco Use Types Packs/Day Years [...] EDT Office Visit [facility] [address] [place] [address] Buddy Rose DPM 3006 [facility] 5 [place] [address] 07/28/2025 10:30 AM EST Telemedicine [facility] [place] [facility] [address] [facility] 110 [place] [address] Eve العراقي PA [address] [facility] 110 [place] [address] documented as of this encounter Visit Diagnoses Not on filedocumented in this encounter Additional Health Concerns Assessment Noted Time PHQ-9 Depression Total Score: 0 04/07/20 24 9:00 AM EDT documented as of this encounter Care Teams Drilling Machine Operator Relationship Specialty Start Date End Date Walt Tapia MD [address] [facility] 110 [place] [address] PCP - General Internal Medicine 12/26/22 Walt Tapia MD [address] [facility] 110 [place] [address] PCP - ACO Reach 12/19/23 09/25/24 Walt Tapai MD [address] [facility] 110 [place] [address] PCP - ACO Reach 10/03/24 11/20/24 documented as of this encounter
--- OUTSIDE RECORDS SUMMARY | 2025-05-07 10:53 | XMS_ITS | Encounter Summary ---
Author Organization [facility] Address [address] [place] [address] Care Team Providers Care Door Paneler Name Role Phone Walt Tapia MD Unavailable [phone] Walt Tapia MD Primary Care Provider [phone] Walt Tapia MD Unavailable [phone] Walt Tapia MD Unavailable [phone] Encounter Details Date Type Department Care Team (Late Contact Info) Description 03/29/2023 Orders Only [facility] [address] [facility] 320 [place] [address] Sonia Dia, OUTBOARD MOTOR INSPECTOR [address] [facility] [place] [address] Social History Tobacco Use Types [...] Office Visit [facility] [address] [place] [address] Buddy Rose DPM 3006 [facility] 5 [place] [address] 07/28/2025 10:30 AM EST Telemedicine [facility] [place] [facility] 112 [facility] 110 [place] [address] Eve العراقي PA [address] [place] [address] [place] [address] documented as of this encounter Visit Diagnoses Not on filedocumented in this encounter Care Teams Door Paneler Relationship Specialty Start Date End Date Walt Tapia MD [address] [place] [address] [place] [address] PCP - ACO Reach 01/11/23 10/18/23 Walt Tapia MD [address] [facility] [address] [place] [address] PCP - General Internal Medicine 12/26/22 Walt Tapia MD [address] [facility] [address] [place] [address] PCP - ACO Reach 12/19/23 09/25/24 Walt Tapia MD [address] [facility] [address] [place] [address] PCP - ACO Reach 10/03/24 11/20/24 documented as of this encounter
--- OUTSIDE RECORDS SUMMARY | 2025-05-07 10:53 | XMS_ITS | Encounter Summary ---
Author Organization [facility] Address [address] [place] [address] Care Team Providers Care Press Secretary Name Role Phone Walt Tapia MD Unavailable [phone] Walt aTpia MD Primary Care Provider [phone] Walt Tapia MD Unavailable [phone] Walt Tapia MD Unavailable [phone] Encounter Details Date Type Department Care Team (Late st Contact Info) Description 04/02/2023 Abstract [facility] [place] [facility] [address] [facility] 110 [place] [address] Walt Tapia MD [address] [facility] 110 [place] [address] Social History Tobacco Use Types Packs/Day Years [...] Office Visit [facility] 3006 [facility] [place] [address] Buddy Rose DPM 3006 [facility] 5 [place] [address] 07/28/2025 10:30 AM EST Telemedicine [facility] [place] [address] [facility] 110 [place] [address] Eve العراقي PA [address] [facility] [address] [place] [address] documented as of this encounter Visit Diagnoses Not on filedocumented in this encounter Care Teams Press Secretary Relationship Specialty Start Date End Date Walt Tapia MD [address] [place] [address] [place] [address] PCP - ACO Reach 01/11/23 10/18/23 Walt Tapia MD [address] [facility] [address] [place] [address] PCP - General Internal Medicine 12/26/22 Walt Tapia MD [address] [facility] [address] [place] [address] PCP - ACO Reach 12/19/23 09/25/24 Walt Tapia MD [address] [facility] [address] [place] [address] PCP - ACO Reach 10/03/24 11/20/24 documented as of this encounter
--- OUTSIDE RECORDS SUMMARY | 2025-05-07 10:53 | XMS_ITS | Encounter Summary ---
Author Organization [facility] Address [address] [place] [address] Care Team Providers Care Dean Of Students Name Role Phone Walt Tapia MD Unavailable [phone] Walt Tapia MD Primary Care Provider [phone] Walt Tapia MD Unavailable [phone] Walt Tapia MD Unavailable [phone] Encounter Details Date Type Department Care Team (Late st Contact Info) Description 04/05/2023 Abstract [facility] [place] [facility] [address] [facility] 110 [place] [address] Cheyanne Paz, FOOD STAND MANAGER 112 [facility] 110 [place], [place] [address] Social History Tobacco Use Types Packs/Day Years [...] Description 05/08/2025 11:10 AM EDT Office Visit [facility] 3006 [place] [address] Buddy Rose DPM 3006 [facility] 5 [place] [address] 07/28/2025 10:30 AM EST Telemedicine [facility] [place] [address] [facility] [address] [place] [address] Eve العراقي PA [address] [facility] [address] [place] [address] documented as of this encounter Visit Diagnoses Not on filedocumented in this encounter Care Teams Dean Of Students Relationship Specialty Start Date End Date Walt Tapia MD [address] [place] [address] [place] [address] PCP - ACO Reach 01/11/23 10/18/23 Walt Tapia MD [address] [place] [address] [place] [address] PCP - General Internal Medicine 12/26/22 Walt Tapia MD [address] [facility] [address] [place] [address] PCP - ACO Reach 12/19/23 09/25/24 Walt Tapia MD [address] [facility] [address] [place] [address] PCP - ACO Reach 10/03/24 11/20/24 documented as of this encounter
--- OUTSIDE RECORDS SUMMARY | 2025-05-07 10:53 | XMS_ITS | Encounter Summary ---
Author Organization [facility] Address [address] [place] [address] Care Team Providers Care High Pressure Operator Name Role Phone Walt Tapia MD Unavailable [phone] Walt Tapia MD Primary Care Provider [phone] Walt Tapia MD Unavailable [phone] Walt Tapia MD Unavailable [phone] Encounter Details Date Type Department Care Team (Late Contact Info) Description 03/19/2023 Abstract [facility] [place] [address] [facility] 110 [place] [address] Walt Tapia MD [address] [facility] 110 [place] [address] Social History Tobacco Use Types [...] EDT Office Visit [facility] 3006 [place] [address] Buddy Rose DPM [address] [address] 07/28/2025 10:30 AM EST Telemedicine [facility] [place] [facility] [address] [facility] 110 [place] [address] Eve العراقي PA [address] [facility] 110 [place] [address] documented as of this encounter Visit Diagnoses Not on filedocumented in this encounter Care Teams High Pressure Operator Relationship Specialty Start Date End Date Walt Tapia MD [address] [place] [address] [place] [address] PCP - ACO Reach 01/11/23 10/18/23 Walt Tapia MD [address] [facility] 110 [place] [address] PCP - General Internal Medicine 12/26/22 Walt Tapia MD [address] [facility] 110 [place] [address] PCP - ACO Reach 12/19/23 09/25/24 Walt Tapia MD [address] [facility] 110 [place] [address] PCP - ACO Reach 10/03/24 11/20/24 documented as of this encounter
--- OUTSIDE RECORDS SUMMARY | 2025-05-07 10:53 | XMS_ITS | Encounter Summary ---
Author Organization [facility] Address [address] [place] [address] Care Team Providers Care Light Equipment Operator Name Role Phone Walt Tapia MD Primary Care Provider [phone] Walt Tapia MD Unavailable [phone] Walt Tapia MD Unavailable [phone] Encounter Details Date Type Department Care Team (Late Contact Info) Description 05/05/2024 Clinisync Result Encounter N[facility] External Department Unsolicited Hyun العراقي PA 112 [facility] 110 [place], [place] [address] Social History Tobacco Use Types Packs/Day Years [...] Office Visit [facility] [address] [place] [address] Buddy Rose DPM 3006 [facility] 5 [place] [address] 07/28/2025 10:30 AM EST Telemedicine [facility] 112 [facility] 110 [place] [address] Hyun العراقي, DEEDEE 112 [facility] 110 [place] [address] documented as of this encounter Procedures Procedure Name Priority Date/Time Associated Diagnosis Comments MM TOMOSYNTHESIS SCREENING BI 05/05/2024 11:03 AM EDT documented in this encounter Results * MM TOMOSYNTHESIS SCREENING BI (05/05/2024 11:03 AM EDT) Anatomical Region Laterality Modality Other 05/05/2024 11:0 3 AM EDT Narrative 05/05/2024 11:04 AM EDT The [address] [address] Mammography Report Signed Patient: SUMAN SANZ MR#: [id number] : 1955 Acct:[id number] Age/Sex: 69 / F ADM Date: 05/05/24 Loc: MAMMO Attending Dr: HYUN العراقي Ordering Physician: HYUN العراقي Results: Date of Service: 05/05/24 Follow Up: Procedure(s): MM tomosynthesis screening BI Accession Number(s): [id number] cc: WALT TAPIA ; HYUN العراقي Patient Name: SUMAN SANZ MR#: [id number] : 1955 Exam Date: 05/05/2024 Ordering Doctor: [...] breast cancer at age 74. LOCATION: The [facility] BREAST COMPOSITION: The breasts are almost [...] Signed By: 05/05/24 1104 DD/ 1103 TD/TT: Trouble Clerk: Procedure Note Radiology, Radiologist, - 05/05/2024 [place] [address] Mammography Report Signed Patient: SUMAN SANZ SMR#: [id number] : 1955cct:[id number] Age/Sex: 69 / FADM Date: 05/05/24 Loc: MAMMO Attending Dr: HYUN العراقي Ordering Physician: HYUN العراقي MResults: Date of Service: 05/05/24Follow Up: Procedure(s): MM tomosynthesis screening BI Accession Number(s): [id number] cc: WALT TAPIA ; HYUN العراقي Patient Name: SUMAN SANZ MR#: [id number] : 1955 Exam Date: 05/05/2024 Ordering Doctor: DR HYUN العراقي PA RADIOLOGY REPORT PROCEDURE: MM TOMOSYNTHESIS SCREENING BI COMPARISON: MM TOMOSYNTHESIS SCREENING BI, 05/04/2023. MG MAMM [id number] DAHIANA CAD, 04/13/2022. INDICATIONS: Screening Calculator Name NCI Breast Cancer Risk Assessment Tool 5 Year Breast Cancer Risk 2.40% Lifetime Breast Cancer Risk 6.90% Personal Breast Cancer No Personal Ovarian Cancer No Treatments None Family Cancers Aunt-paternal with breast cancer at age 75. LOCATION: The [facility] BREAST COMPOSITION: The breasts are almost [...] M.D. Signed By:05/05/24 1104 DD/ 1103 TD/TT: Trouble Clerk: Hyun [facility] Final Result documented in this encounter Visit Diagnoses Not on filedocumented in this encounter Additional Health Concerns Assessment Noted Time PHQ-9 Depression Total Score: 0 04/07/20 24 9:00 AM EDT documented as of this encounter Care Teams Light Equipment Operator Relationship Specialty Start Date End Date Walt Tapia MD [address] [address] PCP - General Internal Medicine 12/26/22 Walt Tapia MD [address] [facility] 110 [place] [address] PCP - ACO Reach 12/19/23 09/25/24 Walt Tapia MD [address] [facility] 110 [place] [address] PCP - ACO Reach 10/03/24 11/20/24 documented as of this encounter
--- NOTE | 2025-05-07 10:56 | MM_ITS ---
Patient Name: SUMAN RODAS MR#: [id number] : 1955 Exam Date: 05/07/2025 Ordering Doctor: DR CLAUDIA HANNA M.D. RADIOLOGY REPORT PROCEDURE: MM TOMOSYNTHESIS SCREENING BI COMPARISON: MM TOMOSYNTHESIS SCREENING BI, 05/05/2024. MM TOMOSYNTHESIS SCREENING BI, 05/04/2023. MG MAMM SCREEN 3D DAHIANA CAD, 04/13/2022. MG MAMM DAHIANA SCRN W CAD DIG, 11/03/2009. INDICATIONS: Screening Calculator Name NCI Breast Cancer Risk Assessment Tool 5 Year Breast Cancer Risk 2.40% Lifetime Breast Cancer Risk 6.60% Personal Breast Cancer No Personal Ovarian Cancer No Treatments None Family Cancers Aunt-paternal with breast cancer at age ~75. LOCATION: The [facility] BREAST COMPOSITION: The breasts are almost entirely fatty. FINDINGS: DIAGNOSTIC CATEGORY 1--NEGATIVE. RIGHT BREAST: No significant suspicious finding. LEFT BREAST: No significant suspicious finding. RECOMMENDATIONS: ROUTINE MAMMOGRAM AND CLINICAL EVALUATION IN 12 MONTHS. Dictated by: Boom Merritt MD on 05/07/2025 at 13:51 Approved by: Boom Merritt MD on 05/07/2025 at 13:55
--- OUTSIDE RECORDS SUMMARY | 2025-05-07 11:06 | XMS_ITS | CCD ---
Author Organization [facility] Care Team Providers Care Label Sewer Name Role Phone LAY, MARGE Unavailable [...] MCCAIN ., DR MICKI Matta Consulting Unavailable KALYN ., DR MICKI Matta Attending Unavailable DR WALT TAPIA Primary Care Unavailable Elizabeth Mayes Unavailable HELDER Mayes Attending Provider [phone] Elizabeth Mayes Admitting Unavailable Elizabeth Mayes Attending Unavailable NON STAFF Primary Care Unavailable Walt Tapia MD Primary Care Provider [phone] Walt Tapia MD Unavailable [phone] Nichole Painter MD Attending Unavailable BUDDY ROSE Attending Unavailable EVE DOUGHERTY Attending Unavailable EVE DOUGHERTY Attending Unavailable BUDDY ROSE Attending Unavailable EVE DOUGHERTY Attending Unavailable MICHAEL DEJESUS Attending Unavailable EVE DOUGHERTY Attending Unavailable Allergies Allergy Classification Reported Allergen(s) Allergy Type Date of Onset Reaction(s) Facility (1 source) Tetracyclines Drug allergy (disorder) 06-30-2009 [facility] Repository (1 source) celecoxib Drug Allergy [facility] Repository (2 sources) Tetracycline Drug Allergy 01-20-2014 [facility] Repository (17 sources) Tetracycline Drug Allergy 04-25-2024 rash [facility] Work Phone: (1 source) Tetracycline Drug Allergy 04-25-2024 [facility] Repository (20 sources) cefdinir Drug Allergy 03-29-2023 Diarrhea [facility] Work Phone: (20 sources) celecoxib Drug Allergy 03-29-2023 [facility] (16 sources) atorvastatin Drug Allergy 07-08-2024 Headache [facility] Work Phone: Medications Current Medications Medication [...] 04/17/2024 Active cholecalciferol 0.05 mg oral capsule (20 sources) Vitamin D Start: 04-25-2024 Cholecalcifero l (Vitamin D3) (Vitamin D3) 50 mcg (2,000 unit) capsule Active PO April 25, 2024 12:00am Start: 04-17-2024 take 1 capsule by mo uth once daily cholecalciferol (EQL Vitamin D3) 50 MCG (1999 UT) capsule Indications: Vitamin D deficiency Take [...] 5 days. 10 tablet 05/13/2024 05/18/2024 Active diazePAM 10 mg oral tablet (2 sources) Benzodiazepine Start: 04-09-2025 End: 04-24-2025 diazePAM (Valium) 10 MG tablet Take 10 mg by mouth as needed at bedtime for anxiety 04/09/2025 04/24/2025 Discontinued (Therapy completed) famotidine 20 mg oral tablet (20 sources) Histamine-2 Receptor Antagonist take 1 tablet by mouth in the morning famotidine (Pepcid) 20 MG tablet Take 20 mg by mouth in the morning and 20 mg in the evening. Active fluticasone propionate 0.05 mg/actuat metered dose nasal spray (20 sources) Corticosteroid Start: 05-30-2023 take 1 spray(s) [...] Jul, Not-Taking hydrocortisone 25 mg/ml topical cream (20 sources) Corticosteroid Start: 12-29-2023 hydrocortisone 2.5 % cream 12/29/2023 Active ketoconazole 20 mg/ml topical cream (20 sources) Azole Antifungal Start: 12-29-2023 ketoconazole (NIZOral) 2 % cream 12/29/2023 Active meclizine hydrochloride 25 mg oral tablet (4 sources) Antiemetic Start: 04-24-2025 take 1 tablet by mouth twice daily as needed for dizziness meclizine (Antivert) 25 MG tablet Indications: Vertigo Take 1 tablet (25 mg) by mouth 2 (two) times a day as needed for dizziness 60 tablet 2 04/24/2025 Active Start: 04-24-2025 take 1 tablet by cookie twice daily as needed for dizziness meclizine (Antivert) 25 MG tablet Indications: Vertigo Take 1 tablet (25 mg) by mouth 2 (two) times a day as needed for dizziness 60 tablet 2 04/24/2025 Active Start: 04-07-2025 End: 04-24-2025 meclizine (Antivert) 25 MG t ablet Take by mouth in the morning and before bedtime. 04/07/2025 04/24/2025 Discontinued (Reorder) nitrofurantoin, macrocrystals 25 mg / nitrofurantoin, monohydrate 75 mg oral capsule (4 sources) Nitrofuran Antibacterial Start: 03-05-2025 End: 03-12-2025 take 1 capsule by mouth in the morning nitrofurantoin, macrocrystal-monohydrate, (Macrobid) 100 MG capsule Indications: Acute cystitis with hematuria Take 1 capsule (100 mg) by mouth in the morning and 1 capsule (100 mg) before bedtime. Do all this for 7 days. 14 capsule 03/05/2025 03/12/2025 Active Start: 04-25-2024 take 1 capsule by mo uth every twelve hours at mealtime Nitrofurantoin Monohyd/M-Cryst (Macrobid) 100 mg capsule Active 100 MG PO Q12H 6 April 25, 2024 12:00am must administer with [...] May, Active valACYclovir 1000 mg oral tablet (18 sources) Herpesvirus Nucleoside Analog DNA Polymerase Inhibitor, [...] April 25, 2024 12:00am Start: 2024 End: 10-21-2025 zolpidem (Ambien) 10 MG tabl et Indications: Primary insomnia Take 1 tablet (10 mg) by mouth as needed at bedtime for sleep 30 tablet 2 04/24/2025 10/21/2025 Active Zolpidem Tartrat e Not-Taking Completed/Discontinued Medications [...] Problem Classification Problem Date Documented Date Episodic/Chronic Abdominal hernia (20 sources) Hiatal hernia; Translations: [Diaphragmatic hernia without obstruction or gangrene] Onset: 03-29-2023 03-29-2023 Episodic Administrative/social admission (2 sources) Patient encounter status; Translations: [Other specified counseling] 04-24-2025 Episodic Aortic and peripheral arterial embolism or thrombosis (2 sources) Arterial embolus and thrombosis; 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 Chronic Conditions associated with dizziness or vertigo (2 sources) Vertigo; Translations: [Dizziness and giddiness] 04-24-2025 Episodic Diabetes mellitus without complication (20 sources) Impaired fasting glycemia; Translations: [Impaired fasting glucose] Onset: 04-07-2024 04-07-2024 Episodic Disorders of lipid metabolism (20 sources) Pure hypercholesterolemia; Translations: [Pure hypercholesterolemia, unspecified] Onset: 03-29-2023 03-29-2023 Chronic Essential hypertension (20 sources) Benign hypertension; Translations: [Essential (primary) hypertension] [...] Onset: 02-14-2023 06-05-2024 Chronic Other acquired deformities (3 sources) Contracture of joint of left ankle; Translations: [Contracture, left ankle] 03-25-2025 Chronic Other acquired deformities (1 source) Contracture of joint of right ankle; Translations: [Contracture, right ankle] 04-15-2025 Chronic Other bone disease and musculoskeletal deformities (20 sources) Osteopenia; Translations: [Other specified disorders of bone density and structure, unspecified site] Onset: 03-29-2023 03-29-2023 Episodic Other connective tissue disease (3 sources) Plantar fasciitis; Translations: [Plantar fascial fibromatosis] 03-25-2025 Episodic Other liver diseases (4 sources) Liver disease, unspecified; Translations: [LIVER DISEASE, UNSPECIFIED] Onset: 03-14-2017 Chronic Other liver diseases (20 sources) Cirrhosis of liver; Translations: [Unspecified cirrhosis [...] excess calories] Onset: 04-07-2024 04-07-2024 Chronic Other screening for suspected conditions (not mental disorders or infectious disease) (6 sources) Encounter for screening mammogram for malignant neoplasm of breast; Translations: [Patient encounter status] Onset: 04-13-2022 Episodic Other upper respiratory disease (20 sources) Allergic rhinitis; Translations: [Allergic rhinitis, unspecified] Onset: 03-29-2023 03-29-2023 Chronic Other upper respiratory disease (2 sources) Allergic rhinitis due to pollen; Translations: [Allergic rhinitis due to pollen] 04-24-2025 Chronic Otitis media and related conditions (1 source) Other acute nonsuppurative otitis media, bilateral Episodic Peripheral and visceral atherosclerosis (20 sources) Arteriosclerosis of abdominal aorta; Translations: [Atherosclerosis of aorta] Onset: 03-29-2023 03-29-2023 Chronic Residual codes; unclassified (2 sources) Insomnia; Translations: [Insomnia, unspecified] 02-05-2025 Episodic Screening and history of mental health and substance abuse codes (20 sources) Ex-smoker; Translations: [Personal history of nicotine dependence] Onset: 02-12-2019 04-05-2023 Episodic Spondylosis; intervertebral disc disorders; other back problems (20 sources) Other spondylosis with radiculopathy, lumbar region; Translations: [Disorder of joint of spine] Onset: 02-15-2022 Chronic Spondylosis; intervertebral disc disorders; other back problems (20 sources) Intervertebral disc disorders with radiculopathy, lumbar region; Translations: [Radiculopathy, lumbar region] Onset: 12-27-2021 Episodic Unclassified (2 sources) LOW BACK PAIN, UNSPECIFIED; Translations: [LOW BACK PAIN, UNSPECIFIED] Onset: 03-16-2022 Urinary tract infections (4 sources) Acute cystitis; Translations: [Acute cystitis with hematuria] 05-13-2024 Episodic Viral infection (20 sources) Recurrent herpes simplex labialis; Translations: [Herpesviral vesicular dermatitis] Onset: 02-12-2019 Resolved: 04-07-2024 03-29-2023 Episodic Past or Other Problems Problem Classification Problem Date Documented Da te Episodic/Chronic Mood disorders (20 sources) Mood disorders Onset: 04-07-2024 Resolved: 04-24-2025 04-07-2024 Other bone disease and musculoskeletal deformities (1 source) Other specified disorders of bone density and structure, unspecified site; Translations: [OTH D/O BONE DEN STRUCT UNS SITE] Onset: 04-14-2022 Episodic Other connective tissue disease (1 source) Cramp and spasm; Translations: [CRAMP AND SPASM] Onset: 02-22-2022 Episodic Residual codes; unclassified (1 source) Family history of malignant neoplasm of breast; Translations: [FAMILY HX MALIG NEOPLASM OF BREAST] Onset: 04-14-2022 Episodic Residual codes; unclassified (1 source) Sleep disorder, unspecified; Translations: [SLEEP DISORDER UNSPECIFIED] Onset: 12-30-2021 Episodic Unclassified (1 source) LOW BACK PAIN, UNSPECIFIED; Translations: [LOW BACK PAIN, UNSPECIFIED] Onset: 03-07-2022 Results Test Name Value Interpretation Reference Range Facility CBC (INCLUDES DIFF/PLT)on Basophils (Bld) [#/Vol] 0.02 10*3/uL Normal 0-200 [facility] Comment on above: Performed By: #### 7 600, 6399, 99102 #### [facility] [place] [address] [employer] Hydraulicker: Ronny Heart MD Basophils/100 WBC (Bld) 0.3 % Normal [facility] Comment on above: Performed By: #### 7 600, 6399, 50458 #### [facility] [place] [address] [employer] Hydra[employer]icker: Ronny Heart MD Eosinophils (Bld) [#/Vol] 0 10*3/uL Low 15-500 [facility] Comment on above: Performed By: #### 7 600, 6399, 10166 #### [facility] [place] [address] [employer] Hydra[employer]icker: Ronny Heart MD Eosinophils/100 WBC (Bld) 0.0 % Normal [facility] Comment on above: Performed By: #### 7 600, 6399, 10309 #### [facility] [place] [address] [employer] Hydra[employer]icker: Ronny Heart MD Erythrocyte distribution width (RBC) [Ratio] 13.0 % Normal 11.0-15.0 [facility] Comment on above: Performed By: #### 7 600, 6399, 56409 #### [facility] of [place] [address] [employer] Hydra[employer]icker: Ronny Heart MD Hematocrit (Bld) [Volume fraction] 45.2 % High 35.0-45.0 [facility] Comment on above: Performed By: #### 7 600, 6399, 67014 #### [facility] of [place] [address] [employer] Hydra[employer]icker: Ronny Heart MD Hemoglobin (Bld) [Mass/Vol] 15.0 g/dL Normal 11.7-15.5 [facility] Comment on above: Performed By: #### 7 600, 6399, 55977 #### [facility] of [place] [address] [employer] Hydra[employer]icker: Ronny Heart MD Lymphocytes (Bld) [#/Vol] 1.621 10*3/uL Normal 850-3900 [facility] Comment on above: Performed By: #### 7 600, 6399, 22836 #### [facility] [place] [address] [employer] Hydra[employer]icker: Ronny Heart MD Lymphocytes/100 WBC (Bld) 24.2 % Normal [facility] Comment on above: Performed By: #### 7 600, 6399, 07462 #### [facility] [place] [address] [employer] Hydra[employer]icker: Ronny Heart MD MCH (RBC) [Entitic mass] 30.9 pg Normal 27.0-33.0 [facility] Comment on above: Performed By: #### 7 600, 6399, 85688 #### [facility] [place] [address] [employer] Hydra[employer]icker: Ronny Heart MD MCHC (RBC) [Mass/Vol] 33.2 g/dL Normal 32.0-36.[address] [facility] Comment on above: Result Comment: For adults, a slight decrease in the calculated MCHC value (in the range of 30 to 32 g/dL) is most likely not clinically significant; however, it should be interpreted with caution in correlation with other red cell parameters and the patient's clinical condition. Performed By: #### 7 600, 6399, 25409 #### [facility] of [address], [address] [place] [address] [employer] Hydra[employer]icker: Ronny Heart MD MCV (RBC) [Entitic vol] 93.0 fL Normal 80.0-100.0 [facility] Comment on above: Performed By: #### 7 600, 6399, 39969 #### [facility] of [place] [address] [employer] Hydraulicker: Ronny Heart MD Monocytes (Bld) [#/Vol] 0.181 10*3/uL Low 200-950 [facility] Comment on above: Performed By: #### 7 600, 6399, 34501 #### [facility] of [place] [address] [employer] Hydra[employer]icker: Ronny Heart MD Monocytes/100 WBC (Bld) 2.7 % Normal [facility] Comment on above: Performed By: #### 7 600, 6399, 75580 #### [facility] [place] [address] [employer] Hydra[employer]icker: Ronny Heart MD Neutrophils (Bld) [#/Vol] 4.878 10*3/uL Normal 5369-2454 [facility] Comment on above: Performed By: #### 7 600, 6399, 66678 #### [facility] of [place] [address] [employer] Hydra[employer]icker: Ronny Heart MD Neutrophils/100 WBC (Bld) 72.8 % Normal [facility] Comment on above: Performed By: #### 7 600, 6399, 72792 #### [facility] [place] [address] [employer] Hydra[employer]icker: Ronny Heart MD Platelet mean volume (Bld) [Entitic vol] 10.1 fL Normal 7.5-12.5 [facility] Comment on above: Performed By: #### 7 600, 6399, 32792 #### [facility] of [address], [address] [place] [address] [employer] Hydra[employer]icker: Ronny Heart MD Platelets (Bld) [#/Vol] 309 10*3/uL Normal 140-400 [facility] Comment on above: Performed By: #### 7 600, 6399, 81826 #### [facility] of [address], [address] [place] [address] [employer] Hydra[employer]icker: Ronny Heart MD RBC (Bld) [#/Vol] 4.86 10*6/uL Normal 3.80-5.10 [facility] Comment on above: Performed By: #### 7 600, 6399, 93379 #### [facility] of [address], [address] [place] [address] [employer] Hydra[employer]icker: Ronny Heart MD WBC (Bld) [#/Vol] 6.7 10*3/uL Normal 3.8-10.8 [facility] Comment on above: Performed By: #### 7 600, 6399, 26415 #### [facility] of [place] [address] [employer] Hy[employer]icker: Ronny Heart MD [facility] 04-25-2025 Albumin [Mass/Vol] 5.0 g/dL Normal 3.6-5.1 [facility] Comment on above: Performed By: #### 7 600, 6399, 46857 #### [facility] of [address], [address] [place] [address] [employer] Hydra[employer]icker: Ronny Heart MD Albumin/Globulin [Mass ratio] 1.9 {ratio} Normal 1.0-2.5 [facility] Comment on above: Performed By: #### 7 600, 6399, 27185 #### [facility] of [place] [address] [employer] Hydra[employer]icker: Ronny Heart MD ALP [Catalytic activity/Vol] 61 U/L Normal 37-153 [facility] Comment on above: Performed By: #### 7 600, 6399, 58444 #### [facility] [place] [address] [employer] Hydra[employer]icker: Ronny Heart MD ALT [Catalytic activity/Vol] 17 U/L Normal 6-29 [facility] Comment on above: Performed By: #### 7 600, 6399, 19748 #### [facility] of [address], [address] [place] [address] [employer] Hydra[employer]icker: Ronny Heart MD AST [Catalytic activity/Vol] 16 U/L Normal 10-35 [facility] Comment on above: Performed By: #### 7 600, 6399, 62854 #### [facility] [place] [address] [employer] Hy[employer]icker: Ronny Heart MD Bilirubin [Mass/Vol] 0.5 mg/dL Normal 0.2-1.2 [facility] Comment on above: Performed By: #### 7 600, 6399, 61826 #### [facility] [place] [address] [employer] Hy[employer]icker: Ronny Heart MD BUN/CREATININE RATIO SEE NOTE: Normal 6-22 [facility] Comment on above: Result Comment: Not Reported: BUN and Creatinine are within reference range. Performed By: #### 7 600, 6399, 68408 #### [facility] of [address], [address] [place] [address] [employer] Hydra[employer]icker: Ronny Heart MD Calcium [Mass/Vol] 9.9 mg/dL Normal 8.6-10.4 [facility] Comment on above: Performed By: #### 7 600, 6399, 03955 #### [facility] of [place] [address] [employer] Hy[employer]icker: Ronny Heart MD Chloride [Moles/Vol] 105 mmol/L Normal 98-110 [facility] Comment on above: Performed By: #### 7 600, 6399, 62432 #### [facility] [address], [address] [place] [address] [employer] Hydra[employer]icker: Ronny Heart MD CO2 [Moles/Vol] 24 mmol/L Normal 20-32 [facility] Comment on above: Performed By: #### 7 600, 6399, 39513 #### [facility] [place] [address] [employer] Hy[employer]icker: Ronny Heart MD Creatinine [Mass/Vol] 0.62 mg/dL Normal 0.60-1.[address] [facility] [address] [facility] Comment on above: Performed By: #### 7 600, 6399, 23051 #### [facility] [place] [address] [employer]icker: Ronny Heart MD GFR/1.73 sq M.predicted among non-blacks MDRD (S/P/Bld) [Vol rate/Area] 95 mL/min/{1.73_m2} Normal > OR = 60 [facility] Comment on above: Performed By: #### 7 600, 6399, 22910 #### [facility] [place] [address] [employer] Hy[employer]icker: Ronny Heart MD Globulin (S) [Mass/Vol] 2.7 g/dL Normal 1.9-3.7 [facility] Comment on above: Performed By: #### 7 600, 6399, 72572 #### [facility] [place] [address] [employer] Hy[employer]icker: Ronny Heart MD Glucose [Mass/Vol] 119 mg/dL High 65-99 [facility] Comment on above: Result Comment: Fasting reference interval For someone without known diabetes, a glucose value between 100 and 125 mg/dL is consistent with prediabetes and should be confirmed with a follow-up test. Performed By: #### 7 600, 6399, 53948 #### [facility] [place] [address] [employer] Hy[employer]icker: Ronny Heart MD Potassium [Moles/Vol] 4.1 mmol/L Normal 3.5-5.[address] [facility] [address] [facility] Comment on above: Performed By: #### 7 600, 6399, 24542 #### [facility] [address], [address] [place] [address] [employer]icker: Ronny Heart MD Protein [Mass/Vol] 7.7 g/dL Normal 6.1-8.1 [facility] Comment on above: Performed By: #### 7 600, 6399, 60049 #### [facility] [address], [address] [place] [address] [employer] Hydra[employer]icker: Ronny Heart MD Sodium [Moles/Vol] 140 mmol/L Normal 135-146 [facility] Comment on above: Performed By: #### 7 600, 6399, 56845 #### [facility] [address], [address] [place] [address] [employer]icker: Ronny Heart MD Urea nitrogen [Mass/Vol] 16 mg/dL Normal 7-25 [facility] Comment on above: Performed By: #### 7 600, 6399, 64715 #### [facility] [place] [address] [employer] Hy[employer]icker: Ronny Heart MD HEMOGLOBIN A1con 04-25-2025 HbA1c (Bld) [Mass fraction] 5.9 % High <5.7 [facility] Comment on above: Result Comment: For someone without known diabetes, a [...] A1c for diagnosis of diabetes for children. Performed By: #### 7 600, 6399, 71814 #### [facility] [address], [address] [place] [address] [employer]icker: Ronny Heart MD LIPID PANEL, STANDARDon 09-0 Cholesterol [Mass/Vol] 255 mg/dL High <200 [facility] Comment on above: Order Comment: FASTI NG:YES FASTING: YES Performed By: #### 7 600, 6399, 08319 #### [facility] [address], [address] [place] [address] [employer]icker: Ronny Heart MD Cholesterol in HDL [Mass/Vol] 82 mg/dL Normal > OR = 50 [facility] Comment on above: Order Comment: FASTI NG:YES FASTING: YES Performed By: #### 7 600, 6399, 96645 #### [facility] [address], [address] [place] [address] [employer]icker: Ronny Heart MD Cholesterol in LDL [Mass/Vol] 156 mg/dL High [facility] Comment on above: Order Comment: FASTI NG:YES FASTING: YES Result Comment: Refe rence range: <100 Desirable range <100 mg/dL for primary prevention; <70 mg/dL for patients with CHD or diabetic patients with > or = 2 CHD risk factors. LDL-C is now calculated using the Suleiman calculation, which is a validated novel method providing better accuracy than the Friedewald equation in the estimation of LDL-C. Dimirti SS et al. JACKIE. 2013;310(19): 6051-6581 (http://education.[employer].Zootcard/faq/LXH036) Performed By: #### 7 600, 0580, 23569 #### [facility] [address], [address] [place] [address] [employer] Hy[employer]icker: Ronny Heart MD Cholesterol.total/Cho lesterol in HDL [Mass ratio] 3.1 {ratio} Normal <5.0 [facility] Comment on above: Order Comment: FASTI NG:YES FASTING: YES Performed By: #### 7 600, 6399, 42838 #### [facility] [address], [address] [place] [address] [employer] Hy[employer]icker: Ronny Heart MD NON HDL CHOLESTEROL 173 mg/dL (calc) High <130 [facility] Comment on above: Order Comment: FASTI NG:YES FASTING: YES Result Comment: For patients with diabetes plus 1 major ASCVD risk factor, treating to a non-HDL-C goal of <100 mg/dL (LDL-C of <70 mg/dL) is considered a therapeutic option. Performed By: #### 7 600, 6399, 03827 #### [facility] [address], [address] [place] [address] [employer]icker: Ronny Heart MD Triglyceride [Mass/Vol] 73 mg/dL Normal <150 [facility] Comment on above: Order Comment: FASTI NG:YES FASTING: YES Performed By: #### 7 600, 6399, 90446 #### [facility] [address], [address] [place] [address] [employer]icker: Ronny Heart MD XR LUMBAR SPINE 6V W BENDING on 04-02-2025 [place] [address] XRay Report Signed Patient: SUMAN RODAS MR#: [id number] : 1955 Acct:[id number] Age/Sex: 70 / F ADM Date: 04/02/25 Loc: RAD Attending Dr: Rosanna Martinez NP Ordering Physician: Rosanna Martinez NP Date of Service: 04/02/25 Procedure(s): XR lumbar spine 6V w bending Accession Number(s): [id number] cc: WALT TAPIA ; Rosanna Martinez NP [place] [address] Patient Name: SUMAN RODAS MRN: [id number] date: 1955 Sex: F Assigned Patient Location: PM Current Patient Location: PM Accession/Order Number: [id number] Exam Date: 04/02/2025 10:44 Report Date: 04/02/2025 [...] Jr., D.O. 04/02/2025 10:45 AM Dictation Location: [place] [address] Electronically authenticated by: [id number] Y Date: 04/02/2025 10:45 Dictated By: Manoj Rojas M.D. Signed By: 04/02/25 1048 DD/ TD/TT: Plant Maintenance Technician: [facility] Radiology, Radiologist, MD - 04/02/2025 [place] [address] XRay Report Signed Patient: SUMAN RODAS MR#: [id number] : 1955 Acct:[id number] Age/Sex: 70 / F ADM Date: 04/02/25 Loc: [facility] Attending Dr: Rosanna Martinez P[employer]Y TRIMMER Ordering Physician: Rosanna Martinez NP Date of Service: 04/02/25 Procedure(s): XR lumbar spine 6V w bending Accession Number(s): [id number] cc: WALT TAPIA ; Rosanna Martinez NP [place] [id number] Patient Name: SUMAN RODAS MRN: [facility]:[id number] date: 1955 Sex: F Assigned Patient Location: PM Current Patient Location: PM Accession/Order Number: [id number] Exam Date: 04/02/2025 10:44 Report Date: 04/02/2025 [...] Jr., D.O. 04/02/2025 10:45 AM Dictation Location: [place] [address] Electronically authenticated by: [id number] Y Date: 04/02/2025 10:45 Dictated By: Manoj Rojas M.D. Signed By: 04/02/25 1048 DD/ 44 TD/TT: Plant Maintenance Technician: [facility] Radiology Study observation (narrative) [facility] XR LUMBAR SPINE 6V W BENDING Ordered By: Radiologist Radiology on 04-02-2025 [facility] Work Phone: No Panel Informationon 03-06 STAPHYLOCOCCUS EPIDERMIDIS, HAEMOLYTICUS, LUGDUNENSIS, SAPROPHYTICUS (URINA 0 [facility] STAPHYLOCOCCUS EPIDERMIDIS, HAEMOLYTICUS, LUGDUNENSIS, SAPROPHYTICUS (URINA Not detected [facility] URINARY TRACT INFECTION (HTR X)on 03-06-2025 ACINETOBACTER BAUMANII 0 [facility] ACINETOBACTER BAUMANII Not [facility], PARAPSILOSIS, TROPICALIS 0 [facility] MANDY ALBICANS, PARAPSILOSIS, TROPICALIS Not detected [facility] MANDY GLABRATA 0 [facility] Hea lthcare MANDY GLABRATA Not detected [facility] ealthcare MANDY KRUSEI 0 [facility] Healt hcare MANDY KRUSEI Not detected [facility] CITROBACTER FREUNDII 0 [facility] Healthcare CITROBACTER FREUNDII Not detected [place] [facility] ENTEROBACTER AEROGENES, CLOACAE 0 [facility] Healthmo re ENTEROBACTER AEROGENES, CLOACAE Not detected [facility] re ENTEROCOCCUS FAECALIS, FAECIUM 0 [facility] ENTEROCOCCUS FAECALIS, FAECIUM Not detected [facility] e ESCHERICHIA COLI 27.224 Abnormal [facility] Hea lthcare ESCHERICHIA COLI Detected Abnormal [facility] Interpretation and review of laboratory results Abnormal [facility] Healthcare KLEBSIELLA PNEUMONIAE, OXYTOCA 0 [facility] Healthc are KLEBSIELLA PNEUMONIAE, OXYTOCA Not detected [facility] MORGANELLA MORGANII 0 [facility] MORGANELLA MORGANII Not detected [facility] PROTEUS MIRABILIS, VULGARIS 0 [facility] PROTEUS MIRABILIS, VULGARIS Not detected [facility] PSEUDOMONAS AERUGINOSA 0 [facility] PSEUDOMONAS AERUGINOSA Not detected [facility] SERRATIA MARCESCENS 0 [facility] SERRATIA MARCESCENS Not detected [facility] STAPHYLOCOCCUS AUREUS 0 [facility] STAPHYLOCOCCUS AUREUS Not detected N [facility] STREPTOCOCCUS AGALACTIAE (GROUP B STREP) 0 [facility] STREPTOCOCCUS AGALACTIAE (GROUP B STREP) Not detected [facility] STREPTOCOCCUS PYOGENES (GROUP A STREP) 0 [facility] STREPTOCOCCUS PYOGENES (GROUP A STREP) Not detected [facility] Healthcar e Urinalysis macro (dipstick) panel (U)on 03-05-2025 Bilirubin, UA Negative Negative - 4(70) +++ mg/dL [facility] Blood, UA Positive Negative - 50 Gabe/mcL [facility] Comment on above: mod Glucose, UA Negative Negative - 1999(110) ++++ mg/dL [facility] Interpretation and review of laboratory results Abnormal [facility] Ketones, UA Negative Negative - 160(16) ++++ mg/dL [facility] Leukocytes, UA Moderate Negative - 500+++ Stefan/mcL [facility] Nitrite, UA Negative Negative - Positive [facility] pH, UA 5 5 - 9 [facility] Healthcar e Protein, UA Negative Negative - 1999(20) ++++ mg/dL [facility] Spec Grav, UA 1.01 1 - 1.03 [facility] Urobilinogen, UA 1.0 0.2 - 12 mg/dL [facility] Healthcar e Urinalysis macro (dipstick) panel (U)on 05-13-2024 Bilirubin, UA Negative Negative - 4(70) +++ mg/dL [facility] Blood, UA Positive Negative - 50 Gabe/mcL [facility] Clarity, UA Clear [facility] re Color, UA Light Yellow [facility] are Glucose, UA Negative Negative - 1999(110) ++++ mg/dL [facility] Interpretation and review of laboratory results Abnormal [facility] Ketones, UA Negative Negative - 160(16) ++++ mg/dL [facility] Leukocytes, UA Few Negative - 500+++ Stefan/mcL [facility] Nitrite, UA Negative Negative - Positive [facility] pH, UA 5.0 5 - 9 [facility] Healthcar e Protein, UA Negative Negative - 1999(20) ++++ mg/dL [facility] Spec Grav, UA 1.005 1 - 1.03 [facility] Urobilinogen, UA 1.0 0.2 - 12 mg/dL [facility] Urine Cultureon 09-06-2024 Bacteria identified Cx Nom (U) ORGANISM: Escherichia coli (O:ESCCOL) [place] Count >100,000 Aerobic MESHA Charge (NMIC56) ------ [...] RESISTANT TO ALL B-LACTAM DRUGS. PERFORMED BY: [place] [address] PATHOLOGIST FOREST SCIENTIST ELA PIZARRO M.D. Normal [facility] Comment on above: Performed By: #### C UU #### [address] MG MAMM SCREEN 3D DAHIANA CADon 04-13-2022 MG MAMM SCREEN 3D DAHIANA CAD Patient: SUMAN ORDAS Exam Date: 04/13/2022 : 1955 Gender:F Ordering : MRS. RODRIGUEZ GABRIELLA PONY TRIMMER-C Admission #: [id number] Family : Order #: [id number] CLICK HERE TO VIEW EXAM RADIOLOGY REPORT [...] breast cancer at age 74. LOCATION: [facility] BREAST COMPOSITION: Almost entirely fatty. FINDINGS: [...] M.D. on 04/14/2022 at 12:58 Normal [facility] XR DEXA BONE DENSITYon 04-13 XR DEXA BONE DENSITY DEXA Bone Density Study CLINICAL: Evaluate bone mineral density. Menopausal COMPARISON: 03/12/2020 FINDINGS: The bone density study was assessed by dual-energy x-ray absorptiometry with the Squareknot scanner. The test results are expressed in [...] by: YAN ROSE Date: 2022-04-13 13:56 Normal [facility] MRI LSP[place] WO CONon 02-25-20 MRI [place] CON EXAMINATION: MRI LSPINE WO CON [...] by: BERHANE VENTURA Date: 2022-02-24 18:31 Normal [facility] CBC COMPLETE BLOOD COUNTon 0 03-14-2017 Erythrocyte distribution width Auto Ratio (RBC) 14.4 % Normal 11.5-16.9 [facility] Comment on above: Performed By: #### 5 0608 ####[facility] [facility].[address] Erythrocytes (RBC) 4.46 mill/mm3 Normal 3.50-5.50 [facility] Comment on above: Performed By: #### 5 0608 ####[facility] [facility].[address] Hematocrit (HCT) 40.7 % Normal 36.0-48.0 [facility] Comment on above: Performed By: #### 5 0608 ####[facility] [facility].[address] Hemoglobin mass conc (Bld) 13.9 g/dL Normal 12.0-15.0 [facility] Comment on above: Performed By: #### 5 0608 ####[facility] [facility].[address] MCH 31.1 pg Normal 24.0-32.0 [facility] Comment on above: Performed By: #### 5 0608 ####[facility] [facility].[address] MCHC mass conc (RBC) 34.0 g/dL Normal 32.0-36.0 [facility] Comment on above: Performed By: #### 5 0608 ####[place] [address] [facility].[address] MCV 91.4 fL Normal 80.0-100.0 [facility] Comment on above: Performed By: #### 5 0608 ####[place] [address] [facility].[address] PLAT CNT 214 Thou/mm3 Normal 100-400 [facility] Comment on above: Performed By: #### 5 0608 ####[place] [address] [facility].[address] WBC (Leukocytes) 6.8 Thou/mm3 Normal 4.0-10.0 [facility] Comment on above: Performed By: #### 5 0608 ####[facility] [facility].[address] COMP METABOLIC PANELon 03-14 Alanine aminotransferase (ALT) 21 U/L Normal 7-52 [facility] Comment on above: Performed By: #### 0 0121 ####[facility] [facility].[address] Albumin 4.6 g/dL Normal 3.5-5.7 [facility] Comment on above: Performed By: #### 0 0121 ####[facility] [place] [address], [facility] ALKALINE PHOSPH 53 IU/L Normal 34-[address] [facility] [place] [facility] Comment on above: Performed By: #### 0 0121 ####[facility] [place] [address], [facility] Aspartate aminotransferase (AST) 23 U/L Normal 13-39 [facility] Comment on above: Performed By: #### 0 0121 ####[facility] [place] [address], [facility] Bilirubin (total) 0.6 mg/dL Normal 0.3-1.0 [facility] Comment on above: Performed By: #### 0 0121 ####[facility] [facility] [place] [address], [facility] Calcium 9.6 mg/dL Normal 8.6-10.3 [facility] Comment on above: Performed By: #### 0 0121 ####[facility] [facility] [address], [facility] Chloride 106 mmol/L Normal 98-107 [facility] Comment on above: Performed By: #### 0 0121 ####[facility] [facility] [place] [address], [facility] CO2 26 mmol/L Normal 21-31 [facility] Comment on above: Performed By: #### 0 0121 ####[facility] [facility] [place] [address], [facility] Creatinine 0.68 mg/dL Normal 0.60-1.20 [facility] Comment on above: Performed By: #### 0 0121 ####[facility] [place] [address], [facility] eGFR (black) mL/min/{1.73_m2} Normal >60 The [facility] Comment on above: Performed By: #### 0 0121 ####[facility] eGFR (non-black) mL/min/{1.73_m2} Normal >60 Th e [facility] Comment on above: Performed By: #### 0 0121 ####[facility] Glucose mass conc 80 mg/dL Normal 70-100 The [facility] Comment on above: Performed By: #### 0 0121 ####[place] [address] [address] Potassium molar conc 4.3 mmol/L Normal 3.5-5.1 [facility] Comment on above: Performed By: #### 0 0121 ####[place] [address] Protein 7.2 g/dL Normal 6.0-8.3 [facility] Comment on above: Performed By: #### 0 0121 ####[place] [address] Sodium 140 mmol/L Normal 136-145 [facility] Comment on above: Performed By: #### 0 0121 ####[place] [address] Urea nitrogen 10 mg/dL Normal 7-25 The [facility] Comment on above: Performed By: #### 0 0121 ####[address] HEP C RNA PCR QNTon 03-14-20 17 HCV PCR INTERP Not Detected Normal Not Detected [facility] Comment on above: Order Comment: This test [...] HCV infection. Performed By: #### 3 1265 ####[facility] HEP C RNA QNT Not detected Normal [facility] Comment on above: Order Comment: This [...] HCV infection. Performed By: #### 3 1265 ####[facility] [facility].[address] Vital Signs Date Time Vital Sign Value Performing Clinician Facility 04-24-2025 09:39-0400 Body height 165.1 cm Eve MARK Work Phone: [facility] 04-24-2025 09:39-0400 Body mass index (BMI) [Ratio] 38.84 kg/m2 Eve MARK Work Phone: [facility] 04-24-2025 09:39-0400 Body weight 105.87 kg Eve Hemmer PA Work Phone: [facility] 04-24-2025 09:39-0400 Diastolic blood pressure 86 mm[Hg] Eve Hemmer PA Work Phone: [facility] 04-24-2025 09:39-0400 Heart rate 91 /min Eve Hemmer PA Work Phone: [facility] 04-24-2025 09:39-0400 Respiratory rate 16 /min Eve Hemmer PA Work Phone: [facility] 04-24-2025 09:39-0400 SaO2% (BldA) [Mass fraction] 97 % Eve Hemmer PA Work Phone: [facility] 04-24-2025 09:39-0400 Systolic blood pressure 122 mm[Hg] Eve Hemmer PA Work Phone: [facility] 04-23-2025 16:12-0400 Body height 165.1 cm Buddy Brown DPM Work Phone: [facility] 04-23-2025 16:12-0400 Body mass index (BMI) [Ratio] 38.94 kg/m2 Buddy Brown DPM Work Phone: [facility] 04-23-2025 16:12-0400 Body weight 106.14 kg Buddy Brown DPM Work Phone: [facility] 04-23-2025 16:12-0400 Respiratory rate 18 /min Buddy Brown DPM Work Phone: [facility] 03-27-2025 14:44-0400 Body height 165.1 cm Buddy Brown DPM Work Phone: [facility] 03-27-2025 14:44-0400 Body mass index (BMI) [Ratio] 38.94 kg/m2 Buddy Brown DPM Work Phone: [facility] 03-27-2025 14:44-0400 Body weight 106.14 kg Buddy Brown DPM Work Phone: [facility] 03-27-2025 14:44-0400 Respiratory rate 16 /min Buddy Rose DPM Work Phone: [facility] 03-05-2025 10:58-0400 Body height 165.1 cm Eve Hemmer PA Work Phone: [facility] 03-05-2025 10:58-0400 Body mass index (BMI) [Ratio] 38.94 kg/m2 Eve Hemmer PA Work Phone: [facility] 03-05-2025 10:58-0400 Body weight 106.14 kg Eve Hemmer PA Work Phone: [facility] 03-05-2025 10:58-0400 Diastolic blood pressure 98 mm[Hg] Eve Hemmer PA Work Phone: [facility] 03-05-2025 10:58-0400 Heart rate 86 /min Eve Hemmer PA Work Phone: [facility] 03-05-2025 10:58-0400 SaO2% (BldA) [Mass fraction] 97 % Eve Hemmer PA Work Phone: [facility] 03-05-2025 10:58-0400 Systolic blood pressure 142 mm[Hg] Eve Hemmer PA Work Phone: [facility] 02-05-2025 13:31-0400 Body height 165.1 cm Michael Dejesus PONY TRIMMER Work Phone: [facility] 02-05-2025 13:31-0400 Body mass index (BMI) [Ratio] 39.61 kg/m2 Michael Dejesus PONY TRIMMER Work Phone: [facility] 02-05-2025 13:31-0400 Body weight 107.96 kg Michael Dejesus PONY TRIMMER Work Phone: [facility] 02-05-2025 13:31-0400 Diastolic blood pressure 101 mm[Hg] Michael Dejesus PONY TRIMMER Work Phone: [facility] 02-05-2025 13:31-0400 Heart rate 68 /min Michael Dejesus PONY TRIMMER Work Phone: [facility] 02-05-2025 13:31-0400 Respiratory rate 17 /min Michael Dejesus PONY TRIMMER Work Phone: [facility] 02-05-2025 13:31-0400 SaO2% (BldA) [Mass fraction] 97 % Michael Dejesus PONY TRIMMER Work Phone: [facility] 02-05-2025 13:31-0400 Systolic blood pressure 136 mm[Hg] Michael Dejesus PONY TRIMMER Work Phone: [facility] 05-13-2024 11:35-0400 Body height 165.1 cm Eve Hemmer PA Work Phone: [facility] 05-13-2024 11:35-0400 Body mass index (BMI) [Ratio] 38.27 kg/m2 Eve Hemmer PA Work Phone: [facility] 05-13-2024 11:35-0400 Body weight 104.33 kg Eve Hemmer PA Work Phone: [facility] 05-13-2024 11:35-0400 Diastolic blood pressure 84 mm[Hg] Eve Hemmer PA Work Phone: [facility] 05-13-2024 11:35-0400 Heart rate 80 /min Eve Hemmer PA Work Phone: [facility] 05-13-2024 11:35-0400 Respiratory rate 16 /min Eve Hemmer PA Work Phone: [facility] 05-13-2024 11:35-0400 SaO2% (BldA) [Mass fraction] 98 % Eve Hemmer PA Work Phone: [facility] 05-13-2024 11:35-0400 Systolic blood pressure 119 mm[Hg] Eve Hemmer PA Work Phone: [facility] 04-25-2024 10:19-0400 Body height 165.1 cm [facility] 04-25-2024 10:19-0400 Body mass index (BMI) [Ratio] 38.2 kg/m2 [facility] 04-25-2024 10:19-0400 Body temperature 97 [degF] [facility] 04-25-2024 10:19-0400 Body weight 104.43 kg [facility] 04-25-2024 10:19-0400 Diastolic blood pressure 80 mm[Hg] [facility] 04-25-2024 10:19-0400 Heart rate 72 /min [facility] 04-25-2024 10:19-0400 Respiratory rate 18 /min [facility] 04-25-2024 10:19-0400 SaO2% (BldA) [Mass fraction] 92 % [facility] 04-25-2024 10:19-0400 Systolic blood pressure 142 mm[Hg] [facility] 05-25-2023 10:50-0400 Body height 165.1 cm Elizabeth Mayes Other [facility] [employer] Other 05-25-2023 10:50-0400 Body mass index (BMI) [Ratio] 38.17 kg/m2 Elizabeth Mayes Other [employer] Other 05-25-2023 10:50-0400 Body temperature 97.7 [degF] Elizabeth Amyes Other [employer] Other 05-25-2023 10:50-0400 Body weight 104.06 kg Elizabeth Mayes Other [employer] Other 05-25-2023 10:50-0400 Diastolic blood pressure 88 mm[Hg] Elizabeth Mayes Other [employer] Other 05-25-2023 10:50-0400 Respiratory rate 18 /min Elizabeth Mayes Other [employer] Other 05-25-2023 10:50-0400 SaO2% (BldA) [Mass fraction] 98 % Elizabeth Mayes Other [employer] Other 05-25-2023 10:50-0400 Systolic blood pressure 142 mm[Hg] Elizabeth Mayes Other [employer] Other Encounters Encounter Date Encounter Type Care Provider Facility Start: 04-24-2025 End: 04-24-2025 Patient encounter procedure Eve Dougherty PA Work Phone: [facility] Comment on above: Medicare annual well ness visit, subsequent (Primary Dx); ACP (advance care [...] due to pollen; Ex-smoker; Sciatica, unspecified laterality Start: 04-24-2025 End: 04-24-2025 ambulatory EVE DOUGHERTY Not Available Start: 04-23-2025 End: 04-23-2025 Clinical Support Buddy Rose DPM Work Phone: [facility] Comment on above: Plantar fasciitis (P rimary Dx); Contracture of left ankle; Contracture of right ankle Start: 04-23-2025 End: 04-23-2025 Bamboo flowsheet Buddy Rose DPM Work Phone: [facility] Start: 04-23-2025 End: 04-23-2025 Bamboo flowsheet Buddy Rose DPM Work Phone: [facility] Start: 04-13-2025 End: 04-13-2025 ambulatory Nichole Painter MD Facility: [place] Start: 04-02-2025 End: 04-02-2025 Clinisync Result Encounter Generic External Data Provider [facility] External Department Unsolicited Start: 04-02-2025 End: 04-02-2025 Clinisync Result Encounter Generic External Data Provider [facility] External Department Unsolicited Start: 03-27-2025 End: 03-27-2025 Patient encounter procedure Buddy Rose DPM Work Phone: [facility] Comment on above: Plantar fasciitis (P rimary Dx); Contracture of left ankle Start: 03-27-2025 End: 03-27-2025 ambulatory BUDDY ROSE Not Available Start: 03-27-2025 End: 03-27-2025 Bamboo flowsheet Buddy Rose DPM Work Phone: [facility] Start: 03-27-2025 End: 03-27-2025 Bamboo flowsheet Buddy Rose DPM Work Phone: [facility] Start: 03-05-2025 End: 03-06-2025 External Result Encounter Eve MARK Work Phone: [facility] External Department Unsolicited Start: 03-05-2025 End: 03-06-2025 External Result Encounter Eve MARK Work Phone: [facility] External Department Unsolicited Start: 03-05-2025 End: 03-05-2025 Office outpatient visit 25 minutes Eve MARK Work Phone: [facility] Comment on above: Dysuria (Primary Dx) ; Recurrent cold sores; Acute cystitis with hematuria; Benign hypertension ; Morbid (severe) obesity due to excess calories ([facility]); Body mass index (BMI) 38.0-38.9, adult Start: 03-05-2025 End: 03-05-2025 ambulatory EVE DOUGHETRY Not Available Start: 02-05-2025 End: 02-05-2025 Bamboo flowsheet Michael Dejesus NP Work Phone: [facility] Start: 02-05-2025 End: 02-05-2025 Bamboo flowsheet Michael Dejesus PONY TRIMMER Work Phone: [facility] Start: 02-05-2025 End: 02-05-2025 Office outpatient visit 25 minutes Michael Dejesus PONY TRIMMER Work Phone: [facility] Comment on above: Body mass index (BMI ) 38.0-38.9, adult (Primary Dx); Insomnia, unspecified type; Morbid (severe) obesity due to excess calories (CMS-HCC); Chronic viral hepatitis C (HCC); Chronic hepatitis, unspecified (HCC); Unspecified cirrhosis of liver (HCC); Pure hypercholesterolemia, unspecified ; 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) Start: 02-05-2025 End: 02-06-2025 Refdarline Tapia MD Work Phone: [facility] Comment on above: Primary insomnia Start: 01-23-2025 End: 01-23-2025 Telephone encounter Eve MARK Work Phone: [facility] Start: 01-23-2025 End: 01-23-2025 ambulatory EVE DOUGHERTY Not Available Start: 06-05-2024 End: 06-06-2024 Andreas Tapia MD Work Phone: [facility] [...] Available Start: 05-01-2024 End: 05-01-2024 Refill Cely Bainsbernice LUONG [facility] Comment on above: Primary insomnia Start: 04-25-2024 End: 04-25-2024 Departed Referred SUSPENDER CUTTER Elizabeth Mayes Work Phone: [facility] [place] Work Phone: Start: 04-25-2024 End: 04-25-2024 ambulatory Elizabeth Mayes [facility] Work Phone: Start: 04-25-2024 End: 04-25-2024 Patient encounter procedure [facility] [place] Work Phone: Start: 05-25-2023 End: 05-25-2023 ambulatory Elizabeth Mayes Other [employer] Other Start: 05-25-2023 Office outpatient ne w 30 minutes Elizabeth Mayes [facility] [place] Start: 01-05-[address] WALT TAPIA Facilit y:H1 Start: 04-13-2022 End: 04-14-2022 ambulatory MICHAEL DEJESUS Facility:[facility] Start: 03-07-2022 End: 03-08-[address] MICKI MCCAIN . Facility:[facility] Start: 02-24-2022 End: 02-25-[address] WALT TAPIA Facility:[facility] Start: 02-15-2022 End: 02-16-[address] MICKI MCCAIN . Facility:[facility] Start: 12-27-2021 End: 12-28-[address] MICKI MCCAIN . Facility:[facility] Start: 03-14-2017 End: 03-15-2017 Ambulatory MARGE NGUYỄN Facility:[facility] Procedures Date Procedure Procedure Detail [...] MARK Work Phone: Start: 05-05-2024 Mammography Eve Ada MARK Work Phone: Start: 05-04-2023 Mammography Cely jamison MA Plan of Treatment Date Care Activity Detail Author Start: 04-17-2027 Screening for malignant neoplasm of colon [facility] Start: 04-24-2026 Medicare Annual Wellness (AWV) Medicare Annual Wellness (AWV) [facility] Start: 05-08-2025 End: 05-08-2025 Patient encounter procedure 05/08/2025 11:10 AM EDT [facility] [address] [place] [id number] Buddy Rose DPM [address] [address] [facility] Start: 05-07-2025 End: 06-24-2026 DBT Breast - bilateral screening Bilateral screening mammogram with tomosynthesis Imaging Routine Encounter for screening mammogram for malignant neoplasm of breast Expected: 05/07/2025, Expires: 06/24/2026 [facility] Work Phone: Comment on above: Expected: 05/07/2025, Expires: Start: 05-05-2025 Screening for malignant neoplasm of breast Mammogram [facility] Start: 04-24-2025 End: 04-24-2026 DXA Skeletal system Views for bone density DEXA bone density Imaging Routine Estrogen deficiency Expected: 04/24/2025, Expires: 04/24/2026 [facility] Comment on above: Expected: 04/24/2025, Expires: Start: 04-24-2025 End: 04-24-2025 Patient encounter procedure 04/24/2025 9:30 AM EDT [facility] [address] [facility] [address] [place] [address] Eve Dougherty PA [address] [place] [address] [facility] [place] [facility] Start: 04-23-2025 End: 04-23-2025 Clinical Support 04/23/2025 4:20 PM EDT Clinical Support [facility] [address] [place] [id number] Buddy Rose, DPM [address] [id number] Plantar fasciitis (Primary Dx); Contracture of left ankle; Contracture of right ankle [facility] Comment on above: Plantar fasciitis (Primary Dx); Contracture of left ankle; Contracture of right ankle Start: 04-20-2025 Influenza vaccination Influenza Vaccine (#1) [facility] Start: 04-13-2025 End: 04-13-2025 Clinical Support 04/13/2025 2:40 PM EDT Clinical Support [facility] [address] [place] [phone] Buddy Rose DPM [address] [address] [facility] Start: 04-08-2025 End: 04-08-2025 Patient encounter procedure [facility] Start: 04-07-2025 Medicare Annual Wellness (AWV) Medicare Annual Wellness (AWV) [facility] Start: 03-27-2025 End: 03-27-2025 Patient encounter procedure 03/27/2025 2:50 PM EDT Office Visit [facility] [address] [place] [phone] Buddy Rose DPM [address] [address] Plantar fasciitis (Primary Dx); Contracture of left ankle [facility] Comment on above: Plantar fasciitis (Primary Dx); Contracture of left ankle Start: 03-05-2025 End: 03-05-2026 URINARY TRACT INFECTION (HTRX) URINARY TRACT INFECTION (HTRX) Lab Routine Acute cystitis with hematuria Expected: 03/05/2025 (Approximate), Expires: 03/05/2026 [facility] Work Phone: Comment on above: Expected: 03/05/2025 (Approximate), Expi res: 03/05/2026 Start: 02-05-2025 End: 02-05-2025 Patient encounter procedure 02/05/2025 1:30 PM EDT Office Visit [facility] [address] [place] [address] Michael Dejesus, PONY TRIMMER [address] [place] [address] Arrived [facility] Comment on above: Arrived Start: 07-08-2024 End: 07-08-2024 Telemedicine consultation with patient 07/08/2024 10:30 AM EST Telemedicine [facility] [address] [place] [address] Eve Dougherty PA [address] [place] [address] [facility] Start: 05-13-2024 End: 05-13-2024 Patient encounter procedure 05/13/2024 11:30 AM EDT Office Visit [facility] [address] [place] [address] Eve Dougherty PA [address] [place] [address] Arrived [facility] Comment on above: Arrived Start: 05-04-2024 Screening for malignant neoplasm of breast Mammogram [facility] Start: 04-25-2024 Bacteria identified in Urine by Culture [facility] Start: 1955 Screening for malignant neoplasm of colon [facility] CBC W Auto Differential panel - Blood CBC and differential Lab Routine Medicare annual wellness visit, subsequent Benign hypertension Ordered: 04/24/2025 [facility] Comment on above: Ordered: 04/24/2025 Comprehensive metabolic 2000 panel - Serum or Plasma Comprehensive metabolic panel Lab Routine Medicare annual wellness visit, subsequent Benign hypertension Other cirrhosis of liver (HCC) Chronic hepatitis C without hepatic coma (HCC) Impaired fasting glucose Pure hypercholesterolemia Ordered: 04/24/2025 [facility] Comment on above: Ordered: 04/24/2025 Hemoglobin A1c/Hemoglobin.total in Blood Hemoglobin A1c Lab Routine Medicare annual wellness visit, subsequent Impaired fasting glucose Ordered: 04/24/2025 [facility] Comment on above: Ordered: 04/24/2025 Lipid 1996 panel - Serum or Plasma Lipid panel Lab Routine Medicare annual wellness visit, subsequent Benign hypertension Pure hypercholesterolemia Ordered: 04/24/2025 [facility] Comment on above: Ordered: 04/24/2025 Immunizations Immunization Date Immunization Notes Care Provider Fa cili 04-23-2024 influenza, high dose seasonal, preservative-free Eve MARK Work Phone: [facility] 04-23-2024 influenza virus vacc ine, unspecified formulation Eve MARK Work Phone: [facility] 05-18-2023 Influenza, High-dose Seasonal, Quadrivalent, Preservative Free Eve MARK Work Phone: [facility] 05-25-2022 influenza, high dose seasonal, preservative-free Cely Jessica [facility] 05-25-2022 Influenza, High-dose Seasonal, Quadrivalent, Preservative Free Cely Jessica [facility] 08-27-2021 tetanus toxoid, redu blu diphtheria toxoid, and acellular pertussis vaccine, adsorbed Cely Jessica [facility] 07-26-2021 zoster vaccine mercedez MARK Work Phone: [facility] 05-22-2021 Influenza, High-dose Seasonal, Quadrivalent, Preservative Free Cely Jessica LUONG [facility] 05-12-2021 zoster vaccine recombinant Cely bonner MA [facility] 05-17-2020 influenza, high dose seasonal, preservative-free Cely Jessica [facility] 05-17-2020 Influenza, High-dose Seasonal, Quadrivalent, Preservative Free Cely [facility] 05-15-2019 influenza, high dose seasonal, preservative-free Cely [facility] 05-15-2019 Influenza, High-dose Seasonal, Quadrivalent, Preservative Free Cely [facility] 05-15-2019 pneumococcal polysaccharide vaccine, 23 valent Cely [facility] 05-07-2018 influenza, injectabl e, quadrivalent, preservative free Cely [facility] 05-07-2018 seasonal influenza, intradermal, preservative free Cely [facility] 11-21-2017 pneumococcal polysaccharide vaccine, 23 valent Cely [facility] 05-17-2017 influenza, injectabl e, quadrivalent, preservative free [facility] 05-17-2017 seasonal influenza, intradermal, preservative free [facility] 05-16-2016 influenza, injectabl e, quadrivalent, contains preservative [facility] 05-16-2016 influenza, injectabl e, quadrivalent, preservative free [facility] 05-16-2016 pneumococcal conjuga te vaccine, 13 valent Cely [facility] 04-30-2015 seasonal influenza, intradermal, preservative free [facility] 05-21-2014 zoster vaccine, live Cely [facility] 05-28-2013 seasonal influenza, intradermal, preservative free Cely [facility] 07-19-2009 tetanus and diphther ia toxoids, adsorbed, preservative free, for adult use (5 Lf of tetanus toxoid and 2 Lf of diphtheria toxoid) [facility] Payers Date Payer Category Payer Self-pay 2022 Unknown [id number] 2019 Private Health Insurance [id number] 2019 Unknown [id number] 2012 Medicare [id number] 1959 Medicare [id number] 1959 Unknown [id number] 1954 Unknown [id number] 1954 Unknown [id number] [id number] 1954 Unknown [id number] [id number] 1954 Unknown [id number] [id number] 1954 Unknown [id number] [id number] 1954 Unknown [id number] [id number] 1954 Unknown [id number] 2.16.840.1.033143.3.579.2.196 1954 Unknown [id number] 2.16.840.1.473190.3.579.2.125 9 1954 Unknown [id number] 2.16.840.1.964436.3.579.2.125 9 1954 Unknown [id number] 2.16.840.1.705025.3.579.2.125 9 1954 Unknown [id number] 2.16.840.1.343338.3.579.2.125 9 1954 Unknown [id number] 2.16.840.1.288082.3.579.2.125 9 1954 Unknown [id number] 2.16.840.1.306691.3.579.2.125 9 1954 Unknown [id number] 9 [facility] [id number] Medicare [id number] Medicare Medicare Nonpatient [id number] Unknown [id number] Social History Date Type Detail Facility Unknown if ever smoked [facility] [employer] Other Start: 04-07-2024 End: 07-23-2024 Sex Assigned At [facility] Other Start: 05-25-2023 End: 02-05-2025 Tobacco smoking status [facility] Ex-smoker (finding) [facility] Start: 1955 Sex Assigned At Female F [facility] Start: 01-01-2024 Tobacco smoking stat [facility] Never smoked tobacco [facility] Start: 01-01-2024 End: 02-05-2025 Tobacco use and exposure Smokeless tobacco non-user [facility] Start: 04-07-2024 End: 04-24-2025 Alcoholic beverage intake Current drinker of alcohol [...] Healthcare How often do you att end baptist or yarsani services? Patient declined [facility] Do you belong to any clubs or organizations such as baptist groups, unions, fraternal or athletic groups, or school groups? No [facility] Are you now , , , , never or living with a partner? [facility] How often to you hav e a drink containing alcohol? 2-4 times a month [facility] How often do you hav e 6 or more drinks on 1 occasion? Never [facility] (I/We) worried [facility] (my/our) food would run out before (I/we) got money to buy more. Never true [facility] Start: 08-20-2004 End: 08-20-1975 History of tobacco use Current smoker [facility] Start: 08-20-2004 End: 08-20-1975 History of tobacco use Cigarette Smoker [facility] NEGATED: Highlighted rowStart: NINF History of tobacco use Passive smoker [facility] Functional Status Date Assessment Result Facility 04-24-2025 Patient Health Quest ionnaire 2 item (PHQ-2) [Reported] [facility] 02-05-2025 Patient Health Quest ionnaire 2 item (PHQ-2) [Reported] [facility] Clinical Notes 12-27-2021 to 04-24-2025 DEEDEE Amin - 04/24/2025 9:30 AM Yan Rose DPM - 04/23/2025 4:20 PM Yan Rose DPM - 03/27/2025 2:50 PM DEEDEE Schroeder - 03/05/2025 11:00 AM EDT Note Date & Type Note Facility 04-24-2025 History of Presen t illness Narrative Images from the original note were not included. HPI Med Refill Additional comments: Caty Last edited by DEEDEE Amin on 04/24/2025 9:44 AM. Subjective Patient ID: Suman Rodas is a 70 y.o. female who presents for Med Refill (Caty) and Medicare Annual Wellness Visit Subsequent. States was in [facility] on 04/07 and was diagnosed with Vertigo, was given Meclizine. Taking it as needed with relief of symptoms. They did teach her some exercises to do when needed and those have been helpful. Has a little lingering mild headache and buzzing in her ears, both have been improving. Heading down to [place] in 4 weeks. Med Refill Pertinent negatives [...] is apparent by direct observation, No self awareness of cognitive deficiency Three Word Registration: Village, Kitchen, Baby Clock Drawing: Normal Clock - 2 Three Word Recall: All 3 words correct - 3 Total Score (0-5 Points): 5 Pain Assessment Pain Score: 4 Advance Care Planning Do you have a living will?: No (refuses living will paperwork) Do you have a medical power of document review attorney?: Yes Current Outpatient Medications on File Prior to Visit Medication Sig Dispense Refill [DISCONTINUED] diazePAM (Valium) 10 MG tablet Take 10 mg by mouth as needed at bedtime for anxiety [DISCONTINUED] meclizine (Antivert) 25 MG tablet Take by mouth in the morning and before bedtime. cholecalciferol (EQL Vitamin D3) 50 MCG (1999 UT) capsule Take 1 capsule (50 mcg) [...] NERVE BLOCK Bilateral 03/08/2021 L2-L5 OOPHORECTOMY Right MN DEST,PARAVERTEBRAL,L/S,SINGLE Left 05/03/2021 L2-L5 RADIOFREQUENCY ABLATION Bilateral 05/28/2023 L4-S1 TRIGGER FINGER RELEASE Bilateral thumb Visit Vitals BP 122/86 Pulse 91 Resp 16 Ht 5' 5 Wt 233 lb 6.4 oz SpO2 97% BMI 38.84 kg/m Smoking Status Former BSA 2.2 m [...] All needed testing was ordered. Will continue with yearly Medicare Wellness exams. - CBC and differential [...] Morbid (severe) obesity due to excess calories ([facility]) Encouraged portion control, decrease simple sugars and [...] stable since last assessment. Will continue to monitor, no concerns today. Follow up in about 6 months (around 10/22/2025) for Medication Follow Up, Televisit. Eve MERCADO, PAChaimC documented in this encounter [facility] 04-23-2025 History of Presen t illness Narrative Patient: Suman Rodas : 1955 PCP: Walt Tapia MD SUBJECTIVE Suman Matta Umu 70 y.o. presents today for follow up of left HSS. Pt has had previous treatment of recent first but 3rd total steroid injection, nsaids, [...] date: 2004 Quit date: 1975 Years since quittin.6 Passive exposure: Never Smokeless [...] More than three times a week Attends Alevism Services: Patient declined Active Member of Clubs [...] Buddy Rose DPM documented in this encounter [facility] 03-27-2025 History of Presen t illness Narrative [...] date: 2004 Quit date: 1975 Years since quittin.6 Passive exposure: Never Smokeless [...] More than three times a week Attends Alevism Services: Patient declined Active Member of Clubs [...] Buddy Rose DPM documented in this encounter [facility] 03-05-2025 History of Presen t [...] Refill cholecalciferol (EQL Vitamin D3) 50 MCG (1999 UT) capsule Take 1 capsule (50 mcg) [...] NERVE BLOCK Bilateral 03/08/2021 L2-L5 OOPHORECTOMY Right MN DEST,PARAVERTEBRAL,L/S,SINGLE Left 05/03/2021 L2-L5 RADIOFREQUENCY ABLATION Bilateral [...] Status Glucose, UA 03/05/2025 Negative Negative - 1999(110) ++++ mg/dL Final Bilirubin, UA 03/05/2025 Negative Negative - 4(70) +++ mg/dL Final Ketones, UA 03/05/2025 Negative Negative - 160(16) ++++ mg/dL Final Spec Grav, UA 03/05/2025 1.010 1 - 1.03 Final Blood, UA 03/05/2025 Positive Negative - 50 Gabe/mcL Final mod pH, UA 03/05/2025 5.0 5 - 9 Final Protein, UA 03/05/2025 Negative Negative - 1999(20) ++++ mg/dL Final Urobilinogen, UA 03/05/2025 1.0 [...] Morbid (severe) obesity due to excess calories ([facility]) Patient has lost 4 pounds since her [...] Appointment As Scheduled. documented in this encounter [facility] 02-05-2025 History of Presen t [...] Refill cholecalciferol (EQL Vitamin D3) 50 MCG (2000 [...] NERVE BLOCK Bilateral 03/08/2021 L2-L5 OOPHORECTOMY Right MN DEST,PARAVERTEBRAL,L/S,SINGLE Left 05/03/2021 L2-L5 RADIOFREQUENCY ABLATION Bilateral [...] follow-ups on file. documented in this encounter [facility] 01-23-2025 Telephone encount er Note See other TE [facility] 01-23-2025 Miscellaneous Notes Formattin g of this note might be different from the original. See other TE Urin results are in the chart documented in this encounter [facility] 01-23-2025 Telephone encount er Note Urin results are in the chart [facility] 06-05-2024 Telephone encount er Note zolpidem (Ambien) 10 MG tablet to [facility] 06-05-2024 Miscellaneous Notes Formattin g of this note might be different from the original. zolpidem (Ambien) 10 MG tablet to [facility] documented in this encounter [facility] 05-13-2024 History of Presen t illness Narrative Images from the original note were not included. Subjective Patient ID: Suman Rodas is a 69 y.o. female who presents for UTI. Suman is present today for evaluation of UTI. She went to [facility] and was diagnosed with dysuria and [...] NERVE BLOCK Bilateral 03/08/2021 L2-L5 OOPHORECTOMY Right MN DEST,PARAVERTEBRAL,L/S,SINGLE Left 05/03/2021 L2-L5 RADIOFREQUENCY ABLATION Bilateral [...] Final Protein, UA 05/13/2024 Negative Negative - 2000(20) ++++ mg/dL Final Urobilinogen, UA 05/13/2024 1.0 [...] Appointment As Scheduled. documented in this encounter [facility] 05-25-2023 Evaluation note Encounter Date [...] understanding and is agreeable to treatment plan [facility] Other 07-19-2022 NoteCONSULTATION CONSULTATION DATE: 03/07/2022 CHIEF [...] a p.r.n. basis. CC: Walt Tapia M.D. [facility] Signed and Approved by: DR MICKI MCCAIN . 03/14/2022 09:44:00[facility]06-29-2022 NoteCONSULTATION CONSULTATION DATE: 02/15/2022 HISTORY OF [...] She was doing aqua therapy at the [facility], was doing quite well, but is [...] of care and would like to proceed. [facility] Signed and Approved by: SERINA LIM . 02/16/2022 13:37:00[facility]05-10-2022 NoteCONSULTATION PROCEDURE DATE: 12/27/2021 PREOPERATIVE DIAGNOSIS: [...] Will be followed up in the office. [facility] Signed and Approved by: DR MICKI MCCAIN . 01/03/2022 10:41:00[facility]05-10-2022 NoteCONSULTATION CONSULTATION DATE: 12/27/2021 CHIEF COMPLAINT: [...] The patient was encouraged to join the [facility] now that she has moved over to [place]. With regards to the paravertebral spasming, a trigger point injection in the right lumbar paravertebrals will be done. The patient understands and would like to proceed. [facility] Signed and Approved by: DR MICKI MCCAIN . 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 documented in this encounter [facility] HealthcareEvaluation note* Diagnosis Primary insomnia Persistent disorder of initiating or maintaining sleep documented in this encounter [facility] HealthcareEvaluation note* Diagnosis Dysuria- Primary Recurrent cold sores Herpes simplex without mention of complication Acute cystitis with hematuria Benign hypertension Essential hypertension, benign Morbid (severe) obesity due to excess calories (CMS-HCC) Body mass index (BMI) 38.0-38.9, adult documented in this encounter [facility] HealthcareEvaluation note* Diagnosis Plantar fasciitis- Primary Plantar fascial fibromatosis Contracture of left ankle documented in this encounter [facility] note* Diagnosis Plantar fasciitis- Primary Plantar fascial fibromatosis Contracture of left ankle Contracture of right ankle documented in this encounter [facility]* Diagnosis Medicare annual wellness visit, subsequent- Primary [...] Morbid (severe) obesity due to excess calories ([facility]) Recurrent cold sores Herpes simplex without mention of complication Seasonal allergic rhinitis due to pollen Ex-smoker Personal history of tobacco use, presenting hazards to health Sciatica, unspecified laterality documented in this encounter [facility] N[facility] - Reported* Type Description Date Medical History Primary insomnia Surgical History cholecystectomy Surgical History left ovary removal Surgical History carpal tunnel release Surgical History trigger finger release Surgical History right ankle Hospitalization History see above Hospitalization History hepatitis [facility] Other Summary Purpose Family History No Family [...] and content) DATE CREATED AUTHOR 02/13/2018 [facility] DATE CREATED AUTHOR AUTHOR'S ORGANIZ ATION 12/26/2022 [facility] DATE CREATED AUTHOR AUTHOR'S ORGANIZ ATION 06/01/2024 [facility] DATE CREATED AUTHOR AUTHOR'S ORGANIZ ATION 04/18/2025 [facility] DATE CREATED AUTHOR AUTHOR'S ORGANIZ ATION 04/25/[address] [facility] DATE CREATED AUTHOR AUTHOR'S ORGANIZ ATION 04/27/2025 [facility] REASON FOR VISIT (unrecogniz ed section and content) Reason Onset Date Comments Med Refill 06/05/2024 Reason Onset Date Comments Med Refill 05/01/2024 Reason Onset Date Comments Med Refill 02/05/2025 Reason Comments UTI Reason Comments Foot Pain Reason Comments Follow-up Lt pf check Reason Comments Med Refill Ambien Medicare Annual Wellness Visit Subsequen t Care Teams (unrecognized sec tion and content) [...] April 25, 2024 End: April 25, 2024 Label Sewer Relationship Specialty Start Date End Date Walt Tapia MD [address] [place] [address] PCP - General Internal Medicine 12/26/22 Walt Tapia MD [address] [place] [address] PCP - ACO Reach 12/19/23 Label Sewer Relationship Specialty Start Date End Date Walt Tapia MD [address] [place] [address] PCP - General Internal Medicine 12/26/22 Walt Tapia MD [address] [place] [address] PCP - ACO Reach 12/19/23 Label Sewer Relationship Specialty Start Date End Date Walt Tapia MD [address] [place] [address] PCP - General Internal Medicine 12/26/22 Walt Tapia MD [address] [place] [address] PCP - ACO Reach 12/19/23 Label Sewer Relationship Specialty Start Date End Date Walt Tapia MD [address] [place] [address] PCP - General Internal Medicine 12/26/22 Label Sewer Relationship Specialty Start Date End Date Walt Tapia MD [address] [place] [address] PCP - General Internal Medicine 12/26/22 Label Sewer Relationship Specialty Start Date End Date Walt Tapia MD [address] [place] [address] PCP - General Internal Medicine 12/26/22 Label Sewer Relationship Specialty Start Date End Date Walt Tapia MD [address] [place] [address] PCP - General Internal Medicine 12/26/22 Label Sewer Relationship Specialty Start Date End Date Walt Tapia MD [address] [place] [address] PCP - General Internal Medicine 12/26/22 Label Sewer Relationship Specialty Start Date End Date Walt Tapia MD [address] [place] [address] PCP - General Internal Medicine 12/26/22 Label Sewer Relationship Specialty Start Date End Date Walt Tapia MD [address] [place] [address] PCP - General Internal Medicine 12/26/22 Label Sewer Relationship Specialty Start Date End Date Walt Tapia MD [address] [place] [address] PCP - General Internal Medicine 12/26/22 Goals [...] BE BASED ON THE PRIMARY CLINICAL RECORDS. [facility]. provides no warranty or guarantee of the accuracy or completeness of information in this document.
== END 2025-05-07 10:51 | disposition home or self-care (01) ==
LOC: MAMMO 10:50
PROVIDERS: PCP Internal Medicine; Visit Provider Internal Medicine
DX: Z12.31 Encounter for screening mammogram for malignant neoplasm of breast (principal); E28.39 Other primary ovarian failure; Z80.3 Family history of malignant neoplasm of breast; M85.80 Other specified disorders of bone density and structure, unspecified site
CPT/HCPCS: 77063; 77067; 77080

== ENCOUNTER 2025-05-14 12:48 | Outpatient (OUT) | payer MEDICARE, OTHER, SELFPAY ==
--- OUTSIDE RECORDS SUMMARY | 2025-05-14 12:55 | XMS_ITS | CCD ---
Author Organization [facility] Care Team Providers Care Glove Turner And Former Name Role Phone LAY, MARGE Unavailable Unavailable LAY, MARGE Unavailable Unavailable WALT TAPIA Unavailable Unavailable WALT TAPIA Unavailable Unavailable JACQUES, DR TAYLOR Primary Care Unavailable GIEDRAITIS, ANDRIUS Admitting Unavailable GIEDRAFERMIN, ANDRIUS Attending Unavailable MICHAEL DEJESUS Admitting Unavailable ZIROBINSON, DR BERHANE Costa Consulting Unavailable MICHAEL DEJESUS Attending Unavailable DR WALT TAPIA Primary Care Unavailable YAN ROSE Unavailable MICHAEL DEJESUS Consulting Unavailable DR WALT [...] Elizabeth Mayes Unavailable HELDER Mayes Attending Provider Elizabeth Mayes Admitting Unavailable Elizabeth Mayes Attending Unavailable NON STAFF Primary Care Unavailable Walt Tapia MD Primary Care Provider Walt Tapia MD Unavailable Nichole Painter MD Attending Unavailable EVE DOUGHERTY Attending Unavailable MICHAEL DEJESUS Attending Unavailable EVE DOUGHERTY Attending Unavailable BUDDY ROSE Attending Unavailable BUDDY ROSE Attending Unavailable EVE DOUGHERTY Attending Unavailable BUDDY ROSE Attending Unavailable EVE DOUGHERTY Attending Unavailable Allergies Allergy Classification Reported Allergen(s) Allergy Type Date of Onset Reaction(s) Facility (1 source) Tetracyclines Drug allergy (disorder) 06-30-[address] [facility] Repository (1 source) celecoxib Drug Allergy [facility] Repository (2 sources) Tetracycline Drug Allergy 01-20-2014 [facility] Repository (20 sources) Tetracycline Drug Allergy 04-25-2024 rash [facility] Work Phone: (1 source) Tetracycline Drug Allergy 04-25-2024 [facility] Repository (20 sources) cefdinir Drug Allergy 03-29-2023 Diarrhea [facility] Work Phone: (20 sources) celecoxib Drug Allergy 03-29-2023 [facility] (20 sources) atorvastatin Drug Allergy 07-08-2024 Headache [facility] Work Phone: Medications Current Medications Medication [...] Active meclizine hydrochloride 25 mg oral tablet (8 sources) Antiemetic Start: 04-07-2025 End: 04-24-2025 take 1 tablet by mouth twice daily as needed for dizziness meclizine (Antivert) 25 MG tablet Indications: Vertigo Take 1 tablet (25 mg) by mouth 2 (two) times a day as needed for dizziness 60 tablet 2 04/24/2025 Active methylPREDNISolone (2 sources) Corticosteroid Start: 05-08-2025 methylPREDNISolone (Medrol Dospak) 4 MG tablets Indications: Plantar fasciitis Follow schedule on MEDROL PACK package instructions to be used as directed 21 tablet 05/08/2025 Active nitrofurantoin, macrocrystals 25 mg / nitrofurantoin, monohydrate 75 mg oral capsule (4 sources) Nitrofuran Antibacterial Start: 03-05-2025 End: 03-12-2025 take 1 capsule by mouth in the morning nitrofurantoin, macrocrystal-monohydr ate, (Macrobid) 100 MG capsule Indications: Acute cystitis [...] tablet Orally BID for 5 May, Active rosuvastatin calcium 10 mg oral tablet (4 sources) HMG-CoA Reductase Inhibitor Start: 04-28-2025 End: 10-25-2025 take 1 tablet by mouth once daily rosuvastatin (Crestor) 10 MG tablet Indications: Pure hypercholesterolemia Take 1 tablet (10 mg) by mouth Daily 30 tablet 1 04/28/2025 10/25/2025 Active valACYclovir 1000 mg oral tablet (20 sources) Herpesvirus Nucleoside Analog DNA Polymerase Inhibitor, [...] tartrate 10 mg oral tablet (20 sources) gamma-Aminobutyr ic Acid-ergic Agonist Start: 04-25-2024 Zolpidem Active MG [...] Problem Classification Problem Date Documented Date Episodic/Chronic Administrative/social admission (2 sources) Patient encounter status; Translations: [Other specified counseling] 04-24-2025 Episodic Aortic and peripheral arterial embolism or thrombosis (2 sources) Arterial embolus and thrombosis; 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 Chronic Conditions associated with dizziness or vertigo (2 sources) Vertigo; Translations: [Dizziness and giddiness] 04-24-2025 Episodic Diseases of white blood cells (4 sources) Eosinopenia; Translations: [Neutropenia, unspecified] Onset: 04-27-2025 04-27-2025 Chronic Disorders of lipid metabolism (20 sources) Pure [...] Onset: 02-14-2023 06-05-2024 Chronic Other acquired deformities (5 sources) Contracture of joint of left ankle; Translations: [Contracture, left ankle] 03-25-2025 Chronic Other acquired deformities (3 sources) Contracture of joint of right ankle; Translations: [Contracture, right ankle] 04-15-2025 Chronic Other connective tissue disease (5 sources) Plantar fasciitis; Translations: [Plantar fascial fibromatosis] [...] Date Documented Da te Episodic/Chronic Abdominal hernia (20 sources) Hiatal hernia; Translations: [Diaphragmatic hernia without obstruction or gangrene] Onset: 03-29-2023 03-29-2023 Episodic Diabetes mellitus without complication (20 sources) Impaired fasting glycemia; Translations: [Impaired fasting glucose] Onset: 04-07-2024 04-07-2024 Episodic Mood disorders (20 sources) Mood disorders Onset: 04-07-2024 Resolved: 04-24-2025 04-07-2024 Other bone disease and musculoskeletal deformities (1 source) Other specified disorders of bone density and structure, unspecified site; Translations: [OTH D/O BONE DEN STRUCT UNS SITE] Onset: 04-14-2022 Episodic Other bone disease and musculoskeletal deformities (20 [...] Test Name Value Interpretation Reference Range Facility MM TOMOSYNTHESIS SCREENING B Ion 05-07-2025 [place] [id number] Mammography Report Signed Patient: SUMAN RODAS MR#: [id number] : 1955 Acct:[id number] Age/Sex: 70 / F ADM Date: 05/07/25 Loc: MAMMO Attending Dr: WALT TAPIA Ordering Physician: WALT TAPIA Results: Date of Service: 05/07/25 Follow Up: Procedure(s): MM tomosynthesis screening BI Accession Number(s): [id number] cc: WALT TAPIA Patient Name: SUMAN RODAS MR#: [id number] : 1955 Exam Date: 05/07/2025 Ordering Doctor: DR WALT TAPIA M.D. RADIOLOGY REPORT PROCEDURE: MM TOMOSYNTHESIS SCREENING BI COMPARISON: MM TOMOSYNTHESIS SCREENING BI, 05/05/2024. MM TOMOSYNTHESIS SCREENING BI, 05/04/2023. MG MAMM SCREEN 3D DAHIANA CAD, 04/13/2022. MG MAMM DAHIANA SCRN W CAD DIG, 11/03/2009. INDICATIONS: Screening Calculator Name NCI Breast Cancer Risk Assessment Tool 5 Year Breast Cancer Risk 2.40% Lifetime Breast Cancer Risk 6.60% Personal Breast Cancer No Personal Ovarian Cancer No Treatments None Family Cancers Aunt-paternal with breast cancer at age 75. LOCATION: [facility] BREAST COMPOSITION: The breasts are almost entirely fatty. FINDINGS: DIAGNOSTIC CATEGORY 1--NEGATIVE. RIGHT BREAST: No significant suspicious finding. LEFT BREAST: No significant suspicious finding. RECOMMENDATIONS: ROUTINE MAMMOGRAM AND CLINICAL EVALUATION IN 12 MONTHS. Dictated by: Boom Merritt MD on 05/07/2025 at 13:51 Approved by: Boom Merritt MD on 05/07/2025 at 13:55 Dictated By: Boom Merritt M.D. Signed By: 05/07/25 1357 DD/ 1356 TD/TT: Hide Inspector: [facility] Radiology, Radiologist, MD - 05/07/2025 [place] [address] Mammography Report Signed Patient: SUMAN RODAS MR#: [id number] : 1955 Acct:[id number] Age/Sex: 70 / F ADM Date: 05/07/25 Loc: MAMMO Attending Dr: WALT TAPIA Ordering Physician: WALT TAPIA Results: Date of Service: 05/07/25 Follow Up: Procedure(s): MM tomosynthesis screening BI Accession Number(s): [id number] cc: WALT TAPIA Patient Name: SUMAN RODAS MR#: [id number] : 1955 Exam Date: 05/07/2025 Ordering Doctor: DR WALT TAPIA M.D. RADIOLOGY REPORT PROCEDURE: MM TOMOSYNTHESIS SCREENING BI COMPARISON: MM TOMOSYNTHESIS SCREENING BI, 05/05/2024. MM TOMOSYNTHESIS SCREENING BI, 05/04/2023. MG MAMM SCREEN 3D DAHIANA CAD, 04/13/2022. MG MAMM DAHIANA SCRN W CAD DIG, 11/03/2009. INDICATIONS: Screening Calculator Name NCI Breast Cancer Risk Assessment Tool 5 Year Breast Cancer Risk 2.40% Lifetime Breast Cancer Risk 6.60% Personal Breast Cancer No Personal Ovarian Cancer No Treatments None Family Cancers Aunt-paternal with breast cancer at age 75. LOCATION: [facility] BREAST COMPOSITION: The breasts are almost entirely fatty. FINDINGS: DIAGNOSTIC CATEGORY 1--NEGATIVE. RIGHT BREAST: No significant suspicious finding. LEFT BREAST: No significant suspicious finding. RECOMMENDATIONS: ROUTINE MAMMOGRAM AND CLINICAL EVALUATION IN 12 MONTHS. Dictated by: Boom Merritt MD on 05/07/2025 at 13:51 Approved by: Boom Merritt MD on 05/07/2025 at 13:55 Dictated By: Boom Merritt M.D. Signed By: 05/07/25 1357 DD/ 1356 TD/TT: Hide Inspector: [facility] Radiology Study observation (narrative) [facility] MM TOMOSYNTHESIS SCREENING B IOrdered By: Radiologist Radiology on [facility]07-20[facility]: CBC (INCLUDES DIFF/PLT)on Basophils (Bld) [#/Vol] 0.02 10*3/uL Normal 0-200 [facility] Comment on above: Performed By: #### 7 600, 6399, 53323 #### [facility] [place] [address] Media Marketing Manager: Ronny Heart MD Basophils/100 WBC (Bld) 0.3 % Normal [facility] Comment on above: Performed By: #### 7 600, 6399, 35383 #### [facility] [place] [address] Media Marketing Manager: Ronny Heart MD Eosinophils (Bld) [#/Vol] 0 10*3/uL Low 15-500 [facility] Comment on above: Performed By: #### 7 600, 6399, 48768 #### [facility] [place] [address] Media Marketing Manager: Ronny Heart MD Eosinophils/100 WBC (Bld) 0.0 % Normal [facility] Comment on above: Performed By: #### 7 600, 6399, 28006 #### [facility] [address] [address] Media Marketing Manager: Ronny Heart MD Erythrocyte distribution width (RBC) [Ratio] 13.0 % Normal 11.0-15.0 [facility] Comment on above: Performed By: #### 7 600, 6399, 32466 #### [facility] of [place] [address] Media Marketing Manager: Ronny Heart MD Hematocrit (Bld) [Volume fraction] 45.2 % High 35.0-45.0 [facility] Comment on above: Performed By: #### 7 600, 6399, 84046 #### [facility] of [place] [address] Media Marketing Manager: Ronny Haert MD Hemoglobin (Bld) [Mass/Vol] 15.0 g/dL Normal 11.7-15.5 [facility] Comment on above: Performed By: #### 7 600, 6399, 70127 #### [facility] of [place] [address] Media Marketing Manager: Ronny Heart MD Lymphocytes (Bld) [#/Vol] 1.621 10*3/uL Normal 850-3900 [facility] Comment on above: Performed By: #### 7 600, 6399, 49503 #### [facility] of [place] [address] Media Marketing Manager: Ronny Heart MD Lymphocytes/100 WBC (Bld) 24.2 % Normal [facility] Comment on above: Performed By: #### 7 600, 6399, 88968 #### [facility] of [place] [address] Media Marketing Manager: Ronny Heart MD MCH (RBC) [Entitic mass] 30.9 pg Normal 27.0-33.0 [facility] Comment on above: Performed By: #### 7 600, 6399, 27380 #### [facility] of [place] [address] Media Marketing Manager: Ronny Heart MD MCHC (RBC) [Mass/Vol] 33.2 [...] condition. Performed By: #### 7 600, 6399, 78224 #### [facility] of [place] [address] Media Marketing Manager: Ronny Heart MD MCV (RBC) [Entitic vol] 93.0 fL Normal 80.0-100.0 [facility] Comment on above: Performed By: #### 7 600, 6399, 58862 #### [facility] [place] [address] Media Marketing Manager: Ronny Heart MD Monocytes (Bld) [#/Vol] 0.181 10*3/uL Low 200-950 [facility] Comment on above: Performed By: #### 7 600, 6399, 49929 #### [facility] of [place] [address] Media Marketing Manager: Ronny Heart MD Monocytes/100 WBC (Bld) 2.7 % Normal [facility] Comment on above: Performed By: #### 7 600, 63, 94999 #### [facility] of [place] [address] Media Marketing Manager: Ronny Heart MD Neutrophils (Bld) [#/Vol] 4.878 10*3/uL Normal 5523-3601 [facility] Comment on above: Performed By: #### 7 600, 6399, 35815 #### [facility] of [place] [address] Media Marketing Manager: Ronny Heart MD Neutrophils/100 WBC (Bld) 72.8 % Normal [facility] Comment on above: Performed By: #### 7 600, 6399, 52055 #### [facility] of [address] [place] [address] Media Marketing Manager: Ronny Heart MD Platelet mean volume (Bld) [Entitic vol] 10.1 fL Normal 7.5-12.5 [facility] Comment on above: Performed By: #### 7 600, 6399, 18704 #### [facility] of [address], [address] [place] [address] Media Marketing Manager: Ronny Heart MD Platelets (Bld) [#/Vol] 309 10*3/uL Normal 140-400 [facility] Comment on above: Performed By: #### 7 600, 6399, 81686 #### [facility] of [place] [address] Media Marketing Manager: Ronny Heart MD RBC (Bld) [#/Vol] 4.86 10*6/uL Normal 3.80-5.10 [facility] Comment on above: Performed By: #### 7 600, 6399, 02148 #### [facility] of [address], [address] [place] [address] Media Marketing Manager: Ronny Heart MD WBC (Bld) [#/Vol] 6.7 10*3/uL Normal 3.8-10.8 [facility] Comment on above: Performed By: #### 7 600, 6399, 49156 #### [facility] of [place] [address] Media Marketing Manager: Ronny Heart MD [facility] 04-25-2025 Albumin [Mass/Vol] 5.0 g/dL Normal 3.6-5.1 [facility] Comment on above: Performed By: #### 7 600, 6399, 03536 #### [facility] of [place] [address] Media Marketing Manager: Ronny Heart MD Albumin/Globulin [Mass ratio] 1.9 {ratio} Normal 1.0-2.5 [facility] Comment on above: Performed By: #### 7 600, 6399, 92925 #### [facility] of [address], [address] [place] [address] Media Marketing Manager: Ronny Heart MD ALP [Catalytic activity/Vol] 61 U/L Normal 37-153 [facility] Comment on above: Performed By: #### 7 600, 6399, 32725 #### [facility] of [address], [address] [place] [address] Media Marketing Manager: Ronny Heart MD ALT [Catalytic activity/Vol] 17 U/L Normal 6-29 [facility] Comment on above: Performed By: #### 7 600, 6399, 59130 #### [facility] of [address], [address] [place] [address] Media Marketing Manager: Ronny Heart MD AST [Catalytic activity/Vol] 16 U/L Normal 10-35 [facility] Comment on above: Performed By: #### 7 600, 6399, 33682 #### [facility] of [address], [address] [place] [address] Media Marketing Manager: Ronny Heart MD Bilirubin [Mass/Vol] 0.5 mg/dL Normal 0.2-1.2 [facility] Comment on above: Performed By: #### 7 600, 6399, 81999 #### [facility] of [address], [address] [place] [address] Media Marketing Manager: Ronny Heart MD BUN/CREATININE RATIO SEE NOTE: Normal 6-22 [facility] Comment on above: Result Comment: Not Reported: BUN and Creatinine are within reference range. Performed By: #### 7 600, 6399, 45832 #### [facility] of [address], [address] [place] [address] Media Marketing Manager: Ronny Heart MD Calcium [Mass/Vol] 9.9 mg/dL Normal 8.6-10.4 [facility] Comment on above: Performed By: #### 7 600, 6399, 48133 #### [facility] of [address], [address] [place] [address] Media Marketing Manager: Ronny Heart MD Chloride [Moles/Vol] 105 mmol/L Normal 98-110 [facility] Comment on above: Performed By: #### 7 600, 6399, 06811 #### [facility] [place] [address] Media Marketing Manager: Ronny Heart MD CO2 [Moles/Vol] 24 mmol/L Normal 20-32 [facility] Comment on above: Performed By: #### 7 600, 6399, 30235 #### [facility] [place] [address] Media Marketing Manager: Ronny Heart MD Creatinine [Mass/Vol] 0.62 mg/dL Normal 0.60-1.[address] [facility] Comment on above: Performed By: #### 7 600, 6399, 47884 #### [facility] [place] [address] Media Marketing Manager: Ronny Heart MD GFR/1.73 sq M.predicted among non-blacks MDRD (S/P/Bld) [Vol rate/Area] 95 mL/min/{1.73_m2} Normal > OR = 60 [facility] Comment on above: Performed By: #### 7 600, 6399, 10970 #### [facility] [place] [address] Media Marketing Manager: Ronny Heart MD Globulin (S) [Mass/Vol] 2.7 g/dL Normal 1.9-3.7 [facility] Comment on above: Performed By: #### 7 600, 6399, 23958 #### [facility] [place] [address] Media Marketing Manager: Ronny Heart MD Glucose [Mass/Vol] 119 mg/dL High 65-99 [facility] Comment on above: Result Comment: Fasting reference interval For someone without known diabetes, a glucose value between 100 and 125 mg/dL is consistent with prediabetes and should be confirmed with a follow-up test. Performed By: #### 7 600, 6399, 97363 #### [facility] [address] [place] [address] Media Marketing Manager: Ronny Heart MD Potassium [Moles/Vol] 4.1 mmol/L Normal 3.5-5.[address] [facility] Comment on above: Performed By: #### 7 600, 6399, 45499 #### [facility] [address], [address] [place] [address] Media Marketing Manager: Ronny Heart MD Protein [Mass/Vol] 7.7 g/dL Normal 6.1-8.1 [facility] Comment on above: Performed By: #### 7 600, 6399, 62063 #### [facility] [place] [address] Media Marketing Manager: Ronny Heart MD Sodium [Moles/Vol] 140 mmol/L Normal 135-146 [facility] Comment on above: Performed By: #### 7 600, 6399, 76178 #### [facility] [place] [address] Media Marketing Manager: Ronny Heart MD Urea nitrogen [Mass/Vol] 16 mg/dL Normal 7-25 [facility] Comment on above: Performed By: #### 7 600, 6399, 10263 #### [facility] [place] [address] Media Marketing Manager: Ronny Heart MD HEMOGLOBIN A1con 04-25-2025 HbA1c [...] children. Performed By: #### 7 600, 6399, 98118 #### [facility] [address] [place] [address] Media Marketing Manager: Ronny Heart MD LIPID PANEL, [facility] Cholesterol [Mass/Vol] 255 mg/dL High <200 [facility] Comment on above: Order Comment: FASTI NG:YES FASTING: YES Performed By: #### 7 600, 6399, 37400 #### [facility] [address], [address] [place] [address] Media Marketing Manager: Ronny Heart MD Cholesterol in HDL [Mass/Vol] 82 mg/dL Normal > OR = 50 [facility] Comment on above: Order Comment: FASTI NG:YES FASTING: YES Performed By: #### 7 600, 6399, 66811 #### [facility] [address], [address] [place] [address] Media Marketing Manager: Ronny Heart MD Cholesterol in LDL [Mass/Vol] [...] equation in the estimation of LDL-C. Dimitri AVENDAÑO et al. JACKIE. 2013;310(19): 1968-9035 (http://education.[employer]faq/VBY856) Performed By: #### 7 600, 6399, 65788 #### [facility] [address], [address] [place] [address] Media Marketing Manager: Ronny Heart MD Cholesterol.total/Cho lesterol in HDL [Mass ratio] 3.1 {ratio} Normal <5.0 [facility] Comment on above: Order Comment: FASTI NG:YES FASTING: YES Performed By: #### 7 600, 6399, 36096 #### [facility] [address], [address] [place] [address] Media Marketing Manager: Ronny Heart MD NON HDL CHOLESTEROL 173 mg/dL (calc) High <130 [facility] Comment on above: Order Comment: FASTI NG:YES FASTING: YES Result Comment: For patients with diabetes plus 1 major ASCVD risk factor, treating to a non-HDL-C goal of <100 mg/dL (LDL-C of <70 mg/dL) is considered a therapeutic option. Performed By: #### 7 600, 6399, 10873 #### [facility] [address], [address] [place] [address] Media Marketing Manager: Ronny Heart MD Triglyceride [Mass/Vol] 73 mg/dL Normal <150 [facility] Comment on above: Order Comment: FASTI NG:YES FASTING: YES Performed By: #### 7 600, 6399, 93009 #### [facility] [address], [address] [place] [address] Media Marketing Manager: Ronny Heart MD XR LUMBAR SPINE 6V W BENDING on 04-02-2025 [place] [address] XRay Report Signed Patient: SUMAN RODAS MR#: [id number] : 1955 Acct:[id number] Age/Sex: 70 / F ADM Date: 04/02/25 Loc: RAVI Attending Dr: Rosanna Martinez NP Ordering Physician: Rosanna Martinez NP Date of Service: 04/02/25 Procedure(s): XR lumbar spine 6V w bending Accession Number(s): [id number] cc: WALT TAPIA ; Rosanna Martinez NP [place] [id number] Patient Name: SUMAN RODAS MRN: [id number] date: 1955 Sex: F Assigned Patient Location: PM Current Patient Location: PM Accession/Order Number: [id number] Exam Date: 04/02/2025 10:44 Report Date: 04/02/2025 [...] Jr., D.O. 04/02/2025 10:45 AM Dictation Location: [place] [address] Electronically authenticated by: [id number] Y Date: 04/02/2025 10:45 Dictated By: Manoj Rojas M.D. Signed By: 04/02/25 1048 DD/ 1045 TD/TT: Hide Inspector: [facility] Radiology, Radiologist, MD - 04/02/2025 [place] [address] XRay Report Signed Patient: SUMAN RODAS MR#: [id number] : 1955 Acct:[id number] Age/Sex: 70 / F ADM Date: 04/02/25 Loc: RAD Attending Dr: Rosanna Martinez NP Ordering Physician: Rosanna Martinez NP Date of Service: 04/02/25 Procedure(s): XR lumbar spine 6V w bending Accession Number(s): [id number] cc: WALT TAPIA ; Rosanna Martinez NP The [place] [address] Patient Name: SUMAN RODAS MRN: [facility]:[id number] date: 1955 Sex: F Assigned Patient Location: PM Current Patient Location: PM Accession/Order Number: [id number] Exam Date: 04/02/2025 10:44 Report Date: 04/02/2025 [...] Jr., D.O. 04/02/2025 10:45 AM Dictation Location: [place] [address] Electronically authenticated by: [id number] Y Date: 04/02/2025 10:45 Dictated By: Manoj Rojas M.D. Signed By: 04/02/25 1048 DD/ 44 TD/TT: Hide Inspector: [facility] Radiology Study observation (narrative) [facility] XR LUMBAR SPINE 6V W BENDING Ordered By: Radiologist Radiology on 04-02-2025 [facility] Work Phone: No Panel Informationon 03-06 STAPHYLOCOCCUS EPIDERMIDIS, HAEMOLYTICUS, LUGDUNENSIS, SAPROPHYTICUS (URINA 0 [facility] STAPHYLOCOCCUS EPIDERMIDIS, HAEMOLYTICUS, LUGDUNENSIS, SAPROPHYTICUS (URINA Not detected [facility] URINARY TRACT INFECTION (HTR X)on 03-06-2025 ACINETOBACTER BAUMANII 0 [facility] ACINETOBACTER BAUMANII Not detected [facility] MANDY ALBICANS, PARAPSILOSIS, TROPICALIS 0 [facility] MANDY ALBICANS, PARAPSILOSIS, TROPICALIS Not detected [facility] MANDY GLABRATA 0 [facility] MANDY GLABRATA Not detected [facility] ealthcare MANDY KRUSEI 0 [facility] hcare MANDY KRUSEI Not detected [facility] CITROBACTER FREUNDII 0 [facility] CITROBACTER FREUNDII Not detected [facility] ENTEROBACTER AEROGENES, CLOACAE 0 [facility] re ENTEROBACTER AEROGENES, CLOACAE Not detected [facility] re ENTEROCOCCUS FAECALIS, FAECIUM 0 [facility] e ENTEROCOCCUS FAECALIS, FAECIUM Not detected [facility] e ESCHERICHIA COLI 27.224 Abnormal [facility] ESCHERICHIA COLI Detected Abnormal [facility] Interpretation and review of laboratory results Abnormal [facility] KLEBSIELLA PNEUMONIAE, OXYTOCA 0 [facility] are KLEBSIELLA PNEUMONIAE, OXYTOCA Not detected [facility] are MORGANELLA MORGANII 0 [facility] MORGANELLA MORGANII Not detected [facility] PROTEUS MIRABILIS, VULGARIS 0 [facility] PROTEUS MIRABILIS, VULGARIS Not detected [facility] PSEUDOMONAS AERUGINOSA 0 [facility] PSEUDOMONAS AERUGINOSA Not [facility] SERRATIA MARCESCENS 0 [facility] SERRATIA MARCESCENS Not detected [facility] STAPHYLOCOCCUS AUREUS 0 [facility] STAPHYLOCOCCUS AUREUS Not detected [facility] STREPTOCOCCUS AGALACTIAE (GROUP B STREP) 0 [facility] STREPTOCOCCUS AGALACTIAE (GROUP B STREP) Not detected [facility]EN[facility] (GROUP A STREP) 0 [facility] STREPTOCOCCUS PYOGENES (GROUP A STREP) [facility]inal[facility] macro (dipstick) panel (U)on 03-05-2025 Bilirubin, UA Negative Negative - 4(70) +++ mg/dL [facility] Blood, UA Positive Negative - 50 Gabe/mcL [facility] Comment on above: mod Glucose, UA Negative Negative - 1999(110) ++++ mg/dL [facility] Interpretation and review of laboratory results Abnormal [facility] Ketones, UA Negative Negative - 160(16) ++++ mg/dL [facility] Leukocytes, UA Moderate Negative - 500+++ Stefan/mcL [facility] Nitrite, UA Negative Negative - Positive [facility] pH, UA 5 5 - 9 [facility] Protein, UA Negative Negative - 1999(20) ++++ mg/dL [facility] Spec Grav, UA 1.01 1 - 1.[address] [facility] Urobilinogen, UA 1.0 0.2 - 12 mg/dL [facility] Urinalysis macro (dipstick) panel (U)on 05-13-2024 Bilirubin, UA Negative Negative - 4(70) +++ mg/dL [facility] Blood, UA Positive Negative - 50 Gabe/mcL [facility] Clarity, UA Clear [facility] re Color, UA Light Yellow [facility] are Glucose, UA Negative Negative - 1999(110) ++++ mg/dL [facility] Interpretation and review of laboratory results Abnormal [facility] Ketones, UA Negative Negative - 160(16) ++++ mg/dL [facility] Leukocytes, UA Few Negative - 500+++ Stefan/mcL [facility] Nitrite, UA Negative Negative - Positive [facility] pH, UA 5.0 5 - 9 [facility] Protein, UA Negative Negative - 1999(20) ++++ mg/dL [facility] Spec Grav, UA 1.005 1 - 1.03 [facility] Urobilinogen, UA 1.0 0.2 - 12 mg/dL [facility] Urine Cultureon 04-25-2024 Bacteria identified Cx Nom (U) ORGANISM: Escherichia coli (O:ESCCOL) [place] Count >100,000 Aerobic MESHA Charge (NMIC56) ------ [...] RESISTANT TO ALL B-LACTAM DRUGS. PERFORMED BY: [facility] [address] [place] [address] PATHOLOGIST QUALITY SYSTEMS MANAGER ELA PIZARRO M.D. Normal The Pending Sale To [facility] Comment on above: Performed By: #### C UU #### [facility] [address] MG MAMM SCREEN 3D DAHIANA CADon 04-13-2022 MG MAMM SCREEN 3D DAHIANA CAD Patient: SUMAN RODAS Exam Date: 04/13/2022 : 1955 Gender:F Ordering : MRS. MICHAEL DEJESUS VIDEO SURVEILLANCE TECHNICIAN-C Admission #: [id number] Family : Order #: [id number] CLICK HERE TO VIEW EXAM RADIOLOGY REPORT [...] breast cancer at age 74. LOCATION: [facility] BREAST COMPOSITION: Almost entirely fatty. FINDINGS: [...] M.D. on 04/14/2022 at 12:58 Normal [facility] XR DEXA BONE DENSITYon 04-13 XR DEXA BONE DENSITY DEXA Bone Density Study CLINICAL: Evaluate bone mineral density. Menopausal COMPARISON: 03/12/2020 FINDINGS: The bone density study was assessed by dual-energy x-ray absorptiometry with the Qool scanner. The test results are expressed in [...] by: YAN ROSE Date: 2022-04-13 13:56 Normal [facility] MRI LSPINE WO CONon 02-25-20 22 MRI [facility] WO CON EXAMINATION: MRI LSPERU WO CON HISTORY: Lumbar radiculitis ; chronic [...] by: BERHANE VENTURA Date: 2022-02-24 18:31 Normal [facility] CBC COMPLETE BLOOD COUNTon 0 03-14-2017 Erythrocyte distribution width Auto Ratio (RBC) 14.4 % Normal 11.5-16.9 [facility] Comment on above: Performed By: #### 5 [id number] ####[facility] [facility].[address] Erythrocytes (RBC) 4.46 mill/mm3 Normal 3.50-5.50 [facility] Comment on above: Performed By: #### 5 [id number] ####[facility] [facility].[address] Hematocrit (HCT) 40.7 % Normal 36.0-48.0 [facility] Comment on above: Performed By: #### 5 [id number] ####[facility] [address] Hemoglobin mass conc (Bld) 13.9 g/dL Normal 12.0-15.0 [facility] Comment on above: Performed By: #### 5 [id number] ####[facility] [place] [address], [facility] MCH 31.1 pg Normal 24.0-32.0 [facility] Comment on above: Performed By: #### 5 [id number] ####[facility] MCHC mass conc (RBC) 34.0 g/dL Normal 32.0-36.0 [facility] Comment on above: Performed By: #### 5 [id number] ####[place] [id number] [facility] MCV 91.4 fL Normal 80.0-100.0 [facility] Comment on above: Performed By: #### 5 [id number] ####[facility] [place] [address], [facility] PLAT CNT 214 Thou/mm3 Normal 100-400 [facility] Comment on above: Performed By: #### 5 0608 ####[facility] [address] WBC (Leukocytes) 6.8 Thou/mm3 Normal 4.0-10.0 [facility] Comment on above: Performed By: #### 5 [id number] ####[facility] [address] COMP METABOLIC PANELon 03-14 Alanine aminotransferase (ALT) 21 U/L Normal 7-[address] [facility] Comment on above: Performed By: #### 0 0121 ####[facility] [address] Albumin 4.6 g/dL Normal 3.5-5.[address] [facility] Comment on above: Performed By: #### 0 0121 ####[facility] [facility].[address] ALKALINE PHOSPH 53 IU/L Normal 34-104 [facility] Comment on above: Performed By: #### 0 0121 ####[facility] [facility].[address] Aspartate aminotransferase (AST) 23 U/L Normal 13-[address] [facility] Comment on above: Performed By: #### 0 0121 ####[facility] Bilirubin (total) 0.6 mg/dL Normal 0.3-1.0 [facility] Comment on above: Performed By: #### 0 0121 ####[facility] [facility].[address] Calcium 9.6 mg/dL Normal 8.6-10.[address] [facility] Comment on above: Performed By: #### 0 0121 ####[facility] Chloride 106 mmol/L Normal 98-[address] [facility] Comment on above: Performed By: #### 0 0121 ####[facility] [facility].[address] CO2 26 mmol/L Normal 21-[address] [facility] Comment on above: Performed By: #### 0 0121 ####[place] [id number] [facility] [place] [place] [address], [facility] Creatinine 0.68 mg/dL Normal 0.60-1.[address] [facility] Comment on above: Performed By: #### 0 0121 ####[facility] [facility] [place] [place] [address], [facility] eGFR (black) mL/min/{1.73_m2} Normal >60 [facility] Comment on above: Performed By: #### 0 0121 ####[facility] [id number], [facility] eGFR (non-black) mL/min/{1.73_m2} Normal >[address] [facility] Comment on above: Performed By: #### 0 0121 ####[facility] [place] [address], [facility] Glucose mass conc 80 mg/dL Normal 70-100 [facility] Comment on above: Performed By: #### 0 0121 ####[facility] [place] [address], [facility] Potassium molar conc 4.3 mmol/L Normal 3.5-5.1 [facility] Comment on above: Performed By: #### 0 0121 ####[facility] [place] [address], [facility] Protein 7.2 g/dL Normal 6.0-8.[address] [facility] Comment on above: Performed By: #### 0 0121 ####[facility] [place] [address], [facility] Sodium 140 mmol/L Normal 136-[address] [facility] Comment on above: Performed By: #### 0 0121 ####[facility] [place] [address], [facility] Urea nitrogen 10 mg/dL Normal 7-25 [facility] Comment on above: Performed By: #### 0 0121 ####[facility] HEP C RNA PCR QNTon 03-14-20 17 HCV PCR INTERP Not Detected Normal Not Detected [facility] Comment on above: Order Comment: This test [...] HCV infection. Performed By: #### 3 1265 ####[facility] [facility].[address] HEP C RNA QNT Not detected Normal [facility] Comment on above: Order Comment: This [...] HCV infection. Performed By: #### 3 1265 ####[facility] [facility].[address] Vital Signs Date Time Vital Sign Value Performing Clinician Facility 05-08-2025 10:58-0400 Body height 165.1 cm Buddy Rose DPM Work Phone: [facility] 05-08-2025 10:58-0400 Body mass index (BMI) [Ratio] 38.77 kg/m2 Buddy Rose DPM Work Phone: [facility] 05-08-2025 10:58-0400 Body weight 105.69 kg Buddy Brown DPM Work Phone: [facility] 05-08-2025 10:58-0400 Respiratory rate 16 /min Buddy Rose DPM Work Phone: [facility] 04-24-2025 09:39-0400 Body height 165.1 cm Eve Hemmer PA Work Phone: [facility] 04-24-2025 09:39-0400 Body mass index (BMI) [Ratio] 38.84 kg/m2 Eve Hemmer PA Work Phone: [facility] 04-24-2025 09:39-0400 Body weight 105.87 kg Eve Hemmer PA Work Phone: [facility] 04-24-2025 09:39-0400 Diastolic blood pressure 86 mm[Hg] Eve Hemmer PA Work Phone: [facility] 04-24-2025 09:39-0400 Heart rate 91 /min Eve Hemmer PA Work Phone: [facility] 04-24-2025 09:39-0400 Respiratory rate 16 /min Eve Hemmer PA Work Phone: [facility] 04-24-2025 09:39-0400 SaO2% (BldA) [Mass fraction] 97 % Eve Hemmer PA Work Phone: [facility] 04-24-2025 09:39-0400 Systolic blood pressure 122 mm[Hg] Eve Hemmer PA Work Phone: [facility] 04-23-2025 16:12-0400 Body height 165.1 cm Buddy Rose DPM Work Phone: [facility] 04-23-2025 16:12-0400 Body mass index (BMI) [Ratio] 38.94 kg/m2 Buddy Rose DPM Work Phone: [facility] 04-23-2025 16:12-0400 Body weight 106.14 kg Buddy Rose DPM Work Phone: [facility] 04-23-2025 16:12-0400 Respiratory rate 18 /min Buddy Rose DPM Work Phone: [facility] 03-27-2025 14:44-0400 Body height 165.1 cm Buddy Rose DPM Work Phone: [facility] 03-27-2025 14:44-0400 Body mass index (BMI) [Ratio] 38.94 kg/m2 Buddy Rose DPM Work Phone: [facility] 03-27-2025 14:44-0400 Body weight 106.14 kg Buddy Rose DPM Work Phone: [facility] 03-27-2025 14:44-0400 Respiratory rate 16 /min Buddy Rose DPM Work Phone: [facility] 03-05-2025 10:58-0400 Body height 165.1 cm Eve Hemmer PA Work Phone: [facility] 03-05-2025 10:58-0400 Body mass index (BMI) [Ratio] 38.94 kg/m2 Eve Hemmer PA Work Phone: [facility] 03-05-2025 10:58-0400 Body weight 106.14 kg Eve Hemmer PA Work Phone: [facility] 03-05-2025 10:58-0400 Diastolic blood pressure 98 mm[Hg] Eve Hemmer PA Work Phone: [facility] 03-05-2025 10:58-0400 Heart rate 86 /min Eve Hemmer PA Work Phone: [facility] 03-05-2025 10:58-0400 SaO2% (BldA) [Mass fraction] 97 % Eve Hemmer PA Work Phone: [facility] 03-05-2025 10:58-0400 Systolic blood pressure 142 mm[Hg] Eve Hemmer PA Work Phone: [facility] 02-05-2025 13:31-0400 Body height 165.1 cm Michael Dejesus VIDEO SURVEILLANCE TECHNICIAN Work Phone: [facility] 02-05-2025 13:31-0400 Body mass index (BMI) [Ratio] 39.61 kg/m2 Michael Dejesus VIDEO SURVEILLANCE TECHNICIAN Work Phone: [facility] 02-05-2025 13:31-0400 Body weight 107.96 kg Michael Kathleenvely VIDEO SURVEILLANCE TECHNICIAN Work Phone: [facility] 02-05-2025 13:31-0400 Diastolic blood pressure 101 mm[Hg] Michael Dejesus VIDEO SURVEILLANCE TECHNICIAN Work Phone: [facility] 02-05-2025 13:31-0400 Heart rate 68 /min Michaeldion Dejesus VIDEO SURVEILLANCE TECHNICIAN Work Phone: [facility] 02-05-2025 13:31-0400 Respiratory rate 17 /min Michaeldion Dejesus VIDEO SURVEILLANCE TECHNICIAN Work Phone: [facility] 02-05-2025 13:31-0400 SaO2% (BldA) [Mass fraction] 97 % Michaeldion Dejesus VIDEO SURVEILLANCE TECHNICIAN Work Phone: [facility] 02-05-2025 13:31-0400 Systolic blood pressure 136 mm[Hg] Michael Dejesus VIDEO SURVEILLANCE TECHNICIAN Work Phone: [facility] 05-13-2024 11:35-0400 Body height 165.1 cm Eve Méndezmer PA Work Phone: [facility] 05-13-2024 11:35-0400 Body mass index (BMI) [Ratio] 38.27 kg/m2 Eve Hemmer PA Work Phone: [facility] 05-13-2024 11:35-0400 Body weight 104.33 kg Eve Hemmer PA Work Phone: [facility] 05-13-2024 11:35-0400 Diastolic blood pressure 84 mm[Hg] Eve Hemmer PA Work Phone: [facility] 05-13-2024 11:35-0400 Heart rate 80 /min Eve Hemmer PA Work Phone: [facility] 05-13-2024 11:35-0400 Respiratory rate 16 /min Eve Hemmer PA Work Phone: [facility] 05-13-2024 11:35-0400 SaO2% (BldA) [Mass fraction] 98 % Eve Hemmer PA Work Phone: [facility] 05-13-2024 11:35-0400 Systolic blood pressure 119 mm[Hg] Eve Méndezmer PA Work Phone: [facility] 04-25-2024 10:19-0400 Body height 165.1 cm [facility] 04-25-2024 10:19-0400 Body mass index (BMI) [Ratio] 38.2 kg/m2 [facility] 04-25-2024 10:19-0400 Body temperature 97 [degF] [facility] 04-25-2024 10:19-0400 Body weight 104.43 kg [facility] 04-25-2024 10:19-0400 Diastolic blood pressure 80 mm[Hg] [facility] 04-25-2024 10:19-0400 Heart rate 72 /min [facility] 04-25-2024 10:19-0400 Respiratory rate 18 /min [facility] 04-25-2024 10:19-0400 SaO2% (BldA) [Mass fraction] 92 % [facility] 04-25-2024 10:19-0400 Systolic blood pressure 142 mm[Hg] [facility] 05-25-2023 10:50-0400 Body height 165.1 cm Elizabeth Mayes Other [employer] [facility] [employer] Other 05-25-2023 10:50-0400 Body mass index (BMI) [Ratio] 38.17 kg/m2 Elizabeth Mayes Other [employer] Other 05-25-2023 10:50-0400 Body temperature 97.7 [degF] Elizabeth Mayes Other [employer] Other 05-25-2023 10:50-0400 Body weight 104.06 kg Elizabeth Mayes Other [employer] Other 05-25-2023 10:50-0400 Diastolic blood pressure 88 mm[Hg] Elizabeth Mayes Other [employer] Other 05-25-2023 10:50-0400 Respiratory rate 18 /min Elizabeth Mayes Other [employer] Other 05-25-2023 10:50-0400 SaO2% (BldA) [Mass fraction] 98 % Elizabeth Mayes Other [employer] Other 05-25-2023 10:50-0400 Systolic blood pressure 142 mm[Hg] Elizabeth Mayes Other [employer] Other Encounters Encounter Date Encounter Type Care Provider Facility Start: 05-08-2025 End: 05-08-2025 Cheleboo flowsheet Buddy Rose DPM Work Phone: [facility] Start: 05-08-2025 End: 05-08-2025 Bamboo flowsheet Buddy Rose DPM Work Phone: [facility] Start: 05-08-2025 End: 05-08-2025 Office outpatient visit 15 minutes Buddy Rose DPM Work Phone: [facility] Comment on above: Plantar fasciitis (P rimary Dx); Contracture of left ankle; Contracture of right ankle Start: 05-08-2025 End: 05-08-2025 ambulatory BUDDY ROSE Not Available Start: 05-07-2025 End: 05-07-2025 Clinisync Result Encounter Walt Tapia MD Work Phone: [facility] External Department Unsolicited Start: 05-07-2025 End: 05-07-2025 Clinisync Result Encounter Walt Tapia MD Work Phone: [facility] [employer] [facility] External Department Unsolicited Start: 04-24-2025 End: 04-24-2025 Patient encounter procedure Eve Dougherty PA Work Phone: [facility] Comment on above: Medicare annual [facility] visit, subsequent (Primary Dx); ACP (advance care [...] Clinical Support Buddy Rose DPM Work Phone: [facility] Comment on above: Plantar fasciitis (P rimary Dx); Contracture of left ankle; Contracture of right ankle Start: 04-23-2025 End: 04-23-2025 Bamboo flowsheet Buddy Rose DPM Work Phone: [facility] Start: 04-23-2025 End: 04-23-2025 Bamboo flowsheet Buddy Rose DPM Work Phone: [facility] Start: 04-13-2025 End: 04-13-2025 ambulatory Nichole Painter MD Facility:[facility] Start: 04-02-2025 End: 04-02-2025 Clinisync Result Encounter [...] Morbid (severe) obesity due to excess calories ([facility]-HCC); Body mass index (BMI) 38.0-38.9, adult Start: 03-05-2025 End: 03-05-2025 ambulatory EVE DOUGHERTY Not Available Start: 02-05-2025 End: 02-05-2025 Bamboo flowsheet Michael Dejesus NP Work Phone: [facility] Start: 02-05-2025 End: 02-05-2025 Bamboo flowsheet Michael Dejesus VIDEO SURVEILLANCE TECHNICIAN Work Phone: [facility] Start: 02-05-2025 End: 02-05-2025 Office outpatient visit 25 minutes Michael Dejesus VIDEO SURVEILLANCE TECHNICIAN Work Phone: [facility] Comment on above: Body mass index (BMI ) 38.0-38.9, adult (Primary Dx); Insomnia, unspecified type; Morbid (severe) obesity due to excess calories (CMS-HCC); Chronic viral hepatitis C (HCC); Chronic hepatitis, unspecified (HCC); Unspecified cirrhosis of liver (HCC); Pure hypercholesterolemia, unspecified ; 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) Start: 02-05-2025 End: 02-06-2025 Refill Walt Tapia MD Work Phone: [facility] [...] Dysuria Start: 05-13-2024 End: 05-13-2024 ambulatory EVE Simmons HEMMER Not Available Start: 05-01-2024 End: 05-01-2024 Refill Cely Lopez MA [facility] Comment on above: Primary insomnia Start: 04-25-2024 End: 04-25-2024 Departed Referred PRIVACY COMPLIANCE MANAGER Elizabeth Mayes Work Phone: [facility] [place] Work Phone: Start: 04-25-2024 End: 04-25-2024 ambulatory Elizabeth Mayes [facility] Work Phone: Start: 04-25-2024 End: 04-25-2024 Patient encounter procedure [facility] [place] Work Phone: Start: 05-25-2023 End: 05-25-2023 ambulatory Elizabeth Parkler Other [facility] [employer] Other Start: 05-25-2023 Office outpatient ne w [...] Start: 03-14-2017 End: 03-15-2017 Ambulatory MARGE NGUYỄN Facility:[facility] Procedures Date Procedure Procedure Detail Performing Clinician Start: 05-07-2025 MM TOMOSYNTHESIS SCR EENING BI Walt Tapia MD Work Phone: Start: 05-07-2025 Mammography Walt moffett MD Work Phone: Start: 04-02-2025 XR LUMBAR SPINE 6V W BENDING Generic External Data Provider Start: 03-05-2025 Urnls dip stick/tabl et rgnt non-auto w/o micrscp Eve MARK Work Phone: Start: 03-05-2025 URINARY TRACT INFECT ION (HTRX) Eve MARK Work Phone: Start: 05-13-2024 Urnls dip stick/tabl et rgnt non-auto w/o micrscp Eve MARK Work Phone: Start: 05-05-2024 Mammography Eve MARK Work Phone: Start: 05-04-2023 Mammography Cely jamison MA Plan of Treatment Date Care Activity Detail Author Start: 04-17-2027 Screening for malignant neoplasm of colon [facility] Start: 05-07-2026 Screening for malignant neoplasm of breast Mammogram [facility] Start: 04-24-2026 Medicare Annual Wellness (AWV) Medicare Annual Wellness (AWV) [facility] Start: 07-28-2025 End: 07-28-2025 Telemedicine consultation with patient 07/28/2025 10:30 AM EST [facility] [address] [place] [address] Eve Dougherty PA [address] [place] [address] [facility] [place] [facility] Start: 05-08-2025 End: 05-08-2025 Patient encounter procedure [facility] Comment on above: Plantar fasciitis (Primary Dx); Contracture of left ankle; Contracture of right ankle Start: 05-07-2025 End: 06-24-2026 DBT Breast - bilateral screening Bilateral screening mammogram with tomosynthesis Imaging Routine Encounter for screening mammogram for malignant neoplasm of breast Expected: 05/07/2025, Expires: 06/24/2026 [facility] Work Phone: Comment on above: Expected: 05/07/2025, Expires: Start: 05-05-2025 Screening for malignant neoplasm of breast Mammogram [facility] Start: 04-24-2025 End: 04-24-2026 DXA Skeletal system Views for bone density DEXA bone density Imaging Routine Estrogen deficiency Expected: 04/24/2025, Expires: 04/24/2026 [facility] Comment on above: Expected: 04/24/2025, Expires: Start: 04-24-2025 End: 04-24-2025 Patient encounter procedure 04/24/2025 9:30 AM EDT Office Visit [facility] [place] [facility] [address] [facility] [address] [place] [address] Eve Dougherty PA [address] [email or web address] [address] [place] [address] [facility] [place] [facility] Start: 04-23-2025 End: 04-23-2025 Clinical Support 04/23/2025 4:20 PM EDT Clinical Support [facility] [address] [facility] [address] [place] [address] Buddy Rose DPM [address] [address] Plantar fasciitis (Primary Dx); Contracture of left ankle; Contracture of right ankle [facility] Comment on above: Plantar fasciitis (Primary Dx); Contracture of left ankle; Contracture of right ankle Start: 04-20-2025 Influenza vaccination Influenza Vaccine (#1) [facility] Start: 04-13-2025 End: 04-13-2025 Clinical Support 04/13/2025 2:40 PM EDT Clinical Support [facility] [address] [place] [address] Buddy Rose DPM [address] [address] [facility] Start: 04-08-2025 End: 04-08-2025 Patient encounter procedure [facility] Start: 04-07-2025 Medicare Annual Wellness (AWV) Medicare Annual Wellness (AWV) [facility] Start: 03-27-2025 End: 03-27-2025 Patient encounter procedure 03/27/2025 2:50 PM EDT Office Visit [facility] [address] [place] [id number] Buddy Rose DPM [address] [facility] [address] [place] [address] Plantar fasciitis (Primary Dx); Contracture of left [...] Visit [facility] [address] [facility] [address] [place] [address] Michael Dejesus NP [address] [facility] [[email or web address] [address] [place] [address] Arrived [facility] Comment on above: Arrived Start: 07-08-2024 End: 07-08-2024 Telemedicine consultation with patient 07/08/2024 10:30 AM EST Telemedicine [facility] [address] [facility] [address] [place] [address] Eve Dougherty PA [address] [facility] [[email or web address] [address] [place] [address] [facility] Start: 05-13-2024 End: 05-13-2024 Patient encounter procedure 05/13/2024 11:30 AM EDT Office Visit [facility] [address] [facility] [address] [place] [address] Eve Dougherty PA [address] [facility] [address] [place] [address] Arrived [facility] Comment on above: Arrived Start: 05-04-2024 Screening for malignant neoplasm of breast Mammogram [facility] Start: 04-25-2024 Bacteria identified in Urine by Culture [facility] Start: 1955 Screening for malignant neoplasm of colon [facility] CBC W Auto Differential panel - Blood CBC and differential Lab Routine Medicare annual wellness visit, subsequent Benign hypertension Ordered: 04/24/2025 [facility] Comment on above: Ordered: 04/24/2025 Comprehensive metabolic 2000 panel - Serum or Plasma Comprehensive metabolic panel Lab Routine Medicare annual wellness visit, subsequent Benign hypertension Other cirrhosis of liver (HCC) Chronic hepatitis C without hepatic coma (HCC) Impaired fasting glucose Pure hypercholesterolemia Ordered: 04/24/2025 [facility] Comment on above: Ordered: 04/24/2025 Hemoglobin A1c/Hemoglobin.total in Blood Hemoglobin A1c Lab Routine Medicare annual wellness visit, subsequent Impaired fasting glucose Ordered: 04/24/2025 [facility] Comment on above: Ordered: 04/24/2025 Lipid 1996 panel - Serum or Plasma Lipid panel Lab Routine Medicare annual wellness visit, subsequent Benign hypertension Pure hypercholesterolemia Ordered: 04/24/2025 [facility] Comment on above: Ordered: 04/24/2025 Immunizations Immunization Date Immunization Notes Care Provider [facility] 04-23-2024 influenza, high dose seasonal, preservative-free Eve MARK Work Phone: [facility] 04-23-2024 influenza virus vacc ine, unspecified formulation Eve MARK Work Phone: [facility] 05-18-2023 Influenza, High-dose Seasonal, Quadrivalent, Preservative Free Eve MARK Work Phone: [facility] 05-25-2022 influenza, high dose seasonal, preservative-free [facility] 05-25-2022 Influenza, High-dose Seasonal, Quadrivalent, Preservative Free [facility] 08-27-2021 tetanus toxoid, redu blu diphtheria toxoid, and acellular pertussis vaccine, adsorbed [facility] 07-26-2021 zoster vaccine recombinant K davian MARK Work Phone: [facility] 05-22-2021 Influenza, High-dose Seasonal, Quadrivalent, Preservative Free [facility]ely [facility] 05-12-2021 zoster vaccine recombinant Cely [facility] 05-17-2020 influenza, high dose seasonal, preservative-free Cely [facility] 05-17-2020 Influenza, High-dose Seasonal, Quadrivalent, Preservative Free Cely [facility] 05-15-2019 influenza, high dose seasonal, preservative-free Cely [facility] 05-15-2019 Influenza, High-dose Seasonal, Quadrivalent, Preservative Free Cely [facility] 05-15-2019 pneumococcal polysaccharide vaccine, 23 valent Cely [facility] 05-07-2018 influenza, injectabl e, quadrivalent, preservative free Cely [facility] 05-07-2018 seasonal influenza, intradermal, preservative free Cely [facility] 11-21-2017 pneumococcal polysaccharide vaccine, 23 valent Cely [facility] 05-17-2017 influenza, injectabl e, quadrivalent, preservative free [facility] 05-17-2017 seasonal influenza, intradermal, preservative free [facility]ely [facility] 05-16-2016 influenza, injectabl e, quadrivalent, contains preservative [facility] 05-16-2016 influenza, injectabl e, quadrivalent, preservative free [facility]ely [facility] 05-16-2016 pneumococcal conjuga te vaccine, 13 valent [facility] 04-30-2015 seasonal influenza, intradermal, preservative free [facility] 05-21-2014 zoster vaccine, live [facility] 05-28-2013 seasonal influenza, intradermal, preservative free [facility] 07-19-2009 tetanus and diphther ia toxoids, adsorbed, preservative free, for adult use (5 Lf of tetanus toxoid and 2 Lf of diphtheria toxoid) Cely Jessica MA [facility] Payers Date Payer Category Payer Self-pay 2022 Unknown [id number] 2019 Private Health Insurance [id number] 2019 Unknown [id number] 2012 Medicare [id number] 1959 Medicare [id number] 1959 Unknown [id number] 1954 Unknown [id number] [id number] 1954 Unknown [id number] 2.16.840.1.135215.3.579.2.593 1954 Unknown [id number] 2.16.840.1.984789.3.579.2.593 1954 Unknown [id number] 2.16.840.1.800121.3.579.2.593 1954 Unknown [id number] 2.16.840.1.772473.3.579.2.593 1954 Unknown [id number] 2.16.840.1.630078.3.579.2.593 1954 Unknown [id number] 2.16.840.1.457613.3.579.2.196 1954 Unknown [id number] 2.16.840.1.816680.3.579.2.125 9 1954 Unknown [id number] 2.16.840.1.117374.3.579.2.125 9 1954 Unknown [id number] 2.16.840.1.940337.3.579.2.125 9 1954 Unknown [id number] 2.16.840.1.519814.3.579.2.125 9 1954 Unknown [id number] 2.16.840.1.275351.3.579.2.125 9 1954 Unknown [id number] 2.16.840.1.943797.3.579.2.125 9 1954 Unknown [id number] 2.16.840.1.894697.3.579.2.125 9 1954 Unknown [id number] 2.16.840.1.054720.3.579.2.125 9 [facility] [id number] Medicare [id number] Medicare Medicare Nonpatient [id number] Unknown [id number] Social History Date Type Detail Facility Unknown if ever smoked [employer] Other Start: 04-07-2024 End: 07-23-2024 Sex Assigned At [employer] Other Start: 05-25-2023 End: 02-05-2025 Tobacco smoking status NMIS Ex-smoker (finding) [facility] Start: 1955 Sex Assigned At Female F [facility] Start: 01-01-2024 Tobacco smoking stat us NMIS Never smoked tobacco [facility] Start: 01-01-2024 End: 02-05-2025 Tobacco use and exposure Smokeless tobacco non-user [facility] Start: 04-07-2024 End: 05-08-2025 Alcoholic beverage intake Current drinker of alcohol [...] Healthcare How often do you att end pentecostal or catholic services? Patient declined [facility] Do you belong to any clubs or organizations such as pentecostal groups, unions, fraternal or athletic groups, or [...] NINF History of tobacco use Passive smoker [facility] Functional Status Date Assessment Result Facility 04-24-2025 Patient Health [facility] ionnaire 2 item (PHQ-2) [Reported] [facility] 02-05-2025 Patient Health [facility] ionnaire 2 item (PHQ-2) [Reported] [facility] Clinical Notes 12-27-2021 to 04-24-2025 DEEDEE Amin [...] y.o. female who presents for Med Refill (Ambradha) and Medicare Annual Wellness Visit Subsequent. was in [facility] ER on 04/07 and was diagnosed with Vertigo, was given Meclizine. Taking it as needed with relief of symptoms. They did teach her some exercises to do when needed and those have been helpful. Has a little lingering mild headache and buzzing in her ears, both have been improving. Heading down to [place] in 4 weeks. Med Refill Pertinent negatives [...] Do you have a medical power of finance attorney?: Yes Current Outpatient Medications on File Prior to Visit Medication Sig Dispense Refill [DISCONTINUED] diazePAM (Valium) 10 MG tablet Take 10 mg by mouth as needed at bedtime for anxiety [DISCONTINUED] meclizine (Antivert) 25 MG tablet Take by mouth in the morning and before bedtime. cholecalciferol (EQL Vitamin D3) 50 MCG (1999) [...] NERVE BLOCK Bilateral 03/08/2021 L2-L5 OOPHORECT[address] DEST,PARAVERTEBRAL,L/S,SINGLE Left 05/03/2021 L2-L5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
--- NOTE | 2025-05-14 13:15 | PM.CN ---
Consult Note: HPI Data of Consult Patient: known to practice within the last 3 years Consult date: 05/14/25 Requesting Physician: Gabriela Martinez NP Primary Care Provider: CLAUDIA HANNA Consult Narrative Reason for consult: low back pain Narrative: Kerry Sanz a pleasant 70 year old female with chronic low back pain presents for evaluation. utilizing tylenol and ibuprofen prn with benefit. pain today 2/10 increasing to 5/10 with standing, walking, lifting, upon waking, and with cold weather. pt recently underwent repeat bilateral L4-5 L5-S1 facet RFA with 50% improvement ongoing. denies fall/injury since last visit. cc:: CC: Gabriela Martinez NP Review of Systems ROS Musculoskeletal Reports: back pain PFSH PFSH Medical History History of fracture of right ankle ?Z87.81 - Personal history of (healed) traumatic fracture (ICD-10) Hepatitis C ?B19.20 - Unspecified viral hepatitis C without hepatic coma (ICD-10) Surgical History H/O dilation of urethra ?Z98.890 - Other specified postprocedural states (ICD-10) Hx of appendectomy ?Z90.49 - Acquired absence of other specified parts of digestive tract (ICD-10) History of right oophorectomy ?Z90.721 - Acquired absence of ovaries, unilateral (ICD-10) History of carpal tunnel release ?Z98.890 - Other specified postprocedural states (ICD-10) Hx of cholecystectomy ?Z90.49 - Acquired absence of other specified parts of digestive tract (ICD-10) Social History Little interest or pleasure in doing things: not at all Feeling down, depressed, or hopeless: not at all Meds Home Medications and Allergies Home Medications ?Medication ?Instructions ?Recorded ?Confirmed ?Type calcium carbonate 1 tab PO QDAY 01/25/23 04/13/25 History zolpidem 5 mg tablet (Ambien) 10 mg PO .HS 01/25/23 04/13/25 History cetirizine 5 mg-pseudoephedrine ER 1 tab PO BID 05/28/23 04/07/25 History 120 mg tablet,extended release,12hr (All Day Allergy-D) Held on 04/07/25. Instructions: Resume on 04/17/25. hold while using Meclizine Lactobacillus acidophilus 10 100 mmu cells PO DAILY 04/02/25 04/13/25 History billion cell capsule (Probiotic) calcium phosphate,dibasic 77 1 tab PO DAILY 04/02/25 04/13/25 History mg-vitamin D3 400 unit tablet meclizine 25 mg tablet 25 mg PO BID PRN motion sickness 04/07/25 04/13/25 Rx #14 tabs diazepam 10 mg tablet (Valium) 10 mg PO DAILY PRN anxiety 24 04/09/25 04/13/25 Rx hours #1 tab Allergies Allergy/AdvReac Type Severity Reaction Status Date / Time celecoxib (From Celebrex) Allergy Mild Diarrhea Verified 04/07/25 12:28 diclofenac Allergy Mild Blister Verified 04/07/25 12:28 tetracycline Allergy Mild Unknown Verified 04/07/25 12:28 Exam Constitutional Documenting provider has reviewed patient's vital signs: yes Common normals: no apparent distress, oriented x3, healthy appearing, alert and well nourished General appearance: cooperative HENWI Common normals: normocephalic, hearing grossly normal bilaterally and moist oral mucous membranes Head and scalp: normocephalic Eye Common normals: PERRL Pupil: PERRL Neck & C-Spine Common normals: full ROM General: normal visual inspection Chest Common normals: inspection of chest normal Respiratory Common normals: normal respiratory effort, no retractions and no use of accessory muscles Back & Pelvis Lumbar spine/lower back: ROM limited and straight leg raise negative bilaterally; no pain with ROM and no lumbar spinal tenderness Sacroiliac joints: SI joint(s) abnormal Other: right sij positive araceli(patricks), gaenslens, thigh thrust, compression test positive facet loading tenderness noted L4-S1 Neuro Common normals: oriented x3 Sensorium/orientation: alert Psych Common normals: mental status grossly normal, thought process normal, cooperative, affect normal, speech normal and activity/motor behavior normal Speech: normal speech Thought process: normal thought process Results Additional Findings Additional findings: If on a controlled substance or opioids, I have checked an [place] report on this patient and there are no aberrancies noted in the prescribing history.??If on a controlled substance or opioid a drug screen was completed and reviewed within the last year, and if there has not been a drug screen completed we ordered one today to monitor higher risk, state monitored pain medication use. As part of providing excellent, safe, comprehensive care, the following was completed at our patient's visit: 1. A medication reconciliation and review to ensure accurate knowledge of current/active medications, including asking our patients to inform us about any [id number] medications or herbal remedies/nutritional supplements/alternative remedies. 2. A review to specifically ensure our patients have had annual screening for screening for depression, screening for tobacco use, and screening for unhealthy alcohol use. For concerning screenings had a discussion with the patient, provided patient education, and recommended follow-up with primary care provider when appropriate. If patient noted with a risk of falling, they received education on strength, gait, and balance training to prevent future risk of falling. Portions of this note may have been carried over from the previous visit and updated as appropriate. Please note this office utilizes paper charting in addition to the electronic medical record. A list of current medications, vitals, and PMH is available there as the clinical staff outside of myself do not have access to [facility] charting during the clinic day operations. As part of providing quality comprehensive care the current medications, vitals, and PMH were reviewed in the paper chart. Assessment and Plan Assessment and Plan (1) Lumbar spondylosis: Assessment and Plan: The patient has had over 3 months of moderate to severe low back pain with functional impairment and inadequate response to conservative care including NSAIDS (unless there are contraindication such as concurrent blood thinners), multiple oral or topical pain medications, and home exercise program/physical therapy.? Patient has completed >6 weeks of guided home exercise program and/or formal physical therapy program without relief of their symptoms.? The Oswestry Disability Index was completed, and the patient scored a 28%.? The patient noted the following:?? moderate to severe pain impacting ADLs, sitting, standing, sleeping, social life, travel ? (2) Myofascial pain: (3) Sacroiliitis: Plan start baclofen 5-10mg hs prn pain/spasms. risks vs benefits reviewed. call office if side effects pt traveling to [place] until spring 2025, return to office PRN at this time
== END 2025-05-14 12:49 | disposition home or self-care (01) ==
LOC: PM 12:49
PROVIDERS: PCP Internal Medicine; Visit Provider Nurse Practitioner
DX: M47.816 Spondylosis without myelopathy or radiculopathy, lumbar region (principal); M79.18 Myalgia, other site; M46.1 Sacroiliitis, not elsewhere classified
CPT/HCPCS: G0463